=== PATIENT | female | born 1970 | race Caucasian/White ===

== ENCOUNTER 2018-09-23 00:44 | Emergency (ER) | payer BC, SELFPAY ==
[2018-09-23 00:46] VITALS: BP 208/103; PULSE 68; RESP 18; TEMP 36.9; O2SAT 99; BMI 36.1
--- NOTE | 2018-09-23 01:14 | CT_ITS ---
STUDY: CT BRAIN WITHOUT CONTRAST REASON FOR EXAM: Female, 48 years old. Left-sided headache since September 20, 2018. RADIATION DOSAGE (If Supplied By Facility): CTDIvol = ( 44.99 ) mGy, DLP = ( 728.62 ) mGycm TECHNIQUE: Transaxial CT imaging of the brain was performed without administration of intravenous contrast material. Multiplanar reformations are submitted for interpretation. Individualized dose optimization techniques were used for this CT. COMPARISON: None. FINDINGS: Normal soft tissue structures. Normal calvarium. Normal size ventricles and extra-axial spaces for the patient's age. Normal white matter tracts of the cerebral hemispheres. Normal basal ganglia and thalami. Normal brainstem. Normal cerebellum. There is no intracranial hemorrhage. There is mild atherosclerotic calcification of the intracranial arteries. Normal visualized paranasal sinuses. CT/Brain/Head without Contrast IMPRESSION: No CT evidence of acute intracranial hemorrhage. Electronically Signed: Lisa Barboza MD at 2:13 EDT , Service support ,
[2018-09-23] MEDS: Ketorolac 30 MG/ML Syringe IV (01:21)
--- NOTE | 2018-09-23 02:28 | ED.VISSUMM ---
- ER Visit Summary Date of Service: 09/23/18 Chief Complaint: Left-sided headache History of Present Illness: The patient is a 48 F history of hypertension, cholesterol and prior stroke around 2012 that her symptoms totally resolved. She was told she may have had a minor dissection of her carotid and thrown a clot but her symptoms totally resolved. She was treated at the [facility] at that time. States that she has had a left-sided headache since morning. She awoke with but not because of the headache and has had it since that time initially was behind her left eye and now is more in the left posterior back of her head. She denies any trouble moving her arms and legs. States she had some tingling on the right side but she got up and walked around and that totally resolved. She is having no trouble with her speech. Physical Examination: Well-appearing middle-age female. Vital signs are stable and afebrile. Her initial blood pressure was 208/103 which will be rechecked. HEENT exam normal. Normal speech. No facial droop. Pupils are round reactive light. Extra motions are intact. Neck nontender. No meningismus. Able to touch chin to chest. Lungs clear to auscultation bilaterally. Heart regular rate and rhythm no murmur. Chest wall nontender. Abdomen soft nontender. Normal bowel sounds no peritoneal signs. She is moving all 4 extremities. They are neurovascular intact. Back exam normal. Neurologically she is awake alert. Has no focal motor or sensory deficits. 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 Fingertip to nose within normal limits bilaterally. She can do rapid hand movements with both hands equally and symmetrically. Dorsi and plantar flexion is intact. She has 5 out of 5 motor strength in both lower extremities. [id number] is within normal limits. Her NIH score is 0. Test Results: CT of the brain done without contrast shows no acute abnormalities read by the radiologist and reviewed by me. Patient and I and her discussed a CTA of her neck due to her sister who is her twin sister had carotid disease but they deferred at this time. She thinks this is all second anxiety and just wanted a dose of Ativan. Her repeat neurologic exam at remains normal with an NIH is 0. Emergency Department Course and Treatment: Patient treated with IV Toradol with limited results. On repeat exam at 02 10 he still has a mild left-sided headache but a normal neurologic exam. She did not want anything else for pain. Treatment Plan: Follow-up with her primary care physician. Patient had extensive MRI and brain imaging in the past which showed no signs of aneurysms or any other acute abnormalities. Disposition: Discharge Impression: Acute left-sided headache of uncertain etiology This note was generated with [employer] dictation software. It may contain incorrect words, spelling, and punctuation that were not noted in review of the chart prior to signing ED Disposition - Plan for ED Patient: Disposition: Home or Assisted Living Instructions: ED Cephalgia Unspecified Referrals: Duong Mckeon MD [Primary Care Provider] - 1-2 Days if not improving Additional Instructions: Plenty of fluids and rest. Return to ER if feeling worse. Follow-up with your primary care physician if not improving.
--- NOTE | 2018-09-23 02:32 | ED.DCSUM_ITS ---
- ER Visit Summary Date of Service: 09/23/18 Chief Complaint: Left-sided headache History of Present Illness: The patient is a 48 F history of hypertension, cholesterol and prior stroke around 2012 that her symptoms totally resolved. She was told she may have had a minor dissection of her carotid and thrown a clot but her symptoms totally resolved. She was treated at the [facility] at that time. States that she has had a left-sided headache since morning. She awoke with but not because of the headache and has had it since that time initially was behind her left eye and now is more in the left posterior back of her head. She denies any trouble moving her arms and legs. States she had some tingling on the right side but she got up and walked around and that totally resolved. She is having no trouble with her speech. Physical Examination: Well-appearing middle-age female. Vital signs are stable and afebrile. Her initial blood pressure was 208/103 which will be rechecked. HEENT exam normal. Normal speech. No facial droop. Pupils are round reactive light. Extra motions are intact. Neck nontender. No meningismus. Able to touch chin to chest. Lungs clear to auscultation bilaterally. Heart regular rate and rhythm no murmur. Chest wall nontender. Abdomen soft nontender. Normal bowel sounds no peritoneal signs. She is moving all 4 extremities. They are neurovascular intact. Back exam normal. Neurologically she is awake alert. Has no focal motor or sensory deficits. 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 Fingertip to nose within normal limits bilaterally. She can do rapid hand movements with both hands equally and symmetrically. Dorsi and plantar flexion is intact. She has 5 out of 5 motor strength in both lower extremities. Vkon-[id number] is within normal limits. Her NIH score is 0. Test Results: CT of the brain done without contrast shows no acute abnormalities read by the radiologist and reviewed by me. Patient and I and her discussed a CTA of her neck due to her sister who is her twin sister had carotid disease but they deferred at this time. She thinks this is all second anxiety and just wanted a dose of Ativan. Her repeat neurologic exam at remains normal with an NIH is 0. Emergency Department Course and Treatment: Patient treated with IV Toradol with limited results. On repeat exam at 02 10 he still has a mild left-sided headache but a normal neurologic exam. She did not want anything else for pain. Treatment Plan: Follow-up with her primary care physician. Patient had extensiv e MRI and brain imaging in the past which showed no signs of aneurysms or any other acute abnormalities. Disposition: Discharge Impression: Acute left-sided headache of uncertain etiology This note was generated with [employer] dictation software. It may contain incorrect words, spelling, and punctuation that were not noted in review of the chart prior to signing ED Disposition - Plan for ED Patient: Disposition: Home or Assisted Living Instructions: ED Cephalgia Unspecified Referrals: Duong Mckeon MD [Primary Care Provider] - 1-2 Days if not improving Additional Instructions: Plenty of fluids and rest. Return to ER if feeling worse. Follow-up with your primary care physician if not improving.
[2018-09-23 02:35] VITALS: BP 161/84; PULSE 59; RESP 17; O2SAT 98
[2018-09-23] MEDS: LORazepam 1 MG Tablet PO (02:47)
== END 2018-09-23 02:52 | disposition home or self-care (01) ==
PROVIDERS: Emergency Provider Emergency Medicine; Family Provider Family Medicine; PCP Family Medicine
DX: R51 Headache (principal); I10 Essential (primary) hypertension; E78.00 Pure hypercholesterolemia, unspecified; F32.9 Major depressive disorder, single episode, unspecified; Z86.73 Personal history of transient ischemic attack (TIA), and cerebral infarction without residual deficits; Z72.0 Tobacco use; Z79.82 Long term (current) use of aspirin; Z79.899 Other long term (current) drug therapy
CPT/HCPCS: 70450; 96374; 99284; A4216

== ENCOUNTER 2018-10-06 23:13 | Inpatient (IN) | payer BC, SELFPAY ==
[2018-10-06 23:14] VITALS: BP 205/100; PULSE 81; RESP 14; TEMP 36.4; O2SAT 97; BMI 34.9
[2018-10-07] VITALS (14 sets, daily range): BP systolic 132–188; BP diastolic 63–94; PULSE 66–80; RESP 13–18; TEMP 36.7–37.1; O2SAT 96–98; BMI 35.2
--- NOTE | 2018-10-07 00:18 | CT_ITS ---
STUDY: CT BRAIN WITHOUT CONTRAST REASON FOR EXAM: Female, 48 years old. Headache RADIATION DOSAGE (If Supplied By Facility): CTDIvol = ( 44.99 ) mGy, DLP = ( 745.49 ) mGycm TECHNIQUE: Transaxial CT imaging of the brain was performed without administration of intravenous contrast material. Individualized dose optimization techniques were used for this CT. COMPARISON: September 23, 2018 FINDINGS: Normal soft tissue structures. Normal calvarium. Normal size ventricles and extra-axial spaces for the patient's age. Normal white matter tracts of the cerebral hemispheres. Normal basal ganglia and thalami. Normal brainstem. Normal cerebellum. There is no intracranial hemorrhage. There are no findings of an acute ischemic infarction. Paranasal sinus disease. CT/Brain/Head without Contrast IMPRESSION: No acute territorial infarct or intracranial hemorrhage identified. Paranasal sinus disease. Electronically Signed: Ger Ramirez, at 2:52 EDT Tel , Service support ,
--- NOTE | 2018-10-07 00:18 | RAD_ITS ---
STUDY: X-RAY CHEST REASON FOR EXAM: Female, 48 years old. Cough TECHNIQUE: Single frontal view of the chest. COMPARISON: None. FINDINGS: The lungs are clear and expanded. There is no demonstrated pleural abnormality. Normal size heart. Normal mediastinum and derek. Normal visualized pulmonary arteries. Normal visualized aortic arch and descending thoracic aorta. Normal visualized thoracic spine. Normal visualized ribs, clavicles, and shoulders. There is no demonstrated abnormality of the visualized soft tissue structures of the upper abdomen. RAD/Chest 1 View IMPRESSION: Normal x-ray examination of the chest. Electronically Signed: Ger Ramirez, at 1:06 EDT Tel , Service support ,
--- NOTE | 2018-10-07 00:18 | EKG12_ITS ---
Test Reason : NEURO S/SX Blood Pressure : / mmHG Vent. Rate : 066 BPM Atrial Rate : 066 BPM P-R Int : 152 ms QRS Dur : 082 ms QT Int : 430 ms P-R-T Axes : 035 016 040 degrees QTc Int : 450 ms Normal sinus rhythm Normal ECG Confirmed by PANCHO LOBO, PETER ([id number]), editor managing director SALOME MCCARTY ([id number]) on 10/09/2018 1:11:03 PM Referred By: MARIA VICTORIA Confirmed By:PETER DELEON MD
--- NOTE | 2018-10-07 00:52 | ED.RN ---
ATTEMPTED TO CALL PHARMACY 3 TIMES REGARDING TRANDATE, NO ANSWER.
[2018-10-07 00:53] LABS: Absolute Lymphocyte Count 1.65 X10^3/ul (0.83-4.51); Absolute Neutrophil Count 6.3 X10^3/uL (2.0-7.7); Basophil# 0.02 X10^3/uL; Basophil% 0.2 % (0-1); Eosinophils% 1.1 % (0-5); Hematocrit 39.4 % (37-47); Hemoglobin 13.4 g/dl (12.0-15.0); Lymphocyte # 1.65 X10^3/ul (4.0); Lymphocyte % 18.7 % (19-41); Mean Corpuscular Hgb 28.8 pg (27.0-32.0); Mean Corpuscular Volume 84.7 fL (81-99); Mean Platelet Vol. 10.3 fl (6.2-12.0); Monocyte# 0.76 X10^3/uL; Monocyte% 8.6 % (0-10); Neutrophil # 6.26 X10^3/uL (2.7-7.7); Neutrophil % 71.2 % (47-70); POSITIVE COUNT NO; POSITIVE DIFFERENTIAL NO; POSITIVE MORPHOLOGY NO; Platelet Count 359 K/mm3 (150-450); RBC Distribution Width CV 12.7 % (11.6-14.6); RBC Distribution Width SD 38.2 fl (35.1-43.9); Red Blood Count 4.65 M/mm3 (4.2-5.4); White Blood Count 8.8 K/mm3 (4.4-11.0)
[2018-10-07 00:55] LABS: Prothrombin Time (Protime)PT. 12.9 SECONDS (11.7-14.9)
[2018-10-07 00:57] LABS: Partial Thromboplast Time 34.3 Seconds (24.1-36.2)
[2018-10-07 01:06] LABS: Anion Gap 5 (5-15); BUN 9 mg/dL (7-18); BUN/Creat Ratio 13.5 RATIO (10-20); Calcium,Total 7.9 mg/dL (8.5-10.1); Chloride 108 mmol/L (98-107); Creatinine, Serum 0.67 mg/dL (0.55-1.02); EST Glomerular Filtration Rate 99 mL/min (>60); Est Glom Filt Rate - Afr Amer 120 mL/min (>60); Glucose 116 mg/dL (74-106); Potassium 3.2 mmol/L (3.5-5.1); Sodium Level 137 mmol/L (136-145)
--- NOTE | 2018-10-07 03:10 | ED.VISSUMM ---
- ER Visit Summary Date of Service: 10/07/18 Chief Complaint: Headache, right-sided numbness History of Present Illness: The patient is a 48 F who presents with right-sided paresthesias. She was recently seen in the emergency department. At that time she was having left-sided headache right visual changes and right-sided numbness. 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 She states tonight she also developed some numbness in her tongue and around her lips. Her left-sided headache is resolved but she continues to have an occipital headache. She has ongoing right-sided paresthesias. No fever, chest pain, shortness of breath, vomiting, diarrhea. Denies any weakness. Does have a history of prior stroke. This was attributed to a carotid dissection. Physical Examination: Initial blood pressure 205/100 vitals otherwise normal Moist mucous membranes Heart regular rate and rhythm Lungs are clear Abdomen soft Alert oriented, NIH stroke scale is 1 due to decreased sensation to light touch of the right arm and leg she has normal strength cranial nerves are intact no ataxia Test Results: EKG shows sinus rhythm at a rate of 66. Labs notable for potassium 3.2. Normal coagulation studies. Negative troponin. Chest x-ray normal. CT of the head shows no acute infarct. Emergency Department Course and Treatment: Patient was given IV labetalol. Workup as above essentially unremarkable. Given that this is the patient's second visit with neurological symptoms and history of prior stroke I do feel she should be admitted for further workup including MRI of the brain. Patient is agreeable. Patient discussed with the hospitalist and admitted. Treatment Plan: [] Disposition: Admit Impression: Paresthesias This note was generated with [employer] dictation software. It may contain incorrect words, spelling, and punctuation that were not noted in review of the chart prior to signing ED Disposition - Plan for ED Patient: Referrals: Duong Mckeon MD [Primary Care Provider] -
--- NOTE | 2018-10-07 03:13 | ED.DCSUM_ITS ---
- ER Visit Summary Date of Service: 10/07/18 Chief Complaint: Headache, right-sided numbness History of Present Illness: The patient is a 48 F who presents with right-sided paresthesias. She was recently seen in the emergency department. At that time she was having left-sided headache right visual changes and right-sided numbness. 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 She states tonight she also developed some numbness in her tongue and around her lips. Her left-sided headache is resolved but she continues to have an occipital headache. She has ongoing right-sided paresthesias. No fever, chest pain, shortness of breath, vomiting, diarrhea. Denies any weakness. Does have a history of prior stroke. This was attributed to a carotid dissection. Physical Examination: Initial blood pressure 205/100 vitals otherwise normal Moist mucous membranes Heart regular rate and rhythm Lungs are clear Abdomen soft Alert oriented, NIH stroke scale is 1 due to decreased sensation to light touch of the right arm and leg she has normal strength cranial nerves are intact no ataxia Test Results: EKG shows sinus rhythm at a rate of 66. Labs notable for potassium 3.2. Normal coagulation studies. Negative troponin. Chest x-ray n ormal. CT of the head shows no acute infarct. Emergency Department Course and Treatment: Patient was given IV labetalol. Workup as above essentially unremarkable. Given that this is the patient's second visit with neurological symptoms and history of prior stroke I do feel she should be admitted for further workup including MRI of the brain. Patient i s agreeable. Patient discussed with the hospitalist and admitted. Treatment Plan: [] Disposition: Admit Impression: Paresthesias This note was generated with [employer] dictation software. It may contain incorrect words, spelling, and punctuation that were not noted in review of the chart prior to signing ED Disposition - Plan for ED Patient: Referrals: Duong Mckeon MD [Primary Care Provider] -
--- NOTE | 2018-10-07 05:18 | MRI_ITS ---
STUDY: MRA NECK WITH AND WITHOUT CONTRAST REASON FOR EXAM: Female, 48 years old. Numbness and tingling, right-sided numbness and tingling. Vision for 2 weeks. TECHNIQUE: 3-D pabx-ir-uakdct (TOF) imaging was performed in an 1.5 T MRI scanner. 15 IV Dotarem was administered for the contrast enhanced images. COMPARISON: None. FINDINGS: RIGHT CAROTID ARTERIES: Normal right common carotid artery (CCA). Normal right common carotid bulb. Normal origin of the right internal carotid (ICA) artery without a hemodynamically significant stenosis. Normal visualized cervical portion of the right internal carotid artery. Normal origin of the right external carotid artery (ECA). LEFT CAROTID ARTERIES: Normal left common carotid artery (CCA). Normal left common carotid bulb. Normal origin of the left internal carotid (ICA) artery without a hemodynamically significant stenosis. Normal visualized cervical portion of the left internal carotid artery. Normal origin of the left external carotid artery (ECA). VERTEBRAL ARTERIES: Normal antegrade flow within the bilateral vertebral artery without a hemodynamically significant stenosis. MRI/MRA Neck WITH and W/O Contrast IMPRESSION: No evidence of significant steno-occlusive disease or aneurysm. Electronically Signed: Vijay Ricketts DO at 12:04 EDT , Service support ,
--- NOTE | 2018-10-07 05:18 | MRI_ITS ---
STUDY: MRI BRAIN WITHOUT CONTRAST REASON FOR EXAM: Female, 48 years old. Numbness and tingling within the right side with blurred vision and headache. TECHNIQUE: Standardized multiplanar fat and water weighted pulse sequences were obtained. COMPARISON: None. FINDINGS: Normal size of the ventricles and extra-axial spaces for the patient's age. Normal white matter tracts of the supratentorial brain. There is a focal region of DWI signal with corresponding low signal on ADC map measuring 1.7 x 0.6 cm within the posterior left limbic region of the medial temporal lobe/hippocampus as seen on series 3 image 12 . Normal T2* images of the brain without demonstrated susceptibility artifact. There is no demonstrated hemosiderin stain. Normal bilateral basal ganglia. Normal thalami. There is no extra-axial fluid accumulation. Normal flow voids within the major intracranial circulation suggesting patency by spin echo criteria. Normal sella turcica, pituitary gland, infundibular stalk, optic chiasm and hypothalamus. Normal tectal plate and pineal gland. Normal midbrain, gemma and medulla. Normal cerebellum. Normal basal cisterns. Normal bilateral temporal bones. Normal bilateral internal auditory canals. No demonstrated orbital abnormality, within the constraints of a routine brain study. Normal visualized paranasal sinuses. Normal calvarium and skull base. Normal visualized soft tissue structures. Normal visualized upper cervical spine. 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 No evidence of large territorial ischemia. Electronically Signed: Vijay Ricketts DO at 11:32 EDT , Service support ,
--- NOTE | 2018-10-07 05:18 | ECHOD_ITS ---
Reason For Study: TIA/CVA Procedure This was a 2D Doppler, Color Flow transthoracic echocardiogram. Exam performed portable in patient room. Left Ventricle Normal LV size. Left ventricular systolic function is normal. The estimated ejection fraction is 60 %. Stage 1 diastolic dysfunction. No regional wall motion abnormalities noted. Right Ventricle Normal RV size. Normal systolic function. Atria Normal left atrium. Normal right atrium. Bubble contrast study negative for right to left interatrial shunt. Mitral Valve Normal mitral valve. Tricuspid Valve Normal tricuspid valve. Aortic Valve Trisinus/trileaflet aortic valve. Pulmonic Valve Normal pulmonic valve. Great Vessels Normal aortic root. The pulmonary artery is normal size. Normal inferior vena cava. Pericardium/Pleural No pericardial effusion. Medication Performed a rapid injection of agitated mix of 9 cc saline and 1cc air to assess for atrial septal defect. MMode/2D Measurements & Calculations LVIDd: 3.5 cm IVSd: 1.4 cm Ao root diam: 3.1 cm LVIDs: 2.0 cm LVPWd: 1.1 cm LA dimension: 3.8 cm RVDd: 3.1 cm FS: 43.3 % LAV(MOD-bp): 48.8 ml LA A4 area: 17.6 cm2 RA A4 area: 15.2 cm2 LAV(MOD-bp) Indexed: 26.6 ml/m2 LAV(MOD-sp2): 47.6 ml LAV(MOD-sp4): 48.6 ml Time Measurements MV dec time: 0.22 sec Doppler Measurements & Calculations MV E max marco antonio: 81.4 cm/sec Lat Peak E' Marco Antonio: 8.6 cm/sec Med Peak E' Marco Antonio: 8.1 cm/sec MV A max marco antonio: 87.9 cm/sec E/E' lat: 9.4 E/E' med: 10.0 MV E/A: 0.93 MV V2 max: 107.9 cm/sec MV P1/2t max marco antonio: 108.8 cm/sec Ao V2 max: 149.5 cm/sec MV max P.7 mmHg MV P1/2t: 70.8 msec Ao max P.9 mmHg MV V2 mean: 57.6 cm/sec MV dec slope: 450.2 cm/sec2 MV mean P.6 mmHg MV V2 VTI: 31.8 cm MVA(P1/2t): 3.1 cm2 LV V1 max: 119.0 cm/sec PA V2 max: 134.8 cm/sec LV V1 max P.7 mmHg Interpretation Summary Normal LV size. Left ventricular systolic function is normal. The estimated ejection fraction is 60 %. Stage 1 diastolic dysfunction. Bubble contrast study negative for right to left interatrial shunt. Ordering Physician: Silverio Stout Referring Physician: ROXY HANNA Performed By: Charles Cottrell RCS
--- NOTE | 2018-10-07 05:18 | MRI_ITS ---
STUDY: MRA OF THE HEAD WITHOUT CONTRAST REASON FOR EXAM: Female, 48 years old. Numbness and tingling with headache on the right side with blurred vision for 2 weeks. TECHNIQUE: 3-D gexh-ir-jepmcv (TOF) imaging was performed with MIPs. The study was performed unenhanced. COMPARISON: None. FINDINGS: Normal bilateral petrous carotid arteries. Normal right cavernous carotid artery with a normal supraclinoid bifurcation. Normal left cavernous carotid artery with a normal supraclinoid bifurcation. Normal right A1 segments of the anterior cerebral artery. Normal left A1 segments of the anterior cerebral artery. There is non-visualization of the anterior communicating artery (ACOM). Normal bilateral A2 segments of the anterior cerebral arteries. Normal right M1 and M2 segments of the middle cerebral arteries, with a normal M1 bifurcation. Normal left M1 and M2 segments of the middle cerebral arteries, with a normal M1 bifurcation. Normal right posterior communicating artery (PCOM). There is non-visualization of the left posterior communicating artery (PCOM). Normal bilateral vertebral arteries. Normal basilar artery with a normal basilar bifurcation. The visualized bilateral superior cerebellar (SCA) arteries are normal. The left posterior cerebral artery demonstrates a diminutive appearance with significant decreased flow within the P2 and P3 segments corresponding to the distribution of the left hippocampal infarct. There is no demonstrated aneurysm of the unga of [place]. There is no major vessel occlusion or hemodynamically significant stenosis. There is no demonstrated abnormality of the visualized brain. MRI/MRA Head ONLY without Contrast IMPRESSION: 1. Diminutive flow and apparent vessel cut off within the mid P2 the distal P3 segments of the left posterior cerebral artery corresponding to the territory of the left hippocampus. Electronically Signed: Vijay Ricketts DO at 11:32 EDT , Service support ,
--- NOTE | 2018-10-07 05:23 | PCM.HP.STD ---
Problem List (1) Right-sided paresthesias Status: Acute History of Present Illness Date of Admission: 10/07/18 Chief Complaint: Right-sided paresthesias The patient is a 48 year old F who was seen in the emergency room at [facility] with complaints of right arm, right leg, and right mid abdominal wall paresthesias. Patient was seen in the emergency room on 09/23/18 with complaints of headache and sensation of tingling on her right side. Workup at that time was unremarkable. Patient was felt to have a left-sided headache of unknown etiology-possibly migraine although patient has had no history of migraine cephalgia. Patient then followed up with her family doctor as an outpatient but she states that her family doctor was unable to get approval for additional testing to be performed on the patient. Starting at approximately 11 PM on 10/06/18, patient had some tingling of her lips and tongue, she states that she still has some tingling and numb sensation of her right arm, right leg, and an area over her right mid abdominal wall extending into her right flank area. Patient has a past history of stroke and was seen at the [facility] and hospitalized for 3 days in 2012 for this stroke. Patient admitted that she never followed up with a neurologist as an outpatient-she stated that her son had medical problems and she never followed up with a neurologist. Patient also states that her MRI scan at the [facility] was unremarkable. Patient states in 2012 during this episode, she had dizziness and extreme nausea. Workup in the emergency room this morning included a CT of her brain which was unremarkable, CBC was unremarkable, chemistry panel was remarkable for a potassium of 3.2 and a glucose of 116. Patient's NIH stroke score was 1. Patient will be placed into observation status on PCU, MRI of the brain, MRA of the head and neck as well as a hypercoagulability workup panel will be ordered. Echocardiogram will be ordered. I have my doubts that the patient actually had a stroke in 2012, I do not have her records available to review them. Past Medical History Past Medical History (Chronic Problems): Chronic Problems Hypothyroidism (Chronic) Depression (Chronic) Allergies No Known Allergies Allergy (Verified 10/06/18 23:19) Home Medications: Ambulatory Orders Medication Instructions Recorded Levothyroxine [Synthroid] 25 mcg PO DAILY 09/08/13 Paroxetine HCl [Paxil] 10 mg PO DAILY 09/08/13 Atenolol [Tenormin (beta tez)] 25 mg PO DAILY 01/07/17 Atorvastatin Calcium 20 mg PO QHS 01/07/17 buPROPion XL [Wellbutrin Xl] 300 mg PO DAILY 01/07/17 Aspirin [Aspirin, Baby] 1 tab PO DAILY 09/23/18 Surgical History: - - Psychiatric History: Anxiety, Depression 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 Lives: Spouse/ Significant Other Smoking Status: Current some day smoker Tobacco Use: Cigarettes Alcohol: Rare Drugs: None - *Family History Maternal History Items: Heart Disease, Stroke Paternal History Items: Heart Disease Review of Systems Constitutional: Denies: Anorexia, Chills, Fever, Night Sweats, Malaise, Weakness, Weight Change, Fatigue Eyes: Denies: Cataracts, Conjunctivae Inflammation, Double vision, Drainage HEENT: Denies: Dysphasia, Ear Pain, Eye Pain, Hard of Hearing, Hearing Changes, Nasal bleeding, Nasal Congestion, Post Nasal Drip Cardiovascular: Denies: Chest Pain, Claudication, Chest Pressure, Chest Tightness, Edema, Heaviness, Palpitations Respiratory: Denies: Cough, Hemoptysis, Pleuritic Pain, Shortness of Breath, Shortness of breath at rest, Shortness of breath upon exertion Gastrointestinal: Denies: Abdominal Pain, Constipation, Diarrhea, Hematemesis, Hematochezia, Nausea, Melena, Vomiting Genitourinary: Denies: Dysuria, Frequency, Hematuria, Hesitancy, Incontinence, Nocturia, Retention, Urgency Gynecological: Denies: Breast symptoms Musculoskeletal: Denies: Back Pain, Foot Pain, Hand Pain, Joint Pain, Joint stiffness, Joint swelling, Joint Tenderness, Leg Pain Skin: Denies: Dryness, Jaundice, Lesions, Pruritis, Rash Neurological: Reports: Numbness - Right abdominal wall paresthesias, right leg and right arm paresthesias. Denies: Balance problems, Blurred vision, Double vision, Slurred speech, Difficulty swallowing, Focal weakness, Incoordination, Tingling Psychiatric: Reports: Anxiety, Depression. Denies: Homicidal Ideations, Suicidal Ideations Endocrine: Denies: Change in Body Habitus, Heat/ Cold Intolerance, Polydipsia, Polyuria Hematologic/ Lymphatic: Denies: Adenopathy, Anemia, Easy Bruising, Easy Bleeding, Petechiae, Purpura VTE Information - Inpt Only VTE Present on Admission: No VTE Mechan Device Prophylaxis: None VTE Pharm Prophylaxis ordered?: Yes Patient Problems: Active and Suspected Problems Right-sided paresthesias (Acute) - Physical Exam General: Alert, Oriented x3, Cooperative, No apparent distress, Well developed, Well nourished HEENT: Atraumatic, PERRLA, EOMI, Normocephalic Oral: Moist Mucosa Neck: Supple, No JVD, Negative Carotid Bruits, No Nuchal Rigidity, Trachea Midline, Thyroid Normal Size and Texture Lungs: Clear to auscultation, Normal air movement, No rhonchi, No wheeze, No rales Cardiovascular: Regular rate, Regular Rhythm, Normal S1, Normal S2, No murmurs, PMI Normal, No rub noted, No Gallop Abdomen: Bowel Sounds Present, Soft, Non Tender, Non-Distended, No hernias noted Extremities: No clubbing, No cyanosis, No edema, Capillary Refill Less than 3 Seconds Skin: No rashes, No breakdown Neurological: Cranial nerves II-XII grossly intact, Neuro grossly intact, Sensory exam intact to light touch and pain, Coordination normal Psych/Mental Status: Normal Affect, Appropriate, Alert and oriented to time, place, person, mood and affect Vital Signs Temp Pulse Resp BP Pulse Ox 97.6 F L 66 14 152/84 H 96 10/06/18 23:14 10/07/18 03:02 10/07/18 03:02 10/07/18 03:02 10/07/18 03:02 Oxygen Delivery Method Room Air Weight: 83.915 kg Body Mass Index (BMI) 34.9 Laboratory Tests Past 24 Hrs 10/07/18 10/07/18 10/07/18 00:33 00:33 00:33 WBC 8.8 RBC 4.65 Hgb 13.4 Hct 39.4 MCV 84.7 MCH 28.8 MCHC 34.0 RDW 12.7 RDW Differential 38.2 Plt Count 359 MPV 10.3 Immature Gran % (Auto) 0.200 Neut % (Auto) 71.2 H Lymph % (Auto) 18.7 L [place] % (Auto) 8.6 Eos % (Auto) 1.1 Baso % (Auto) 0.2 Absolute Neuts (auto) 6.3 Absolute Lymphs (auto) 1.65 Total Counted Not Reportable PT 12.9 INR 1.0 APTT 34.3 Sodium 137 Potassium 3.2 L Chloride 108 H Carbon Dioxide 24.0 Anion Gap 5 BUN 9 Creatinine 0.67 Estim Creat Clear Calc 75.80 Est GFR (MDRD) Af Amer 120 Est GFR (MDRD) Non-Af 99 BUN/Creatinine Ratio 13.5 Glucose 116 H Calcium 7.9 L Troponin I < 0.015 Assessment/Plan All Active Problems Right-sided paresthesias (Acute) #1 right-sided paresthesias-patient will be placed and observation status on PCU, patient will be seen by PT OT and speech, patient will undergo an echocardiogram, she will have a hypercoagulable panel drawn, patient will have an MRI of the brain, and MRA of the head and neck performed. Main on a statin and aspirin #2 chronic anxiety and depression-patient will remain on her present medications #3 hypothyroidism Code Visit OBSV E&M: 24581 Initial observation care L3
--- NOTE | 2018-10-07 05:37 | HP.PCM_ITS ---
Problem List (1) Right-sided paresthesias Status: Acute History of Present Illness Date of Admission: 10/07/18 Chief Complaint: Right-sided paresthesias The patient is a 48 year old F who was seen in the emergency room at [facility] with complaints of right arm, right leg, and right mid abdominal wall paresthesias. Patient was seen in the emergency room on 09/23/18 with complaints of headache and sensation of tingling on her right side. Workup at that time was unremarkable. Patient was felt to have a left-sided headache of unknown etiology-possibly migraine although patient has had no history of migraine cephalgia. Patient then followed up with her family doctor as an outpatient but she states that her family doctor was unable to get approval for additional testing to be performed on the patient. Starting at approximately 11 PM on 10/06/18, patient had some tingling of her lips and tongue, she states that she still has some tingling and numb sensation of her right arm, right leg, and an area over her right mid abdominal wall extending into her right flank area. Patient has a past history of stroke and was seen at the [facility] and hospitalized for 3 days in 2012 for this stroke. Patient admitted that she never followed up with a neurologist as an outpatient-she stated that her son had medical problems and she never followed up with a neurologist. Patient also states that her MRI scan at the [facility] was unremarkable. Patient states in 2012 during this episode, she had dizziness and extreme nausea. Workup in the emergency room this morning included a CT of her brain which was unremarkable, CBC was unremarkable, chemistry panel was remarkable for a potassium of 3.2 and a glucose of 116. Patient's NIH stroke score was 1. Patient will be placed into observation status on PCU, MRI of the brain, MRA of the head and neck as well as a hypercoagulability workup panel will be ordered. Echocardiogram will be ordered. I have my doubts that the patient actually had a stroke in 2012, I do not have her records available to review them. Past Medical History Past Medical History (Chronic Problems): Chronic Problems Hypothyroidism (Chronic) Depression (Chronic) Allergies No Known Allergies Allergy (Verified 10/06/18 23:19) Home Medications: Ambulatory Orders Medication Instructions Recorded Levothyroxine [Synthroid] 25 mcg PO DAILY 09/08/13 Paroxetine HCl [Paxil] 10 mg PO DAILY 09/08/13 Atenolol [Tenormin (beta tez)] 25 mg PO DAILY 01/07/17 Atorvastatin Calcium 20 mg PO QHS 01/07/17 buPROPion XL [Wellbutrin Xl] 300 mg PO DAILY 01/07/17 Aspirin [Aspirin, Baby] 1 tab PO DAILY 09/23/18 Surgical History: - - Psychiatric History: Anxiety, Depression 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 Lives: Spouse/ Significant Other Smoking Status: Current some day smoker Tobacco Use: Cigarettes Alcohol: Rare Drugs: None - *Family History Maternal History Items: Heart Disease, Stroke Paternal History Items: Heart Disease Review of Systems Constitutional: Denies: Anorexia, Chills, Fever, Night Sweats, Malaise, Weakness, Weight Change, Fatigue Eyes: Denies: Cataracts, Conjunctivae Inflammation, Double vision, Drainage HEENT: Denies: Dysphasia, Ear Pain, Eye Pain, Hard of Hearing, Hearing Changes, Nasal bleeding, Nasal Congestion, Post Nasal Drip Cardiovascular: Denies: Chest Pain, Claudication, Chest Pressure, Chest Tightness, Edema, Heaviness, Palpitations Respiratory: Denies: Cough, Hemoptysis, Pleuritic Pain, Shortness of Breath, Shortness of breath at rest, Shortness of breath upon exertion Gastrointestinal: Denies: Abdominal Pain, Constipation, Diarrhea, Hematemesis, Hematochezia, Nausea, Melena, Vomiting Genitourinary: Denies: Dysuria, Frequency, Hematuria, Hesitancy, Incontinence, Nocturia, Retention, Urgency Gynecological: Denies: Breast symptoms Musculoskeletal: Denies: Back Pain, Foot Pain, Hand Pain, Joint Pain, Joint stiffness, Joint swelling, Joint Tenderness, Leg Pain Skin: Denies: Dryness, Jaundice, Lesions, Pruritis, Rash Neurological: Reports: Numbness - Right abdominal wall paresthesias, right leg and right arm paresthesias. Denies: Balance problems, Blurred vision, Double vision, Slurred speech, Difficulty swallowing, Focal weakness, Incoordination, Tingling Psychiatric: Reports: Anxiety, Depression. Denies: Homicidal Ideations, Suicidal Ideations Endocrine: Denies: Change in Body Habitus, Heat/ Cold Intolerance, Polydipsia, Polyuria Hematologic/ Lymphatic: Denies: Adenopathy, Anemia, Easy Bruising, Easy Bleeding, Petechiae, Purpura VTE Information - Inpt Only VTE Present on Admission: No VTE Mechan Device Prophylaxis: None VTE Pharm Prophylaxis ordered?: Yes Patient Problems: Active and Suspected Problems Right-sided paresthesias (Acute) - Physical Exam General: Alert, Oriented x3, Cooperative, No apparent distress, Well developed, Well nourished HEENT: Atraumatic, PERRLA, EOMI, Normocephalic Oral: Moist Mucosa Neck: Supple, No JVD, Negative Carotid Bruits, No Nuchal Rigidity, Trachea M idline, Thyroid Normal Size and Texture Lungs: Clear to auscultation, Normal air movement, No rhonchi, No wheeze, No rales Cardiovascular: Regular rate, Regular Rhythm, Normal S1, Normal S2, No murmurs, PMI Normal, No rub noted, No Gallop Abdomen: Bowel Sounds Present, Soft, Non Tender, Non-Distended, No hernias noted Extremities: No clubbing, No cyanosis, No edema, Capillary Refill Less than 3 Seconds Skin: No rashes, No breakdown Neurological: Cranial nerves II-XII grossly intact, Neuro grossly intact, Sensory exam intact to light touch and pain, Coordination normal Psych/Mental Status: Normal Affect, Appropriate, Alert and oriented to time, place, person, mood and affect Vital Signs Temp Pulse Resp BP Pulse Ox 97.6 F L 66 14 152/84 H 96 10/06/18 23:14 10/07/18 03:02 10/07/18 03:02 10/07/18 03:02 10/07/18 03:02 Oxygen Delivery Method Room Air Weight: 83.915 kg Body Mass Index (BMI) 34.9 Laboratory Tests Past 24 Hrs 10/07/18 10/07/18 10/07/18 00:33 00:33 00:33 WBC 8.8 RBC 4.65 Hgb 13.4 Hct 39.4 MCV 84.7 MCH 28.8 MCHC 34.0 RDW 12.7 RDW Differential 38.2 Plt Count 359 MPV 10.3 Immature Gran % (Auto) 0.200 Neut % (Auto) 71.2 H Lymph % (Auto) 18.7 L [place] % (Auto) 8.6 Eos % (Auto) 1.1 Baso % (Auto) 0.2 Absolute Neuts (auto) 6.3 Absolute Lymphs (auto) 1.65 Total Counted Not Reportable PT 12.9 INR 1.0 APTT 34.3 Sodium 137 Potassium 3.2 L Chloride 108 H Carbon Dioxide 24.0 Anion Gap 5 BUN 9 Creatinine 0.67 Estim Creat Clear Calc 75.80 Est GFR (MDRD) Af Amer 120 Est GFR (MDRD) Non-Af 99 BUN/Creatinine Ratio 13.5 Glucose 116 H Calcium 7.9 L Troponin I < 0.015 Assessment/Plan All Active Problems Right-sided paresthesias (Acute) #1 right-sided paresthesias-patient will be placed and observation status on PCU, patient will be seen by PT OT and speech, patient will undergo an echocardiogram, she will have a hypercoagulable panel drawn, patient will have an MRI of the brain, and MRA of the head and neck performed. Main on a statin and aspirin #2 chronic anxiety and depression-patient will remain on her present medications #3 hypothyroidism Code Visit OBSV E&M: 32247 Initial observation care L3
[2018-10-07] MEDS: Levothyroxine 25 MCG TABLET PO (05:55)
[2018-10-07 07:36] LABS: Cholesterol 156 mg/dL (200); High Density Lipoprotein 40 mg/dL; Triglycerides 93 mg/dL; Very Low Density Lipoprotein 19 mg/dL (5-40)
[2018-10-07] MEDS: Aspirin 81 MG TAB.CHEW PO (08:51)
[2018-10-07] MEDS: PARoxetine 10 MG Tablet PO (08:52)
[2018-10-07] MEDS: Acetaminophen 325 MG Tablet 650 MG PO (08:52)
[2018-10-07] MEDS: buPROPion (XL) 300 MG TABLET.XL PO (08:52)
[2018-10-07] MEDS: Atenolol 25 MG Tablet PO (08:52)
[2018-10-07] MEDS: 0.9% NaCl Peripheral Flush Adult/Peds IV (10:17)
[2018-10-07] MEDS: LORazepam 2 MG/ML Syringe 1 MG IV (10:18)
--- NOTE | 2018-10-07 14:11 | PCM.HOSP.N ---
Hospitalist Note The patient was admitted last night for 2 weeks history of blurry vision, right-sided numbness/paresthesia. Chronology of events: Started with left eye blurry vision and then right eye with headache, felt like aura and then right-sided numbness. She did not feel weakness. She saw her PCP and was told she has migraine headache. In ED, NIH stroke scale was 1 from prior left-sided/facial droop from previous stroke 9 years ago in 2012. On exam Sensation on both side to cold and pinprick is equal. No focal weakness. [id number] and heel hunter test normal. DTR 2/4. Patient alert awake oriented x3. NIH stroke scale of 1 Imaging MRI brain reported as focal 1.7 x 0.6 cm infarct within the left posterior hippocampus. No evidence of large territorial ischemia. MRA head reported diminished flow and apparent vessel cutoff within the mid P2, distal P3 segment of left posterior cerebral artery corresponding to territory of left hippocampus. Management and plan The imaging findings discussed with the neurologist, Dr. Bonilla. This was further discussed with the patient and her present in the room. Advised continue aspirin, Plavix and statin, atorvastatin 80 mg daily. Fasting lipid profile TG 93, LDL 97. A1c tomorrow a.m. hypercoagulable workup has been ordered last night and is pending. 2D echo tomorrow a.m. Blood pressure is controlled. Mild hypokalemia: Potassium replaced. Clinical Impression(s) from Imaging Studies Brain CT 10/07/18 00:18 IMPRESSION: No acute territorial infarct or intracranial hemorrhage identified. Paranasal sinus disease. Chest X-Ray 10/07/18 00:18 IMPRESSION: Normal x-ray examination of the chest. Brain MRI 10/07/18 05:18 IMPRESSION: Findings consistent with a focal 1.7 x 0.6 cm infarct within the left posterior hippocampus. No evidence of large territorial ischemia. Head MRA 10/07/18 05:18 IMPRESSION: 1. Diminutive flow and apparent vessel cut off within the mid P2 the distal P3 segments of the left posterior cerebral artery corresponding to the territory of the left hippocampus. Neck MRA 10/07/18 05:18 IMPRESSION: No evidence of significant steno-occlusive disease or aneurysm. Laboratory Results 10/07/18 00:33: WBC 8.8, RBC 4.65, Hgb 13.4, Hct 39.4, MCV 84.7, MCH 28.8, MCHC 34.0, RDW 12.7, RDW Differential 38.2, Plt Count 359, MPV 10.3, Immature Gran % (Auto) 0.200, Neut % (Auto) 71.2 H, Lymph % (Auto) 18.7 L, [place] % (Auto) 8.6, Eos % (Auto) 1.1, Baso % (Auto) 0.2, Absolute Neuts (auto) 6.3, Absolute Lymphs (auto) 1.65, Total Counted Not Reportable 10/07/18 00:33: PT 12.9, INR 1.0, APTT 34.3 10/07/18 00:33: Sodium 137, Potassium 3.2 L, Chloride 108 H, Carbon Dioxide 24.0, Anion Gap 5, BUN 9, Creatinine 0.67, Estim Creat Clear Calc 75.80, Est GFR (MDRD) Af Amer 120, Est GFR (MDRD) Non-Af 99, BUN/Creatinine Ratio 13.5, Glucose 116 H, Calcium 7.9 L, Troponin I < 0.015 10/07/18 06:52: Miscellaneous Test Pending 10/07/18 06:52: Triglycerides 93, Cholesterol 156, LDL Cholesterol 97, VLDL Cholesterol 19, HDL Cholesterol 40 Code Visit Inpatient E&M: 04957 Subs Hosp L1
--- NOTE | 2018-10-07 14:24 | CCHN_ITS ---
Hospitalist Note The patient was admitted last night for 2 weeks history of blurry vision, right- sided numbness/paresthesia. Chronology of events: Started with left eye blurry vision and then right eye with headache, felt like aura and then right-sided numbness. She did not feel weakness. She saw her PCP and was told she has migraine headache. In ED, NIH stroke scale was 1 from prior left-sided/facial droop from previous stroke 9 years ago in 2012. On exam Sensation on both side to cold and pinprick is equal. No focal weakness. Cqvrno-[id number] and heel hunter test normal. DTR 2/4. Patient alert awake oriented x3. NIH stroke scale of 1 Imaging MRI brain reported as focal 1.7 x 0.6 cm infarct within the left posterior hippocampus. No evidence of large territorial ischemia. MRA head reported diminished flow and apparent vessel cutoff within the mid P2, distal P3 segment of left posterior cerebral artery corresponding to territory of left hi ppocampus. Management and plan The imaging findings discussed with the neurologist, Dr. Bonilla. This was further discussed with the patient and her present in the room. Advised continue aspirin, Plavix and statin, atorvastatin 80 mg daily. Fasting lipid profile TG 93, LDL 97. A1c tomorrow a.m. hypercoagulable workup has been ordered last night and is pending. 2D echo tomorrow a.m. Blood pressure is controlled. Mild hypokalemia: Potassium replaced. Clinical Impression(s) from Imaging Studies Brain CT 10/07/18 00:18 IMPRESSION: No acute territorial infarct or intracranial hemorrhage identified. Paranasal sinus disease. Chest X-Ray 10/07/18 00:18 IMPRESSION: Normal x-ray examination of the chest. Brain MRI 10/07/18 05:18 IMPRESSION: Findings consistent with a focal 1.7 x 0.6 cm infarct within the left posterior hippocampus. No evidence of large territorial ischemia. Head MRA 10/07/18 05:18 IMPRESSION: 1. Diminutive flow and apparent vessel cut off within the mid P2 the distal P3 segments of the left posterior cerebral artery corresponding to the territory of the left hippocampus. Neck MRA 10/07/18 05:18 IMPRESSION: No evidence of significant steno-occlusive disease or aneurysm. Laboratory Results 10/07/18 00:33: WBC 8.8, RBC 4.65, Hgb 13.4, Hct 39.4, MCV 84.7, MCH 28.8, MCHC 34.0, RDW 12.7, RDW Differential 38.2, Plt Count 359, MPV 10.3, Immature Gran % (Auto) 0.200, Neut % (Auto) 71.2 H, Lymph % (Auto) 18.7 L, [place] % (Auto) 8.6, Eos % (Auto) 1.1, Baso % (Auto) 0.2, Absolute Neuts (auto) 6.3, Absolute Lymphs (auto) 1.65, Total Counted Not Reportable 10/07/18 00:33: PT 12.9, INR 1.0, APTT 34.3 10/07/18 00:33: Sodium 137, Potassium 3.2 L, Chloride 108 H, Carbon Dioxide 24.0, Anion Gap 5, BUN 9, Creatinine 0.67, Estim Creat Clear Calc 75.80, Est GFR (MDRD) Af Amer 120, Est GFR (MDRD) Non-Af 99, BUN/Creatinine Ratio 13.5, Glucose 116 H, Calcium 7.9 L, Troponin I < 0.015 10/07/18 06:52: Miscellaneous Test Pending 10/07/18 06:52: Triglycerides 93, Cholesterol 156, LDL Cholesterol 97, VLDL Cholesterol 19, HDL Cholesterol 40 Code Visit Inpatient E&M: [id number] Subs Hosp L1
[2018-10-07] MEDS: Clopidogrel Bisulfate 75 MG Tablet PO (14:53)
[2018-10-07] MEDS: Atorvastatin Calcium 80 MG Tablet PO (21:22)
[2018-10-08] VITALS (8 sets, daily range): BP systolic 139–170; BP diastolic 77–88; PULSE 63–74; RESP 16–18; TEMP 36.7–37; O2SAT 97–98; BMI 35.2
[2018-10-08] MEDS: ALPRAZolam 0.5 MG Tablet PO (01:44)
[2018-10-08] MEDS: 0.9% NaCl Peripheral Flush Adult/Peds IV (04:30)
[2018-10-08] MEDS: Levothyroxine 50 MCG Tablet PO (04:30)
[2018-10-08 06:21] LABS: Anion Gap 6 (5-15); BUN 7 mg/dL (7-18); Calcium,Total 8.1 mg/dL (8.5-10.1); Chloride 110 mmol/L (98-107); EST Glomerular Filtration Rate 94 mL/min (>60); Est Glom Filt Rate - Afr Amer 114 mL/min (>60); Estimated Creatinine Clearance 72.55 ml/min; Glucose 93 mg/dL (74-106); Sodium Level 142 mmol/L (136-145)
[2018-10-08] MEDS: Aspirin 81 MG TAB.CHEW PO (09:32)
[2018-10-08] MEDS: Atenolol 50 MG Tablet PO (09:32)
[2018-10-08] MEDS: PARoxetine 10 MG Tablet PO (09:32)
[2018-10-08] MEDS: buPROPion (XL) 300 MG TABLET.XL PO (09:32)
[2018-10-08] MEDS: Clopidogrel Bisulfate 75 MG Tablet PO (09:32)
[2018-10-08 10:42] LABS: Hemoglobin A1c 5.2 % (4.2-6.3)
--- NOTE | 2018-10-08 11:02 | CASEMGMT ---
Addendum entered by Stacey Canales 10/08/18 14:35: Speech is recommending OP speech therapy at this time. Pt is agreeable and would like order faxed to [facility] at this time. Script faxed to [employer] and original to pt at this time. Toña LOU CM Original Note: CARMINE DIAZ assessment: Face to Face with patient for initial transition planning/care coordination assessment. CARMINE DIAZ introduced self and role at [facility], pt voices understanding and consents to assessment at this time. Pt is sitting up in bed in no distress at this time. Pt is A/Ox4 at this time and answers all questions appropriately at this time. Care providers, pharmacy, and demographics verified/updated at this time. PCP: Linda Specialists: Pt states currently has no specialists. Preferred Pharmacy: [facility] Insurance: [place] Prescription Benefit: [place] Living Will/HPOA: Pt states does not have LW/HPOA and declines info at this time. LNOK: Triston Cameron, Living Arrangements: Pt states lives with in 2 story home and states no concerns at home at this time. Pt states is independent with ADL's. Transportation: Pt states drives self and states no transportation concerns at this time. DME/HHC: Pt states no current DME or need for any at this time. Pt states no hx of HHC or SNF in the past. Pt states no concerns with going home at time of discharge. Pt states works [employer]. Pt states was smoking cigarettes occasionally and drinking ETOH occasionally but plans to decrease d/t infarct. Pt states no further concerns/needs at this time. CM to follow for any further discharge planning/needs. Advised pt to ask for CM if any further questions/concerns/needs arise, voices understanding. Plan: Home Toña LOU CM
--- NOTE | 2018-10-08 11:05 | DCINST_ITS ---
- Discharge Diagnoses Current Active Problems: Current Active and Chronic Problems Right-sided paresthesias (Acute) Reason(s) for Visit for Discharge Instructions: Right sided numbness You will use the following diet at home:: Cardiac Your food should be the consistency of: Regular Your liquids should be the consistency of: Regular/Thin Discharge Activity: Return to Normal Activity Weight Bearing Status: Weight bearing as tolerated Additional Instructions: Continue on all your medications. Follow-up on your blood tests that were pending at discharge. Follow-up with Dr. Hart within 2-4 weeks Allergies/Adverse Reactions: Allergies No Known Allergies Allergy (Verified 10/06/18 23:19) Medications to take at Discharge Levothyroxine [Synthroid] 50 mcg PO DAILY 09/08/13 Paroxetine HCl [Paxil] 10 mg PO DAILY 09/08/13 Atenolol [Tenormin (beta tez)] 50 mg PO DAILY 01/07/17 buPROPion XL [Wellbutrin Xl] 300 mg PO DAILY 01/07/17 Acetaminophen [Tylenol Tablet] 650 mg PO Q4H PRN PRN tablet 10/08/18 Aspirin [Aspirin, Baby] 1 tab PO DAILY #30 tab.chew 10/08/18 Atorvastatin Calcium [Lipitor] 80 mg PO QHS #30 tablet 10/08/18 Clopidogrel Bisulfate [Plavix] 75 mg PO DAILY #30 tablet 10/08/18 The following prescriptions were given: Aspirin [Aspirin, Baby] 1 tab PO DAILY #30 tab.chew Atorvastatin Calcium [Lipitor] 80 mg PO QHS #30 tablet Clopidogrel Bisulfate [Plavix] 75 mg PO DAILY #30 tablet Primary Care Physician: Duong Mckeon MD [Primary Care Provider] - Please follow up with your Primary Care Physician in: within 1-2 weeks Test Results: Test results from this visit will be discussed in further detail at your follow- up appointment, if applicable. Please Follow Up With: Mir Hart MD When: within 2-4 weeks Proposed Discharge Date: 10/08/18
--- NOTE | 2018-10-08 12:04 | PHA.DC.MC ---
Pharmacy Service has performed discharge medication reconciliation and counseling for this patient. The patient's discharge medication list was reviewed for discrepancies and discrepancies were resolved. The patient was counseled on the following discharge medications and changes in medications for homegoing were reviewed. The Reason for Use, instructions for use, and potential side effects were reviewed for all new medications. 1. CLOPIDOGREL The patient's questions regarding all of their medications were answered. The patient was able to verbally demonstrate an understanding of their discharge medications. Home Medications Levothyroxine [Synthroid] 50 mcg PO DAILY 09/08/13 Paroxetine HCl [Paxil] 10 mg PO DAILY 09/08/13 Atenolol [Tenormin (beta tez)] 50 mg PO DAILY 01/07/17 buPROPion XL [Wellbutrin Xl] 300 mg PO DAILY 01/07/17 Acetaminophen [Tylenol Tablet] 650 mg PO Q4H PRN PRN tablet 10/08/18 Aspirin [Aspirin, Baby] 1 tab PO DAILY #30 tab.chew 10/08/18 Atorvastatin Calcium [Lipitor] 80 mg PO QHS #30 tablet 10/08/18 Clopidogrel Bisulfate [Plavix] 75 mg PO DAILY #30 tablet 10/08/18
--- NOTE | 2018-10-08 12:29 | CASEMGMT ---
Addendum entered and electronically signed by Karlene Marcial 10/08/18 16:28: Reviewed and approve [employer]ED [employer] student documentation below. -DARRYN Ventura, MARKET GARDENER Original Note: Social Work Progressive Care Unit PHQ9 verbally administered due to diagnosis with neurological changes. The patient identified to be feeling little pleasure in doing things since initial ER visit roughly two weeks ago. Patient reported feelings of being down and depressed due to health condition. Patient has had trouble falling asleep with fear that will not wake up due to potential health concerns that have not been diagnosed. Patient reported that health has made her feel to have less energy than before. Patient feels stress has influenced to find self overeating. Patient reports that health condition with stroke has made holding a conversation more difficult and occasionally struggling to remember specific words or names as hippocampus was affected. Overall patient reports to have some difficult with doing regular daily things. Patient reports to cope with speaking with family. Patient is also prescribed anti-depressant medication with no plans to stop taking. Patient was interested in counseling information and comprehensive counseling list and general resource handout about depression was provided with Behavioral Health Brochure. No other services requested or indicated at this time. Patient declined social work referral for counseling due to wanting to speak with daughter about options and feels capable of doing so on own. -Emi Bermudez, HAND PRINTED CIRCUIT BOARD ASSEMBLER Student [employer].
--- NOTE | 2018-10-08 18:19 | DS.PCM_ITS ---
Discharge Date and Diagnosis Date of Admission: 10/07/18 Date of Discharge: 10/08/18 - Primary Discharge Diagnosis Acute left hippocampal infarct - Secondary Discharge Diagnosis Chronic Problems Hypothyroidism (Chronic) Depression (Chronic) Hospital Course and Treatment Imaging Results: Clinical Impression(s) from Imaging Studies Brain CT 10/07/18 00:18 IMPRESSION: No acute territorial infarct or intracranial hemorrhage identified. Paranasal sinus disease. Electronically Signed: Ger Ramirez, at 2:52 EDT Tel , Service support , Chest X-Ray 10/07/18 00:18 IMPRESSION: Normal x-ray examination of the chest. Electronically Signed: Ger Ramirez at 1:06 EDT Tel , Service support , Brain MRI 10/07/18 05:18 IMPRESSION: Findings consistent with a focal 1.7 x 0.6 cm infarct within the left posterior hippocampus. No evidence of large territorial ischemia. Electronically Signed: Vijay Ricketts DO at 11:32 EDT , Service support , Head MRA 10/07/18 05:18 IMPRESSION: 1. Diminutive flow and apparent vessel cut off within the mid P2 the distal P3 segments of the left posterior cerebral artery corresponding to the territory of the left hippocampus. Electronically Signed: Vijay Ricketts DO at 11:32 EDT , Service support , Neck MRA 10/07/18 05:18 IMPRESSION: No evidence of significant steno-occlusive disease or aneurysm. Electronically Signed: Vijay Ricketts DO at 12:04 EDT , Service support , None Operations: None Procedures: None Summary of Care Provided: The patient is a 48 year old F with past medical history of anxiety/depression who comes in with a 2-week history of right-sided paresthesias. Patient had an MRA of the neck that was negative. MRA of the head showed diminished flow of blood within the mid P2 and distal P3 segments of the left posterior cerebral artery. MRI of the brain showed a left hippocampal call infarct. Patient was started on aspirin and Plavix and statin. HbA1c was 5.2. 2D echo showed no acute abnormality. No arrhythmia or atrial fibrillation seen on telemetry. She will follow-up with neurology in 2-4 weeks. Subjective: The day of discharge, patient felt improved, still had numbness in her right side. No weakness of extremities. - Physical Exam General: Alert, Oriented x3, Cooperative, No apparent distress HEENT: Atraumatic, PERRLA, EOMI, Normocephalic Neck: Supple, No JVD, Negative Carotid Bruits Lungs: Clear to auscultation, Normal air movement Cardiovascular: Regular rate, Regular Rhythm, Normal S1, Normal S2, No murmurs Abdomen: Bowel Sounds Present, Soft, Non Tender, Non-Distended, No Hepato- splenomegaly Extremities: No edema, Capillary Refill Less than 3 Seconds Skin: No rashes Musculoskeletal: No Tenderness to Palpation of Joints or Extremities Lymphatic: No Cervical, Supraclavicular, or Inguinal Adenopathy Neurological: Cranial nerves II-XII grossly intact, Neuro grossly intact - except for right-sided numbness especially in the lower extremities Psych/Mental Status: Normal Affect, Appropriate Vital Signs Temp Pulse Resp BP Pulse Ox 98.6 F 63 16 139/79 H 98 10/08/18 12:00 10/08/18 12:00 10/08/18 12:00 10/08/18 12:00 10/08/18 12:00 Oxygen Delivery Method Room Air Weight: 84.4 kg Body Mass Index (BMI) 35.2 Intake and Output for Last 24 Hours 10/06/18 10/07/18 10/08/18 23:59 23:59 23:59 Intake Total 1890 / 1890 900 / 900 Balance 1890 / 1890 900 / 900 Laboratory Tests Past 24 Hrs 10/08/18 10/08/18 05:36 05:36 Sodium 142 Potassium 4.0 Chloride 110 H Carbon Dioxide 26.0 Anion Gap 6 BUN 7 Creatinine 0.70 Estim Creat Clear Calc 72.55 Est GFR (MDRD) Af Amer 114 Est GFR (MDRD) Non-Af 94 BUN/Creatinine Ratio 10.0 Glucose 93 Hemoglobin A1c 5.2 Calcium 8.1 L Discharge Diet: Low fat/ Low Cholesterol, 2000 mg Sodium Diet Discharge Activity: Return to Normal Activity Weight Bearing Status: Weight bearing as tolerated Home Medications: Medications to take at Discharge Levothyroxine [Synthroid] 50 mcg PO DAILY 09/08/13 Paroxetine HCl [Paxil] 10 mg PO DAILY 09/08/13 Atenolol [Tenormin (beta tez)] 50 mg PO DAILY 01/07/17 buPROPion XL [Wellbutrin Xl] 300 mg PO DAILY 01/07/17 Acetaminophen [Tylenol Tablet] 650 mg PO Q4H PRN PRN tablet 10/08/18 Aspirin [Aspirin, Baby] 1 tab PO DAILY #30 tab.chew 10/08/18 Atorvastatin Calcium [Lipitor] 80 mg PO QHS #30 tablet 10/08/18 Clopidogrel Bisulfate [Plavix] 75 mg PO DAILY #30 tablet 10/08/18 Following Prescrptions Were Given to Patient: Aspirin [Aspirin, Baby] 1 tab PO DAILY #30 tab.chew Atorvastatin Calcium [Lipitor] 80 mg PO QHS #30 tablet Clopidogrel Bisulfate [Plavix] 75 mg PO DAILY #30 tablet Primary Care Physician: Duong Mckeon MD [Primary Care Provider] - Please follow up with your Primary Care Physician in: within 1-2 weeks Please Follow Up With: Mir Hart MD When: within 2-4 weeks Disposition: Home Minutes spent on discharge:: 45 Patient Condition:: Stable Medical Necessity - Tobacco Use Smoking Status: Current some day smoker Tobacco Use: Cigarettes Meaningful Use Info Meaningful Use Diagnoses (Choose all that apply): Ischemic CVA - CVA Therapy Assessed for PT,OT and/or ST?: Yes - Ischemic Stroke Antithrombotic order at d/c?: Yes Dx of Atrial fib/flutter?: No Anticoagulant at discharge?: No Reason anticoagulant not ordered: Treatment not Indicated Statins at discharge?: Yes Primary Dx Acute Ischemic CVA?: Yes IV tPA ordered during stay?: No Reason IV t-PA not ordered: Treatment not Indicated Code Visit Inpatient E&M: 88466 Disch Hosp
[2018-10-10 16:07] LABS: Protein C Antigen 87 % (60-150)
[2018-10-11 14:10] LABS: Protein C, Functional 95 % (73-180)
[2018-10-13 14:32] LABS: Anti-Cardiolipin Ab, IgG, Qn < 9 GPL U/mL (0-14); Anti-Cardiolipin Ab, IgM, Qn < 9 MPL U/mL (0-12); Anti-Thrombin 3 AG, Immunol 87 % (72-124); Antithrombin 3 Function 97 % (75-135); Beta-2-Glycoprotein I IgA <9 (0-25); Beta-2-Glycoprotein I IgG <9 (0-20); Beta-2-Glycoprotein I IgM <9 (0-32)
== END 2018-10-08 15:05 | disposition home or self-care (01) | DRG 66 ==
LOC: ED 10-07 02:50 → PCU 10-07 04:52
PROVIDERS: Internal Medicine; Admitting Provider Internal Medicine; Emergency Provider Emergency Medicine; Family Provider Family Medicine; PCP Family Medicine; Visit Provider Internal Medicine
DX: I63.9 Cerebral infarction, unspecified (principal); R20.2 Paresthesia of skin; F32.9 Major depressive disorder, single episode, unspecified; E03.9 Hypothyroidism, unspecified; I69.392 Facial weakness following cerebral infarction; Z72.0 Tobacco use
CPT/HCPCS: 36415; 70450; 70544; 70549; 70551; 71045; 80048; 80061; 81240; 81241; 83036; 84484; 85025; 85300; 85301; 85302; 85303; 85610; 85730; 86146; 86147; 92523; 92610; 93005; 93306; 97161; 97166; 99284; 99406; A9575; Q9957; A4216

== ENCOUNTER → 2018-11-05 | Outpatient (CLI) | payer BC, SELFPAY ==
[2018-10-08 13:12] VITALS: BMI 35.2
--- NOTE | 2018-11-05 10:04 | MRI_ITS ---
STUDY: MRI BRAIN WITH AND WITHOUT CONTRAST REASON FOR EXAM: Female, 48 years old. Follow-up for previous stroke TECHNIQUE: Standardized multiplanar fat and water weighted pulse sequences were obtained. 15 IV Dotarem was administered for the contrast portion of the examination. COMPARISON: MRI brain 10/07/2018. FINDINGS: Previously seen region of restricted diffusion in the left posterior hippocampus is no longer visualized. No acute infarct. Normal size of the ventricles and extra-axial spaces for the patient's age. Normal white matter tracts of the supratentorial brain. Normal bilateral basal ganglia. Normal thalami. There is no extra-axial fluid accumulation. Normal flow voids within the major intracranial circulation suggesting patency by spin echo criteria. Normal venous enhancement. There is no enhancing intra-axial or extra-axial abnormality. Normal sella turcica, pituitary gland, infundibular stalk, optic chiasm and hypothalamus. Normal tectal plate and pineal gland. Normal midbrain, gemma and medulla. Normal cerebellum. Normal basal cisterns. Normal bilateral temporal bones. Normal bilateral internal auditory canals. No demonstrated orbital abnormality, within the constraints of a routine brain study. Normal visualized paranasal sinuses. Normal calvarium and skull base. Normal visualized soft tissue structures. Normal visualized upper cervical spine. MRI/Brain W/WO Contrast IMPRESSION: Normal unenhanced and enhanced MRI of the brain. Electronically Signed: Karolina Brock, at 16:54 EDT Tel , Service support ,
--- NOTE | 2018-11-05 11:02 | US_ITS ---
PROCEDURES: ULTRASOUND AORTA REASON FOR EXAM: Female, 48 years old. Hypertension. TECHNIQUE: Ultrasound evaluation of the aorta was performed with real-time and static fox-scale imaging. COMPARISON: None. FINDINGS: There is no elongation or tortuosity of the abdominal aorta. Aorta measures: Proximal 2.7 x 2.1 cm. Middle 1.9 x 1.5 cm. Distal 1.6 x 1.5 cm. Right iliac artery measures: 1.0 x 0.8 cm. Left iliac artery measures: 1.0 x 0.7 cm. There is no demonstrated aneurysm.. US/Aorta IMPRESSION: Normal abdominal aorta. Electronically Signed: Catracho Wolf, at 19:17 EDT Tel , Service support ,
--- NOTE | 2018-11-05 11:02 | US_ITS ---
STUDY: RENAL ULTRASOUND - COMPLETE REASON FOR EXAM: Female, 48 years old. Hypertension. TECHNIQUE: Ultrasound evaluation of the kidneys was performed with real-time and static booker-scale imaging. COMPARISON: None available. FINDINGS: RIGHT KIDNEY: Normal location of the right kidney, which is normal in size. The right kidney measures 9.9 cm. There is a normal cortex of the right kidney. There is a 1.5 x 1.5 cm simple cyst in the right kidney. There are no right renal calculi. There is no right hydronephrosis. DISTAL RIGHT URETER: There is non-visualization of the distal right ureter. There is no demonstrated right ureterovesical junction calculus. There is a visualized right ureteral jet. LEFT KIDNEY: Normal location of the left kidney, which is normal in size. The left kidney measures 10.9 cm. There is a normal cortex of the left kidney. There is no left renal mass or cyst. There are no left renal calculi. There is no left hydronephrosis. DISTAL LEFT URETER: There is non-visualization of the distal left ureter. There is no demonstrated left ureterovesical junction calculus. There is a visualized left ureteral jet. BLADDER: The urinary bladder is partially distended and appears unremarkable. US/Kidney and Bladder IMPRESSION: 1.5 cm simple cyst in the right kidney. Otherwise, unremarkable renal ultrasound. Electronically Signed: Catracho Wolf, at 19:20 EDT Tel , Service support ,
== END | disposition home or self-care (01) ==
LOC: MRI 09:55
PROVIDERS: Family Provider Family Medicine; PCP Family Medicine; Referring Provider Family Medicine; Visit Provider Family Medicine
DX: I10 Essential (primary) hypertension (principal); Z82.71 Family history of polycystic kidney; Z86.73 Personal history of transient ischemic attack (TIA), and cerebral infarction without residual deficits
CPT/HCPCS: 70553; 76770; 76775; A9575

== ENCOUNTER 2019-10-24 03:43 | Emergency (ER) | payer BC, SELFPAY ==
[2018-10-08 13:12] VITALS: BMI 35.2
[2019-10-24 03:43] VITALS: BP 176/92; PULSE 78; RESP 17; TEMP 36.9; O2SAT 95; BMI 36.6
--- NOTE | 2019-10-24 04:03 | RAD_ITS ---
STUDY: X-RAY CHEST REASON FOR EXAM: Female, 49 years old. Was having numbness in lt arm , then had a panic attack -- denies any problems with chest, lt arm is fine now TECHNIQUE: Single frontal view of the chest. COMPARISON: October 07, 2018. FINDINGS: EKG leads artifacts. The lungs are clear and expanded. There is no demonstrated pleural abnormality. Normal size heart. Normal mediastinum and derek. Normal visualized pulmonary arteries. Normal visualized aortic arch and descending thoracic aorta. Normal visualized thoracic spine. Normal visualized ribs, clavicles, and shoulders. There is no demonstrated abnormality of the visualized soft tissue structures of the upper abdomen. RAD/Chest 1 View IMPRESSION: No acute cardiopulmonary disease identified. Electronically Signed: Ger Ramirez, at 4:33 EDT Tel , Service support ,
--- NOTE | 2019-10-24 04:03 | CT_ITS ---
STUDY: CT BRAIN WITHOUT CONTRAST REASON FOR EXAM: Female, 49 years old. LT ARM NUMBNESS SINCE 3AM TODAY,ELEVATED BP -- HX:TIA,HTN,MIGRAINES RADIATION DOSAGE (If Supplied By Facility): CTDIvol = ( 44.99 ) mGy, DLP = ( 762.36 ) mGycm TECHNIQUE: Transaxial CT imaging of the brain was performed without administration of intravenous contrast material. Individualized dose optimization techniques were used for this CT. COMPARISON: October 07, 2018 FINDINGS: Normal soft tissue structures. Normal calvarium. Normal size ventricles and extra-axial spaces for the patient''s age. Normal white matter tracts of the cerebral hemispheres. Normal basal ganglia and thalami. Normal brainstem. Normal cerebellum. There is no intracranial hemorrhage. There are no findings of an acute ischemic infarction. Paranasal sinus disease. Coronary artery calcifications. CT/Brain/Head without Contrast IMPRESSION: No acute territorial infarct or intracranial hemorrhage identified. If patient''s symptomology persists or there is continuing clinical concern MRI or follow-up CT scanning can be performed. Electronically Signed: Ger Ramirez, at 4:39 EDT Tel , Service support ,
--- NOTE | 2019-10-24 04:03 | EKG12_ITS ---
Test Reason : NUMB/TING Blood Pressure : / mmHG Vent. Rate : 070 BPM Atrial Rate : 070 BPM P-R Int : 166 ms QRS Dur : 078 ms QT Int : 410 ms P-R-T Axes : 055 026 035 degrees QTc Int : 442 ms Normal sinus rhythm Normal ECG Confirmed by YOANNA LOBO, ADOLFO ([id number]), index editor ESME AZEVEDO ([id number] on 10/29/2019 9:13:19 AM Referred By: TWIN Confirmed By:CHRISTOPHER LENZ MD
[2019-10-24 04:16] LABS: Bedside Glucose 102 mg/dL (70-110)
[2019-10-24 04:17] LABS: Absolute Lymphocyte Count 2.38 X10^3/uL (0.83-4.51); Absolute Neutrophil Count 4.9 X10^3/uL (2.0-7.7); Basophil# 0.05 X10^3/uL; Basophil% 0.6 % (0-1); Eosinophils% 1.2 % (0-5); Hematocrit 43.5 % (37-47); Hemoglobin 14.2 g/dL (12.0-15.0); Lymphocyte # 2.38 X10^3/ul (4.0); Lymphocyte % 28.5 % (19-41); Mean Corp Hgb Conc 32.6 g/dL (32-36); Mean Corpuscular Hgb 28.3 pg (27.0-32.0); Mean Corpuscular Volume 86.8 fL (81-99); Mean Platelet Vol. 10.1 fl (6.2-12.0); Monocyte# 0.86 X10^3/uL; Monocyte% 10.3 % (0-10); NRBC Flagged by Analyzer 0 % (0-5); Neutrophil # 4.93 X10^3/uL (2.7-7.7); Neutrophil % 58.9 % (47-70); Platelet Count 380 K/mm3 (150-450); RBC Distribution Width CV 12.5 % (11.6-14.6); RBC Distribution Width SD 39.5 fl (35.1-43.9); Red Blood Count 5.01 M/mm3 (4.2-5.4); White Blood Count 8.4 K/mm3 (4.4-11.0)
[2019-10-24 04:21] LABS: Anion Gap 7 (5-15); BUN 9 mg/dL (7-18); BUN/Creat Ratio 11.4 RATIO (10-20); Calcium,Total 8.5 mg/dL (8.5-10.1); Chloride 107 mmol/L (98-107); Creatinine, Serum 0.79 mg/dL (0.55-1.02); EST Glomerular Filtration Rate 82 mL/min (>60); Est Glom Filt Rate - Afr Amer 99 mL/min (>60); Estimated Creatinine Clearance 63.57 ml/min; Glucose 98 mg/dL (74-106); Potassium 3.4 mmol/L (3.5-5.1); Sodium Level 138 mmol/L (136-145)
[2019-10-24] MEDS: LORazepam 2 MG/ML Syringe 1 MG IV (04:24)
--- NOTE | 2019-10-24 04:57 | ED.VISSUMM ---
- ER Visit Summary Date of Service: 10/24/19 Chief Complaint: Left arm numbness History of Present Illness: The patient is a [address] Wilver chopra and Dr. Hart. Patient reports that she went to bed at midnight feeling normal. She woke up at 3:00 this morning and found that her left arm was numb. States that it lasts approximately 10 to 15 minutes, but still does not feel quite right. She also reports that her right arm felt odd as well. She reports that her hands have been going numb bilaterally off and on when she sleeps for approximately 2 months. She reports that her fifth finger is involved as well and she does not think that this is carpal tunnel syndrome. This only occurs at night. Patient denies any other neurologic symptoms. No weakness or slurred speech. No expressive or receptive aphasia. No blurred or double vision. No vertigo. Patient denies any headache or neck pain. Physical Examination: Vitals: Stable. Afebrile. General: Well-nourished and well-developed. Head: Normocephalic atraumatic. Neck: Supple, no lymphadenopathy. No JVD. Nontender. Cardiovascular: Regular rate and rhythm. No murmurs. Respiratory: No respiratory distress. Clear to auscultation bilaterally. Abdominal: Soft, nontender, nondistended, normal bowel sounds. No guarding, rebound, or peritoneal signs. Back: Nontender. Extremities: Nontender, no edema. 2+ radial pulse bilaterally. Skin: Normal color, no rash. Neurologic: Alert and oriented ?3. Cranial nerves II through XII are intact. Normal strength and sensation. NIH scale is 0. Psych: Anxious. Test Results: EKG is sinus at [address] changes. CBC is normal. Chem-7 is remarkable for potassium 3.4. Clinical Impression(s) from Imaging Studies Brain CT 10/24/19 04:03 IMPRESSION: No acute territorial infarct or intracranial hemorrhage identified. If patient''s symptomology persists or there is continuing clinical concern MRI or follow-up CT scanning can be performed. Electronically Signed: Ger Ramirez, at 4:39 EDT Tel , Service support , Chest X-Ray 10/24/19 04:03 IMPRESSION: No acute cardiopulmonary disease identified. Electronically Signed: Ger Ramirez, at 4:33 EDT Tel , Service support , Emergency Department Course and Treatment: Patient reports that she has a family history of CADASIL and she does suffer from anxiety as well. She states that currently she feels that her paresthesias are just from her anxiety. She was given a dose of Ativan IV and is resting comfortably. The patient has had multiple MRIs in the past. The most recent of these was less than a year ago and it did not show any abnormalities. The one approximately 13 months ago showed a questionable stroke in the hypothalamus. At that time she was placed on Plavix which she reports she did not do well with. Currently she is just taking aspirin. She has never been checked for CADASIL because it is not covered by her insurance. Review of this shows that there is a propensity for microhemorrhages with this and because of this Plavix is not suggested. Treatment Plan: At this time the patient would like to go home. Her NIH scale is 0. We discussed other possible alternatives for this. We discussed the possibility of problems with her spinal cord in the cervical region, thoracic outlet syndrome, a problem with her brachial plexus, or multiple sclerosis. I think it is reasonable to have her follow-up as an outpatient for further evaluation of this. Patient is instructed to follow-up with Dr. Hart as soon as possible. Return to the emergency department for any neurologic symptoms or other concerns. Disposition: To home in improved and stable condition. Impression: 1. Upper extremity paresthesias, resolved. 2. Anxiety. 3. Family history of CADASIL. This note was generated with QuickMobileation software. It may contain incorrect words, spelling, and punctuation that were not noted in review of the chart prior to signing ED Disposition - Plan for ED Patient: Instructions: ED PERIPHERAL NEUROPATHY Prescriptions: Lorazepam [Ativan] 0.5 mg PO TID PRN #10 tablet PRN Reason: Anxiety Referrals: Duong Mckeon MD [Primary Care Provider] - Additional Instructions: Follow-up with Dr. Hart as soon as possible. His phone number is [phone].
[2019-10-24 05:18] VITALS: BP 147/92; PULSE 69; RESP 17; O2SAT 99
== END 2019-10-24 05:58 | disposition home or self-care (01) ==
LOC: ED 04:36
PROVIDERS: Emergency Provider Emergency Medicine; PCP Family Medicine
DX: R20.0 Anesthesia of skin (principal); F41.9 Anxiety disorder, unspecified; E03.9 Hypothyroidism, unspecified; I10 Essential (primary) hypertension; E78.00 Pure hypercholesterolemia, unspecified; F32.9 Major depressive disorder, single episode, unspecified
CPT/HCPCS: 70450; 71045; 80048; 82962; 85025; 93005; 96361; 96374; 99285; J7040; A4216

== ENCOUNTER 2019-12-21 09:07 | Emergency (ER) | payer BC, SELFPAY ==
[2019-12-21 09:08] VITALS: BP 186/93; PULSE 68; RESP 18; TEMP 36.6; O2SAT 98; BMI 35.6
--- NOTE | 2019-12-21 09:32 | ED.DCSUM_ITS ---
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 Hypertension high cholesterol and prior panic attacks. Said she got up this morning around 5 AM with room spinning dizziness consistent with vertigo she has had in the past. She said that is not too bad unless she moves her head. But states that it caused her to have a panic attack which she is unable to get calm down. She denies any headache, chest pain or abdominal pain. She denies any vomiting or diarrhea or fever. She denies any neurological symptoms of weakness or numbness. Physical Examination: Middle-aged female no acute distress vital signs stable afebrile initial blood pressure 186/93. HEENT exam normal. Pupils round react light extra motions are intact. Normal speech no facial droop. Neck nontender. TMs normal bilaterally. Lungs clear to auscultation bilaterally. Heart regular rhythm no murmur. Rate about 70. Abdomen soft nontender normal bowel sounds no peritoneal signs. Extremities moves all 4. Calves nontender without edema or cords. 5-5 electrical design engineer strength. Dorsi plantarflexion intact. Neurologically she is awake and alert with no focal motor or sensory deficits. NIH score is 0. Bilateral electrical design engineer strength. Bilateral fingertip to nose. Dorsi plantarflexion intact. Can lift either leg without a drift. Normal motor strength and sensation throughout. Test Results: None Emergency Department Course and Treatment: Patient has exam consistent with vertigo with positive Hallpike when she turns her head to the left. Otherwise her neurologic seems completely normal. For anxiety she has had Ativan before which she will be treated with. Exam patient is doing well at 10:51 AM. Her anxiety is resolved with the Ativan as has her vertigo dizziness symptoms. Her repeat exam is normal. Her neurologic exam remains normal. Treatment Plan: Valium as needed for both anxiety and her vertigo. Follow-up. Disposition: Discharge Impression: Acute benign positional vertigo Acute anxiety attack History of prior carotid artery dissection This note was generated with Zendriveation software. It may contain incorrect words, spelling, and punctuation that were not noted in review of the chart prior to signing ED Disposition - Plan for ED Patient: Disposition: Home or Assisted Living Instructions: ED Vertigo Unspecified Prescriptions: Diazepam [Valium] 5 mg PO BID PRN PRN #10 tab PRN Reason: Vertigo Prescription Printed Referrals: Duong Mckeon MD [Primary Care Provider] - 3-5 Days if not improving Additional Instructions: Return if feeling worse. Follow-up with his doctor if not improving. Valium as needed for your vertigo this will also help you with anxiety.
--- NOTE | 2019-12-21 09:37 | ED.DEP ---
ED Disposition - Plan for ED Patient: Disposition: Home or Assisted Living Instructions: ED Vertigo Unspecified Prescriptions: Diazepam [Valium] 5 mg PO BID PRN PRN #10 tab PRN Reason: Vertigo Prescription Printed Referrals: Duong Mckeon MD [Primary Care Provider] - 3-5 Days if not improving Additional Instructions: Return if feeling worse. Follow-up with his doctor if not improving. Valium as needed for your vertigo this will also help you with anxiety.
[2019-12-21] MEDS: LORazepam 1 MG Tablet PO (09:43)
[2019-12-21 10:56] VITALS: BP 135/71
--- OUTSIDE RECORDS SUMMARY | 2020-04-26 12:55 | XMS RPT_ITS | CCD ---
:1970 External Reference #:[id number] Author Organization [facility] Care Team Providers Name Role Phone Ezra Mckeon Primary Care Provider Medications Medication Name Sig Date Prescriber Location amLODIPine amLODIPine (NORVASC) 5 11-15-2019 [facility]cf Provider [facility] mg tablet Take 1 tablet (111 95) by mouth once daily. 0 11/15/2019 Active Comment: Take 1 tablet by mouth once daily. Aspirin aspirin 81 mg chewable 06-25-2012 Aj (Gretchen) Clifford [facility] tablet Take 1 tablet by (665 95) mouth once daily. 60 tablet 0 06/25/2012 Active Comment: Take 1 tablet by mouth once daily. Atenolol atenolol (TENORMIN) 50 mg 10-17-2016 [facility] Provider [facility] ([id number]) tablet Take 50 mg by mouth once daily. 0 10/17/2016 Active Comment: Take 50 mg by mouth once ruddy ly. atorvastatin atorvastatin 40 mg 06-25-2012 Aj (Gretchen) [facility] tablet Take 1 tablet by Clifford Rocha (526 95) mouth daily at bedtime. (Fel) Clifford 60 tablet 0 06/25/2012 Active Comment: Take 1 tablet by mouth daily at bedtime. Biotin BIOTIN ORAL Take by Ccf Provider Cc Prov ider [facility] ([id number]) mouth. 0 Active Comment: Take by mouth. buPROPion buPROPion XL (WELLBUTRIN 10-17-2016 Ccf Provider [facility] (58330) XL) 300 mg 24 hr tablet Take 300 mg by mouth once daily. 0 10/17/2016 Active Comment: Take 300 mg by mouth once da edin. busPIRone busPIRone (BUSPAR) 03-21-2020 [facility] Provider [facility] 5 mg tablet (20711) Codeine / guaiFENesin codeine-guaiFENesi 08-27-2016 Emily (Cable Tv Installer) Old er [facility] n (ROBITUSSIN AC) Emily (Cable Tv Installer) Older (76623) 10-100 mg/5 mL syrup Take 5-10 mL by mouth four times daily as needed for Cough. May cause drowsiness. 120 mL 0 08/27/2016 Active Comment: Take 5-10 mL by mouth four t imes daily as needed for Cough. May cause drowsiness. Ginkgo biloba GINKGO BILOBA (GINKOBA 03-03-2020 [facility]cf Provider [facility] extract ORAL) Take by mouth. 0 (4419 5) 03/03/2020 Discontinued GINKGO BILOBA (GINKOBA ORAL) Take by mouth. 0 Cc f Provider [facility] (09505) Active Comment: Take by mouth. hydroCHLOROthiazide hydrochlorothiazide 25 mg Ccf Prov ider [facility] tablet Take 25 mg by mouth ( 25846) once daily. 0 Active Comment: Take 25 mg by mouth once ruddy ly. Ibuprofen ibuprofen (MOTRIN) 600 03-03-2020 Beltran Neyhart [facility] mg tablet Take 1 tablet Richey (441 95) by mouth every 6 hours as needed. 30 tablet 0 03/03/2020 Active Comment: Take 1 tablet by mouth every 6 hours as needed. levothyroxine levothyroxine (SYNTHROID) 50 Ccf Provide r [facility] (25577) mcg tablet Take by mouth. 0 Active Comment: Take by mouth. Lisinopril lisinopril (ZESTRIL, 03-21-2020 [facility] (38267) PRINIVIL) 5 mg tablet LORazepam LORazepam (ATIVAN) 0.5 mg 10-24-2019 [facility]cf Provider [facility] (02630) Take 1 tablet by mouth as needed. 0 10/24/2019 Active Comment: Take 1 tablet by mouth as ne eded. Oxymetazoline OXYMETAZOLINE HCL (AFRIN Ccf Provider Cc f [facility] NASAL) Use in the nose. 0 Provider (4 5381) Active Comment: Use in the nose. PARoxetine PARoxetine (PAXIL) 10 mg tablet Ccf Provi irvin [facility] (41621) Take 10 mg by mouth once daily. 0 Active Comment: Take 10 mg by mouth once ruddy ly. rosuvastatin rosuvastatin (CRESTOR) 10 10-15-2019 [facility] Take [facility] tablet by ( 44837) mouth once daily. 0 10/15/2019 Active Comment: Take 1 tablet by mouth once daily. Problems Active Problems Category Problem Name Status Date Location Menstrual disorders Excessive and frequent Active 03-14-2008 - [facility] menstruation (93092) Other female genital Abnormal uterine Active [facility] disorders bleeding (25532) Residual codes; Postoperative state Active [facility] unclassified (41417) Unclassified Preprocedural Active [facility] ic examination done (51046) Unclassified Patient encounter Active [facility] status (66220) Past or Other Problems Category Problem Name Status Date Location 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 Author Type: Physician Type: Progress Notes Filed: 03/25/2020 2:06 PM Note Text: SUBJECTIVE: 49 year old female presents for 2 week post-op exam. Doing w ell. No bleeding, no fevers or pain. OBJECTIVE: Incision: None Abdomen: Soft, Non-tender and No palpable masses PLAN: RTO for annual exams and PRN Benign pathology Reviewed meli if AUB I have reviewed and updated past medical and surgical histor y, medications and allergies. Beltran Jimenez MD cnov on 2020-03-25 CNOV Office Visit (OBGYWM) Normal 03-25-20 20 [facility] STEPHANIE CAMERON ([id number]) 1970 [facility] Date Time Provider Department ([id number]) 03/25/20 1:20 PM BELTRAN FRAGA During your visit today, we recorded the following informati on about you: Blood pressure Weight 140/86 86.6 kg Beltran Jimenez MD 03/25/2020 2:06 PM Signed SUBJECTIVE: 49 year old female presents for 2 week post-op e xam. Doing well. No bleeding, no fevers or pain. OBJECTIVE: Incision: None Abdomen: Soft, Non-tender and No palpable masses PLAN: RTO for annual exams and PRN Benign pathology Reviewed meli if AUB I have reviewed and updated past medical and surgical history, medications and allergies. Beltran Jimenez MD Referring Provider: SELF [[id number]] Allergies As of Date: 03/25/2020 (No Known Allergies) Date Reviewed: 02/06/2020 Reviewed by: Reanna You Ma - Fully Assessed Reason for Visit: Post-Op Visit [1236] Primary Visit Diagnosis:Abnormal uterine bleeding (AUB) [N93 .9] Other Visit Diagnosis:Post-operative state [Z98.890] Prescriptions as of 03/25/2020 Sig: LISINOPRIL 5 MG TABLET BUSPIRONE 5 MG TABLET AMLODIPINE 5 MG TABLET Take 1 tablet by mouth once d* LORAZEPAM 0.5 MG TABLET Take 1 tablet by mouth as nee* ROSUVASTATIN 10 MG TABLET Take 1 tablet by mouth once d* BUPROPION XL 300 MG 24 HR TAB Take 300 mg by mouth once ruddy* ATENOLOL 50 MG TABLET Take 50 mg by mouth once tiara* PAROXETINE 10 MG TABLET Take 10 mg by mouth once tiara* LEVOTHYROXINE 50 MCG TABLET Take by mouth. 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 Presbyopia [H52.4] 11/22/2016 Myopia [H52.10] 11/22/2016 Anisometropia [H52.31] 11/22/2016 Encounter Status:Closed by BELTRAN RICHEY MD on 03/25/20 lázaro screening on 29-03-04 [facility] SCREENING * * *Final Report* * * Normal [facility] DATE OF EXAM: Mar 13 2020 1:25PM [place] ([id number]) [facility] 0581 - [facility] SCREENING / PROCEDURE REASON: Encounter for gynecological examination (g eneral) (routine) without abnormal fin * * * * Physician Interpretation * * * * RESULT: #[id number] - [facility] SCREENING BILATERAL DIGITAL SCREENING MAMMOGRAM WITH CAD: 03/13/2020 HISTORY: Encounter For Gynecological Examination (General) ( Routine) Screening Mammogram - patient reports NO breast symptoms \ / patient reports NO breast symptoms\ new baseline. RESULT: TECHNIQUE: The study was acquired using full field digital t echnology and interpreted from soft copy. Current study was also evaluated with a Computer Aided Detec tion (CAD). No prior exams were available for comparison. There are scat tered fibroglandular elements in both breasts. No significant masses, calcifications, or other findings are seen in either breast. IMPRESSION: NEGATIVE There is no mammographic evidence of malignancy. A 1 year sc reening mammogram is recommended. Elsa Redman M.D. pb/johny:03/13/2020 16:04:09 Tinning Machine Set Up Operator(s): RT Prema(R)(M), [facility] letter sent: Normal over 40 Mammogram BI-RADS: 1 Negative Multiple national specialty organizations have released lico st cancer screening guidelines for women at average risk for developin g breast cancer - guidelines that are based on both evidence and opin ion, yet differ on when to start and how often to screen for breast c ancer. With representation from Breast Imaging, Internal Medicine, Women 's Health, Family Medicine, and Medical/Surgical Oncology, the [facility] has carefully reviewed the data and reached the following consen cassius: 1) All women should engage in shared decision-making with eir providers to decide when to start and how often to screen; 2) All women should have the opportunity to start screening mammography at age 40; 3) For women ages 45-55, we recommend annual screening mammo grams; 4) For women ages 55 and over, we support both the transitio n from an annual to a biennial interval if this aligns more with patie nt's values and preferences, or continuation with annual screening; 5) All women should discuss with their providers when to sto p screening mammograms. Fuel Cell Binder: Johny Transcribe Date/Time: Mar 13 2020 1:16P Dictated by: ELSA REDMAN MD This examination was interpreted and the report reviewed and electronically signed by: ELSA REDMAN MD on Mar 13 2020 4:04PM EST [id number] cnco on 2020-03-13 CNCO HNO ID: [id number] Normal 03-13-2020 [facility] Author: Mammography Coordinator ([id number]) Service: ? Author Type: Physician Type: Letter Filed: 03/16/2020 11:35 PM Note Text: March 13, 2020 PID: [id number] Stephanie Cameron [address] [place] [address] Dear Ms. Cameron, We are pleased to inform you that the results of your recent breast imaging exam on 03/13/2020 are normal. Early detection of cancer is very important. We also underst and recommendations regarding breast cancer screening are contro versial. Please discuss with your primary care provider which strateg y is best for you and whether a mammogram is right for you. Your imaging studies and report will be kept on file at [facility] as part of your permanent medical record and are available f or your continuing care. Thank you for allowing us to help in meeting your health car e needs. Sincerely, Dr. Redman Interpreting Radiologist [facility] (Normal over 40) No panel information on 2020-03-13 [facility] ([id number]) metanephrines, fract 24hour on 2020-03-12 METANEPHRINE,U, 24HR 70 36-209 ug/24 hr Normal 0 [facility] (59375) Comment: Result Comment: Test(s) 41 40-Normetanephrine, Ur; 410915- Metanephrine, Ur was developed and its perfor rangel characteristics determined by [facility]. It has not been cleared or approved by the Food and Drug Administration. Performed By: #### METFU ### # [facility] [phone] [address] [place], [place] [id number] [facility] [address] [id number] METANEPHRINE,URINE 26 Undefined ug/L Normal 03-12-2020 [facility] ([id number]) Comment: Performed By: #### METFU ### # [facility] [phone] [address] [place], [place] [id number] [facility] [address] [id number] NORMETANEPHRINE, U, 24H 343 131-612 ug/24 hr Normal 2019 [facility] (00 000) Comment: Performed By: #### METFU ### # [facility] [phone] [address] [place], [place] [id number] [facility] [address] [id number] NORMETANEPHRINE, URINE 127 Undefined ug/L Normal 020 [facility] ([id number]) Comment: Performed By: #### METFU ### # [facility] [phone] [address] [place], [place] [id number] [facility] [address] [id number] metanephrines, fract 24hour on 2020-03-06 URINE VOLUME PER ML 2700 mL mL Normal 03-06-2020 [facility] ([id number]) Comment: Performed By: #### METFU ### # [facility] [address] [place], [place] [id number] [facility] [address] [id number] history physical on 2020-03-03 HISTORY PHYSICAL HNO ID: [id number] Normal 02-08 [facility] Author: Beltran Richey [place] ([id number]) Service: ? Author Type: Physician Type: HANDP Filed: 03/03/2020 4:58 PM Note Text: Stephanie Cameron is a 49 year old female who presents pr eoperative visit. Patient is scheduled for hysteroscopy, NOEMI, suni matos on March 12, 2020 at [facility]. Patient had pelvic ultrasound which revealed well-circumscribed polyps. She is also having abnormal uterine bleeding. Patient denies any concerns today other than feeling slightly dizzy but he treats that 2 having small belkis unt of alcohol last night. Patient denies any chest pain, shortness of lico th. PAST MEDICAL HISTORY Diagnosis Date - Acid reflux - Polycystic ovaries - Pure hypercholesterolemia - Stroke (HCC) 06/2013 - Unspecified essential hypertension PAST SURGICAL HISTORY Procedure Laterality Date - DELIVERY ONLY , low cervical - DELIVERY ONLY , low cervical FAMILY HISTORY Problem Relation Age of Onset - Heart Mother - other (Cadisil) Mother Stroke disorder - Heart Father - No Known Problems Brother - No Known Problems Brother - No Known Problems Sister - Diabetes Maternal Grandfather - Heart Paternal Grandfather Social History Tobacco Use - Smoking status: Former Smoker Packs/day: 0.50 Types: Cigarettes Quit date: 08/2018 Years since quittin.5 - Smokeless tobacco: Never Used Substance Use Topics - Alcohol use: Yes Frequency: 2-4 times a month Drinks per session: 3 or 4 Binge frequency: Less than monthly - Drug use: No Current Outpatient Medications Medication Sig - amLODIPine (NORVASC) 5 mg tablet Take 1 tablet by mouth on ce daily. - LORazepam (ATIVAN) 0.5 mg Take 1 tablet by mouth as needed . - rosuvastatin (CRESTOR) 10 mg tablet Take 1 tablet by mouth once daily. - buPROPion XL (WELLBUTRIN XL) 300 mg 24 hr tablet Take 300 mg by mouth once daily. - atenolol (TENORMIN) 50 mg tablet Take 50 mg by mouth once daily. - PARoxetine (PAXIL) 10 mg tablet Take 10 mg by mouth once d aily. - levothyroxine (SYNTHROID) 50 mcg tablet Take by mouth. - aspirin 81 mg chewable tablet Take 1 tablet by mouth once daily. - hydrochlorothiazide 25 mg tablet Take 25 mg by mouth once daily. - ibuprofen (MOTRIN) 600 mg tablet Take 1 tablet by mouth ev jud 6 hours as needed. No current facility-administered medications for this visit. Allergies As of Date: 03/03/2020 (No Known Allergies) Fully Assessed 02/06/2020 REVIEW OF SYSTEMS Abdomen: no pain Bladder: no dysuria .. Expanded ROS: GENERAL: Negative for fever Allergies and current medication updated:Yes EXAM: BP 126/80 Ht 5' .63 (1.54m) Wt 191 lb (86.6kg) LMP 02/03/2020 BMI 36.53 kg/(m2). GENERAL: pleasant, female in no apparent distress HEENT: Normocephalic and atraumatic NECK: full range of motion DERMATOLOGY: Normal, without lesions, non-icteric and non-hi rsute NEURO: alert and oriented x3,exam grossly non-focal EXTREMITIES: normal uterus normal size and contour. Endometrial thickness 10.4 m m. There are 2 well-circumscribed endometrial polyps identified the largest measuring 1.2 cm in greatest dimension. Both these appear to be in the lower uterine segm ent. Myometrium is heterogeneous otherwise unremarkable. Both ovaries appear normal No free fluid in the cul-de-sac Recommendations consider hysteroscopic removal of endometrial polyps. Follow up as clinically indicated. Menstrual History LMP on 01/08/2020 Method ====== Transvaginal, 3D ultrasound examination. Uterus ====== Uterus: Visualized Uterus position: anteverted Myometrium: suspicious of adenomyosis Uterus long 73 mm Uterus ap 49 mm Uterus tr 50 mm Uterus Vol 93.7 cm? Endometrial thickness, total 10.4 mm Uterine polyp D1 12 mm Uterine polyp D2 5 mm Uterine polyp D3 13 mm Uterine polyp mean 10.0 mm Uterine polyp findings: lower uterine segment Uterine polyp D1 7 mm Uterine polyp D2 4 mm Uterine polyp D3 7 mm Uterine polyp mean 6.0 mm Uterine polyp findings: lower uterine segment Right Ovary ========= Rt ovary: Visualized Rt ovary D1 23 mm Rt ovary D2 15 mm Rt ovary D3 19 mm Rt ovary Vol 3.4 cm? Left Ovary ======== Lt ovary: Visualized Lt ovary D1 42 mm Lt ovary D2 24 mm Lt ovary D3 12 mm Lt ovary Vol 6.6 cm? Cul de Sac ========= Visualized. no free fluid visualized Performed By: Shahla Sky RDMS, RVT Read By: Beltran Jimenez M.D. ASSESSMENT AND PLAN: Encounter Diagnosis ICD-10-CM 1. Pre-op exam Z01.818 2. Pt has been counseled on risks/benefits and alternatives of surgery including but not limited to anesthesia, bleeding, infection , uterine perforation with injury to pelvic structures including bowel , bladder, ureters and vessels. Pt wishes to proceed with surgery at th is time. 3. covid testing reviewed 4. Post op medication - MOTRIN given Beltran Jimenez MD cnov on 2020-03-03 CNOV Office Visit (OBGYWM) Normal 03-03-20 [facility] ISELAGINASTEPHANIE MITTAL ([id number]) 1970 [facility] Time Provider Department ([id number]) 03/03/20 4:20 PM BELTRAN FRAGA OBGYWM During your visit today, we recorded the following informati on about you: Blood pressure Weight Height 126/80 86.6 kg 1.54 m Beltran Jimenez MD 03/03/2020 4:58 PM Signed Stephaniemark Cameron is a 49 year old female who presents preoperative visit. Patient is scheduled for hys teroscopy, DANCO, polypectomy on March 12, 2020 at [facility]. Patient had pelvic ultrasound wh ich revealed well-circumscribed polyps. She is also having abnormal uteri ne bleeding. Patient denies any concerns today other than feeling slightl y dizzy but he treats that 2 having small amount of alcohol last night. P atient denies any chest pain, shortness of breath. PAST MEDICAL HISTORY Diagnosis Date - Acid reflux - Polycystic ovaries - Pure hypercholesterolemia - Stroke (HCC) 06/2013 - Unspecified essential hypertension PAST SURGICAL HISTORY Procedure Laterality Date - DELIVERY ONLY , low cervical - DELIVERY ONLY , low cervical FAMILY HISTORY Problem Relation Age of Onset - Heart Mother - other (Cadisil) Mother Stroke disorder - Heart Father - No Known Problems Brother - No Known Problems Brother - No Known Problems Sister - Diabetes Maternal Grandfather - Heart Paternal Grandfather Social History Tobacco Use - Smoking status: Former Smoker Packs/day: 0.50 Types: Cigarettes Quit date: 08/2018 Years since quittin.5 - Smokeless tobacco: Never Used Substance Use Topics - Alcohol use: Yes Frequency: 2-4 times a month Drinks per session: 3 or 4 Binge frequency: Less than monthly - Drug use: No Current Outpatient Medications Medication Sig - amLODIPine (NORVASC) 5 mg tablet Take 1 tablet by mouth on ce daily. - LORazepam (ATIVAN) 0.5 mg Take 1 tablet by mouth as needed . - rosuvastatin (CRESTOR) 10 mg tablet Take 1 tablet by mouth once daily. - buPROPion XL (WELLBUTRIN XL) 300 mg 24 hr tablet Oswaldo e 300 mg by mouth once daily. - atenolol (TENORMIN) 50 mg tablet Take 50 mg by mouth once daily. - PARoxetine (PAXIL) 10 mg tablet Take 10 mg by mouth once d aily. - levothyroxine (SYNTHROID) 50 mcg tablet Take by mouth. - aspirin 81 mg chewable tablet Take 1 tablet by mouth once daily. - hydrochlorothiazide 25 mg tablet Take 25 mg by mouth once daily. - ibuprofen (MOTRIN) 600 mg tablet Take 1 tablet by mouth ev jud 6 hours as needed. No current facility-administered medications for this visit. Allergies As of Date: 03/03/2020 (No Known Allergies) Fully Assessed 02/06/2020 REVIEW OF SYSTEMS Abdomen: no pain Bladder: no dysuria .. Expanded ROS: GENERAL: Negative for fever Allergies and current medication updated:Yes EXAM: BP 126/80 Ht 5' .63 (1.54m) Wt 191 lb (86.6 kg) LMP 02/03/2020 BMI 36.53 kg/(m2). GENERAL: pleasant, female in no apparent distress HEENT: Normocephalic and atraumatic NECK: full range of motion DERMATOLOGY: Normal, without lesions, non-icteric and non-hi rsute NEURO: alert and oriented x3,exam grossly non-focal EXTREMITIES: normal uterus normal size and contour. Endometrial thickness 10.4 m m. There are 2 well-circumscribed endometrial polyps identified the largest measuring 1.2 cm in greatest dimension. Both these appear to be in th e lower uterine segment. Myometrium is heterogeneous otherwise unremarkable. Both ovaries appear normal No free fluid in the cul-de-sac Recommendations consider hysteroscopic removal of endometrial po lyps. Follow up as clinically indicated. Menstrual History LMP on 01/08/2020 Method ====== Transvaginal, 3D ultrasound examination. Uterus ====== Uterus: Visualized Uterus position: anteverted Myometrium: suspicious of adenomyosis Uterus long 73 mm Uterus ap 49 mm Uterus tr 50 mm Uterus Vol 93.7 cm? Endometrial thickness, total 10.4 mm Uterine polyp D1 12 mm Uterine polyp D2 5 mm Uterine polyp D3 13 mm Uterine polyp mean 10.0 mm Uterine polyp findings: lower uterine segment Uterine polyp D1 7 mm Uterine polyp D2 4 mm Uterine polyp D3 7 mm Uterine polyp mean 6.0 mm Uterine polyp findings: lower uterine segment Right Ovary ========= Rt ovary: Visualized Rt ovary D1 23 mm Rt ovary D2 15 mm Rt ovary D3 19 mm Rt ovary Vol 3.4 cm? Left Ovary ======== Lt ovary: Visualized Lt ovary D1 42 mm Lt ovary D2 24 mm Lt ovary D3 12 mm Lt ovary Vol 6.6 cm? Cul de Sac ========= Visualized. no free fluid visualized Performed By: Shahla Sky RDMS, RVT Read By: Beltran Jimenez M.D. ASSESSMENT AND PLAN: Encounter Diagnosis ICD-10-CM 1. Pre-op exam Z01.818 2. Pt has been counseled on risks/benefits and alternatives of surgery including but not limited to anesthesia, bleeding, infection , uterine perforation with injury to pelvic struct ures including bowel, bladder, ureters and vessels. Pt wishes to proceed with surgery at this time. 3. covid testing reviewed 4. Post op medication - MOTRIN given Beltran Jimenez MD Referring Provider: BELTRAN FRAGA [[id number]] Allergies As of Date: 03/03/2020 (No Known Allergies) Date Reviewed: 02/06/2020 Reviewed by: Reanna You Ma - Fully Assessed Reason for Visit: Pre-Op Exam [87] Primary Visit Diagnosis:Pre-op exam [Z01.818] Order(s):ibuprofen (MOTRIN) 600 mg tabletTake 1 tablet by mouth every 6 hours as needed.Disp: 30 tabletRfl: 0 2019 CORONAVIRUS [SQCOVID] Order #: [id number] Prescriptions as of 03/03/2020 Sig: AMLODIPINE 5 MG TABLET Take 1 tablet by mouth once d* LORAZEPAM 0.5 MG TABLET Take 1 tablet by mouth as nee* ROSUVASTATIN 10 MG TABLET Take 1 tablet by mouth once d* BUPROPION XL 300 MG 24 HR TAB Take 300 mg by mouth once ruddy* ATENOLOL 50 MG TABLET Take 50 mg by mouth once tiara* PAROXETINE 10 MG TABLET Take 10 mg by mouth once tiara* LEVOTHYROXINE 50 MCG TABLET Take by mouth. 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 Medications Discontinued During This Encounter Prescriptions - GINKGO BILOBA (GINKOBA ORAL) (Discontinued) Take by mouth. Encounter Status:Closed by BELTRAN RICHEY MD on 03/03/20 cnpn on 2020-02-10 CNPN Telephone (OBGYWM) Normal 02-10-2020 [facility] [facility] STEPHANIE CAMERON ([id number]) 1970 [facility] Date Time Provider Department ([id number]) 02/10/20 BELTRAN FRAGA During your visit today, we recorded the following informati on about you: Yi Brown RN 02/10/2020 9:29 AM Addendum Patient called. She can't do 02/20/20 for her surgery date no w. Asking for 03/12/20. If patient does not answer cell, please call [phone] Yi Brown RN Allergies As of Date: 02/10/2020 (No Known Allergies) Date Reviewed: 02/06/2020 Reviewed by: Reanna You Ma - Fully Assessed Reason for Visit: Schedule Surgery [1330] Prescriptions as of 02/10/2020 Sig: AMLODIPINE 5 MG TABLET Take 1 tablet by mouth once d* LORAZEPAM 0.5 MG TABLET Take 1 tablet by mouth as nee* ROSUVASTATIN 10 MG TABLET Take 1 tablet by mouth once d* BUPROPION XL 300 MG 24 HR TAB Take 300 mg by mouth once ruddy* ATENOLOL 50 MG TABLET Take 50 mg by mouth once tiara* PAROXETINE 10 MG TABLET Take 10 mg by mouth once tiara* LEVOTHYROXINE 50 MCG TABLET Take by mouth. ASPIRIN 81 MG CHEWABLE TABLET Take 1 tablet by mouth once d* HYDROCHLOROTHIAZIDE 25 MG TAB* Take 25 mg by mouth once tiara * GINKOBA ORAL Take by mouth. Problem List As Of Date 02/10/2020 Noted Resolved EXCESSIVE MENSTRUATION [N92.0] 03/14/2008 IRREGULAR MENSTRUATION [N92.6] 03/14/2008 Facial palsy [G51.0] 06/23/2012 Presbyopia [H52.4] 11/22/2016 Myopia [H52.10] 11/22/2016 Anisometropia [H52.31] 11/22/2016 Encounter Status:Closed by ALANIS LEPE LPN on 02/11/20 progress on 2020-01 PROGRESS HNO ID: [id number] Normal 02-06-2020 [facility] Author: Beltran Richey [place] ([id number]) Service: ? Author Type: Physician Type: Progress Notes Filed: 02/06/2020 9:50 AM Note Text: Stephanie Cameron is a 49 year old female who presents di scussion of ultrasound results. Patient reports had heavy menstrual blee ding. Patient reports her menses just started again and is heavy. Patient recently had an ultrasound which showed to well-circumscribe d endometrial polyps. Patient would like surgical removal of these polyps at this time. PAST MEDICAL HISTORY Diagnosis Date - Acid reflux - Polycystic ovaries - Pure hypercholesterolemia - Stroke (HCC) 06/2013 - Unspecified essential hypertension PAST SURGICAL HISTORY Procedure Laterality Date - DELIVERY ONLY , low cervical - DELIVERY ONLY , low cervical FAMILY HISTORY Problem Relation Age of Onset - Heart Mother - other (Cadisil) Mother Stroke disorder - Heart Father - No Known Problems Brother - No Known Problems Brother - No Known Problems Sister - Diabetes Maternal Grandfather - Heart Paternal Grandfather Social History Tobacco Use - Smoking status: Former Smoker Packs/day: 0.50 Types: Cigarettes Last attempt to quit: 08/2018 Years since quittin.4 - Smokeless tobacco: Never Used Substance Use Topics - Alcohol use: Yes Frequency: 2-4 times a month Drinks per session: 3 or 4 Binge frequency: Less than monthly - Drug use: No Current Outpatient Medications Medication Sig - amLODIPine (NORVASC) 5 mg tablet Take 1 tablet by mouth on ce daily. - LORazepam (ATIVAN) 0.5 mg Take 1 tablet by mouth as needed . - rosuvastatin (CRESTOR) 10 mg tablet Take 1 tablet by mouth once daily. - buPROPion XL (WELLBUTRIN XL) 300 mg 24 hr tablet Take 300 mg by mouth once daily. - atenolol (TENORMIN) 50 mg tablet Take 50 mg by mouth once daily. - codeine-guaiFENesin (ROBITUSSIN AC) 10-100 mg/5 mL syrup T bakari 5-10 mL by mouth four times daily as needed for Cough. May cause drowsi ness. - PARoxetine (PAXIL) 10 mg tablet Take 10 mg by mouth once d aily. - OXYMETAZOLINE HCL (AFRIN NASAL) Use in the nose. - BIOTIN ORAL Take by mouth. - levothyroxine (SYNTHROID) 50 mcg tablet Take by mouth. - aspirin 81 mg chewable tablet Take 1 tablet by mouth once daily. - atorvastatin 40 mg tablet Take 1 tablet by mouth daily at bedtime. (Patient not taking: Reported on 12/21/2019 ) - hydrochlorothiazide 25 mg tablet Take 25 mg by mouth once daily. - GINKGO BILOBA (GINKOBA ORAL) Take by mouth. No current facility-administered medications for this visit. Allergies As of Date: 02/06/2020 (No Known Allergies) Fully Assessed 01/29/2020 REVIEW OF SYSTEMS Abdomen: no pain Bladder: no dysuria.. Expanded ROS: GENERAL: Negative for fever Allergies and current medication updated:Yes EXAM: BP 110/64 Wt 187 lb (84.8kg) LMP 02/03/2020 GENERAL: pleasant, female in no apparent distress HEENT: Normocephalic, atraumatic, mucus membranes moist and no lesions NECK: full range of motion DERMATOLOGY: Normal, without lesions, non-icteric and non-hi rsute NEURO: alert and oriented x3,exam grossly non-focal EXTREMITIES: normal ASSESSMENT AND PLAN: Encounter Diagnosis ICD-10-CM 1. Abnormal uterine bleeding (AUB) N93.9 2. Endometrial polyp N84.0 3. Discussed management options with the patient including e xpectant management versus surgical management with hysteroscop y, DANDC, polypectomy. Patient would like to proceed with surgical intervention. Or booking sheet filled out. Reviewed covert testing with the patient. Will call her when surgical date is scheduled. Beltran Jimenez MD cnpn on 2020-02-06 CNPN Telephone (OBGYWM) Normal 02-06-2020 [place] STEPHANIE Berger ([id number]) 1970 [facility] [place] Date Time Provider Department ([id number]) 02/06/20 BELTRAN FRAGA OBGYWM During your visit today, we recorded the following informati on about you: Alanis Lepe LPN 02/06/2020 11:01 AM Signed Left message to call office. Next available surgery dates @ [facility] are 02/19, 03/05, 03/12 Blanca Nagy RN 02/06/2020 11:11 AM Signed Patient wants 02/20/20. If calling back today patient wants c alled on work phone. Blanca Nagy RN Allergies As of Date: 02/06/2020 (No Known Allergies) Date Reviewed: 02/06/2020 Reviewed by: Reanna You Ma - Fully Assessed Reason for Visit: Schedule Surgery [1330] Prescriptions as of 02/06/2020 Sig: AMLODIPINE 5 MG TABLET Take 1 tablet by mouth once d* LORAZEPAM 0.5 MG TABLET Take 1 tablet by mouth as nee* ROSUVASTATIN 10 MG TABLET Take 1 tablet by mouth once d* BUPROPION XL 300 MG 24 HR TAB Take 300 mg by mouth once ruddy* ATENOLOL 50 MG TABLET Take 50 mg by mouth once tiara* PAROXETINE 10 MG TABLET Take 10 mg by mouth once tiara* LEVOTHYROXINE 50 MCG TABLET Take by mouth. ASPIRIN 81 MG CHEWABLE TABLET Take 1 tablet by mouth once d* HYDROCHLOROTHIAZIDE 25 MG TAB* Take 25 mg by mouth once tiara * GINKOBA ORAL Take by mouth. Problem List As Of Date 02/06/2020 Noted Resolved EXCESSIVE MENSTRUATION [N92.0] 03/14/2008 IRREGULAR MENSTRUATION [N92.6] 03/14/2008 Facial palsy [G51.0] 06/23/2012 Presbyopia [H52.4] 11/22/2016 Myopia [H52.10] 11/22/2016 Anisometropia [H52.31] 11/22/2016 Encounter Status:Closed by ALANIS LEPE LPN on 02/06/20 cnov on 2020-02-06 CNOV Office Visit (OBGYWM) Normal 02-06-20 [facility] STEPHANIE CAMERON ([id number]) 1970 [address] [place] Date Time Provider Department ([id number]) 02/06/20 8:40 AM BELTRAN FRAGA During your visit today, we recorded the following informati on about you: Blood pressure Weight Last Period 110/64 84.8 kg 02/03/20 Beltran Jimenez MD 02/06/2020 9:50 AM Signed Stephanie Cameron is a 49 year old female who presents di scussion of ultrasound results. Patient reports had heavy menstrual blee ding. Patient reports her menses just started again and is heavy. Patiprincess t recently had an ultrasound which showed to well-circumscribed endometrial po lyps. Patient would like surgical removal of these polyps at this time. PAST MEDICAL HISTORY Diagnosis Date - Acid reflux - Polycystic ovaries - Pure hypercholesterolemia - Stroke (HCC) 06/2013 - Unspecified essential hypertension PAST SURGICAL HISTORY Procedure Laterality Date - DELIVERY ONLY , low cervical - DELIVERY ONLY , low cervical FAMILY HISTORY Problem Relation Age of Onset - Heart Mother - other (Cadisil) Mother Stroke disorder - Heart Father - No Known Problems Brother - No Known Problems Brother - No Known Problems Sister - Diabetes Maternal Grandfather - Heart Paternal Grandfather Social History Tobacco Use - Smoking status: Former Smoker Packs/day: 0.50 Types: Cigarettes Last attempt to quit: 08/2018 Years since quittin.4 - Smokeless tobacco: Never Used Substance Use Topics - Alcohol use: Yes Frequency: 2-4 times a month Drinks per session: 3 or 4 Binge frequency: Less than monthly - Drug use: No Current Outpatient Medications Medication Sig - amLODIPine (NORVASC) 5 mg tablet Take 1 tablet by mouth on ce daily. - LORazepam (ATIVAN) 0.5 mg Take 1 tablet by mouth as needed . - rosuvastatin (CRESTOR) 10 mg tablet Take 1 tablet by mouth once daily. - buPROPion XL (WELLBUTRIN XL) 300 mg 24 hr tablet Oswaldo e 300 mg by mouth once daily. - atenolol (TENORMIN) 50 mg tablet Take 50 mg by mouth once daily. - codeine-guaiFENesin (ROBITUSSIN AC) 10-100 mg/5 mL syrup T bakari 5-10 mL by mouth four times daily as needed for Cough. May cause drowsi ness. - PARoxetine (PAXIL) 10 mg tablet Take 10 mg by mouth once d aily. - OXYMETAZOLINE HCL (AFRIN NASAL) Use in the nose. - BIOTIN ORAL Take by mouth. - levothyroxine (SYNTHROID) 50 mcg tablet Take by mouth. - aspirin 81 mg chewable tablet Take 1 tablet by mouth once daily. - atorvastatin 40 mg tablet Take 1 tablet by kirstie th daily at bedtime. (Patient not taking: Reported on 12/21/2019 ) - hydrochlorothiazide 25 mg tablet Take 25 mg by mouth once daily. - GINKGO BILOBA (GINKOBA ORAL) Take by mouth. No current facility-administered medications for this visit. Allergies As of Date: 02/06/2020 (No Known Allergies) Fully Assessed 01/29/2020 REVIEW OF SYSTEMS Abdomen: no pain Bladder: no dysuria.. Expanded ROS: GENERAL: Negative for fever Allergies and current medication updated:Yes EXAM: BP 110/64 Wt 187 lb (84.8kg) LMP 02/03/2020 GENERAL: pleasant, female in no apparent distress HEENT: Normocephalic, atraumatic, mucus membranes moist and no lesions NECK: full range of motion DERMATOLOGY: Normal, without lesions, non-icteric and non-hi rsute NEURO: alert and oriented x3,exam grossly non-focal EXTREMITIES: normal ASSESSMENT AND PLAN: Encounter Diagnosis ICD-10-CM 1. Abnormal uterine bleeding (AUB) N93.9 2. Endometrial polyp N84.0 3. Discussed management options with the patient including e xpectant management versus surgical management with hysteroscop y, DANDC, polypectomy. Patient would like to proceed with surgical intervention. Or booking sheet filled out. Reviewed covert testing with the patient. Will c all her when surgical date is scheduled. Beltran Jimenez MD Referring Provider: MARY LEVINE ([facility]) [[id number]] Allergies As of Date: 02/06/2020 (No Known Allergies) Date Reviewed: 02/06/2020 Reviewed by: Reanna You Ma - Fully Assessed Reason for Visit: Discussion [813] Primary Visit Diagnosis:Abnormal uterine bleeding (AUB) [N93 .9] Other Visit Diagnosis:Endometrial polyp [N84.0] Prescriptions as of 02/06/2020 Sig: AMLODIPINE 5 MG TABLET Take 1 tablet by mouth once d* LORAZEPAM 0.5 MG TABLET Take 1 tablet by mouth as nee* ROSUVASTATIN 10 MG TABLET Take 1 tablet by mouth once d* BUPROPION XL 300 MG 24 HR TAB Take 300 mg by mouth once ruddy* ATENOLOL 50 MG TABLET Take 50 mg by mouth once tiara* PAROXETINE 10 MG TABLET Take 10 mg by mouth once tiara* LEVOTHYROXINE 50 MCG TABLET Take by mouth. ASPIRIN 81 MG CHEWABLE TABLET Take 1 tablet by mouth once d* HYDROCHLOROTHIAZIDE 25 MG TAB* Take 25 mg by mouth once tiara * GINKOBA ORAL Take by mouth. Problem List As Of Date 02/06/2020 Noted Resolved EXCESSIVE MENSTRUATION [N92.0] 03/14/2008 IRREGULAR MENSTRUATION [N92.6] 03/14/2008 Facial palsy [G51.0] 06/23/2012 Presbyopia [H52.4] 11/22/2016 Myopia [H52.10] 11/22/2016 Anisometropia [H52.31] 11/22/2016 Medications Discontinued During This Encounter codeine-guaiFENesin (ROBITUSSIN AC) * 120 * 0 08/27/201602/05 Class: Print RX Route: ORAL Sig: Take 5-10 mL by mouth f our times daily as needed for Cough. May cause drowsiness. Disc: Reason for discontinue is not on file. OXYMETAZOLINE HCL (AFRIN NASAL) 02/06/2020 Class: Historical Med Route: NASAL Sig: Use in the nose. Disc: Reason for discontinue is not on file. atorvastatin 40 mg tablet 60 t* 0 06/25/2012 02/06/2020 Class: Print RX Route: ORAL Sig: Take 1 tablet by mouth daily at bedtime. Patient not taking: Reported on 12/21/2019 Disc: Reason for discontinue is not on file. BIOTIN ORAL 02/06/2020 Class: Historical Med Route: ORAL Sig: Take by mouth. Disc: Reason for discontinue is not on file. Encounter Status:Closed by BELTRAN RICHEY MD on 02/06/20 cnpn on 2020-02-04 CNPN Telephone (OBGYWM) Normal 02-04-2020 [facility] ANNIESTEPHANIE Mark ([id number]) 1970 [place] Date Time Provider Department ([id number]) 02/04/20 MARY LEVINE ([facility]) OBGYWM During your visit today, we recorded the following informati on about you: Mary Levine APRN.CNM 02/04/2020 10:05 AM Signed Please notify patient that pelvic ultrasound shows 2 well-ci rcumscribed endometrial polyps present. Please assist in scheduling estefany ent to see physician for treatment options including possib le surgical. RYLEY Bazan RN 02/04/2020 10:45 AM Signed Patient notified and scheduled with DM. Blanca Nagy RN Allergies As of Date: 02/04/2020 (No Known Allergies) Date Reviewed: 01/29/2020 Reviewed by: Mary Breen) Amaury - Fully Assessed Reason for Visit: Results [95] Prescriptions as of 02/04/2020 Sig: AMLODIPINE 5 MG TABLET Take 1 tablet by mouth once d* LORAZEPAM 0.5 MG TABLET Take 1 tablet by mouth as nee* ROSUVASTATIN 10 MG TABLET Take 1 tablet by mouth once d* BUPROPION XL 300 MG 24 HR TAB Take 300 mg by mouth once ruddy* ATENOLOL 50 MG TABLET Take 50 mg by mouth once tiara* CODEINE 10 MG-GUAIFENESIN 100* Take 5-10 mL by mouth four ti * PAROXETINE 10 MG TABLET Take 10 mg by mouth once tiara* AFRIN NASAL Use in the nose. BIOTIN ORAL Take by mouth. LEVOTHYROXINE 50 MCG TABLET Take by mouth. ASPIRIN 81 MG CHEWABLE TABLET Take 1 tablet by mouth once d* ATORVASTATIN 40 MG TABLET Take 1 tablet by mouth daily * Patient not taking: Reported on 12/21/2019 HYDROCHLOROTHIAZIDE 25 MG TAB* Take 25 mg by mouth once tiara * GINKOBA ORAL Take by mouth. Problem List As Of Date 02/04/2020 Noted Resolved EXCESSIVE MENSTRUATION [N92.0] 03/14/2008 IRREGULAR MENSTRUATION [N92.6] 03/14/2008 Facial palsy [G51.0] 06/23/2012 Presbyopia [H52.4] 11/22/2016 Myopia [H52.10] 11/22/2016 Anisometropia [H52.31] 11/22/2016 Encounter Status:Closed by MARY LEVINE APRN.CNM on 02/03 obsolete on 2020-01 OBSOLETE Procedure (OBGYWM) Normal 02-03-2020 [facility] STEPHANIE CAMERON ([id number]) 1970 [facility] Time Provider Department ([id number]) 02/03/20 1:00 PM BELTRAN FRAGA OBTYSHAWN During your visit today, we recorded the following informati on about you: Referring Provider: MARY LEVINE) [[id number]] Allergies As of Date: 02/03/2020 (No Known Allergies) Date Reviewed: 01/29/2020 Reviewed by: Mary Breen) Amaury - Fully Assessed 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 BIOTIN ORAL Take by mouth. LEVOTHYROXINE 50 MCG TABLET Take by mouth. ASPIRIN 81 MG CHEWABLE TABLET Take 1 tablet by mouth once d* ATORVASTATIN 40 MG TABLET Take 1 tablet by mouth daily * Patient not taking: Reported on 12/21/2019 HYDROCHLOROTHIAZIDE 25 MG TAB* Take 25 mg by mouth once tiara * GINKOBA ORAL Take by mouth. Problem List As Of Date 02/03/2020 Noted Resolved EXCESSIVE MENSTRUATION [N92.0] 03/14/2008 IRREGULAR MENSTRUATION [N92.6] 03/14/2008 Facial palsy [G51.0] 06/23/2012 Presbyopia [H52.4] 11/22/2016 Myopia [H52.10] 11/22/2016 Anisometropia [H52.31] 11/22/2016 Encounter Status:Closed by BELTRAN RICHEY MD on 02/03/20 progress on 2020-01 PROGRESS HNO ID: [id number] Normal 01-29-2020 [facility] Author: Mary (Cnm) Amaury [place] ([id number]) Service: ? Author Type: Shake Loader Type: Progress Notes Filed: 01/29/2020 3:39 PM Note Text: Stephanie Cameron is a 49 year old who presents f or her annual gynecologic exam with complaints, irregular bleeding and gemma n in pelvic area at times. Postmenopausal: No. Menstrual cycle every couple of months- Has only had 2 cycles this year. LMP- 01/07/20 days Flow was heavy for 3 d ays. HRT use: No. Last Pap: 06/24/2013 normal HPV: 06/20/2013 negative History of abnormal pap: No Last mammogram: 2001- receved mamogram at a trade show gabby l History of abnormal mammogram: No Sexually active: No- has not had intercourse with in years. Stated both have gained weight. Patient reports PTSD because had a stroke the last time her and her had intercourse. (Documented qian douglass) Stated her and are fine not being sexually active. History of STDS: None Time with current partner: 27 years History of PCOS: Yes, Pain with intercourse: No Postcoital bleeding: No Hot flashes: No Night sweats: Yes- irregular couple times a year Vaginal dryness: No Mood swings: No Exercise: no exercise Diet: regular diet Seatbelt use: Yes OB History T0 L1 SAB1 TAB0 Ectopic0 Multiple0 Live Births0 PAST MEDICAL HISTORY Diagnosis Date - Acid reflux - Polycystic ovaries - Pure hypercholesterolemia - Stroke (HCC) 06/2013 - Unspecified essential hypertension PAST SURGICAL HISTORY Procedure Laterality Date - DELIVERY ONLY , low cervical - DELIVERY ONLY , low cervical FAMILY HISTORY Problem Relation Age of Onset - Heart Mother - other (Cadisil) Mother Stroke disorder - Heart Father - Diabetes Maternal Grandfather - Heart Paternal Grandfather SOCIAL HISTORY Social History Tobacco Use - Smoking status: Former Smoker Packs/day: 0.50 Types: Cigarettes Last attempt to quit: 08/2018 Years since quittin.4 - Smokeless tobacco: Never Used Substance Use Topics - Alcohol use: Yes Comment: occasionally - Drug use: No REVIEW OF SYSTEMS Abdomen: No abdominal pain, nausea, vomiting, diarrhea, or c onstipation. No bloating, early satiety, indigestion, or increased flatul ence. Bladder: No dysuria, gross hematuria, Positive urinary frequ ency, no urinary urgency. Positive for mild incontinence- does not we ar a pad but thinks she may need to start. 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 Unsure if related to cycles Allergies and current medication updated:Yes EXAM: BP 120/82 Ht 5' 1 (1.55m) Wt 190 lb 3.2 oz (86.3k g) LMP 01/08/2020 BMI 35.96 kg/(m2). GENERAL: pleasant, female in no apparent distress HEENT: Normocephalic, atraumatic, mucus membranes moist and no lesions NECK: Supple, full range of motion, no adenopathy and thyroi d normal DERMATOLOGY: Normal, without lesions, non-icteric and non-hi rsute BREAST: soft, non-tender, symmetric, no dominant mass, gabby l nipple-areolar complex, no lymphadenopathy and no nipple dis charge CHEST: Clear to auscultation Normal inspiratory effort ABDOMEN: soft, non-tender and no masses PELVIC: external genitalia normal, normal Bartholin's glands , urethra, [place]'s glands, no vulvar lesions, no cervical lesions, good vaginal support, physiologic discharge present, normal appearing per ineal body and perianal region BIMANUAL: uterus normal size, shape and consistency, no adne xal masses, some tenderness present with palpation and no cervical motio n tenderness RECTOVAGINAL: patient declined. NEURO: alert and oriented x3,exam grossly non-focal EXTREMITIES: normal ASSESSMENT/PLAN: 1) Health maintenance: Pap done with HPV. Mammogram ordered Nutrition, exercise and routine health maintenance exams rev iewed. Colon cancer screening: patient to discuss with PCP 1. Pelvic pain in female - ICD9: 625.9, ICD10: R10.2 (primar y diagnosis) - PELVIC US [facility] 2. Encounter for gynecological examination (general) (routin e) without abnormal findings - ICD9: V72.31, ICD10: Z01.419 - Completed pap test and breast exam - PAP FLUID CERVICAL SCREENING - LÁZARO SCREENING 3. Encounter for screening for human papillomavirus (HPV) - ICD9: V73.81, ICD10: Z11.51 4. Pap smear for cervical cancer screening - ICD9: V76.2, IC D10: Z12.4 RTO - 1 year or PRN Mary Levine APRN.CNM hpv w/genotype on HPV HighRisk Negative for HPV DNA high risk types: Normal 01-29-2020 [place] Other 31,33,35,39,45,51,52,56,58,59,66,68 by Clinic PCR. [place] ([id number]) Comment: Result Comment: This test wa s developed and its performance characteristics determined by [facility]'s [facility] [place] ([facility] It has not been cleared or a pproved by the FDA. [facility] is regulated under CLIA as qualified to perform high-complexity testing. This test is used for clinical purposes. It should not be regarded as inv estigational or for research . Performed By: #### HPVHRR ## ## [facility] [address] [place] [phone] HPV HighRisk Type 16 Negative for HPV DNA Normal 01-29-2020 [facility] high risk type 16 by [place] ([id number]) PCR. Comment: Performed By: #### HPVHRR ## ## [facility] [address] [place] [phone] HPV HighRisk Type 18 Negative for HPV DNA Normal 01-29-2020 [facility] high risk type 18 by [place] ([id number]) PCR. Comment: Performed By: #### HPVHRR ## ## [facility] [address] [place] [phone] cytology on 2020-01 CYTOLOGY Normal 01-28-2019 [place] ADDITIONAL PROCEDURES PRESENT Clinic [place] ([id number]) Specimen originated from [facility] Specimen #: [id number] Submitting Physician: MARY LEVINE CNM SPECIMEN SUBMITTED A: CERVICAL, SCREENING, FLUID FINAL DIAGNOSIS A. CERVICAL, SCREENING, FLUID Satisfactory for interpretation. No endocervical component. Negative for intraepithelial lesion or malignancy. This specimen has been analyzed by the [employer], an automated imaging and review system, which assists the labor atory in evaluating cells on ThinPrep Pap tests. Following automated imaging, selected melendrez from every slide are reviewed by a cytotechn ologist. MARTELL Denise(ASCP) (Electronic Signature) ADDITIONAL PROCEDURE(S) HUMAN PAPILLOMA VIRUS Date Ordered: 01/30/2020 Date Reported: 01/31/2020 Procedure Results and Interpretation Negative for HPV DNA high risk type 16 by PCR. Negative for HPV DNA high risk type 18 by PCR. Negative for HPV DNA high risk types: 31,33,35,39,45,51,52,5 6,58,59,66,68 by PCR. This test was developed and its performance characteristics determined by [facility]'s [facility] Pathology and Laborator y Medicine [place] ([facility]). It has not been cleared or approved by the FDA. [facility] is r egulated under CLIA as qualified to perform high-complexity testing. This test is used for clinical purposes. It should not be regarded as investigatio nal or for research. 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 CLIA Number: [id number] The Pap Smear is a screening test for cervical cancer. False negative results occur with all screening tests, emphasizing the need for rescreening at recommended intervals, and clinical correlati on. cnov on 2020-01-29 CNOV Office Visit (OBGYWM) Normal 01-29-[address] [place] [address] Clinic STEPHANIE CAMERON ([id number]) 1970 [place] Date Time Provider Department ([id number]) 01/29/20 2:00 PM MARY LEVINE ([facility]) OBGYWM During your visit today, we recorded the following informati on about you: Blood pressure Weight Height Last Period 120/82 86.3 kg 1.549 m 01/08/20 Mary Levine APRN.CNM 01/29/2020 3:39 PM Signed Stephanie Cameron is a 49 year old who presents f or her annual gynecologic exam with compla ints, irregular bleeding and pain in pelvic area at times. Postmenopausal: No. Menstrual cycle every couple of months- Has only had 2 cycles this year. LMP- 01/07/20 days Flow was heavy for 3 day s. HRT use: No. Last Pap: 06/24/2013 normal HPV: 06/20/2013 negative History of abnormal pap: No Last mammogram: 2001- receved mamogram at a [employer] [facility] History of abnormal mammogram: No Sexually active: No- has not had intercourse with in years. Stated both have gained weight. Patient reports PTSD because had a stroke the last time her and her had intercou rse. (Documented stroke) Stated her and are fine not being sexually active. History of STDS: None Time with current partner: 27 years History of PCOS: Yes, Pain with intercourse: No Postcoital bleeding: No Hot flashes: No Night sweats: Yes- irregular couple times a year Vaginal dryness: No Mood swings: No Exercise: no exercise Diet: regular diet Seatbelt use: Yes OB History T0 L1 SAB1 TAB0 Ectopic0 Multiple0 Live Births0 PAST MEDICAL HISTORY Diagnosis Date - Acid reflux - Polycystic ovaries - Pure hypercholesterolemia - Stroke (HCC) 06/2013 - Unspecified essential hypertension PAST SURGICAL HISTORY Procedure Laterality Date - DELIVERY ONLY , low cervical - DELIVERY ONLY , low cervical FAMILY HISTORY Problem Relation Age of Onset - Heart Mother - other (Cadisil) Mother Stroke disorder - Heart Father - Diabetes Maternal Grandfather - Heart Paternal Grandfather SOCIAL HISTORY Social History Tobacco Use - Smoking status: Former Smoker Packs/day: 0.50 Types: Cigarettes Last attempt to quit: 08/2018 Years since quittin.4 - Smokeless tobacco: Never Used Substance Use Topics - Alcohol use: Yes Comment: occasionally - Drug use: No REVIEW OF SYSTEMS Abdomen: No abdominal pain, nausea, vomiting, diarrhea, or constipation. No bloating, early satiety, indigestion, or increased flatulenc e. Bladder: No dysuria, gross hematuria, Positive urinary frequency, no urinary urgency. Positive for mild i ncontinence- does not wear a pad but thinks she may need to start. 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 Unsure if related to cycles Allergies and current medication updated:Yes EXAM: BP 120/82 Ht 5' 1 ( 1.55m) Wt 190 lb 3.2 oz (86.3kg) LMP 01/08/2020 BMI 35.96 kg/(m2). GENERAL: pleasant, female in no apparent distress HEENT: Normocephalic, atraumatic, mucus membranes moist and no lesions NECK: Supple, full range of motion, no adenopathy and thyroi d normal DERMATOLOGY: Normal, without lesions, non-icteric and non-hi rsute BREAST: soft, non-tender, symmetric, no dominant mass, normal nipple-areolar complex, no lymphadenopathy and no nipple discharge CHEST: Clear to auscultation Normal inspiratory effort ABDOMEN: soft, non-tender and no masses PELVIC: external genitalia normal, gabby l Bartholin's glands, urethra, [place]'s glands, no vulvar lesions, no cervical lesions, good vaginal support, physiologic discharge present, normal appearing perineal bod y and perianal region BIMANUAL: uterus normal size, shape and consistency, n o adnexal masses, some tenderness present with palpation and no cervical motion ten derness RECTOVAGINAL: patient declined. NEURO: alert and oriented x3,exam grossly non-focal EXTREMITIES: normal ASSESSMENT/PLAN: 1) Health maintenance: Pap done with HPV. Mammogram ordered Nutrition, exercise and routine health maintenance exams rev iewed. Colon cancer screening: patient to discuss with PCP 1. Pelvic pain in female - ICD9: 625.9, ICD10: R10.2 (primar y diagnosis) - PELVIC US WHI 2. Encounter for gynecologic al examination (general) (routine) without abnormal findings - ICD9: V72.31, ICD10: Z01.419 - Completed pap test and breast exam - PAP FLUID CERVICAL SCREENING - LÁZARO SCREENING 3. Encounter for screening for human papillomavirus (HPV) - ICD9: V73.81, ICD10: Z11.51 4. Pap smear for cervical cancer screening - ICD9: V76.2, IC D10: Z12.4 RTO - 1 year or PRN Mary Levine APRN.MEGHAN Martinez 02/11/2020 11:34 AM Signed Pap logged reminder letter mailed to patient. Cat Martinez Referring Provider: SELF [[id number]] Allergies As of Date: 01/29/2020 (No Known Allergies) Date Reviewed: 01/29/2020 Reviewed by: Mary (Meghan) Amaury - Fully Assessed Reason for Visit: Well Woman [[id number]] Primary Visit Diagnosis:Pelvic pain in female [R10.2] Other Visit Diagnoses:Encounter for gynecological examinatio n (general) (routine) without abnormal findings [Z01.419] Encounter for screening for human papillomavirus (HPV) [Z11.51] Pap smear for cervical cancer screening [Z12.4] Order(s):PAP FLUID CERVICAL SCREENING [[id number]] Order #: [id number]. #:[id number] LÁZARO SCREENING [[id number]] Order #: [id number] FUTURE PELVIC US WHI [[id number]] Order #: [id number]. #[id number]: 1 HPV W/GENOTYPE [SQHPVHRR] Order #: [id number]. #:[id number] Prescriptions as of 01/29/2020 Sig: AMLODIPINE 5 MG TABLET Take 1 tablet by mouth once d* ROSUVASTATIN 10 MG TABLET Take 1 tablet by mouth once d* BUPROPION XL 300 MG 24 HR TAB Take 300 mg by mouth once ruddy* ATENOLOL 50 MG TABLET Take 50 mg by mouth once tiara* PAROXETINE 10 MG TABLET Take 10 mg by mouth once tiara* LEVOTHYROXINE 50 MCG TABLET Take by mouth. ASPIRIN 81 MG CHEWABLE TABLET Take 1 tablet by mouth once d* HYDROCHLOROTHIAZIDE 25 MG TAB* Take 25 mg by mouth once tiara * LORAZEPAM 0.5 MG TABLET Take 1 tablet by mouth as nee* X CODEINE 10 MG-GUAIFENESIN 100* Take 5-10 mL by mouth four ti* X AFRIN NASAL Use in the nose. X BIOTIN ORAL Take by mouth. X ATORVASTATIN 40 MG TABLET Take 1 tablet by mouth daily * Patient not taking: Reported on 12/21/2019 GINKOBA ORAL Take by mouth. Problem List As Of Date 01/29/2020 Noted Resolved EXCESSIVE MENSTRUATION [N92.0] 03/14/2008 IRREGULAR MENSTRUATION [N92.6] 03/14/2008 Facial palsy [G51.0] 06/23/2012 Presbyopia [H52.4] 11/22/2016 Myopia [H52.10] 11/22/2016 Anisometropia [H52.31] 11/22/2016 Disposition: Return for Annual Exam. Follow-up and Disposition History Recorded Letter Text Encounter Status:Closed by MARY LEVINE APRN.CNM on 01/28 progress on 2019-12 PROGRESS HNO ID: [id number] Normal 12-21-2019 [facility] Author: Shankar Ascencio (Leno) Ju[place] Diallo ([id number]) Service: ? Author Type: Physician Party Plan Sales Agent Type: Progress Notes Filed: 12/21/2019 9:05 AM Note Text: Pt presents to express care triage with dizziness for 3 hour s. She also is having anxiety. She feels like she might be having a panic a ttack. She woke up and rolled over feeling very dizzy. It has been inte rmittent since. 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 She has not had vertigo symptoms si nce then. No chest pain. BP here is 162/102. She does take medication for htn. I discussed with patient I would recommend an ER evaluation fo r dizziness especially with her history. I recommended squad transport b ut she declined. She [facility] go to [facility] ED. No obvious neurological de ficit here. cnov on 2019-12-21 CNOV Office Visit (UCWSTR) Normal 12-21-19 [address] CAMERONSTEPHANIE Mark ([id number]) 1970 [facility] Date Time Provider Department ([id number]) 12/21/19 8:30 AM SHANKAR ESPARZA (LENO) [facility] During your visit today, we recorded the following informati on about you: Temperature Pulse Respiration Blood pressure 98.6 degrees 68/minute 16/minute 148/100 Weight 85.5 kg Shankar Esparza PA-C 12/21/2019 9:05 AM Signed Pt presents to psychiatric triage with dizziness for 3 hour s. She also is having anxiety. She feels like she might be having a panic attack. She woke up and rolled over feeling very dizzy. It has been intermittent since. 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 She has not had vertigo symptoms since . No chest pain. BP here is 162/102. She does take medication for htn. I discussed wit h patient I would recommend an ER evaluation for dizziness especially with her history. I recommended squad transport but she declined. She would go [facility] ED. No obvious neurological deficit here. Referring Provider: SELF [[id number]] Allergies As of Date: 12/21/2019 (No Known Allergies) Date Reviewed: 12/21/2019 Reviewed by: Marla Kohli Ma - Fully Assessed Reason for Visit: Vertigo [3853] Cmt: intermittent x 3 HR Primary Visit Diagnosis:Dizziness [R42] Prescriptions as of 12/21/2019 Sig: AMLODIPINE 5 MG TABLET Take 1 tablet by mouth once d* ROSUVASTATIN 10 MG TABLET Take 1 tablet by mouth once d* BUPROPION XL 300 MG 24 HR TAB Take 300 mg by mouth once ruddy* ATENOLOL 50 MG TABLET Take 50 mg by mouth once tiara* PAROXETINE 10 MG TABLET Take 10 mg by mouth once tiara* LEVOTHYROXINE 50 MCG TABLET Take by mouth. ASPIRIN 81 MG CHEWABLE TABLET Take 1 tablet by mouth once d* HYDROCHLOROTHIAZIDE 25 MG TAB* Take 25 mg by mouth once tiara * LORAZEPAM 0.5 MG TABLET Take 1 tablet by mouth as nee* CODEINE 10 MG-GUAIFENESIN 100* Take 5-10 mL by mouth four ti * AFRIN NASAL Use in the nose. BIOTIN ORAL Take by mouth. ATORVASTATIN 40 MG TABLET Take 1 tablet by mouth daily * Patient not taking: Reported on 12/21/2019 GINKOBA ORAL Take by mouth. Problem List As Of Date 12/21/2019 Noted Resolved EXCESSIVE MENSTRUATION [N92.0] 03/14/2008 IRREGULAR MENSTRUATION [N92.6] 03/14/2008 Facial palsy [G51.0] 06/23/2012 Presbyopia [H52.4] 11/22/2016 Myopia [H52.10] 11/22/2016 Anisometropia [H52.31] 11/22/2016 Encounter Status:Closed by SHANKAR ESPARZA PA-C on 12/21/19 Vital Signs Vital Sign Description Value / Unit Date Location The following section is limited to 5 en tries per type and includes entries from the following time range: 20200303 - 20200310 6. Body weight 86.64 kg 03-25-2020 [facility] ([id number]) Body weight 86.64 kg 03-03-2020 [facility] ([id number]) BP Diastolic 86 mm[Hg] 03-25-2020 [facility] ([id number]) BP Diastolic 80 mm[Hg] 03-03-2020 [facility] ([id number]) BP Systolic 140 mm[Hg] 03-25-2020 [facility] ([id number]) BP Systolic 126 mm[Hg] 03-03-2020 [facility] ([id number]) Height 154 cm 03-03-2020 [facility] ([id number]) Encounters Date Type Reason Provider Location 03-13-2020 Documentation Mammography [place] [facility] - procedure Coordinator 03-13-2020 03-13-2020 Letter encounter [facility] Zak dwyer Coordinator Department 03-25-2020 Patient encounter Postoperative state Beltran Elizabeth Pickett B/Gynecology - procedure Richey 03-25-2020 Comment: Abnormal uterine bleeding (A UB) (Primary Dx); Post-operative state 03-13-2020 - Patient encounter Patient encounter Screen Mammo [facility] M ammogram 03-13-2020 procedure status Wstr Comment: Radiology Mammogram 03-03-2020 - Patient encounter Preprocedural Beltran Elizabeth OB/Gyne cology 03-03-2020 procedure examination done Mehnaz Comment: Pre-op exam (Primary Dx) 01-29-2020 - 01-29-2020 Subsequent hospital visit by physician [facility] Procedures Procedure Name Date Provider Location Screening mammography bi 03-13-2020 Mary (Meghan) Amaury Crespo [facility] cad ([id number]) Mammography 03-13-2020 - [facility] 03-13-2020 ([id number]) Plan of Treatment Plan Description Date Location HPV TESTING HPV TESTING 01-28-2025 - [facility] 01-28-2025 ([id number]) PAP TESTING PAP TESTING 01-28-2025 - [facility] 01-28-2025 ([id number]) MAMMOGRAM MAMMOGRAM 03-13-2021 - [facility] 03-13-2021 ([id number]) INFLUENZA (#1) INFLUENZA (#1) 2020 - [facility] 03-10-2020 ([id number]) SHINGRIX VACCINE (1 of SHINGRIX VACCINE (1 of 2018 - [facility] 2) 2) 2018 (01943) COLORECTAL CANCER COLORECTAL CANCER 2018 - [facility] SCREENING,SEE MODIFIER SCREENING,SEE MODIFIER 2018 (4 1411) LIPID SCREEN LIPID SCREEN 06-25-2017 - [facility] 06-25-2017 ([id number]) DIABETES SCREEN DIABETES SCREEN 06-25-2015 - [facility] 06-25-2015 ([id number]) MAMMOGRAM MAMMOGRAM 2008 - [facility] 2008 ([id number]) DTAP,TDAP,TD (1 - Tdap) DTAP,TDAP,TD (1 - Tdap) 1987 - [facility] 1987 (79434) ANNUAL PCP TEAM CHRONIC ANNUAL PCP TEAM CHRONIC 1986 - [facility] DISEASE VISIT DISEASE VISIT 1986 ([id number]) HEPATITIS C SCREENING HEPATITIS C SCREENING 1986 - [facility] 1986 (07322) HIV SCREENING HIV SCREENING 1986 - [facility] 1986 (19753) no information [facility] ([id number]) no information [facility] ([id number]) Payers Payer Name Policy Number Location DARYL [id number] [facility] (44 526) The following information is from the original human readable contentNo Payer Records FoundNo Payer Records FoundNo Payer Records Found Social History Type Social History Date Location Description History of tobacco use Current smoker 08-10-2018 [facility] ([id number]) History SDOH Alcohol 3 01-29-2020 [facility] Frequency 01-29-2020 ([id number]) History of tobacco use Cigarette Smoker 08-10-[address] [facility] ([id number]) Cigarettes smoked 01-29-2020 [facility] ic current (pack per day) - 03-25-2020 ([id number]) Reported Tobacco use and exposure Never used 01-29-2020 - [facility] 03-25-2020 ([id number]) Alcohol intake Current drinker of 01-29-2020 [facility] misti alcohol (finding) 03-25-2020 ([id number]) Tobacco smoking status Former smoker 01-29-2020 - [facility] NHIS 03-25-2020 ([id number]) History SDOH Alcohol Std 2 01-29-2020 - [facility] Drinks 01-29-2020 ([id number]) History SDOH Social 4 01-29-2020 - [facility] Conne[facility] Phone 01-29-2020 ([id number]) History SDOH Social 1 01-29-2020 - [facility] [employer] 01-29-2020 ([id number]) History SDOH Physical 0 01-29-2020 - [facility] Activity DPW 01-29-2020 ([id number]) Sex Assigned At Not on file [facility] ([id number]) Exposure to SARS-CoV-2 Not sure [facility] (event) ([id number]) The following information is from the original human readable contentNo Social History Records FoundNo Social History Records FoundNo Social History Records Found Assessments Diagnosis Pre-op exam - Primary Preoperative examination, unspecified Diagnosis Encounter for gynecological examination (general) (routine) without abnormal findings Diagnosis Abnormal uterine bleeding (AUB) - Primar y Post-operative state Other postprocedural status Summary Purpose Family History No Family History Records FoundNo Family History Records Found Advance Directives No Advanced Directives Records FoundNo Advanced Directives Records Found History of Present Illness Beltran Fraga - 03/25/2020 1:34 PM EDT SUBJECTIVE: 49 year old female presents for 2 week post-op exam. Doing well. No bleeding, no fevers or pain. OBJECTIVE: Incision: None Abdomen: Soft, Non-tender and No palpable masses PLAN: RTO for annual exams and PRN Benign pathology Reviewed meli if AUB I have reviewed and updated past medical and surgical history, medications and allergies. Beltran Jimenez MD documented in this encounter Additional Source Comments FOR RECORDS PERTAINING TO PATIENTS WHO ARE OR HAVE BEEN ENROLLED IN A CHEMICAL DEPENDENCY/SUBSTANCE ABUSE PROGRAM, SOME INFORMATION MAY BE OMITTED. This clinical summary was aggregated from multiple sources. Caution should be exercised in using it in the provision of clinical care. This summary normalizes information from multiple sources, and as a consequence, information in this document may materially changethe coding, format and clinical context of patient data. In addition, data may be omittedin some cases. CLINICAL DECISIONS SHOULD BE BASED ON THE PRIMARY CLINICAL RECORDS. [facility] provides no warranty or guarantee of the accuracy or completeness of information in this document. UNRECOGNIZED CONTENT PROVIDED BELOW FOR UNRECOGNIZED SECTION Source Comments In the event this information is protected by the Federal Confidentiality of Alcohol and Drug Abuse Patient Records regulations: The Federal rules restrict any use of the information to criminally investigate or prosecute any alcohol or drug abuse patient.[facility] the event this information is protected by the Federal Confidentiality of Alcohol and Drug Abuse Patient Records regulations: The Federal rules restrict any use of the information to criminally investigate or prosecute any alcohol or drug abuse patient.[facility] the event this information is protected by the Federal Confidentiality of Alcohol and Drug Abuse Patient Records regulations: The Federal rules restrict any use of the information to criminally investigate or prosecute any alcohol or drug abuse patient.[facility] the event this information is protected by the Federal Confidentiality of Alcohol and Drug Abuse Patient Records regulations: The Federal rules restrict any use of the information to criminally investigate or prosecute any alcohol or drug abuse patient.[facility] the event this information is protected by the Federal Confidentiality of Alcohol and Drug Abuse Patient Records regulations: The Federal rules restrict any use of the information to criminally investigate or prosecute any alcohol or drug abuse patient.[facility] UNRECOGNIZED CONTENT PROVIDED BELOW FOR UNRECOGNIZED SECTION Reason for Visit Reason Comments Pre-Op Exam Reason Comments Radiology Mammogram Reason Onset Date Comments Post-Op Visit 03/25/2020 UNRECOGNIZED CONTENT PROVIDED BELOW FOR UNRECOGNIZED SECTION H&P Notes Beltran Fraga - 03/03/2020 4:55 PM EDT Stephanie Cameron is a 49 year old female who presents preoperative visit. Patient is scheduled for hysteroscopy, D&C, polypectomy on March 12, 2020 at [facility]. Patient hadpelvic ultrasound which revealed well-circumscribed polyps. She is also having abnormal uterine bleeding. Patient denies any concerns today other than feeling slightly dizzy but he treats that 2 havingsmall amount of alcohol last night. Patient denies any chest pain, shortness of breath. PAST MEDICAL HISTORY Diagnosis Date ? Acid reflux ? Polycystic ovaries ? Pure hypercholesterolemia ? Stroke (HCC) 06/2013 ? Unspecified essential hypertension PAST SURGICAL HISTORY Procedure Laterality Date ? DELIVERY ONLY , low cervical ? DELIVERY ONLY , low cervical FAMILY HISTORY Problem Relation Age of Onset ? Heart Mother ? other (Cadisil) Mother Stroke disorder ? Heart Father ? No Known Problems Brother ? No Known Problems Brother ? No Known Problems Sister ? Diabetes Maternal Grandfather ? Heart Paternal Grandfather Social History Tobacco Use ? Smoking status: Former Smoker Packs/day: 0.50 Types: Cigarettes Quit date: 08/2018 Years since quittin.5 ? Smokeless tobacco: Never Used Substance Use Topics ? Alcohol use: Yes Frequency: 2-4 times a month Drinks per session: 3 or 4 Binge frequency: Less than monthly ? Drug use: No Current Outpatient Medications Medication Sig ? amLODIPine (NORVASC) 5 mg tablet Take 1 tablet by mouth once daily. ? LORazepam (ATIVAN) 0.5 mg Take 1 tablet by mouth as needed. ? rosuvastatin (CRESTOR) 10 mg tablet Take 1 tablet by mouth once daily. ? buPROPion XL (WELLBUTRIN XL) 300 mg 24 hr tablet Take 300 mg by mouth once daily. ? atenolol (TENORMIN) 50 mg tablet Take 50 mg by mouth once daily. ? PARoxetine (PAXIL) 10 mg tablet Take 10 mg by mouth once daily. ? levothyroxine (SYNTHROID) 50 mcg tablet Take by mouth. ? aspirin 81 mg chewable tablet Take 1 tablet by mouth once daily. ? hydrochlorothiazide 25 mg tablet Take 25 mg by mouth once daily. ? ibuprofen (MOTRIN) 600 mg tablet Take 1 tablet by mouth every 6 hours as needed. No current facility-administered medications for this visit. Allergies As of Date: 03/03/2020 (No Known Allergies) Fully Assessed 02/06/2020 REVIEW OF SYSTEMS Abdomen: no pain Bladder: no dysuria .. Expanded ROS: GENERAL: Negative for fever Allergies and current medication updated:Yes EXAM: BP 126/80 Ht 5' .63 (1.54m) Wt 191 lb (86.6kg) LMP 02/03/2020 BMI 36.53 kg/(m^2). GENERAL: pleasant, female in no apparent distress HEENT: Normocephalic and atraumatic NECK: full range of motion DERMATOLOGY: Normal, without lesions, non-icteric and non-hirsute NEURO: alert and oriented x3,exam grossly non-focal EXTREMITIES: normal uterus normal size and contour. Endometrial thickness 10.4 mm. There are 2 well-circumscribed endometrial polyps identified the largest measuring 1.2 cm in greatest dimension. Both these appear to be in the lower uterine segment. Myometrium is heterogeneous otherwise unremarkable. Both ovaries appear normal No free fluid in the cul-de-sac Recommendations consider hysteroscopic removal of endometrial polyps. Follow up as clinically indicated. Menstrual History LMP on 01/08/2020 Method ====== Transvaginal, 3D ultrasound examination. Uterus ====== Uterus: Visualized Uterus position: anteverted Myometrium: suspicious of adenomyosis Uterus long 73 mm Uterus ap 49 mm Uterus tr 50 mm Uterus Vol 93.7 cm? Endometrial thickness, total 10.4 mm Uterine polyp D1 12 mm Uterine polyp D2 5 mm Uterine polyp D3 13 mm Uterine polyp mean 10.0 mm Uterine polyp findings: lower uterine segment Uterine polyp D1 7 mm Uterine polyp D2 4 mm Uterine polyp D3 7 mm Uterine polyp mean 6.0 mm Uterine polyp findings: lower uterine segment Right Ovary ========= Rt ovary: Visualized Rt ovary D1 23 mm Rt ovary D2 15 mm Rt ovary D3 19 mm Rt ovary Vol 3.4 cm? Left Ovary ======== Lt ovary: Visualized Lt ovary D1 42 mm Lt ovary D2 24 mm Lt ovary D3 12 mm Lt ovary Vol 6.6 cm? Cul de Sac ========= Visualized. no free fluid visualized Performed By: Shahla Sky RDMS, RVT Read By: Beltran Jimenez M.D. ASSESSMENT AND PLAN: Encounter Diagnosis ICD-10-CM 1. Pre-op exam Z01.818 2. Pt has been counseled on risks/benefits and alternatives of surgery including but not limited to anesthesia, bleeding, infection, uterine perforation with injury to pelvic structures including bowel, bladder, ureters and vessels. Pt wishes to proceed with surgery at this time. 3. covid testing reviewed 4. Post op medication - MOTRIN given Beltran Jimenez MD documented in this encounter UNRECOGNIZED CONTENT PROVIDED BELOW FOR UNRECOGNIZED SECTION INFORMATION SOURCE DATE CREATED AUTHOR AUTHOR'S ORGANIZATIO N 03/13/2020 [facility] DATE CREATED AUTHOR AUTHOR'S ORGANIZATIO N 03/26/2020 [facility] UNRECOGNIZED CONTENT PROVIDED BELOW FOR UNRECOGNIZED SECTION Miscellaneous Notes Letter - Coordinator, Mammography - 03/13/2020 4:04 PM EDTSeptember 2019 PID: [id number] Stephanie Cameron [address] [place] [address] Dear Ms. Cameron, We are pleased to inform you that the results of your recent breast imaging exam on 03/13/2020 are normal. Early detection of cancer is very important. We also understand recommendations regarding breast cancer screening are controversial. Please discuss with your primary care provider which strategy is best for you and whether a mammogram is right for you. Your imaging studies and report will be kept on file at [facility] as part of your permanent medical record and are available for your continuing care. Thank you for allowing us to help in meeting your health care needs. Sincerely, Dr. Redman Interpreting Radiologist [facility] (Normal over 40) documented in this encounter
--- OUTSIDE RECORDS SUMMARY | 2020-04-26 12:58 | XMS RPT_ITS | CCD ---
:1970 External Reference #:[id number] Author Organization [facility] Care Team Providers Name Role Phone Ezra Mckeon Primary Care Provider Medications Medication Name Sig Date Prescriber Location amLODIPine amLODIPine (NORVASC) 5 11-15-2019 Ccf Provider [facility] mg tablet Take 1 tablet (974 95) by mouth once daily. 0 11/15/2019 Active Comment: Take 1 tablet by mouth once daily. Aspirin aspirin 81 mg chewable 06-25-2012 Aj (Gretchen) Clifford [facility] tablet Take 1 tablet by (831 95) mouth once daily. 60 tablet 0 06/25/2012 Active Comment: Take 1 tablet by mouth once daily. Atenolol atenolol (TENORMIN) 50 mg 10-17-2016 Ccf Provider [facility] (65508) tablet Take 50 mg by mouth once daily. 0 10/17/2016 Active Comment: Take 50 mg by mouth once ruddy ly. atorvastatin atorvastatin 40 mg 06-25-2012 Aj (Gretchen) [facility] tablet Take 1 tablet by Clifford Rocha (259 95) mouth daily at bedtime. (Fel) Clifford 60 tablet 0 06/25/2012 Active Comment: Take 1 tablet by mouth daily at bedtime. Biotin BIOTIN ORAL Take by Ccf Provider Cc Prov ider [facility] (43462) mouth. 0 Active Comment: Take by mouth. buPROPion buPROPion XL (WELLBUTRIN 10-17-2016 Ccf Provider [facility] (98188) XL) 300 mg 24 hr tablet Take 300 mg by mouth once daily. 0 10/17/2016 Active Comment: Take 300 mg by mouth once da edin. busPIRone busPIRone (BUSPAR) 03-21-2020 [facility]cf Provider [facility] 5 mg tablet (17032) Codeine / guaiFENesin codeine-guaiFENesi 08-27-2016 Emily (Supervisor Scrap Preparation) Old er [facility] n (ROBITUSSIN AC) Emily (Supervisor Scrap Preparation) Older (72159) 10-100 mg/5 mL syrup Take 5-10 mL by mouth four times daily as needed for Cough. May cause drowsiness. 120 mL 0 08/27/2016 Active Comment: Take 5-10 mL by mouth four t imes daily as needed for Cough. May cause drowsiness. Ginkgo biloba GINKGO BILOBA (GINKOBA 03-03-2020 Ccf Provider [facility] extract ORAL) Take by mouth. 0 (4419 5) 03/03/2020 Discontinued GINKGO BILOBA (GINKOBA ORAL) Take by mouth. 0 Cc f Provider [facility] (27590) Active Comment: Take by mouth. hydroCHLOROthiazide hydrochlorothiazide 25 mg Ccf Prov ider [facility] tablet Take 25 mg by mouth ( 53949) once daily. 0 Active Comment: Take 25 mg by mouth once ruddy ly. Ibuprofen ibuprofen (MOTRIN) 600 03-03-2020 Beltran Neyhart [facility] mg tablet Take 1 tablet Richey (441 95) by mouth every 6 hours as needed. 30 tablet 0 03/03/2020 Active Comment: Take 1 tablet by mouth every 6 hours as needed. levothyroxine levothyroxine (SYNTHROID) 50 Ccf Provide r [facility] (76508) mcg tablet Take by mouth. 0 Active Comment: Take by mouth. Lisinopril lisinopril (ZESTRIL, 03-21-2020 [facility] (47834) PRINIVIL) 5 mg tablet LORazepam LORazepam (ATIVAN) 0.5 mg 10-24-2019 Ccf Provider [facility] (80114) Take 1 tablet by mouth as needed. 0 10/24/2019 Active Comment: Take 1 tablet by mouth as ne eded. Oxymetazoline OXYMETAZOLINE HCL (AFRIN Ccf Provider Cc f [facility] NASAL) Use in the nose. 0 Provider (4 3697) Active Comment: Use in the nose. PARoxetine PARoxetine (PAXIL) 10 mg tablet Ccf Provi irvin [facility] (25491) Take 10 mg by mouth once daily. 0 Active Comment: Take 10 mg by mouth once ruddy ly. rosuvastatin rosuvastatin (CRESTOR) 10 10-15-2019 [facility] Take 1 tablet by ( 91414) mouth once daily. 0 10/15/2019 Active Comment: Take 1 tablet by mouth once daily. Problems Active Problems Category Problem Name Status Date Location Menstrual disorders Excessive and frequent Active 03-14-2008 - [facility] menstruation (00405) Other female genital Abnormal uterine Active [facility] disorders bleeding (60357) Residual codes; Postoperative state Active [facility] unclassified (76583) Unclassified Preprocedural Active [facility] ic examination done (74086) Unclassified Patient encounter Active [facility] status (82090) Past or Other Problems Category Problem Name Status Date Location 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 Author Type: Physician Type: Progress [...] CNOV Office Visit (OBGYWM) Normal 03-25-20 20 [facility] STEPHANIE CAMERON ([id number]) 1970 [facility] Date Time Provider Department (04947) 03/25/20 1:20 PM BELTRAN FRAGA During your [...] Known Allergies) Date Reviewed: 02/06/2020 Reviewed by: eRanna You Ma - Fully Assessed Reason for [...] MD on 03/25/20 lázaro screening on 29-03-04 [facility] SCREENING * * *Final Report* * * Normal [facility] DATE OF EXAM: Mar 13 2020 1:25PM [facility] (56158) [facility] 0581 - [facility] SCREENING / PROCEDURE REASON: Encounter for gynecological examination (g eneral) (routine) without abnormal fin * * * * Physician Interpretation * * * * RESULT: #[id number] - [facility] SCREENING BILATERAL DIGITAL SCREENING MAMMOGRAM WITH [...] is recommended. Elsa Redman M.D. pb/johny:03/13/2020 16:04:09 Pick Up Worker(s): RT Prema(R)(M), [facility] letter sent: Normal over 40 Mammogram BI-RADS: [...] Health, Family Medicine, and Medical/Surgical Oncology, the [facility] has carefully reviewed the data and reached [...] providers when to sto p screening mammograms. External Relations Director: Johny Transcribe Date/Time: Mar 13 2020 1:16P Dictated by: ELSA REDMAN MD This examination was interpreted and the report reviewed and electronically signed by: ELSA REDMAN MD on Mar 13 2020 4:04PM EST [id number] cnco on 2020-03-13 CNCO HNO ID: [id number] Normal 03-13-2020 [facility] Author: Mammography Coordinator ([id number]) Service: ? Author Type: Physician Type: Letter Filed: 03/16/2020 11:35 PM Note Text: March 13, 2020 PID: [id number] Stephanie Cameron [address] [place] [address] Dear Ms. Cameron, We are pleased to [...] report will be kept on file at [facility] as part of your permanent medical record and are available f or your continuing care. Thank you for allowing us to help in meeting your health car e needs. Sincerely, Dr. Redman Interpreting Radiologist [facility] (Normal over 40) No panel information on 2020-03-13 [facility] (99750) metanephrines, fract 24hour on 2020-03-12 METANEPHRINE,U, 24HR 70 36-209 ug/24 hr Normal 0 [facility] (58208) Comment: Result Comment: Test(s) 41 40-Normetanephrine, Ur; 410915- Metanephrine, Ur was developed and its perfor rangel characteristics determined by [facility]. It has not been cleared or approved by the Food and Drug Administration. Performed By: #### METFU ### # [facility] [place] [phone] [address] [place], [place] [id number] [facility] [address] [id number] METANEPHRINE,URINE 26 Undefined ug/L Normal 03-12-2020 [facility] (57639) Comment: Performed By: #### METFU ### # [facility] [phone] [address] [place], [place] [id number] [facility] [address] [phone] NORMETANEPHRINE, U, 24H 343 131-612 ug/24 hr Normal 2019 [facility] (00 000) Comment: Performed By: #### METFU ### # [facility] [place] [address] [place], [place] [id number] [facility] [address] [id number] NORMETANEPHRINE, URINE 127 Undefined ug/L Normal 020 [facility] (53722) Comment: Performed By: #### METFU ### # [facility] [phone] [address] [place], [place] [id number] [facility] [address] [phone] metanephrines, fract 24hour on 2020-03-06 URINE VOLUME PER ML 2700 mL mL Normal 03-06-2020 [facility] (53488) Comment: Performed By: #### METFU ### # [facility] [address] [place], [place] [id number] [facility] [address] [phone] history physical on 2020-03-03 HISTORY PHYSICAL HNO ID: [id number] Normal 02-08 [facility] Author: Beltran Richey [facility] ([id number]) Service: ? Author Type: Physician Type: HANDP Filed: 03/03/2020 4:58 PM Note Text: Stephanie Cameron is a 49 year old female who presents pr eoperative visit. Patient is scheduled for hysteroscopy, NOEMI, suni matos on March 12, [address] [facility]. Patient had pelvic ultrasound which revealed well-circumscribed [...] 2020-03-03 CNOV Office Visit (OBGYWM) Normal 03-03-20 [facility] ISELAGINASTEPHANIE MITTAL ([id number]) 1970 [facility] Time Provider Department (99724) 03/03/20 4:20 PM BELTRAN FRAGA OBGYWM During your visit today, we recorded the following informati on about you: Blood pressure Weight Height 126/80 86.6 kg 1.54 m Beltran Jimenez MD 03/03/2020 4:58 PM Signed Stephaniemark Cameron is a 49 year old female who presents preoperative visit. Patient is scheduled for hys teroscopy, DANOK, polypectomy on March 12, [address] [facility]. Patient had pelvic ultrasound wh ich revealed [...] Beltran Jimenez MD Referring Provider: BELTRAN FRAGA [[id number]] Allergies As of Date: 03/03/2020 (No Known Allergies) Date Reviewed: 02/06/2020 Reviewed by: Reanna You Ma - Fully Assessed Reason for Visit: Pre-Op Exam [87] Primary Visit Diagnosis:Pre-op exam [Z01.818] Order(s):ibuprofen (MOTRIN) 600 mg tabletTake 1 tablet by mouth every 6 hours as needed.Disp: 30 tabletRfl: 0 2019 CORONAVIRUS [SQCOVID] Order #: [id number] Prescriptions as of 03/03/2020 Sig: AMLODIPINE 5 [...] 2020-02-10 CNPN Telephone (OBGYWM) Normal 02-10-2020 [place] [facility] STEPHANIE CAMERON ([id number]) 1970 [facility] Date Time Provider Department (58772) 02/10/20 BELTRAN FRAGA During your visit today, we recorded the following informati on about you: Yi Brown RN 02/10/2020 9:29 AM Addendum Patient called. She can't do 02/20/20 for her surgery date no w. Asking for 03/12/20. If patient does not answer cell, please call [phone] Yi Brown RN Allergies As of Date: [...] 02/11/20 progress on 2020-01 PROGRESS HNO ID: [id number] Normal 02-06-2020 [facility] Author: Beltran Richey [facility] ([id number]) Service: ? Author Type: Physician Type: Progress [...] on 2020-02-06 CNPN Telephone (OBGYWM) Normal 02-06-2020 [facility] STEPHANIE Berger ([id number]) 1970 [facility] Date Time Provider Department (50165) 02/06/20 BELTRAN FRAGA OBGYWM During your visit today, we recorded the following informati on about you: Alanis Lepe LPN 02/06/2020 11:01 AM Signed Left message to call office. Next available surgery dates @ [facility] are 02/19, 03/05, 03/12 Blanca Nagy RN [...] 2020-02-06 CNOV Office Visit (OBGYWM) Normal 02-06-20 [facility] STEPHANIE CAMERON ([id number]) 1970 F [facility] Date Time Provider Department (30600) 02/06/20 8:40 AM BELTRAN FRAGA During your [...] Beltran Jimenez MD Referring Provider: MARY LEVINE ([facility]) [[id number]] Allergies As of Date: 02/06/2020 (No Known [...] on 2020-02-04 CNPN Telephone (OBGYWM) Normal 02-04-2020 [facility] ANNIESTEPHANIE Mark ([id number]) 1970 F [facility] Date Time Provider Department (95079) 02/04/20 MARY LEVINE ([facility]) OBGYWM During your [...] Patient notified and scheduled with DM. 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 Author Type: Cell Reliner Type: Progress Notes Filed: 01/29/2020 3:39 PM [...] overlying skin changes, redness or skin retraction TICK INSPECTOR: Reports pelvic pain and discomfort at times [...] genitalia normal, normal Bartholin's glands , urethra, [place]'s glands, no vulvar lesions, no cervical lesions, [...] R10.2 (primar y diagnosis) - PELVIC [facility] 2. Encounter for gynecological examination (general) [...] HPV DNA high risk types: Normal 01-29-2020 [facility] Other 31,33,35,39,45,51,52,56,58,59,66,68 by Clinic PCR. [facility] (61594) Comment: Result Comment: This test wa s developed and its performance characteristics determined by [facility]'s [facility] Pathology [facility] Laboratory [facility] ([facility]). It has not been cleared or a pproved by the FDA. [facility] is regulated under CLIA as qualified to perform high-complexity testing. This test is used for clinical purposes. It should not be regarded as inv estigational or for research . Performed By: #### HPVHRR ## ## [facility] Laboratorie s [address] [place] [phone] HPV HighRisk Type 16 Negative for HPV DNA Normal 01-29-2020 [facility] high risk type 16 by [facility] (31466) PCR. Comment: Performed By: #### HPVHRR ## ## [facility] [address] [place] [phone] HPV HighRisk Type 18 Negative for HPV DNA Normal 01-29-2020 [facility] high risk type 18 by [facility] (98291) PCR. Comment: Performed By: #### HPVHRR ## ## [facility] [address] [phone] cytology on 2020-01 CYTOLOGY Normal 01-28-2019 [facility] ADDITIONAL PROCEDURES PRESENT Clinic [facility] (68602) Specimen originated from [facility] Specimen #: [id number] Submitting Physician: MARY LEVINE CNM SPECIMEN SUBMITTED A: CERVICAL, SCREENING, FLUID FINAL DIAGNOSIS A. CERVICAL, SCREENING, FLUID Satisfactory for interpretation. No endocervical component. Negative for intraepithelial lesion or malignancy. This specimen has been analyzed by the [employer], an automated imaging and review [...] developed and its performance characteristics determined by [facility]'s [facility] Pathology and Laborator y Medicine [place] ([facility]). It has not been cleared or approved by the FDA. [facility] is r egulated under CLIA as qualified to perform high-complexity testing. This test is used for clinical purposes. It should not be regarded as investigatio nal or for research. CLINICAL DATA ROUTINE EXAM, HPV Testing: Yes, automatic HPV patients over 30 Date of Last Menstrual Period: 01/07/20 STAINS A: CERVICAL, SCREENING, FLUID THIN PREP TICK INSPECTOR Vin Lee M.D., Electrician'S Assistant Date of Report: 02/04/2020 Date of Procedure: 01/29/2020 Date of Receipt: 01/30/2020 Submitted by: MARY LEVINE CNM Location: [facility] Diagnostic interpretation performed at [facility], [address] [place] [address]. CLIA Number: [id number] The Pap Smear is a screening test for cervical cancer. False negative results occur with all screening tests, emphasizing the need for rescreening at recommended intervals, and clinical correlati on. cnov on 2020-01-29 CNOV Office Visit (OBGYWM) Normal 01-29-[address] [place] [address] Clinic STEPHANIE CAMERON ([id number]) 1970 [facility] Date Time Provider Department (71810) 01/29/20 2:00 PM MARY LEVINE ([facility]) OBGYWM During your visit today, we [...] Last mammogram: 2001- receved mamogram at a [facility] gabby l History of abnormal mammogram: [...] skin ch anges, redness or skin retraction TICK INSPECTOR: Reports pelvic pain and discomfort at times [...] genitalia normal, gabby l Bartholin's glands, urethra, [place]'s glands, no vulvar lesions, no cervical lesions, [...] cancer screening [Z12.4] Order(s):PAP FLUID CERVICAL SCREENING [1484374] Order #: [id number]. #:[id number] LÁZARO SCREENING [4526397] Order #: [id number] FUTURE PELVIC US WHI [6187299] Order #: [id number]. #:[id number] HPV W/GENOTYPE [SQHPVHRR] Order #: [id number]. #:[id number] Prescriptions as of 01/29/2020 Sig: AMLODIPINE [...] 01/28 progress on 2019-12 PROGRESS HNO ID: [id number] Normal 12-21-2019 [facility] Author: Shankar Ascencio (Leno) [place] ([id number]) Service: ? Author Type: Physician [employer] Officer Type: Progress Notes Filed: 12/21/2019 9:05 AM [...] ut she declined. She would go to [facility] ED. No obvious neurological de ficit here. cnov on 2019-12-21 CNOV Office Visit (UCWSTR) Normal 12-21-19 20 [facility] Waqas CAMERONSTEPHANIE Mark ([id number]) 1970 [facility] Date Time Provider Department (21415) 12/21/19 8:30 AM SHANKAR ESPARZA (LENO) [facility] During your visit today, we recorded the following informati on about you: Temperature Pulse Respiration Blood pressure 98.6 degrees 68/minute 16/minute 148/100 Weight 85.5 kg Shankar Esparza PA-C 12/21/2019 9:05 AM Signed Pt presents to [facility] with dizziness for 3 hour s. [...] transport but she declined. She would go [facility] ED. No obvious neurological deficit here. Referring [...] [id number] 6. Body weight 86.64 kg 03-25-2020 [facility] (33527) Body weight 86.64 kg 03-03-2020 [facility] (53457) BP Diastolic 86 mm[Hg] 03-25-2020 [facility] (49353) BP Diastolic 80 mm[Hg] 03-03-2020 [facility] (70527) BP Systolic 140 mm[Hg] 03-25-2020 [facility] (55543) BP Systolic 126 mm[Hg] 03-03-2020 [facility] (26671) Height 154 cm 03-03-2020 [facility] (14706) Encounters Date Type Reason Provider Location 03-13-2020 Documentation Mammography [facility] - procedure Coordinator 03-13-2020 03-13-2020 Letter encounter Count Includes [facility] Zak dwyer Coordinator Department 03-25-2020 Patient encounter Postoperative state Beltran Elizabeth Pickett B/Gynecology - procedure Richey 03-25-2020 Comment: Abnormal uterine bleeding (A UB) (Primary Dx); Post-operative state 03-13-2020 - Patient encounter Patient encounter Screen Mammo [facility] M ammogram 03-13-2020 procedure status Wstr Comment: Radiology Mammogram 03-03-2020 - Patient encounter Preprocedural Beltran Elizabeth OB/Gyne cology 03-03-2020 procedure examination done Mehnaz Comment: Pre-op exam (Primary Dx) 01-29-2020 - 01-29-2020 Subsequent hospital visit by physician [facility] Procedures Procedure Name Date Provider Location Screening mammography bi 03-13-2020 Mary (Meghan) Amaury [facility]resp[facility] 2-view breast inc cad (77540) Mammography 03-13-2020 - [facility] 03-13-2020 (39359) Plan of Treatment Plan Description Date Location HPV TESTING HPV TESTING 01-28-2025 - [facility] 01-28-2025 (13190) PAP TESTING PAP TESTING 01-28-2025 - [facility] 01-28-2025 (95141) MAMMOGRAM MAMMOGRAM 03-13-2021 - [facility] 03-13-2021 (69344) INFLUENZA (#1) INFLUENZA (#1) 2020 - [facility] 03-10-2020 (65877) SHINGRIX VACCINE (1 of SHINGRIX VACCINE (1 of 2018 - [facility] 2) 2) 2018 (51592) COLORECTAL CANCER COLORECTAL CANCER 2018 - [facility] inic SCREENING,SEE MODIFIER SCREENING,SEE MODIFIER 2018 (4 6645) LIPID SCREEN LIPID SCREEN 06-25-2017 - [facility] 06-25-2017 (45881) DIABETES SCREEN DIABETES SCREEN 06-25-2015 - [facility] 06-25-2015 (13506) MAMMOGRAM MAMMOGRAM 2008 - [facility] 2008 (02920) DTAP,TDAP,TD (1 - Tdap) DTAP,TDAP,TD (1 - Tdap) 1987 - [facility] 1987 (58315) ANNUAL PCP TEAM CHRONIC ANNUAL PCP TEAM CHRONIC 1986 - [facility] DISEASE VISIT DISEASE VISIT 1986 (64434) HEPATITIS C SCREENING HEPATITIS C SCREENING 1986 - [facility] 1986 (88928) HIV SCREENING HIV SCREENING 1986 - [facility] 1986 (00455) no information [facility] (24791) no information [facility] (53579) Payers Payer Name Policy Number Location DARYL [id number] [facility] (44 565) The following information is from the original human readable contentNo Payer Records FoundNo Payer Records FoundNo Payer Records Found Social History Type Social History Date Location Description History of tobacco use Current smoker 08-10-2018 [facility] (29032) History SDOH Alcohol 3 01-29-2020 [facility] C linic Frequency 01-29-2020 (53920) History of tobacco use Cigarette Smoker 08-10-2018 [facility] (50859) Cigarettes smoked 01-29-2020 [facility] ic current (pack per day) - 03-25-2020 (43747) Reported Tobacco use and exposure Never used 01-29-2020 - [facility] 03-25-2020 (30734) Alcohol intake Current drinker of 01-29-2020 [facility] misti alcohol (finding) 03-25-2020 (12088) Tobacco smoking status Former smoker 01-29-2020 - [facility] NHIS 03-25-2020 (87638) History SDOH Alcohol Std 2 01-29-2020 - [facility] Drinks 01-29-2020 (51404) History SDOH Social 4 01-29-2020 - [facility] inic [employer] Phone 01-29-2020 (51031) History SDOH Social 1 01-29-2020 - [facility] inic [employer] Taoist 01-29-2020 (69838) History SDOH Physical 0 01-29-2020 - [facility] Activity DPW 01-29-2020 (12412) Sex Assigned At Not on file [facility] (66964) Exposure to SARS-CoV-2 Not sure [facility] (event) (73045) The following information is from the original [...] BE BASED ON THE PRIMARY CLINICAL RECORDS. [facility] provides no warranty or guarantee of the accuracy or completeness of information in this document. UNRECOGNIZED CONTENT PROVIDED BELOW FOR UNRECOGNIZED SECTION Source Comments In the event this information is protected by the Federal Confidentiality of Alcohol and Drug Abuse Patient Records regulations: The Federal rules restrict any use of the information to criminally investigate or prosecute any alcohol or drug abuse patient.[facility] the event this information is protected by the Federal Confidentiality of Alcohol and Drug Abuse Patient Records regulations: The Federal rules restrict any use of the information to criminally investigate or prosecute any alcohol or drug abuse patient.[facility] CenterIn the event this information is protected by the Federal Confidentiality of Alcohol and Drug Abuse Patient Records regulations: The Federal rules restrict any use of the information to criminally investigate or prosecute any alcohol or drug abuse patient.[facility] the event this information is protected by the Federal Confidentiality of Alcohol and Drug Abuse Patient Records regulations: The Federal rules restrict any use of the information to criminally investigate or prosecute any alcohol or drug abuse patient.[facility] the event this information is protected by the Federal Confidentiality of Alcohol and Drug Abuse Patient Records regulations: The Federal rules restrict any use of the information to criminally investigate or prosecute any alcohol or drug abuse patient.[facility] UNRECOGNIZED CONTENT PROVIDED BELOW FOR UNRECOGNIZED SECTION [...] D&C, polypectomy on March 12, [address] [facility]. Patient hadpelvic ultrasound which revealed well-circumscribed polyps. [...] DATE CREATED AUTHOR AUTHOR'S ORGANIZATIO N 03/13/2020 [facility] DATE CREATED AUTHOR AUTHOR'S ORGANIZATIO N 03/26/2020 [facility] UNRECOGNIZED CONTENT PROVIDED BELOW FOR UNRECOGNIZED SECTION Miscellaneous Notes Letter - Coordinator, Mammography - 03/13/2020 4:04 PM EDTSeptember 2019 PID: [id number] Stephanie Cameron [address] [place] [address] Dear Ms. Cameron, We are pleased to [...] report will be kept on file at [facility] as part of your permanent medical record and are available for your continuing care. Thank you for allowing us to help in meeting your health care needs. Sincerely, Dr. Redman Interpreting Radiologist [facility] (Normal over 40) documented in this encounter
== END 2019-12-21 10:57 | disposition home or self-care (01) ==
LOC: ED 10:23
PROVIDERS: Emergency Provider Emergency Medicine; PCP Family Medicine
DX: R42 Dizziness and giddiness (principal); F41.9 Anxiety disorder, unspecified
CPT/HCPCS: 99283

== ENCOUNTER 2020-03-03 23:50 | Emergency (ER) | payer BC, SELFPAY ==
[2020-03-03 23:50] VITALS: BP 161/97; PULSE 75; RESP 18; TEMP 36.3; O2SAT 97; BMI 35.9
--- NOTE | 2020-03-04 00:13 | RAD_ITS ---
STUDY: X-RAY CHEST REASON FOR EXAM: Female, 49 years old. HEART RACING AND HOT FLASH TECHNIQUE: AP COMPARISON: 10/24/2019. FINDINGS: The lungs are clear and expanded. There is no demonstrated pleural abnormality. Normal size heart. Normal mediastinum and derek. Normal visualized pulmonary arteries. Normal visualized aortic arch and descending thoracic aorta. Normal visualized thoracic spine. Normal visualized ribs, clavicles, and shoulders. There is no demonstrated abnormality of the visualized soft tissue structures of the upper abdomen. RAD/Chest 1 View (Portable) IMPRESSION: Negative x-ray examination of the chest. Electronically Signed: Hunter Mcfarlane, at 0:33 EDT Tel , Service support ,
--- NOTE | 2020-03-04 00:13 | EKG12_ITS ---
Test Reason : CP Blood Pressure : / mmHG Vent. Rate : 069 BPM Atrial Rate : 069 BPM P-R Int : 160 ms QRS Dur : 078 ms QT Int : 418 ms P-R-T Axes : 048 022 051 degrees QTc Int : 447 ms Normal sinus rhythm Nonspecific ST abnormality Abnormal ECG Confirmed by LINNEA LEE ([id number]), editor house organ NIMISHA BOWERS ([id number]) on 03/05/2020 8:54:26 AM Referred By: DARREN Confirmed By:LINNEA LEE
--- NOTE | 2020-03-04 00:13 | ED.VIS.GEN ---
History of Present Illness Chief Complaint: Palpitations Informant: Patient Onset: Today Context: Sudden Onset Timing: Intermittent Narrative: Patient is a 49-year-old female with history of hypothyroid, hypertension, hyperlipidemia and tobacco use presenting with palpitations. Patient states around 9 PM tonight, approximately 3 hours per arrival she was seen on the couch when she suddenly developed a sensation that her heart was racing. She felt flushed and hot. She denies any associated diaphoresis or nausea. She did have associated shortness of breath. She states she started feel a bit better so she then walked to bed. She then had 3-4 intermittent episodes where whenever she would try to lay down for bed her symptoms would return. Seem to be better when she was walking or standing up. She notes he does have a history of panic attacks and this does feel like her anxiety but she wanted to make sure there is nothing else wrong with her. She states that she was feeling a little unwell all day today but is not more specific than that. She states that she did have a couple beers last night and thought maybe she was just hung over. Patient denies any history of leg swelling, DVT or PE. She denies any cough or fever. She has any abdominal pain or urinary symptoms. No other complaints at this time. Prior similar symptoms: Yes - With anxiety attack Past Medical History - Allergies and Home Meds Allergies/Adverse Reactions: Allergies No Known Allergies Allergy (Verified 03/03/20 23:52) Primary Care Physician: Duong Mckeon MD [Primary Care Provider] - Past Medical History: - - Hypertension, hyperlipidemia, hypothyroid, hemiplegic migraines, anxiety Surgical History: noncontributory, - - Lives: Spouse/ Significant Other, With Family Smoking Status: Former smoker Alcohol: Occasional - Family History Maternal Family History: Reports: Heart Disease, Stroke Paternal Family History: Reports: Heart Disease Review of Systems General: Denies: Chills, Fever, Sweats Eyes: Denies: Visual changes - bilaterally, Diplopia ENT: Denies: Rhinorrhea, Sore throat Cardiovascular: Reports: Palpitations. Denies: Chest pain Respiratory: Reports: Dyspnea. Denies: Cough, Dyspnea on exertion Gastrointestinal: Denies: Abdominal pain, Nausea, Vomiting, Diarrhea, Melena, Hematochezia Genitourinary: Denies: Dysuria, Hematuria, Frequency Musculoskeletal: Denies: Back pain, Extremity Pain Skin: Denies: Rash, Wounds Neurological: Denies: Headache, Weakness, Numbness Psych: Reports: Anxiety. Denies: Depression Physical Exam Vital Signs/Narrative: Vital Signs Temp Pulse Resp BP Pulse Ox 03/03/20 23:50 97.4 F L 75 18 161/97 H 97 Inital Vital Signs reviewed: Yes General: Well nourished, Well developed, No Acute Distress Head: Normocephalic, Atraumatic Eyes: Perrl, EOMI ENT: Moist mucous membranes, No rhinorrhea Neck: Supple, Nontender, No JVD Cardiovascular: Regular rate, Regular rhythm, No murmurs Respiratory: No distress, CTA bilaterally, Chest nontender Abdomen: Soft, Nontender, Nondistended, Normal bowel sounds Back: Nontender, Normal Inspection Extremities: Nontender, No edema, - - 2+ bilateral DP pulses, 2+ bilateral radial pulses. Negative for: Calf Tenderness Skin: Normal color, No rash Neurological: Alert, Oriented x3, Cranial nerves II-XII grossly intact, Normal Strength, Normal Sensation Psychological: Normal affect, Normal Mood Diagnostic/Tx/Re-eval Chest X-Ray - ED: 1 View, Read by ED Physician, Read by Radiologist, No Acute Disease Clinical Impression(s) from Imaging Studies Chest X-Ray 03/04/20 00:13 IMPRESSION: Negative x-ray examination of the chest. Electronically Signed: Hunter Mcfarlane, at 0:33 EDT Tel , Service support , Laboratory Data 03/04/20 03/04/20 03/04/20 00:15 00:15 00:15 WBC 8.6 RBC 4.48 Hgb 13.3 Hct 39.5 MCV 88.2 MCH 29.7 MCHC 33.7 RDW Std Deviation 40.6 RDW Coeff of Isrrael 12.5 Plt Count 357 MPV 10.6 Immature Gran % (Auto) 0.400 Neut % (Auto) 70.3 H Lymph % (Auto) 18.[address] [place] % (Auto) 10.0 Eos % (Auto) 0.9 Baso % (Auto) 0.4 Absolute Neuts (auto) 6.0 Absolute Lymphs (auto) 1.54 Nucleated RBC % 0 PT 12.2 INR 1.0 D-Dimer Quant (PE/DVT) 0.36 Sodium 142 Potassium 3.5 Chloride 110 H Carbon Dioxide 26.0 Anion Gap 6 BUN 13 Creatinine 0.70 Estim Creat Clear Calc 71.75 Est GFR (MDRD) Af Amer 114 Est GFR (MDRD) Non-Af 94 BUN/Creatinine Ratio 18.7 Glucose 96 Calcium 8.6 Magnesium 2.3 Troponin I < 0.015 TSH 4.00 H 03/04/20 03:40 WBC RBC Hgb Hct MCV MCH MCHC RDW Std Deviation RDW Coeff of Isrrael Plt Count MPV Immature Gran % (Auto) Neut % (Auto) Lymph % (Auto) [facility] % (Auto) Eos % (Auto) Baso % (Auto) Absolute Neuts (auto) Absolute Lymphs (auto) Nucleated RBC % PT INR D-Dimer Quant (PE/DVT) Sodium Potassium Chloride Carbon Dioxide Anion Gap BUN Creatinine Estim Creat Clear Calc Est GFR (MDRD) Af Amer Est GFR (MDRD) Non-Af BUN/Creatinine Ratio Glucose Calcium Magnesium Troponin I < 0.015 TSH - Rhythm Strip Rhythm Strip: Sinus Rhythm Rate: 69 Ectopy: None - EKG Initial EKG Interpretation: Sinus Rhythm, - - Normal sinus rhythm at a rate of 69 Normal axis Normal intervals T wave inversion in aVR with nonspecific ST changes and V5 and V6 Interpreted by emergency medicine physician - Medical Decision Making Patient is evaluated after an episode of palpitations with associated shortness of breath, flushing and feeling hot. Patient states he has a history of anxiety but it feels different than her normal anxiety. Checked her blood pressure one episode happened in her it was elevated at 198/101. Heart rate was normal. Patient is currently asymptomatic in the emergency room. She never had any chest pain or pressure. Her only risk factor for PE is age and so d-dimer is ordered. Patient is otherwise low risk and a d-dimer is negative so do not think PE as a cause of her presentation. Delta troponin is performed as patient has a heart score of 4. It is negative. Patient's presentation is uncharacteristic for ACS and I feel that she is a good candidate for outpatient follow-up. Patient is agreeable with this plan. Her TSH is mildly elevated but her presentation is not consistent with myxedema coma. She does not have any significant electrolyte abnormalities. Is possible there could be component of anxiety however she is counseled that this is a diagnosis of exclusion and she needs further follow-up with her primary care doctor for further cardiac evaluation. In addition patient was drinking alcohol the night before which could have contributed to her palpitations. She is counseled to avoid alcohol in the meantime. Patient is counseled on signs and symptoms requiring return to the emergency room. Patient verbalizes agreement and understand this plan. Patient discharged home in stable and improved condition. ED Disposition - Plan for ED Patient: Disposition: Home or Assisted Living Diagnosis: Palpitation, Dyspnea Instructions: ED Dyspnea, ED Palpitations Referrals: Duong Mckeon MD [Primary Care Provider] - Additional Instructions: Exact cause of your episode of symptoms is not clear however think you are safe to follow-up with your primary care doctor. Does not appear to be any acute process going on with your heart. Your lungs look clear. Please return the emergency room with any worsening symptoms.
[2020-03-04] MEDS: Aspirin 81 MG TAB.CHEW 324 MG PO (00:17)
[2020-03-04 00:26] LABS: Absolute Lymphocyte Count 1.54 X10^3/uL (0.83-4.51); Basophil# 0.03 X10^3/uL; Basophil% 0.4 % (0-1); Eosinophil# 0.08 X10^3/uL; Eosinophils% 0.9 % (0-5); Hematocrit 39.5 % (37-47); Hemoglobin 13.3 g/dL (12.0-15.0); Lymphocyte # 1.54 X10^3/ul (4.0); Mean Corp Hgb Conc 33.7 g/dL (32-36); Mean Corpuscular Hgb 29.7 pg (27.0-32.0); Mean Corpuscular Volume 88.2 fL (81-99); Mean Platelet Vol. 10.6 fl (6.2-12.0); Monocyte# 0.86 X10^3/uL; NRBC Flagged by Analyzer 0 % (0-5); Neutrophil # 6.02 X10^3/uL (2.7-7.7); Neutrophil % 70.3 % (47-70); Platelet Count 357 K/mm3 (150-450); RBC Distribution Width CV 12.5 % (11.6-14.6); RBC Distribution Width SD 40.6 fl (35.1-43.9); Red Blood Count 4.48 M/mm3 (4.2-5.4); White Blood Count 8.6 K/mm3 (4.4-11.0)
[2020-03-04 00:33] LABS: Prothrombin Time (Protime)PT. 12.2 SECONDS (11.7-14.9)
[2020-03-04 00:36] LABS: D-Dimer Quantitative (DVT/PE) 0.36 FEU/ug/m (0.27-0.49)
[2020-03-04 00:52] LABS: Anion Gap 6 (5-15); BUN 13 mg/dL (7-18); BUN/Creat Ratio 18.7 RATIO (10-20); Calcium,Total 8.6 mg/dL (8.5-10.1); Chloride 110 mmol/L (98-107); EST Glomerular Filtration Rate 94 mL/min (>60); Est Glom Filt Rate - Afr Amer 114 mL/min (>60); Estimated Creatinine Clearance 71.75 ml/min; Glucose 96 mg/dL (74-106); Magnesium 2.3 mg/dL (1.6-2.6); Potassium 3.5 mmol/L (3.5-5.1); Sodium Level 142 mmol/L (136-145)
[2020-03-04 01:50] VITALS: BP 149/99; PULSE 64; RESP 16; O2SAT 97
[2020-03-04 03:50] VITALS: BP 133/73; PULSE 57; RESP 14; O2SAT 94
[2020-03-04 04:40] VITALS: BP 124/80; PULSE 57; RESP 14; O2SAT 97
[2020-03-04 04:58] VITALS: BP 124/80; PULSE 67; RESP 20; O2SAT 97
== END 2020-03-04 04:59 | disposition home or self-care (01) ==
PROVIDERS: Emergency Provider Emergency Medicine; PCP Family Medicine
DX: R00.2 Palpitations (principal); R06.00 Dyspnea, unspecified; E03.9 Hypothyroidism, unspecified; E78.5 Hyperlipidemia, unspecified; I10 Essential (primary) hypertension; Z79.82 Long term (current) use of aspirin; Z87.891 Personal history of nicotine dependence; Z79.899 Other long term (current) drug therapy
CPT/HCPCS: 71045; 80048; 83735; 84443; 84484; 85025; 85379; 85610; 93005; 99285; A4216

== ENCOUNTER 2020-03-12 08:13 | Day surgery (SDC) | payer BC, SELFPAY ==
--- NOTE | 2020-03-10 10:22 | PCM.HP.BLA ---
History and Physical Date of Admission: 03/12/20 Renee Neandres Darby Physician Specialty: PREDICTIVE MAINTENANCE TECHNICIAN H&P Signed Encounter Date: 03/03/2020 Loyda Pineda copied text Jose for details Jocelyn Cameron is a 49 year old female who presents preoperative visit. Patient is scheduled for hysteroscopy, D&C, polypectomy on March 12, 2020 at [facility]. Patient had pelvic ultrasound which revealed well-circumscribed polyps. She is also having abnormal uterine bleeding. Patient denies any concerns today other than feeling slightly dizzy but he treats that 2 having small amount of alcohol last night. Patient denies any chest pain, shortness of breath. ? PAST MEDICAL HISTORY PAST MEDICAL HISTORY Diagnosis Date ? Acid reflux ? ? Polycystic ovaries ? ? Pure hypercholesterolemia ? ? Stroke (HCC) 06/2013 ? Unspecified essential hypertension ? ? PAST SURGICAL HISTORY PAST SURGICAL HISTORY Procedure Laterality Date ? DELIVERY ONLY ? ? ? , low cervical ? DELIVERY ONLY ? ? ? , low cervical ? FAMILY HISTORY FAMILY HISTORY Problem Relation Age of Onset ? Heart Mother ? ? other (Cadisil) Mother ? ? Stroke disorder ? Heart Father ? ? No Known Problems Brother ? ? No Known Problems Brother ? ? No Known Problems Sister ? ? Diabetes Maternal Grandfather ? ? Heart Paternal Grandfather ? ? SOCIAL HISTORY Social History ? Tobacco Use ? Smoking status: Former Smoker ? ? Packs/day: 0.50 ? ? Types: Cigarettes ? ? Quit date: 08/2018 ? ? Years since quittin.5 ? Smokeless tobacco: Never Used Substance Use Topics ? Alcohol use: Yes ? ? Frequency: 2-4 times a month ? ? Drinks per session: 3 or 4 ? ? Binge frequency: Less than monthly ? Drug use: No ? CURRENT MEDICATIONS Current Outpatient Medications Medication Sig ? amLODIPine (NORVASC) 5 mg tablet Take 1 tablet by mouth once daily. ? LORazepam (ATIVAN) 0.5 mg Take 1 tablet by mouth as needed. ? rosuvastatin (CRESTOR) 10 mg tablet Take 1 tablet by mouth once daily. ? buPROPion XL (WELLBUTRIN XL) 300 mg 24 hr tablet Take 300 mg by mouth once daily. ? ? atenolol (TENORMIN) 50 mg tablet Take 50 mg by mouth once daily. ? ? PARoxetine (PAXIL) 10 mg tablet Take 10 mg by mouth once daily. ? levothyroxine (SYNTHROID) 50 mcg tablet Take by mouth. ? ? aspirin 81 mg chewable tablet Take 1 tablet by mouth once daily. ? hydrochlorothiazide 25 mg tablet Take 25 mg by mouth once daily. ? ibuprofen (MOTRIN) 600 mg tablet Take 1 tablet by mouth every 6 hours as needed. ? No current facility-administered medications for this visit. ? Allergies As of Date: 03/03/2020 (No Known Allergies) Fully Assessed 02/06/2020 ? ? REVIEW OF SYSTEMS Abdomen: no pain Bladder: no dysuria .. Expanded ROS: GENERAL: Negative for fever Allergies and current medication updated:Yes ? EXAM: BP 126/80 Ht 5' .63 (1.54m) Wt 191 lb (86.6kg) LMP 02/03/2020 BMI 36.53 kg/(m^2). GENERAL: pleasant, female in no apparent distress HEENT: Normocephalic and atraumatic NECK: full range of motion DERMATOLOGY: Normal, without lesions, non-icteric and non-hirsute NEURO: alert and oriented x3,exam grossly non-focal EXTREMITIES: normal ? uterus normal size and contour. Endometrial thickness 10.4 mm. There are 2 well-circumscribed endometrial polyps identified the largest measuring 1.2 cm in greatest dimension. Both these appear to be in the lower uterine segment. Myometrium is heterogeneous otherwise unremarkable. Both ovaries appear normal No free fluid in the cul-de-sac Recommendations consider hysteroscopic removal of endometrial polyps. Follow up as clinically indicated. Menstrual History LMP on 01/08/2020 Method ====== Transvaginal, 3D ultrasound examination. Uterus ====== Uterus: Visualized Uterus position: anteverted Myometrium: suspicious of adenomyosis Uterus long 73 mm Uterus ap 49 mm Uterus tr 50 mm Uterus Vol 93.7 cm? Endometrial thickness, total 10.4 mm Uterine polyp D1 12 mm Uterine polyp D2 5 mm Uterine polyp D3 13 mm Uterine polyp mean 10.0 mm Uterine polyp findings: lower uterine segment Uterine polyp D1 7 mm Uterine polyp D2 4 mm Uterine polyp D3 7 mm Uterine polyp mean 6.0 mm Uterine polyp findings: lower uterine segment Right Ovary ========= Rt ovary: Visualized Rt ovary D1 23 mm Rt ovary D2 15 mm Rt ovary D3 19 mm Rt ovary Vol 3.4 cm? Left Ovary ======== Lt ovary: Visualized Lt ovary D1 42 mm Lt ovary D2 24 mm Lt ovary D3 12 mm Lt ovary Vol 6.6 cm? Cul de Sac ========= Visualized. no free fluid visualized Performed By: Shahla Sky, SHAD, RVT Read By: Renee Jimenez M.D. ? ASSESSMENT AND PLAN: Encounter Diagnosis ? ? ICD-10-CM ? 1. Pre-op exam Z01.818 ? ? 2. Pt has been counseled on risks/benefits and alternatives of surgery including but not limited to anesthesia, bleeding, infection, uterine perforation with injury to pelvic structures including bowel, bladder, ureters and vessels. Pt wishes to proceed with surgery at this time. 3. covid testing reviewed 4. Post op medication - MOTRIN given ? ? ? Renee Jimenez MD ?4:58 PM Office Visit on 03/03/2020
[2020-03-12 08:37] VITALS: BP 144/78; PULSE 60; RESP 16; TEMP 36.6; O2SAT 97; BMI 35.7
[2020-03-12 08:37] LABS: Internal QC Validated? YES +Cl - CLEAR BKGD; Pregnancy, Urine Negative Negative
[2020-03-12] MEDS: Lactated Ringers 1,000 ML 100 ML IV (08:44)
--- NOTE | 2020-03-12 09:40 | EMB_PTH ---
PATIENT: STEPHANIE VALENCIA LOC: [facility] – [place] U#:[id number] AGE/SX: 49/F ROOM: RE03/12/[address]: Dr. Renee Jimenez, MDDOB: 1970 BED: DIS: 03/12/2020 SPEC #: [id number] RECD: 03/12/20 11:58 STATUS: ELLEN STEPHEN #: [id number] CARLOS: 03/12/20 09:[address]: Renee Jimenez DEPT: SURGICAL PATHOLOGY RECD BY: Cleve Fitzgerald ENTERED: 03/12/20 12:52 SP TYPE: ENDOM BX/C IMTIAZ DR: Dr. Duong Mckeon MD Tissues: Endometrium, NOS Procedures: Surgery Specimen Level IV HEADER OPERATION: Hysteroscopy, D & C Symphion, polypectomy PRE-OP DIAGNOSIS: Abnormal uterine bleeding; uterine polyps TISSUE SUBMITTED: Endometrial curetting and polyps MICROSCOPIC DIAGNOSIS Endometrial curetting and polyps: Proliferative endometrium. DANNY:kyle 03/13/20 MICROSCOPIC DESCRIPTION Slides are reviewed. GROSS DESCRIPTION Received in fixative is one container labeled with the patient's name and designated endometrial curetting and polyps. The specimen consists of multiple irregular fragments of mensah-pink soft tissue that in aggregate measure 3 x 2.5 x 0.3 cm. The entire specimen is submitted in one cassette. / DANNY:kyle 03/12/20 TC:4 CPT: 11020
--- NOTE | 2020-03-12 10:33 | DCINST_ITS ---
Discharge Diet: No Restrictions Discharge Activity: Return to Normal Activity, May Shower, May Take a Tub Bath - in 2 weeks. Call your doctor if you observe: Fever of 101 or Higher, Using more than one pad per hour, Uncontrolled pain Allergies/Adverse Reactions: Allergies No Known Allergies Allergy (Verified 03/12/20 08:20) Medications to take at Discharge Levothyroxine [Synthroid] 50 mcg PO DAILY 09/08/13 Paroxetine HCl [Paxil] 10 mg PO DAILY 09/08/13 Atenolol [Tenormin (beta tez)] 50 mg PO DAILY 01/07/17 buPROPion XL [Wellbutrin Xl] 300 mg PO DAILY 01/07/17 Acetaminophen [Tylenol Tablet] 650 mg PO Q4H PRN PRN tablet 10/08/18 Aspirin [Aspirin, Baby] 1 tab PO DAILY #30 tab.chew 10/08/18 Rosuvastatin Calcium [Crestor] 10 mg PO QHS 10/24/19 Orders to be completed after discharge: Basic Metabolic Profile (BMP) Time Frame: 03/12/20, Facility: [facility], Location: Laboratory CBC-Complete Blood Cnt No Diff Time Frame: 03/12/20, Facility: [facility], Location: Laboratory Primary Care Physician: Duong Mckeon MD [Primary Care Provider] - Test Results: Test results from this visit will be discussed in further detail at your follow- up appointment, if applicable. Please Follow Up With: Renee Jimenez MD When: 2 weeks- post op [phone] call for appointment
--- NOTE | 2020-03-12 11:05 | OP.PCM_ITS ---
Report of Operation Date of Procedure: 03/12/20 - STart 1047/END 1100 Pre-Operative Diagnosis: endometrial polyps , AUB Post-Operative Diagnosis: AUB Surgery/Procedure Performed:: Hysteroscopy, D&C Description of Surgical Findings:: Both tubal ostia visualized, no well defined polypoid tissue noted. Type of Anesthesia:: MAC Specimen's removed: Endometrial curettings Drains: none Estimated Blood Loss (mL): <5 Fluids Replaced: 300 Description of Procedure: Informed consent was obtained the patient was taken the operating room she was placed in supine position. She was given anesthesia. She was then placed in the [facility] where she was prepped and draped in the normal sterile fashion. bladder drained. At this time the weighted speculum was placed in the posterior fornix of vagina. Single-tooth tenaculum was used to gently grasp the anterior lip the cervix. At this time the uterine cavity was sounded to approximately 8 cm. Gentle dilatation was performed once adequate dilatation of the cervix was achieved the hysteroscope using normal saline as a distention medium was placed. Tubal ostia visualized. large amount of endometrial tissue noted but no polyps appreciated. Symphion resecting device used to obtain endometrial curettings, Tissue will be sent to pathology for evaluation. Tenaculum removed. Good hemostasis. Instrument, lap count correct x 2. Vaginal Sweep was negative. fluid deficit 200cc Grafts/Implants Used: none - Complications none - Admit VTE Documentation VTE Present on Admission: Yes VTE Mechan Device Prophylaxis: SCD's VTE Pharm Prophylaxis ordered?: No
[2020-03-12 11:09] VITALS: BP 111/68; BP 144/78; PULSE 57; RESP 16; TEMP 36.5; O2SAT 99
[2020-03-12 11:14] VITALS: BP 124/78; BP 144/78; PULSE 58; RESP 16; O2SAT 96
[2020-03-12 11:19] VITALS: BP 128/71; BP 144/78; PULSE 55; RESP 16; O2SAT 97
[2020-03-12 11:24] VITALS: BP 117/76; BP 144/78; PULSE 55; RESP 16; TEMP 36.7; O2SAT 98
[2020-03-12 12:10] VITALS: BP 144/78
== END 2020-03-12 12:20 | disposition home or self-care (01) ==
LOC: SDC 08:14 → AC 08:15
PROVIDERS: Anesthesiology; PCP Family Medicine; Referring Provider Obstetrics & Gynecology; Visit Provider Obstetrics & Gynecology
PROC: 0UB98ZZ Excision of Uterus, Via Natural or Artificial Opening Endoscopic (ICD-10-PCS; CPT 58558; principal; 2020-03-12 09:25)
DX: N84.0 Polyp of corpus uteri (principal); Z11.59 Encounter for screening for other viral diseases; K21.9 Gastro-esophageal reflux disease without esophagitis; I10 Essential (primary) hypertension; E78.00 Pure hypercholesterolemia, unspecified; F41.9 Anxiety disorder, unspecified; F32.9 Major depressive disorder, single episode, unspecified; Z87.891 Personal history of nicotine dependence; Z79.899 Other long term (current) drug therapy; Z79.82 Long term (current) use of aspirin
CPT/HCPCS: 00952; 58558; 81025; 87635; 88305; 94799; J7120; J2405; U0003

== ENCOUNTER → 2020-05-20 10:56 | Outpatient (CLI) | payer BC, SELFPAY ==
[2020-05-06 13:40] VITALS: BMI 36.6
--- NOTE | 2020-05-20 10:58 | ECHOD_ITS ---
Reason For Study: PALPITATIONS Procedure This was a 2D Doppler, Color Flow transthoracic echocardiogram. Exam performed in department. Left Ventricle Normal LV size. Left ventricular systolic function is normal. The estimated ejection fraction is 60 %. Normal diastology for age. No regional wall motion abnormalities noted. Right Ventricle Normal RV size. Normal systolic function. Atria Normal left atrium. Normal right atrium. Mitral Valve Normal mitral valve. Tricuspid Valve Normal tricuspid valve. Aortic Valve Normal aortic valve. Trisinus/trileaflet aortic valve. Pulmonic Valve Normal pulmonic valve. Great Vessels Normal aortic root. The pulmonary artery is normal size. Normal inferior vena cava. Pericardium/Pleural No pericardial effusion. MMode/2D Measurements & Calculations LVIDd: 3.9 cm IVSd: 0.86 cm Ao root diam: 3.1 cm LVIDs: 2.3 cm LVPWd: 0.89 cm RVDd: 3.7 cm FS: 42.0 % LAV(MOD-bp): 45.9 ml LVAd ap4: 26.1 cm2 SV(MOD-sp4): 50.8 ml LAV(MOD-bp) Indexed: 24.6 ml/m2 EDV(MOD-sp4): 69.4 ml LAV(MOD-sp2): 48.3 ml EDV(sp4-el): 71.5 ml LAV(MOD-sp4): 42.7 ml LVAs ap4: 11.4 cm2 ESV(MOD-sp4): 18.6 ml ESV(sp4-el): 18.7 ml EF(MOD-sp4): 73.2 % EF(sp4-el): 73.8 % SV(sp4-el): 52.7 ml LA A4 area: 15.6 cm2 LA dimension(2D): 3.7 cm RA A4 area: 14.6 cm2 Time Measurements MV dec time: 0.31 sec Doppler Measurements & Calculations MV E max marco antonio: 88.5 cm/sec Lat Peak E' Marco Antonio: 8.6 cm/sec Med Peak E' Marco Antonio: 7.8 cm/sec MV A max marco antonio: 88.0 cm/sec E/E' lat: 10.3 E/E' med: 11.4 MV E/A: 1.0 Ao V2 max: 165.7 cm/sec LV V1 max: 168.1 cm/sec PA V2 max: 149.5 cm/sec Ao max P.0 mmHg LV V1 max P.3 mmHg Interpretation Summary Normal LV size. Left ventricular systolic function is normal. The estimated ejection fraction is 60 %. No regional wall motion abnormalities noted. Normal diastology for age. Ordering Physician: Van Walker Referring Physician: ROXY HANNA Performed By: Nereyda Red RDCS
== END ==
PROVIDERS: PCP Family Medicine; Referring Provider Internal Medicine Cardiovascular Disease; Visit Provider Internal Medicine Cardiovascular Disease
DX: R00.2 Palpitations (principal)
CPT/HCPCS: 93225; 93226; 93306

== ENCOUNTER → 2020-09-04 07:24 | Outpatient (CLI) | payer BC, SELFPAY ==
[2020-08-26 14:37] VITALS: BMI 37.4
--- NOTE | 2020-09-04 09:58 | STRESSREP ---
Stress Test Report Exercise myocardial perfusion stress test. 50-year old with a history of hypertension hyperlipidemia. Stress protocol: Resting KG demonstrates normal sinus rhythm with a rate of 61 bpm normal intervals are noted. Resting blood pressure is 152/82 mmHg. The patient exercised according to regular Minh protocol for total duration of 4 minutes and 16 seconds. The maximum heart rate attained was 141 bpm which was 83% of max impacted heart rate the maximum workload was 6.1 metabolic equivalents. At rest there were no ST or T wave changes noted to suggest ischemia peak exercise upsloping ST changes were noted with no meet the criteria for ischemia. The test was terminated due to the target heart rate being achieved. The peak blood pressure was 220/98 mmHg. This represents a hypertensive response to exercise. Stress protocol: 14.1 mCi of technetium 99m sestamibi was injected at rest. The patient exercised according to regular Minh protocol for 4 minutes and 16 seconds at peak exercise 44.6 mCi of technetium 99 sestamibi was injected stress images were obtained stress and rest images were reconstructed and compared in the short axis vertical long horizontal long axis. Gated images were also obtained Perfusion SPECT analysis: Review of the stress images demonstrate normal uptake of tracer noted in all areas of the myocardium the rest images similarly demonstrate normal uptake of tracer noted in all areas of the myocardium. No reversibility is noted suggest ischemia no previous infarct is noted. Gated SPECT analysis: The gated ejection fraction is 79%. Conclusion: Normal exercise myocardial perfusion stress test at a moderate workload. Preserved ejection fraction.
== END ==
PROVIDERS: PCP Family Medicine; Referring Provider Physician Assistant Medical; Visit Provider Physician Assistant Medical
DX: R07.9 Chest pain, unspecified (principal); R06.00 Dyspnea, unspecified
CPT/HCPCS: 78452; 93017; A9500; A4216

== ENCOUNTER → 2021-12-22 | Outpatient (CLI) | payer BC, SELFPAY ==
--- NOTE | 2021-12-22 15:45 | MRI_ITS ---
EXAM: MR ANGIOGRAPHY HEAD WITHOUT INTRAVENOUS CONTRAST CLINICAL INDICATION: TRANSIENT NEUROLOGICAL SYMPTOMS Technologist Notes numbness,lips,tongue and rt hand several times a day TECHNIQUE: Routine te-[place] of [place]/brain 3D time of flight MR angiogram protocol was performed without intravenous contrast. This report was created using [employer] report generation technology. COMPARISON: ct head of 10.24.19 FINDINGS: RIGHT INTERNAL CAROTID ARTERY: No acute findings. No significant stenosis at the intracranial/visualized segments. No aneurysm. RIGHT ANTERIOR CEREBRAL ARTERY: Unremarkable. No significant stenosis at the visualized segments. Anterior communicating artery is present. No aneurysm. RIGHT MIDDLE CEREBRAL ARTERY: Unremarkable. No significant stenosis at the visualized segments. No aneurysm. RIGHT POSTERIOR CEREBRAL ARTERY: Unremarkable. No significant stenosis at the visualized segments. No aneurysm. RIGHT VERTEBRAL ARTERY: Unremarkable as visualized. No significant stenosis at the intradural/visualized segments. No aneurysm. LEFT INTERNAL CAROTID ARTERY: No acute findings. No significant stenosis at the intracranial/visualized segments. No aneurysm. LEFT ANTERIOR CEREBRAL ARTERY: Unremarkable. No significant stenosis at the visualized segments. Anterior communicating artery is present. No aneurysm. LEFT MIDDLE CEREBRAL ARTERY: Unremarkable. No significant stenosis at the visualized segments. No aneurysm. LEFT POSTERIOR CEREBRAL ARTERY: Unremarkable. No significant stenosis at the visualized segments. No aneurysm. LEFT VERTEBRAL ARTERY: Unremarkable as visualized. No significant stenosis at the intradural/visualized segments. No aneurysm. BASILAR ARTERY: Unremarkable. No significant stenosis. No aneurysm. OTHER VASCULATURE: No vascular malformation. OTHER FINDINGS: There are no acute findings of the te-moak of [place] without a demonstrated aneurysm or hemodynamically significant stenosis. ALL ABOVE CRITERIA BY NASCET. MRI/MRA Head ONLY without Contrast IMPRESSION: There are no acute findings of the te-[place] of [place] without a demonstrated aneurysm or hemodynamically significant stenosis. ALL ABOVE CRITERIA BY NASCET. Electronically Signed: Yvon Carrero MD at 21:46 EDT ,
--- NOTE | 2021-12-22 15:47 | MRI_ITS ---
EXAM: MR ANGIOGRAPHY NECK WITHOUT INTRAVENOUS CONTRAST CLINICAL INDICATION: TRANSIENT NEUROLOGICAL SYMPTOMS TECHNIQUE: Routine carotid MR angiogram protocol was performed without intravenous contrast. 3D reconstructions were reviewed. Nascet criteria using the distal ICAs for comparison were used for evaluation of stenoses. This report was created using [employer] technology. COMPARISON: Oct 07 2018 10:53am FINDINGS: RIGHT COMMON CAROTID ARTERY: Unremarkable. No occlusion or significant stenosis. No dissection. RIGHT INTERNAL CAROTID ARTERY: Unremarkable. Extracranial segment is patent with no occlusion or significant stenosis. No dissection. RIGHT EXTERNAL CAROTID ARTERY: Unremarkable. No occlusion. RIGHT VERTEBRAL ARTERY: Unremarkable. No occlusion or significant stenosis. No dissection. LEFT COMMON CAROTID ARTERY: Unremarkable. No occlusion or significant stenosis. No dissection. LEFT INTERNAL CAROTID ARTERY: There are no acute findings of the right and left internal carotid artery. ALL ABOVE CRITERIA BY NASCET. Extracranial segment is patent with no occlusion or significant stenosis. No dissection. LEFT EXTERNAL CAROTID ARTERY: Unremarkable. No occlusion. LEFT VERTEBRAL ARTERY: Unremarkable. No occlusion or significant stenosis. No dissection. GREAT VESSELS OF AORTIC ARCH: Unremarkable. No significant stenosis. CAROTID STENOSIS REFERENCE USING NASCET CRITERIA: % ICA stenosis = (1 - narrowest ICA diameter/diameter of distal cervical ICA) x 100. Mild - <50% stenosis. Moderate - 50-69% stenosis. Severe - 70-94% stenosis. Near occlusion - 95-99% stenosis. Occluded - 100% stenosis. MRI/MRA Neck without Contrast IMPRESSION: There are no acute findings of the right and left internal carotid artery. ALL ABOVE CRITERIA BY NASCET. Electronically Signed: Yvon Carrero MD at 21:47 EDT ,
== END | disposition home or self-care (01) ==
LOC: MRI 15:35
PROVIDERS: PCP Family Medicine; Referring Provider Family Medicine; Visit Provider Family Medicine
DX: R29.818 Other symptoms and signs involving the nervous system (principal)
CPT/HCPCS: 70544; 70547

== ENCOUNTER → 2022-05-25 | Outpatient (CLI) | payer BC, SELFPAY ==
--- NOTE | 2022-05-25 15:34 | BI_ITS ---
MAMMOGRAPHY - BILATERAL SCREENING REASON FOR EXAM: Female, 52 years old. Routine annual screening examination. PERTINENT HISTORY: Aunt with breast cancer. TECHNIQUE: Digital bilateral breast diego (3D mammographic acquisition) in the CC and MLO projections. 2-D mediolateral oblique (MLO) and craniocaudad (CC) views of both breasts were obtained. CAD: Full Field Digital Mammography with Computer Added Detection was performed. COMPARISON: Comparison is made with prior examination of 03/13/2020. FINDINGS: Breast Composition: There are scattered areas of fibroglandular density. There are no dominant masses or suspicious calcifications. Stable small benign-appearing bilateral axillary lymph nodes. No other significant abnormalities are identified. There has been no significant change since the prior study. BI/SCRN MAMM (CAD)W/DIEGO BILAT IMPRESSION: Stable bilateral screening mammogram. Yearly follow-up mammogram recommended. (A) ASSESSMENT CATEGORY: BIRADS Category 2: Benign. A letter regarding these results will be sent to the patient by the facility within 30 days. Approximately 10% of breast cancers are not detected by mammography. A normal mammogram should not delay biopsy of a clinically suspicious abnormality. [id number] Electronically Signed: Hi Nagy MD at 8:02 EST ,
== END | disposition home or self-care (01) ==
LOC: OPBI 15:33
PROVIDERS: PCP Family Medicine; Visit Provider Family Medicine
DX: Z12.31 Encounter for screening mammogram for malignant neoplasm of breast (principal)
CPT/HCPCS: 77063; 77067

== ENCOUNTER → 2022-08-05 | Outpatient (CLI) | payer BC, SELFPAY ==
--- NOTE | 2022-08-05 09:54 | RAD_ITS ---
STUDY: X-RAY - ESOPHAGUS (BARIUM SWALLOW) WITH FLUOROSCOPY REASON FOR EXAM: Female, 52 years old. DYSPHAGIA TECHNIQUE: 23 view(s) of the esophagus were obtained following swallowing of barium. FLUOROSCOPY TIME (if supplied): (29 seconds) minutes/seconds COMPARISON: None. FINDINGS: There is no demonstrated esophageal foreign body. There is no demonstrated stricture or mucosal abnormality. Normal gastroesophageal junction, without a demonstrated hiatal hernia. The patient ingested a 12 mm tablet of barium without any difficulty. Normal visualized aortic arch and descending thoracic aorta. Normal visualized pulmonary parenchyma. Normal visualized osseous structures of the thorax. RAD/Esophagus Dual Contrast IMPRESSION: Normal plain film x-ray examination (barium swallow) of the esophagus. Electronically Signed: Hi Nagy MD at 11:10 EST ,
== END | disposition home or self-care (01) ==
LOC: RAD 09:49
PROVIDERS: PCP Family Medicine; Visit Provider Internal Medicine Gastroenterology
DX: R13.10 Dysphagia, unspecified (principal)
CPT/HCPCS: 74221

== ENCOUNTER 2022-11-07 16:57 | Observation (INO) | payer BC, SELFPAY ==
[2022-11-07] VITALS (10 sets, daily range): BP systolic 150–210; BP diastolic 70–97; PULSE 51–63; RESP 12–18; TEMP 36.5–36.8; O2SAT 95–100; BMI 37.4; BMI 35.9
--- NOTE | 2022-11-07 17:30 | EDS_ITS ---
HPI History of Present Illness Chief Complaint: Numb/Ting Narrative Narrative: 52-year-old female past medical history of hypertension, hyperlipidemia, hypothyroidism, reported TIAs, but not on medication presents with right-sided facial numbness and numbness and tingling of her right arm that lasted 3 minutes. She states that it has been happening over the last few days. Today, when she was in line at [employer], she states that her entire right face and right arm became numb. Previously it was only her third, fourth, and fifth digits, and the side of her mouth. She relates history that she was having problems with TIAs in the past, and was admitted admitted at [facility]. She states she had an MRI of the brain which need to be repeated. Additionally, she thinks that she had an MRI of the brain few weeks ago, but never heard the results, only that there were some areas of stenosis. Her symptoms have totally resolved. She denies any other symptoms that accompanied it, but states that the symptoms of facial numbness and right arm numbness are increasing. [facility] Medical History (Updated 11/07/22 @ 19:[address] Salvador Doss MD) Arm paresthesia, right (09/2018) Depression Essential (primary) hypertension Hyperlipidemia Hypothyroidism Migraines Obesity TIA (transient ischemic attack) (09/2018) Home Medications bupropion HCl 300 mg 24 hr tablet, extended release 300 mg PO DAILY 01/07/17 [History Last Taken 03/12/20] acetaminophen 325 mg tablet 650 mg PO Q4H PRN PRN Headache/Temp>99F 10/08/18 [Rx Last Taken Unknown] atenolol 50 mg tablet 50 mg PO DAILY 05/06/20 [History Last Taken Unknown] paroxetine HCl 10 mg tablet 10 mg PO DAILY depression 05/06/20 [History Last Taken Unknown] hydrochlorothiazide 25 mg tablet 25 mg PO DAILY #30 tabs 05/26/22 [Rx Last Taken Unknown] aspirin 81 mg tablet,delayed release (Adult Aspirin Regimen) 81 mg PO DAILY 07/14/22 [History Last Taken Unknown] atorvastatin 40 mg tablet 80 mg PO DAILY 07/14/22 [History Last Taken Unknown] levothyroxine 75 mcg tablet 50 mcg PO DAILY 07/14/22 [History Last Taken Unknown] lisinopril 20 mg tablet 20 mg PO DAILY 07/14/22 [History Last Taken Unknown] potassium chloride 10 mEq tablet,extended release 20 meq PO DAILY 07/14/22 [History Last Taken Unknown] clonazepam 0.5 mg tablet 0.5 mg PO DAILY PRN Anxiety 11/07/22 [History Last Taken 11/06/22] Allergy/AdvReac Type Severity Reaction Status Date / Time No Known Allergies Allergy Verified 11/07/22 17:10 Family History Mother CVA (cerebral vascular accident) Heart disease Father Heart disease Surgical History History of History of dilatation and curettage (03/2020) Social History Smoking Status: Former smoker ROS ROS ED ROS Narrative Constitutional: No fever, no chills. HEENT: No sore throat. No neck pain. No loss of vision. No rhinorrhea. Cardiovascular: No chest pain. No palpitations. No pedal edema. Respiratory: No cough, no shortness of breath. Abdominal: No abdominal pain. No nausea. No vomiting. Genitourinary: No dysuria. No hematuria. Musculoskeletal: No myalgias. No arthralgias. Neurologic: Positive headaches. No dizziness. No lightheadedness. Right facial numbness, right arm numbness/paresthesias Skin: No rash. No change in color. Psychiatric: No depression. No anxiety. EXAM Physical Exam Narrative Exam Narrative: Afebrile. Vital signs noted. HEENT: Normocephalic. Atraumatic. PERRL, EOMI. Neck soft and supple. No point tenderness or step off. Cardiovascular: Regular rate and rhythm. No murmurs, rubs, or gallops appreciated. Respiratory: No tachypnea. Lungs clear to auscultation bilaterally. Gastrointestinal: Abdomen soft, nontender, with normoactive bowel sounds. No rebound or guarding. Neurological: Awake. Alert. Nonfocal, nonlateralizing. NIH stroke scale is 0. Skin: No rash. Normal color. No pallor. Musculoskeletal: No pedal edema. Full range of motion extremities. Const Vital Signs: 11/07/22 16:58 11/07/22 17:33 11/07/22 17:34 Temperature 98.0 F Temperature Source Temporal Pulse Rate 63 55 L Respiratory Rate 18 12 Blood Pressure 210/94 H 168/81 H Blood Pressure Mean 132 110 Pulse Ox 98 97 95 Oxygen Delivery Method Room Air Room Air Room Air 11/07/22 18:04 11/07/22 18:34 11/07/22 19:24 Temperature Temperature Source Pulse Rate 51 L 55 L 53 L Respiratory Rate 16 16 16 Blood Pressure 150/81 H 150/70 H 167/97 H Blood Pressure Mean 104 96 120 Pulse Ox 95 97 95 Oxygen Delivery Method Room Air Room Air Room Air MDM MDM MDM Narrative Medical decision making narrative: I reviewed her prior records, she had MRI in 2021 of the brain which showed no evidence of stroke. She currently has an NIH stroke scale of 0. Additionally, all her symptoms have resolved. I did not feel that stroke team was indicated as she has a non-debilitating deficit, in fact no deficit currently. However, I will reCT her brain given that she has elevated blood pressure of 210 initially. It has come down to 168/81 on its own. She did mention the possibility that she has headaches and asked if this could have been hemiplegic migraine, but she only had paresthesias no evidence of paralysis. I will pursue the TIA work-up. EKG was obtained and interpreted by myself which demonstrates sinus bradycardia at 52 bpm without ectopy or acute ST changes. No STEMI. I reviewed her laboratory work and she has a normal white count of 8.7, hemoglobin normal at 12.8, hematocrit 38.9. Coags are negative. She has mild hypokalemia of 3.4 which was replaced orally with 40 mill equivalents, BUN and creatinine are normal at 17 and 0.92 respectively. High-sensitivity troponin 14. Chest x-ray reviewed and interpreted by myself as no acute process, I reviewed the radiology report which confirms my independent interpretation. I reviewed the CT report and did receive a phone call from the radiologist regarding the CT of the brain which showed no acute process. Once again, I do not feel that tPA is indicated because her symptoms have completely resolved and she does not have a debilitating deficit. I reviewed her MRI of the brain from 2021 which showed no acute infarct. Given that her symptoms have resolved and I think she had a TIA given her numbness, I discussed the patient with Dr. Doss, the hospitalist for observation in the PCU. Patient is in stable condition. History & Record Review Discussion w/independent historian: Patient Additional record(s) reviewed:: Prior outpatient record and Prior ED visit Lab Data Attestation: I reviewed the patient's lab results. Labs: Laboratory Results - last 24 hr 11/07/22 11/07/22 11/07/22 17:22 17:22 17:22 WBC 8.7 RBC 4.46 Hgb 12.8 Hct 38.9 MCV 87.2 MCH 28.7 MCHC 32.9 RDW Std Deviation 39.0 RDW Coeff of Isrrael 12.2 Plt Count 334 MPV 10.8 Immature Gran % (Auto) 0.300 Neut % (Auto) 59.0 Lymph % (Auto) 25.8 [place] % (Auto) 11.7 H Eos % (Auto) 2.4 Baso % (Auto) 0.8 Absolute Neuts (auto) 5.1 Absolute Lymphs (auto) 2.25 Nucleated RBC % 0 PT 13.3 INR 1.0 APTT 39.2 H Sodium 140 Potassium 3.4 L Chloride 102 Carbon Dioxide 32.0 Anion Gap 6 BUN 17 Creatinine 0.92 Estim Creat Clear Calc 52.75 Est GFR (MDRD) Af Amer 82 Est GFR (MDRD) Non-Af 68 BUN/Creatinine Ratio 18.6 Glucose 88 Calcium 9.0 Troponin I High Sens 14 Radiography Diagnostic Testing: Clinical Impression(s) from Imaging Studies Brain CT 11/07/22 17:40 IMPRESSION: No acute intracranial findings. Electronically Signed: Roger Marquez MD at 18:02 EDT , ADDENDUM: 11/07/22 1812 IMPRESSION: No acute intracranial findings. N.B. : The above Results were Read Back by Roger Marquez MD to Gautam Li MD, and understanding confirmed on 11/07/2022 18:06:15 (ET). Electronically Signed: Roger Marquez MD at 18:02 EDT , Chest X-Ray 11/07/22 17:40 IMPRESSION: No radiographic evidence of acute cardiopulmonary disease. Electronically Signed: Roger Marquez MD at 18:04 EDT Reading Location ID and State: [facility] / [place] Tel , Service support , Discharge Plan Triage Chief Complaint: Numb/Ting ED Provider: Gautam Li Dx/Rx/DC Orders Prescriptions: No Action atenolol 50 mg tablet 50 mg PO DAILY atorvastatin 40 mg tablet 80 mg PO DAILY levothyroxine 75 mcg tablet 50 mcg PO DAILY hydrochlorothiazide 25 mg tablet 25 mg PO DAILY Qty: 30 6RF lisinopril 20 mg tablet 20 mg PO DAILY potassium chloride 10 mEq tablet extended release 20 meq PO DAILY aspirin [Adult Aspirin Regimen] 81 mg tablet,delayed release (DR/EC) 81 mg PO DAILY paroxetine HCl 10 mg tablet 10 mg PO DAILY bupropion HCl 300 MG tablet extended release 24 hr 300 mg PO DAILY acetaminophen 325 MG tablet 650 mg PO Q4H PRN PRN (Reason: Headache/Temp>99F) 0RF Primary Care Provider: Duong Mckeon Referrals: Duong Mckeon MD [Primary Care Provider] -
--- NOTE | 2022-11-07 17:40 | CT_ITS ---
We are attempting to reach an attending provider to discuss findings. An addendum with communication details will be sent when the communication is complete. INDICATION: Neuro deficit, acute, stroke suspected EXAMINATION: CT BRAIN - CT Head or Brain W/O Contrast Injection TECHNIQUE: Multiple axial images were obtained of the head without intravenous contrast. A radiation dose optimization technique was used for this scan. IV Contrast dosage and agent: None. COMPARISON: 10/24/2019 FINDINGS: BRAIN PARENCHYMA: No intra- or extra-axial hemorrhage. No evidence of acute infarct. No intracranial mass or mass effect. Posterior fossa structures are unremarkable. CSF SPACES: Appropriate for age. No hydrocephalus. Basal cisterns are patent. CALVARIUM, SKULL BASE, PARANASAL SINUSES AND MASTOID AIR CELLS: Scattered minimal mucoperiosteal thickening. No discrete lytic or blastic abnormalities. ORBITS: Both globes, extraocular muscles, optic nerves and retrobulbar fat appear unremarkable. CT/STROKE Brain/Head without Cont IMPRESSION: No acute intracranial findings. Electronically Signed: Roger Marquez MD at 18:02 EDT ,
--- NOTE | 2022-11-07 17:40 | RAD_ITS ---
INDICATION: Neuro deficit, acute, stroke suspected EXAMINATION/TECHNIQUE: X-RAY - portable upright AP chest x-ray COMPARISON: 03/04/2020 FINDINGS: LINES/DEVICES: None. LUNGS: No consolidation, edema or effusion. No pneumothorax. MEDIASTINUM AND CARDIOVASCULAR STRUCTURES: Cardiac silhouette not enlarged. Central airways and mediastinal contour are unremarkable. BONES AND SOFT TISSUES: Unremarkable. RAD/Chest 1 View IMPRESSION: No radiographic evidence of acute cardiopulmonary disease. Electronically Signed: Roger Marquez MD at 18:04 EDT ,
[2022-11-07 17:41] LABS: Absolute Lymphocyte Count 2.25 X10^3/uL (0.83-4.51); Absolute Neutrophil Count 5.1 X10^3/uL (2.0-7.7); Basophil# 0.07 X10^3/uL; Basophil% 0.8 % (0-1); Eosinophil# 0.21 X10^3/uL; Eosinophils% 2.4 % (0-5); Hematocrit 38.9 % (37-47); Hemoglobin 12.8 g/dL (12.0-15.0); Lymphocyte # 2.25 X10^3/ul (0.83-4.51); Lymphocyte % 25.8 % (19-41); Mean Corp Hgb Conc 32.9 g/dL (32-36); Mean Corpuscular Hgb 28.7 pg (27.0-32.0); Mean Corpuscular Volume 87.2 fL (81-99); Mean Platelet Vol. 10.8 fl (6.2-12.0); Monocyte# 1.02 X10^3/uL; Monocyte% 11.7 % (0-10); NRBC Flagged by Analyzer 0 % (0-5); Neutrophil # 5.13 X10^3/uL (2.7-7.7); Platelet Count 334 K/mm3 (150-450); RBC Distribution Width CV 12.2 % (11.6-14.6); Red Blood Count 4.46 M/mm3 (4.2-5.4); White Blood Count 8.7 K/mm3 (4.4-11.0)
[2022-11-07 17:51] LABS: Prothrombin Time (Protime)PT. 13.3 SECONDS (11.7-14.9)
[2022-11-07 17:52] LABS: Partial Thromboplast Time 39.2 Seconds (24.1-36.2)
[2022-11-07 18:17] LABS: Anion Gap 6 (5-15); BUN 17 mg/dL (7-18); BUN/Creat Ratio 18.6 RATIO (10-20); Chloride 102 mmol/L (98-107); Creatinine, Serum 0.92 mg/dL (0.55-1.02); EST Glomerular Filtration Rate 68 mL/min (>60); Est Glom Filt Rate - Afr Amer 82 mL/min (>60); Estimated Creatinine Clearance 52.75 ml/min; Glucose 88 mg/dL (74-106); Potassium 3.4 mmol/L (3.5-5.1); Sodium Level 140 mmol/L (136-145); Troponin-I HS 14 pg/mL (3.0-54.0)
--- NOTE | 2022-11-07 19:18 | HP.PCM_ITS ---
HPI - General General Date of Admission: 11/07/22 Date of Service: 11/07/22 Chief Complaint: Numbness and tingling of right face and right arm HPI Narrative STEPHANIE VALENCIA, is a 52 F who presents to the emergency room with chief complaint of numbness and tingling of her right arm and face. This occurred earlier this afternoon when the patient was online for food at [employer], she states she pulled over to park and rest and symptoms resolved after 3 minutes. Patient states she has had more recurrent concerns as of late with paresthesia normally beginning with the first 3 fingers of her right hand in the corner of her mouth on the right side. She has significant past medical history for hypertension, hyperlipidemia and hypothyroidism. She is seen by her primary care physician Dr. My roach in [place] and is established with a neurologist in [place]. She reportedly had an MRI recently but results are unavailable at this time. Currently the patient denies any paresthesia, chest pain or shortness of breath or fevers or chills. Patient will be admitted for observation to the progressive care unit and MRI/MRA will be ordered of the head and neck due to new onset of clinical symptoms. [facility] Medical History (Updated 11/07/22 @ 19:[address] Salvador Doss MD) Arm paresthesia, right (09/2018) Depression Essential (primary) hypertension Hyperlipidemia Hypothyroidism Migraines Obesity TIA (transient ischemic attack) (09/2018) Home Medications bupropion HCl 300 mg 24 hr tablet, extended release 300 mg PO DAILY 01/07/17 [History Last Taken 03/12/20] acetaminophen 325 mg tablet 650 mg PO Q4H PRN PRN Headache/Temp>99F 10/08/18 [Rx Last Taken Unknown] atenolol 50 mg tablet 50 mg PO DAILY 05/06/20 [History Last Taken Unknown] paroxetine HCl 10 mg tablet 10 mg PO DAILY depression 05/06/20 [History Last Taken Unknown] hydrochlorothiazide 25 mg tablet 25 mg PO DAILY #30 tabs 05/26/22 [Rx Last Taken Unknown] aspirin 81 mg tablet,delayed release (Adult Aspirin Regimen) 81 mg PO DAILY 07/14/22 [History Last Taken Unknown] atorvastatin 40 mg tablet 80 mg PO DAILY 07/14/22 [History Last Taken Unknown] levothyroxine 75 mcg tablet 50 mcg PO DAILY 07/14/22 [History Last Taken Unknown] lisinopril 20 mg tablet 20 mg PO DAILY 07/14/22 [History Last Taken Unknown] potassium chloride 10 mEq tablet,extended release 20 meq PO DAILY 07/14/22 [History Last Taken Unknown] Allergy/AdvReac Type Severity Reaction Status Date / Time No Known Allergies Allergy Verified 11/07/22 17:10 Family History Mother CVA (cerebral vascular accident) Heart disease Father Heart disease Surgical History History of History of dilatation and curettage (03/2020) Social History Smoking Status: Former smoker ROS Constitutional Constitutional: Denies change in weight, chills or fever(s) Eyes Eyes: Denies blurry vision or change in vision ENT HEENT: Denies abnormal hearing, dysphagia, hearing loss or loss taste/smell Cardiovascular Cardiovascular: Denies chest pain Respiratory/Chest Respiratory/Chest: Denies shortness of breath at rest Gastrointestinal Gastrointestinal: Denies abdominal pain Musculoskeletal Musculoskeletal: Denies back pain Integumentary Integumentary: Denies dry skin Neurologic Neurologic: Reports numbness; Denies abnormal gait, abnormal speech, confusion, dizziness or focal weakness Psychiatric Psychiatric: Denies depression Vital Signs Vital Signs Vital Signs: 11/07/22 16:58 11/07/22 17:33 11/07/22 17:34 Temperature 98.0 F Temperature Source Temporal Pulse Rate 63 55 L Respiratory Rate 18 12 Blood Pressure 210/94 H 168/81 H Blood Pressure Mean 132 110 Pulse Ox 98 97 95 Oxygen Delivery Method Room Air Room Air Room Air 11/07/22 18:04 11/07/22 18:34 Temperature Temperature Source Pulse Rate 51 L 55 L Respiratory Rate 16 16 Blood Pressure 150/81 H 150/70 H Blood Pressure Mean 104 96 Pulse Ox 95 97 Oxygen Delivery Method Room Air Room Air Weight Weight: 198 lb 4.8 oz Body Mass Index (BMI) 37.4 Physical Exam Const alert, oriented x3, no apparent distress and well nourished HEENT normocephalic and head/scalp atraumatic Eyes PERRL and EOMs intact bilaterally Neck no lymphadenopathy Lymph Lymphatic: no lymphadenopathy noted Resp normal respiratory effort, normal air movement and clear to auscultation bilaterally Cardio regular rate, regular rhythm, S1 normal heart sound, S2 normal heart sound and no murmurs GI normal to inspection, nondistended, normoactive bowel sounds Extremity normal capillary refill Skin General Skin Exam: no breakdown Neuro CN's II-XII intact bilaterally, no focal motor deficits, no sensory deficits noted and deep tendon reflexes 2+ bilaterally Coordination / Balance: [id number] test normal and [id number] test normal Speech: speech normal Motor Exam: strength 5/5 throughout Psych cooperative and affect normal Appearance: appropriate Results Lab / Micro Data Result Diagrams: 11/07/22 17:22 11/07/22 17:22 Labs: Laboratory Results - last 24 hr 11/07/22 17:22: WBC 8.7, RBC 4.46, Hgb 12.8, Hct 38.9, MCV 87.2, MCH 28.7, MCHC 32.9, RDW Std Deviation 39.0, RDW Coeff of [place] 12.2, Plt Count 334, MPV 10.8, Immature Gran % (Auto) 0.300, Neut % (Auto) 59.0, Lymph % (Auto) 25.8, Foard % (Auto) 11.7 H, Eos % (Auto) 2.4, Baso % (Auto) 0.8, Absolute Neuts (auto) 5.1, Absolute Lymphs (auto) 2.25, Nucleated RBC % 0 11/07/22 17:22: PT 13.3, INR 1.0, APTT 39.2 H 11/07/22 17:22: Sodium 140, Potassium 3.4 L, Chloride 102, Carbon Dioxide 32.0, Anion Gap 6, BUN 17, Creatinine 0.92, Estim Creat Clear Calc 52.75, Est GFR ( RD) Af Amer 82, Est GFR (MDRD) Non-Af 68, BUN/Creatinine Ratio 18.6, Glucose 88, Calcium 9.0, Troponin I High Sens [address] 11/07/22 17:40 IMPRESSION: No acute intracranial findings. Electronically Signed: Roger Marquez MD at 18:02 EDT Reading Location ID and State: [facility] / [place] Tel , Service support , ADDENDUM: 11/07/22 1812 IMPRESSION: No acute intracranial findings. N.B. : The above Results were Read Back by Roger Marquez MD to Gautam Li MD, and understanding confirmed on 11/07/2022 18:06:15 (ET). Electronically Signed: Roger Marquez MD at 18:02 EDT , Chest X-Ray 11/07/22 17:40 IMPRESSION: No radiographic evidence of acute cardiopulmonary disease. Electronically Signed: Roger Marquez MD at 18:04 EDT , Assessment & Plan Assessment/Plan (1) TIA (transient ischemic attack): (2) Intermittent palpitations: (3) Essential (primary) hypertension: (4) Hyperlipidemia: (5) Hypothyroidism: PLAN: Plan 1. Transient ischemic attack?admit patient for observation to progressive care unit, neurochecks per routine protocol we will add as needed labetalol for blood pressure management and order MRI/MRA head and neck to be done in the morning. 2. Hypertension?we will add as needed labetalol to manage blood pressure 3. Hyperlipidemia?continue statin medication 4. Hypothyroidism?continue Synthroid for routine 5. DVT prophylaxis?low molecular weight heparin If MRI/MRA head and neck are within normal limits and patient is symptom-free she will be discharged tomorrow and to follow-up with her neurologist and outpat ient primary care physician l Charges/Coding Visit Charges OBSV E&M: 80744 Observ/hosp same date L2
[2022-11-07] MEDS: Potassium Chloride Oral Tablet 20 MEQ 40 MEQ PO (19:36)
[2022-11-07] MEDS: Atorvastatin Calcium 80 MG Tablet PO (23:44)
[2022-11-08] VITALS (10 sets, daily range): BP systolic 144–184; BP diastolic 79–100; PULSE 55–80; RESP 16–18; TEMP 36.2–36.6; O2SAT 95–100; BMI 35.9
[2022-11-08] MEDS: Levothyroxine 50 MCG Tablet PO (06:41)
[2022-11-08 07:35] LABS: Anion Gap 5 (5-15); BUN 13 mg/dL (7-18); BUN/Creat Ratio 18.3 RATIO (10-20); Chloride 107 mmol/L (98-107); Cholesterol 190 mg/dL (200); Creatinine, Serum 0.71 mg/dL (0.55-1.02); EST Glomerular Filtration Rate 91 mL/min (>60); Est Glom Filt Rate - Afr Amer 110 mL/min (>60); Estimated Creatinine Clearance 68.35 ml/min; Glucose 95 mg/dL (74-106); High Density Lipoprotein 45 mg/dL; Sodium Level 142 mmol/L (136-145); Triglycerides 146 mg/dL; Very Low Density Lipoprotein 29 mg/dL (5-40)
--- NOTE | 2022-11-08 07:47 | PN.HOSP_ITS ---
Reason for Visit Reason for Visit: Diagnoses Hypothyroidism, unspecified (11/07/22) Hyperlipidemia, unspecified (11/07/22) Transient cerebral ischemic attack, unspecified (11/07/22) Essential (primary) hypertension (11/07/22) Palpitations (11/07/22) Objective Data Objective Data Vital Signs: Vital Signs Temp Pulse Resp BP Pulse Ox O2 Del Method 98 F 80 16 164/80 H 98 Room Air 11/08/22 05:54 11/08/22 05:54 11/08/22 05:54 11/08/22 05:54 11/08/22 05:54 11/08/22 05:54 Oxygen Delivery Method Room Air Weight: 190 lb Body Mass Index (BMI) 35.9 Lab / Micro Data Result Diagrams: 11/07/22 17:22 11/08/22 06:45 Labs: Laboratory Results - last 24 hr 11/07/22 17:22: WBC 8.7, RBC 4.46, Hgb 12.8, Hct 38.9, MCV 87.2, MCH 28.7, MCHC 32.9, RDW Std Deviation 39.0, RDW Coeff of Isr[place] 12.2, Plt Count 334, MPV 10.8, Immature Gran % (Auto) 0.300, Neut % (Auto) 59.0, Lymph % (Auto) 25.8, Nicholas % ( Auto) 11.7 H, Eos % (Auto) 2.4, Baso % (Auto) 0.8, Absolute Neuts (auto) 5.1, Absolute Lymphs (auto) 2.25, Nucleated RBC % 0 11/07/22 17:22: PT 13.3, INR 1.0, APTT 39.2 H 11/07/22 17:22: Sodium 140, Potassium 3.4 L, Chloride 102, Carbon Dioxide 32.0, Anion Gap 6, BUN 17, Creatinine 0.92, Estim Creat Clear Calc 52.75, Est GFR (MDRD) Af Amer 82, Est GFR (MDRD) Non-Af 68, BUN/Creatinine Ratio 18.6, Glucose 88, Calcium 9.0, Troponin I High Sens 14 11/08/22 06:45: Sodium 142, Potassium 4.0, Chloride 107, Carbon Dioxide 30.0, Anion Gap 5, BUN 13, Creatinine 0.71, Estim Creat Clear Calc 68.35, Est GFR (MDRD) Af Amer 110, Est GFR (MDRD) Non-Af 91, BUN/Creatinine Ratio 18.3, Glucose 95, Calcium 9.0, Triglycerides 146, Cholesterol 190, LDL Cholesterol 116, VLDL Cholesterol 29, HDL Cholesterol 45 Radiography Diagnostic Testing: Radiology Impression Brain CT 11/07/22 17:40 IMPRESSION: No acute intracranial findings. Electronically Signed: Roger Marquez MD at 18:02 EDT , ADDENDUM: 11/07/22 1812 IMPRESSION: No acute intracranial findings. N.B. : The above Results were Read Back by Roger Marquez MD to Gautam Li MD, and understanding confirmed on 11/07/2022 18:06:15 (ET). Electronically Signed: Roger Marquez MD at 18:02 EDT , Chest X-Ray 11/07/22 17:40 IMPRESSION: No radiographic evidence of acute cardiopulmonary disease. Electronically Signed: Roger Marquez MD at 18:04 EDT , Physical Exam Narrative Patient complain of numbness and tingling on the right half of the face, numbness and tingling of right hand. Seizures sometimes he has right posterior head and neck pain/discomfort and numbness and tingling in the right upper extremity. Denies change in the language, dysarthria, hemianopia/loss of vision or weakness. Seizures sometimes if she felt grayed out in front of visual field 1 or 2 days before but was very short time. General: Alert, Oriented x3, Cooperative HEENT: Atraumatic, PERRLA, EOMI, Normocephalic Oral: No Gingival or Mucosal Lesions/ Ulcerations Neck: Supple, No JVD, Negative Carotid Bruits Lungs: Air entry diminished in bilateral lung bases. No crepitation/rhonchi Cardiovascular: Regular rate, Regular Rhythm, Normal S1, Normal S2, No murmurs Abdomen: Bowel Sounds Present, Soft, Non Tender, Non-Distended : No renal angle tenderness. No suprapubic tenderness. Extremities: No edema, Capillary Refill Less than 3 Seconds Skin: No rashes, No breakdown Musculoskeletal: No Tenderness to Palpation of Joints or Extremities Neurological: Cranial nerves II-XII grossly intact, DTR 2+/4. NIH stroke scale 0. GCS 15.. Muscle strength 5/5 at major joints. Heel-hunter and finger-nose test negative. Psych/Mental Status: Normal Affect, Appropriate. Assessment & Plan Assessment/Plan (1) TIA (transient ischemic attack): (2) Intermittent palpitations: (3) Essential (primary) hypertension: (4) Hyperlipidemia: (5) Hypothyroidism: PLAN: Plan 1. Transient ischemic attack?admit patient for observation to progressive care unit, neurochecks per routine protocol we will add as needed labetalol for blood pressure management and order MRI/MRA head and neck to be done in the morning. 2. Hypertension?we will add as needed labetalol to manage blood pressure 3. Hyperlipidemia?continue statin medication 4. Hypothyroidism?continue Synthroid for routine 5. DVT prophylaxis?low molecular weight heparin If MRI/MRA head and neck are within normal limits and patient is symptom-free she will be discharged tomorrow and to follow-up with her neurologist and outpatient primary care physician romina
--- NOTE | 2022-11-08 07:48 | CT_ITS ---
STUDY: CTA HEAD AND NECK WITH CONTRAST REASON FOR EXAM: Female, 52 years old. Suspected stroke RADIATION DOSAGE (If Supplied By Facility): CTDIvol = ( 19.35 ) mGy, DLP = ( 1502.14 ) mGycm TECHNIQUE: CT angiography was performed with a multi-detector CT scanner. Data acquisition was obtained from the skull base through the vertex following intravenous administration of IV 100mL Isovue-370. MIP images were reconstructed from the axial data set. Post-processing of the angiographic images was performed, with multiplanar reformation and 3D reconstruction. Individualized dose optimization techniques were used for this CT. COMPARISON: No relevant priors. FINDINGS: Normal bilateral petrous carotid arteries. There is calcified plaque formation of the right cavernous carotid artery, without a cross-sectional luminal stenosis. There is calcified plaque formation of the left cavernous carotid artery, without a cross-sectional luminal stenosis. Normal right A1 segments of the anterior cerebral artery. Normal left A1 segments of the anterior cerebral artery. Normal intact anterior communicating artery (ACOM). Normal bilateral A2 segments of the anterior cerebral arteries. Normal right M1 and M2 segments of the middle cerebral arteries, with a normal M1 bifurcation. Normal left M1 and M2 segments of the middle cerebral arteries, with a normal M1 bifurcation. Normal right posterior communicating artery (PCOM). Normal left posterior communicating artery (PCOM). Normal bilateral vertebral arteries. Normal basilar artery with a normal basilar bifurcation. The visualized bilateral superior cerebellar (SCA) arteries are normal. Normal bilateral P1, P2 and visualized P3 segments of the posterior cerebral arteries. There is no demonstrated aneurysm of the hoopa of [place]. There is no demonstrated abnormality of the visualized brain. AORTIC ARCH: Normal visualized aortic arch. Normal origins of the brachiocephalic, left common carotid, and left subclavian arteries. RIGHT CAROTID ARTERIES: Normal right common carotid artery (CCA). Normal right common carotid bulb. There is mild atherosclerotic plaque formation of the origin of the right internal carotid artery with less than 50% cross sectional diameter stenosis. Normal visualized cervical portion of the right internal carotid artery. Normal origin of the right external carotid artery (ECA). LEFT CAROTID ARTERIES: Normal left common carotid artery (CCA). Normal left common carotid bulb. There is mild atherosclerotic plaque formation of the origin of the left internal carotid artery with less than 50% cross sectional diameter stenosis. Normal visualized cervical portion of the left internal carotid artery. Normal origin of the left external carotid artery (ECA). VERTEBRAL ARTERIES: Normal bilateral vertebral arteries. CT/CTA Head AND Neck W/ Contrast IMPRESSION: Calcific plaques at the origin of both right and left internal carotid arteries without any significant stenosis. Electronically Signed: Hi Nagy MD at 9:05 EDT ,
[2022-11-08] MEDS: Acetaminophen 325 MG Tablet 650 MG PO (08:44)
[2022-11-08] MEDS: 0.9% Saline Lock 10 ML Syringe IV (09:28)
[2022-11-08] MEDS: LORazepam 2 MG/ML Syringe 0.5 MG IV (09:28)
--- NOTE | 2022-11-08 09:30 | MRI_ITS ---
EXAM: MR HEAD WITHOUT INTRAVENOUS CONTRAST CLINICAL INDICATION: TIA. Episodes of right facial numbness and right arm tingling. TECHNIQUE: Multiplanar and multisequence MR images of the brain were obtained without intravenous contrast. COMPARISON: CT head without contrast 11/07/2022. MRI brain with and without contrast 11/05/2018. FINDINGS: BRAIN AND EXTRA-AXIAL SPACES: Unremarkable. No intra- or extra-axial hemorrhage. No intracranial mass or mass effect. Posterior fossa structures are unremarkable. Ventricles are appropriate for age. No hydrocephalus. Basal cisterns are patent. No diffusion restriction to suspect acute or subacute ischemic infarct. No focal signal abnormalities throughout the brain parenchyma in all pulse sequences. SELLA: Unremarkable. Normal sella turcica, pituitary gland, infundibular stalk, optic chiasm and hypothalamus. AUDITORY SYSTEM: Unremarkable. The internal auditory canals are patent. BONES/JOINTS: Unremarkable. No discrete lytic or blastic abnormalities. SINUSES: Small mucus retention cyst in the right maxillary sinus is unchanged. Paranasal sinuses are otherwise normal. MASTOID AIR CELLS: Unremarkable as visualized. Clear. ORBITS: Unremarkable as visualized. Both globes, extraocular muscles, optic nerves and retrobulbar fat appear unremarkable. VASCULATURE: Unremarkable as visualized. Normal flow voids in the major intracranial circulation. MRI/Brain without Contrast IMPRESSION: Normal MRI brain without contrast. Electronically Signed: Gautam Iverson MD at 10:37 EDT ,
--- NOTE | 2022-11-08 10:26 | DCINST_ITS ---
Discharge Instructions Diet Discharge Diet: Low fat / Low cholesterol and 2000 mg Sodium Diet Activity Discharge Activity: Return to Normal Activity Weight Bearing Status: Weight bearing as tolerated Dressing / Incision Call your doctor if you observe: Fever of 101 or Higher, Coldness, Increased Pain, Numbness or Tingling, Change in Color, Inability to urinate, Inability to have a bowel movement, Using more than 1 pad per hour, Shortness of breath, Dizziness, Fainting spells, Swelling in the ankles, Chest pain, Prolonged hiccupping, Increased palpitations (irregular heartbeat) and Calf discomfort Follow Up Care When: IN 2 WEEKS Test Results: Test results from this visit will be discussed in further detail at your follow- up appointment, if applicable. Discharge Plan Admission Admit Date/Time: 11/07/22 19:26 Attending Provider: Emmanuel He Primary Care Provider: Duong Mckeon Consulting Providers: Salvador Doss Discharge Orders/Prescriptions Prescriptions: Continued atenolol 50 mg tablet 50 mg PO DAILY atorvastatin 40 mg tablet 80 mg PO DAILY levothyroxine 75 mcg tablet 75 mcg PO DAILY hydrochlorothiazide 25 mg tablet 25 mg PO DAILY Qty: 30 6RF potassium chloride 10 mEq tablet extended release 20 meq PO DAILY aspirin [Adult Aspirin Regimen] 81 mg tablet,delayed release (DR/EC) 81 mg PO DAILY paroxetine HCl 10 mg tablet 10 mg PO DAILY bupropion HCl 300 MG tablet extended release 24 hr 300 mg PO DAILY acetaminophen 325 MG tablet 650 mg PO Q4H PRN PRN (Reason: Headache/Temp>99F) 0RF clonazepam 0.5 mg tablet 0.5 mg PO DAILY PRN (Reason: Anxiety) Changed lisinopril 20 mg tablet 30 mg PO DAILY 30 Days Qty: 45 0RF Referrals / Follow Up: Duong Mckeon MD [Primary Care Provider] - Within 2 Weeks Dar Isaac DO [Med Staff - Active Staff] - 11/24/22 1:15 pm Alexandro Villareal MD [Non-Staff -Ordering Privileges] - Within 1 Month (For peripheral neuropathy of right upper extremity) Disposition Disposition (needs filled in before D/C Order can be placed): Home, Self Care
--- NOTE | 2022-11-08 11:25 | CASEMGMT ---
SW did not complete a PHQ 9 as per physician he does not feel patient had a Stroke or TIA. Silvia Roger [employer]
--- NOTE | 2022-11-08 11:32 | PCM.DC.SUM ---
Providers Date of Admission: 11/07/22 Date of Discharge: 11/08/22 Primary Care Physician: Dr. Duong Mckeon MD Reason For Visit: TRANSIENT ISCHEMIC ATTACK Diagnosis Discharge Diagnosis (1) TIA (transient ischemic attack): Status: Acute Code(s): G45.9 - Transient cerebral ischemic attack, unspecified (2) Intermittent palpitations: Status: Chronic Code(s): R00.2 - Palpitations (3) Essential (primary) hypertension: Status: Chronic Code(s): I10 - Essential (primary) hypertension (4) Hyperlipidemia: Status: Chronic Code(s): E78.5 - Hyperlipidemia, unspecified (5) Hypothyroidism: Status: Acute Code(s): E03.9 - Hypothyroidism, unspecified Plan Patient was admitted with complain of numbness and tingling on the right half of the face, numbness and tingling of right hand. Sometimes she has right posterior head and neck pain/discomfort and numbness and tingling in the right upper extremity. Denies change in the language, dysarthria, hemianopia/loss of vision or weakness.? She felt grayed out in front of visual field 1 or 2 days before but was very short time but denies complete blindness. 1. Numbness tingling right upper extremity and right side of face more likely cervical neuropathy: Patient is admitted in PCU to rule out a stroke. Patient had CT head which did not show acute abnormality. CTA head and neck shows calcific plaque at origin of both right and left internal carotid arteries without any significant stenosis. MRI brain reported normal. Overall her clinical history more suggestive of cervical neuropathy therefore advised to follow-up with spine surgeon Dr. Isaac in 2 to [address] Villareal for EMG/NCV. Stroke ruled out. Patient has risk factors for stroke including hypertension, dyslipidemia. Mild hypokalemia, potassium supplemented. Hypokalemia resolved. 2. Hypertension?blood pressure is not controlled, baseline 150 to 160 mmHg. Already on HCTZ 25 mg daily. Lisinopril dose increased to 30 mg daily. Follow-up with PCP in 1 week and if blood pressure still elevated will need addition of third antihypertensive medication. 3. Hyperlipidemia?fasting lipid profile shows LDL 116, HDL 45. Compliance reinforced. Patient on maximum dose of atorvastatin 80 mg daily. Advised follow-up fasting profile in 3 months. 4. Hypothyroidism?continue Synthroid for routine 5. DVT prophylaxis?low molecular weight heparin Discharge medication reconciliation done. Discharge follow-up instructions completed. Discharge process discussed with the patient and all questions were answered to patient's satisfaction. Total time spent, exact 35 minutes on discharge meds reconciliation, examination, coordination of care with nurses and ancillary staff, review of imaging and blood test and discussion with the patient on follow-up instructions. Laboratory Results 11/07/22 17:22: WBC 8.7, RBC 4.46, Hgb 12.8, Hct 38.9, MCV 87.2, MCH 28.7, MCHC 32.9, RDW Std Deviation 39.0, RDW Coeff of [place] 12.2, Plt Count 334, MPV 10.8, Immature Gran % (Auto) 0.300, Neut % (Auto) 59.0, Lymph % (Auto) 25.8, [place] % (Auto) 11.7 H, Eos % (Auto) 2.4, Baso % (Auto) 0.8, Absolute Neuts (auto) 5.1, Absolute Lymphs (auto) 2.25, Nucleated RBC % 0 11/07/22 17:22: PT 13.3, INR 1.0, APTT 39.2 H 11/07/22 17:22: Sodium 140, Potassium 3.4 L, Chloride 102, Carbon Dioxide 32.0, Anion Gap 6, BUN 17, Creatinine 0.92, Estim Creat Clear Calc 52.75, Est GFR (MDRD) Af Amer 82, Est GFR (MDRD) Non-Af 68, BUN/Creatinine Ratio 18.6, Glucose 88, Calcium 9.0, Troponin I High Sens 14 11/08/22 06:45: Sodium 142, Potassium 4.0, Chloride 107, Carbon Dioxide 30.0, Anion Gap 5, BUN 13, Creatinine 0.71, Estim Creat Clear Calc 68.35, Est GFR (MDRD) Af Amer 110, Est GFR (MDRD) Non-Af 91, BUN/Creatinine Ratio 18.3, Glucose 95, Calcium 9.0, Triglycerides 146, Cholesterol 190, LDL Cholesterol 116, VLDL Cholesterol 29, HDL Cholesterol 45 Clinical Impression(s) from Imaging Studies Brain CT 11/07/22 17:40 IMPRESSION: No acute intracranial findings. Chest X-Ray 11/07/22 17:40 IMPRESSION: No radiographic evidence of acute cardiopulmonary disease. Head/Neck CTA 11/08/22 07:48 IMPRESSION: Calcific plaques at the origin of both right and left internal carotid arteries without any significant stenosis. Brain MRI 11/08/22 09:30 IMPRESSION: Normal MRI brain without contrast. l Medications at Discharge Home Medications bupropion HCl 300 mg 24 hr tablet, extended release 300 mg PO DAILY 01/07/17 acetaminophen 325 mg tablet 650 mg PO Q4H PRN PRN Headache/Temp>99F 10/08/18 atenolol 50 mg tablet 50 mg PO DAILY 05/06/20 paroxetine HCl 10 mg tablet 10 mg PO DAILY depression 05/06/20 hydrochlorothiazide 25 mg tablet 25 mg PO DAILY #30 tabs 05/26/22 aspirin 81 mg tablet,delayed release (Adult Aspirin Regimen) 81 mg PO DAILY 07/14/22 atorvastatin 40 mg tablet 80 mg PO DAILY 07/14/22 levothyroxine 75 mcg tablet 75 mcg PO DAILY 07/14/22 potassium chloride 10 mEq tablet,extended release 20 meq PO DAILY 07/14/22 clonazepam 0.5 mg tablet 0.5 mg PO DAILY PRN Anxiety 11/07/22 lisinopril 20 mg tablet 30 mg PO DAILY 30 days #45 tabs 11/08/22 Physical Exam Narrative Seen and examined. Patient has intermittent numbness and tingling of right upper extremity and face and sometimes headache and neck pain. Physical exam General: Alert, Oriented x3, Cooperative HEENT: Atraumatic, PERRLA, EOMI, Normocephalic Oral: No Gingival or Mucosal Lesions/ Ulcerations Neck: Supple, No JVD, Negative Carotid Bruits Lungs: Air entry diminished in bilateral lung bases. No crepitation/rhonchi Cardiovascular: Regular rate, Regular Rhythm, Normal S1, Normal S2, No murmurs Abdomen: Bowel Sounds Present, Soft, Non Tender, Non-Distended : No renal angle tenderness. No suprapubic tenderness. Extremities: No edema, Capillary Refill Less than 3 Seconds Skin: No rashes, No breakdown Musculoskeletal: No Tenderness to Palpation of Joints or Extremities Neurological: Cranial nerves II-XII grossly intact, DTR 2+/4. NIH stroke scale 0. GCS 15.. Muscle strength 5/5 at major joints. Heel-hunter and finger-nose test negative. Psych/Mental Status: Normal Affect, Appropriate. Weight / BMI Weight Weight: 190 lb Body Mass Index (BMI) 35.9 ABG / Lab / Microbiology Data Result Diagrams: 11/07/22 17:22 11/08/22 06:45 Laboratory: Laboratory Results - last 24 hr 11/07/22 17:22: WBC 8.7, RBC 4.46, Hgb 12.8, Hct 38.9, MCV 87.2, MCH 28.7, MCHC 32.9, RDW Std Deviation 39.0, RDW Coeff of [place] 12.2, Plt Count 334, MPV 10.8, Immature Gran % (Auto) 0.300, Neut % (Auto) 59.0, Lymph % (Auto) 25.8, [place] % (Auto) 11.7 H, Eos % (Auto) 2.4, Baso % (Auto) 0.8, Absolute Neuts (auto) 5.1, Absolute Lymphs (auto) 2.25, Nucleated RBC % 0 11/07/22 17:22: PT 13.3, INR 1.0, APTT 39.2 H 11/07/22 17:22: Sodium 140, Potassium 3.4 L, Chloride 102, Carbon Dioxide 32.0, Anion Gap 6, BUN 17, Creatinine 0.92, Estim Creat Clear Calc 52.75, Est GFR (MDRD) Af Amer 82, Est GFR (MDRD) Non-Af 68, BUN/Creatinine Ratio 18.6, Glucose 88, Calcium 9.0, Troponin I High Sens 14 11/08/22 06:45: Sodium 142, Potassium 4.0, Chloride 107, Carbon Dioxide 30.0, Anion Gap 5, BUN 13, Creatinine 0.71, Estim Creat Clear Calc 68.35, Est GFR (MDRD) Af Amer 110, Est GFR (MDRD) Non-Af 91, BUN/Creatinine Ratio 18.3, Glucose 95, Calcium 9.0, Triglycerides 146, Cholesterol 190, LDL Cholesterol 116, VLDL Cholesterol 29, HDL Cholesterol 45 Radiography Diagnostic Testing: Radiology Impression Brain CT 11/07/22 17:40 IMPRESSION: No acute intracranial findings. Electronically Signed: Roger Marquez MD at 18:02 EDT , ADDENDUM: 11/07/22 1812 IMPRESSION: No acute intracranial findings. N.B. : The above Results were Read Back by Roger Marquez MD to Gautam Li MD, and understanding confirmed on 11/07/2022 18:06:15 (ET). Electronically Signed: Roger Marquez MD at 18:02 EDT , Chest X-Ray 11/07/22 17:40 IMPRESSION: No radiographic evidence of acute cardiopulmonary disease. Electronically Signed: Roger Marquez MD at 18:04 EDT , Head/Neck CTA 11/08/22 07:48 IMPRESSION: Calcific plaques at the origin of both right and left internal carotid arteries without any significant stenosis. Electronically Signed: Hi Nagy MD at 9:05 EDT , Brain MRI 11/08/22 09:30 IMPRESSION: Normal MRI brain without contrast. Electronically Signed: Gautam Iverson MD at 10:37 EDT , D/C Instructions Discharge Diet: Low fat / Low cholesterol and 2000 mg Sodium Diet Weight Bearing Status: Weight bearing as tolerated Call your doctor if you observe: Fever of 101 or Higher, Coldness, Increased Pain, Numbness or Tingling, Change in Color, Inability to urinate, Inability to have a bowel movement, Using more than 1 pad per hour, Shortness of breath, Dizziness, Fainting spells, Swelling in the ankles, Chest pain, Prolonged hiccupping, Increased palpitations (irregular heartbeat) and Calf discomfort When: IN 2 WEEKS Meaningful Use Info Meaningful Use Diagnoses (Choose all that apply): None applicable Discharge Plan Admission Admit Date/Time: 11/07/22 19:26 Attending Provider: Emmanuel He Primary Care Provider: Duong Mckeon Consulting Providers: Salvador Doss Discharge Orders/Prescriptions Prescriptions: Continued atenolol 50 mg tablet 50 mg PO DAILY atorvastatin 40 mg tablet 80 mg PO DAILY levothyroxine 75 mcg tablet 75 mcg PO DAILY hydrochlorothiazide 25 mg tablet 25 mg PO DAILY Qty: 30 6RF potassium chloride 10 mEq tablet extended release 20 meq PO DAILY aspirin [Adult Aspirin Regimen] 81 mg tablet,delayed release (DR/EC) 81 mg PO DAILY paroxetine HCl 10 mg tablet 10 mg PO DAILY bupropion HCl 300 MG tablet extended release 24 hr 300 mg PO DAILY acetaminophen 325 MG tablet 650 mg PO Q4H PRN PRN (Reason: Headache/Temp>99F) 0RF clonazepam 0.5 mg tablet 0.5 mg PO DAILY PRN (Reason: Anxiety) Changed lisinopril 20 mg tablet 30 mg PO DAILY 30 Days Qty: 45 0RF Referrals / Follow Up: Duong Mckeon MD [Primary Care Provider] - Within 2 Weeks Dar Isaac DO [Med Staff - Active Staff] - 11/24/22 1:15 pm Alexandro Villareal MD [Non-Staff -Ordering Privileges] - Within 1 Month (For peripheral neuropathy of right upper extremity) Disposition Disposition (needs filled in before D/C Order can be placed): Home, Self Care Charges/Coding Visit Charges Inpatient E&M: 16491 Disch Hosp >30min
[2022-11-08] MEDS: buPROPion (XL) 300 MG TABLET.XL PO (11:39)
[2022-11-08] MEDS: Enoxaparin 40 MG/0.4 ML Syringe SC (11:39)
[2022-11-08] MEDS: Aspirin E.C. 81 MG Tablet PO (11:39)
[2022-11-08] MEDS: PARoxetine 10 MG Tablet PO (11:40)
[2022-11-08] MEDS: Potassium Chloride Oral Tablet 20 MEQ PO (11:40)
[2022-11-08] MEDS: hydroCHLOROthiazide 25 MG Tablet PO (11:54)
[2022-11-08] MEDS: Atenolol 50 MG Tablet PO (11:54)
[2022-11-08] MEDS: Lisinopril 20 MG Tablet PO (11:54)
--- NOTE | 2022-11-08 12:00 | PHA.DC.MR ---
Pharmacy Service has performed discharge medication reconciliation for this patient. The patient's discharge medication list was reviewed for discrepancies and discrepancies were resolved. Home Medications bupropion HCl 300 mg 24 hr tablet, extended release 300 mg PO DAILY 01/07/17 acetaminophen 325 mg tablet 650 mg PO Q4H PRN PRN Headache/Temp>99F 10/08/18 atenolol 50 mg tablet 50 mg PO DAILY 05/06/20 paroxetine HCl 10 mg tablet 10 mg PO DAILY depression 05/06/20 hydrochlorothiazide 25 mg tablet 25 mg PO DAILY #30 tabs 05/26/22 aspirin 81 mg tablet,delayed release (Adult Aspirin Regimen) 81 mg PO DAILY 07/14/22 atorvastatin 40 mg tablet 80 mg PO DAILY 07/14/22 levothyroxine 75 mcg tablet 75 mcg PO DAILY 07/14/22 potassium chloride 10 mEq tablet,extended release 20 meq PO DAILY 07/14/22 clonazepam 0.5 mg tablet 0.5 mg PO DAILY PRN Anxiety 11/07/22 lisinopril 20 mg tablet 30 mg PO DAILY 30 days #45 tabs 11/08/22
--- NOTE | 2022-11-08 12:30 | CASEMGMT ---
RN CM in to discuss need at discharge. Patient denies needs at this time and states she will follow-up with PCP. Patient had no further questions or concerns at this time.
== END 2022-11-08 11:32 | disposition home or self-care (01) ==
LOC: ED 19:37 → PCU 20:14
PROVIDERS: Admitting Provider Family Medicine; Emergency Provider Emergency Medicine; PCP Family Medicine; Visit Provider Internal Medicine
DX: G45.9 Transient cerebral ischemic attack, unspecified (principal); Z87.891 Personal history of nicotine dependence; R29.700 NIHSS score 0; E03.9 Hypothyroidism, unspecified; G62.9 Polyneuropathy, unspecified; E87.6 Hypokalemia; E78.5 Hyperlipidemia, unspecified; I10 Essential (primary) hypertension; R00.1 Bradycardia, unspecified; R00.2 Palpitations; Z79.899 Other long term (current) drug therapy; Z79.890 Hormone replacement therapy; Z79.82 Long term (current) use of aspirin; E66.9 Obesity, unspecified; Z68.37 Body mass index [BMI] 37.0-37.9, adult
CPT/HCPCS: 36415; 70450; 70496; 70498; 70551; 71045; 80048; 80061; 84484; 85025; 85610; 85730; 93005; 94762; 96372; 96374; 99221; 99285; Q9967; A4216; G0378

== ENCOUNTER → 2022-11-30 | Outpatient (CLI) | payer BC, SELFPAY ==
--- NOTE | 2022-11-30 09:15 | MRI_ITS ---
INDICATION: Pain EXAMINATION: MRI - MR Spine Cervical W/O Contrast TECHNIQUE: Multiplanar and multisequence MR images of the cervical spine were performed. IV Contrast Dosage and Agent: None. COMPARISON: CTA neck of 11/08/2022. FINDINGS: VERTEBRAE: No compression fracture. The odontoid is intact. Cervical facet arthritis is present, greater on the right. No facet dislocation. VERTEBRAL ALIGNMENT: Slight reversal of the normal cervical lordosis as noted on prior cervical CTA. No spondylolisthesis. CERVICAL SPINAL CORD: Unremarkable in signal and morphology. No intrinsic signal abnormalities within the cervical cord. CERVICAL DISCS: The cervical disc spaces show degenerative narrowing with disc degeneration/dehydration and mild endplate degenerative changes. C2/C3: No disc protrusion or extrusion. No neural foraminal encroachment. C3/C4: Minimal annular bulging. Moderate asymmetric narrowing of the right neural foramen by uncinate hypertrophy and underlying disc protrusion. Mild left-sided uncinate hypertrophy at this level, without neural foraminal encroachment. No thecal sac stenosis. C4/C5: Mild annular bulging, slightly flattening the ventral aspect of the thecal sac but without mass effect upon the cervical cord. Mild narrowing of the right neural foramen by asymmetric uncinate hypertrophy. Widely patent left neural foramen. No thecal sac stenosis. C5/C6: Minimal broad-based annular bulge without mass effect upon the cervical cord. Bilateral uncinate hypertrophy with mild left and [id number] right-sided neural foraminal encroachment. No thecal sac stenosis. C6/C7: Central disc protrusion at C6/7, mildly indenting the ventral aspect of the thecal sac at the midline, but without mass effect upon the cervical cord. Mild left-sided neural foraminal encroachment by uncinate hypertrophy. C7/T1: Normal disc height and morphology. Normal spinal canal and neuroforamina. NECK SOFT TISSUES: No prevertebral soft tissue swelling. OTHER: The cerebellar tonsils are normally positioned. No disc protrusion or extrusion identified in the upper thoracic region. No abnormal epidural fluid collection seen on this nonenhanced scan. MRI/Spine Cervical (Routine) IMPRESSION: Multilevel cervical degenerative disc disease with annular bulges at the C3/4 through C5/6 levels, and with a minimal central disc protrusion at the C6/7 level. Multilevel neural foraminal encroachment due to uncinate hypertrophy. No thecal sac stenosis. Electronically Signed: Dae Sanchez MD at 4:51 EDT ,
== END | disposition home or self-care (01) ==
LOC: MRI 08:43
PROVIDERS: PCP Family Medicine; Referring Provider Orthopaedic Surgery; Visit Provider Orthopaedic Surgery
DX: M54.2 Cervicalgia (principal); G95.89 Other specified diseases of spinal cord
CPT/HCPCS: 72141

== ENCOUNTER 2022-12-09 10:40 | Emergency (ER) | payer BC, SELFPAY ==
[2022-12-09 10:41] VITALS: BP 199/113; PULSE 55; RESP 16; TEMP 36.4; O2SAT 97; BMI 36.1
--- NOTE | 2022-12-09 10:45 | EDS_ITS ---
HPI History of Present Illness Chief Complaint: Dizziness [facility] Medical History Arm paresthesia, right (09/2018) Depression Essential (primary) hypertension Hyperlipidemia Hypothyroidism Migraines Obesity Home Medications bupropion HCl 300 mg 24 hr tablet, extended release 300 mg PO DAILY 01/07/17 [History Last Taken 11/07/22] acetaminophen 325 mg tablet 650 mg PO Q4H PRN PRN Headache/Temp>99F 10/08/18 [Rx Last Taken 11/07/22] atenolol 50 mg tablet 50 mg PO DAILY 05/06/20 [History Last Taken 11/07/22] paroxetine HCl 10 mg tablet 10 mg PO DAILY depression 05/06/20 [History Last Taken 11/06/22] hydrochlorothiazide 25 mg tablet 25 mg PO DAILY #30 tabs 05/26/22 [Rx Last Taken 11/07/22] aspirin 81 mg tablet,delayed release (Adult Aspirin Regimen) 81 mg PO DAILY 07/14/22 [History Last Taken 11/06/22] atorvastatin 40 mg tablet 80 mg PO DAILY 07/14/22 [History Last Taken 11/06/22] levothyroxine 75 mcg tablet 75 mcg PO DAILY 07/14/22 [History Last Taken 11/05/22] potassium chloride 10 mEq tablet,extended release 20 meq PO DAILY 07/14/22 [History Last Taken 11/06/22] clonazepam 0.5 mg tablet 0.5 mg PO DAILY PRN Anxiety 11/07/22 [History Last Taken 11/06/22] lisinopril 20 mg tablet 30 mg PO DAILY 30 days #45 tabs 11/08/22 [Rx Last Taken Unknown] coenzyme Q10 100 mg capsule (CoQ-10) 100 mg PO DAILY 12/09/22 [History Last Taken Unknown] Allergy/AdvReac Type Severity Reaction Status Date / Time No Known Allergies Allergy Verified 12/02/22 11:05 Family History Mother CVA (cerebral vascular accident) Heart disease Father Heart disease Surgical History History of History of dilatation and curettage (03/2020) Social History (Reviewed 12/02/22 @ 11:05 by Marimar Walker Smoking Status: Former smoker EXAM Physical Exam Const Vital Signs: 12/09/22 10:41 12/09/22 11:19 Temperature 97.5 F L Temperature Source Temporal Pulse Rate 55 L Respiratory Rate 16 Respiratory Effort Normal Respiratory Pattern Normal Blood Pressure 199/113 H Blood Pressure Mean 141 Pulse Ox 97 Oxygen Delivery Method Room Air [facility] [place] Narrative Medical decision making narrative: HISTORY OF PRESENT ILLNESS: 52-year-old female here with 1 month of waxing and waning vertiginous symptoms and intermittent numbness and tingling throughout the body status post seeing neurology and e learning specialist with initial diagnosis of MS. Patient states prior to arrival she had acute onset of dizziness, fatigue, palpitations. She states she lowered her self to the ground and did not lose consciousness or hit her head. States the symptoms resolved after only a couple of minutes. She states she is asymptomatic at this time. She denies any chest pain, shortness of breath. Denies any volume loss. Denies any bleeding diathesis. Denies any lower extremity swelling. Denies any focal weakness. REVIEW OF SYSTEMS: Pertinent positives: Dizziness, nausea Pertinent negatives: Head trauma focal weakness or syncope PHYSICAL EXAM: Nursing triage notes reviewed, Vital signs reviewed Constitutional: please see [facility] HENT: MMM Eyes: Pupils equal round and reactive to light, Extraocular muscles intact Neck: No stridor, no JVD, full neck ROM Lungs: Clear to auscultation, No wheezing or rales. No increased work of breathing, no conversational dyspnea, no accessory muscle use, no nasal flaring. No respiratory distress noted Heart: Regular rate and rhythm, No murmurs, No rubs and No gallops, 2+ distal pulses (radial, femoral, posterior tibial) in all extremities Abdomen: Soft, there is no tenderness, rigidity, rebound or guarding, no obvious peritoneal signs, no palpable pulsatile abdominal masses, no auscultated abdominal bruit : No CVAT Extremities: No edema Neuro: Alert and oriented x3, neuro exam at baseline, cranial nerves II through XII are intact. No pain with extraocular muscle movement. There is negative test of skew. Normal speech. 5 of 5 strength in upper and lower extremities in flexion extension. Intact sensation to light touch in upper and lower extremity dermatomes. No truncal or extremity ataxia. No dysdiadochokinesia. Normal gait. 2+ reflexes. No meningeal signs. Negative Babinski. NIH of 0 Skin: No rash or lesions noted MEDICAL DECISION MAKING: Chief Complaint: Dizziness External records reviewed: Normal brain MRI from November 2022 Factors affecting care: Depression, hypertension, anemia, hypothyroidism, mul tiple sclerosis Social determinants of health: None History obtained from others: None Consults: None ALL IMAGES HAVE BEEN PERSONALLY REVIEWED AND INTERPRETED BY MYSELF. MDM Narrative: I considered the following differential diagnosis: Vertigo, ICH, MS flare, electrolyte abnormality, anemia Patient was initially hypertensive, bradycardic. She had no focal neurologic deficits on my initial exam. NIH stroke scale was 0. Given abnormal vital signs I did obtain a CT scan of the head to rule out ICH. I also obtain labs and images to further elucidate other etiologies dizziness including anemia, electrolyte abnormality, myocardial ischemia. Labs and images were unremarkable. No clear life-limiting etiology to be ascertained. Based on the patient's improved vital signs, unremarkable lab and images I believe the patient is appropriate discharge home for close outpatient follow-up and further evaluation. I completed a structured, evidence-based clinical evaluation to screen for acute stroke and neurologic deficits in this patient. The patient has a normal detailed neurologic exam, which is highly sensitive for dangerous causes of dizziness, vertigo, or loss of balance. The evidence indicates that the patient is very low risk for an acute neurologic emergency and this is consistent with my clinical intuition. The risk of further workup or hospitalization is likely higher than the risk of the patient having a stroke or other dangerous neurologic condition. It is, therefore, in the patient?s best interest not to do additional emergent testing or to be hospitalized at this time. Shared Decision-Making I have discussed with the patient my clinical impression and the result of an evidence-based clinical evaluation to screen for stroke, as well as the risk of further testing and hospitalization. The evidence shows that the risk for stroke is less than 1%. Although the risk of stroke has not been completely eliminated, the risks of further testing or hospitalization likely exceed any potential benefit, and the patient agrees with not pursuing further emergent evaluation or hospitalization for stroke evaluation at this time. Total critical care time today provided was at least 0 minutes. This excludes separately billable procedures. There was a high probability of clinically significant/life threatening deterioration in the patient's condition which re quired my urgent intervention. Shared decision making: I will have a discussion with the patient and or visitors regarding risk/benefits of further testing or admission. They will be made aware of of the risk/benefits inherent in this decision they will be given the opportunity to voice understanding. Lab Data Attestation: I reviewed the patient's lab results. Lab results narrative: EKG with normal sinus rhythm, normal axis, normal intervals, no ST or T wave changes to suggest ischemia. No evidence of WPW, Brug[place], ARVD. CMP without evidence of acute kidney injury, significant electrolyte abnormality, anion gap, no evidence hepatobiliary pathology. Troponin is negative, no evidence of myocardial ischemia Chest x-ray by my read shows no evidence of pneumonia, cardiomegaly, pulmonary edema CBC without leukocytosis, severe anemia, no thrombocytopenia. Labs: Laboratory Results - last 24 hr 12/09/22 12/09/22 11:15 11:15 WBC 7.8 RBC 4.66 Hgb 13.5 Hct 41.1 MCV 88.2 MCH 29.0 MCHC 32.8 RDW Std Deviation 40.9 RDW Coeff of Isrrael 12.6 Plt Count 368 MPV 10.7 Immature Gran % (Auto) 0.900 Neut % (Auto) 64.6 Lymph % (Auto) 23.5 [place] % (Auto) 8.2 Eos % (Auto) 1.8 Baso % (Auto) 1.0 Absolute Neuts (auto) 5.0 Absolute Lymphs (auto) 1.83 Nucleated RBC % 0 Sodium 139 Potassium 3.5 Chloride 106 Carbon Dioxide 29.0 Anion Gap 4 L BUN 14 Creatinine 0.76 Estim Creat Clear Calc 63.86 Est GFR (MDRD) Af Amer 101 Est GFR (MDRD) Non-Af 84 BUN/Creatinine Ratio 18.3 Glucose 102 Calcium 9.2 Total Bilirubin 0.60 AST 25 ALT 43 Alkaline Phosphatase 111 Troponin I High Sens 13 Total Protein 7.1 Albumin 3.5 Globulin 3.6 Albumin/Globulin Ratio 1.0 Radiography Diagnostic Testing: Clinical Impression(s) from Imaging Studies Brain CT 12/09/22 11:03 IMPRESSION: Normal unenhanced CT scan of the brain. Electronically Signed: Hi Nagy MD at 11:28 EDT , Chest X-Ray 12/09/22 11:19 IMPRESSION: Normal x-ray examination of the chest. Electronically Signed: Hi Nagy MD at 11:32 EDT , I have personally reviewed the patient's chest x-ray. Chest x-ray is unremarkable for pulmonary edema, pneumothorax, pneumonia or focal cardiopulmonary abnormality. Discharge Plan Triage Chief Complaint: Dizziness ED Provider: Tani Pratt Dx/Rx/DC Orders Clinical Impression: Vertigo Instructions: Vertigo Staying Safe Prescriptions: No Action atenolol 50 mg tablet 50 mg PO DAILY atorvastatin 40 mg tablet 80 mg PO DAILY levothyroxine 75 mcg tablet 75 mcg PO DAILY hydrochlorothiazide 25 mg tablet 25 mg PO DAILY Qty: 30 6RF potassium chloride 10 mEq tablet extended release 20 meq PO DAILY aspirin [Adult Aspirin Regimen] 81 mg tablet,delayed release (DR/EC) 81 mg PO DAILY paroxetine HCl 10 mg tablet 10 mg PO DAILY bupropion HCl 300 MG tablet extended release 24 hr 300 mg PO DAILY acetaminophen 325 MG tablet 650 mg PO Q4H PRN PRN (Reason: Headache/Temp>99F) 0RF clonazepam 0.5 mg tablet 0.5 mg PO DAILY PRN (Reason: Anxiety) lisinopril 20 mg tablet 30 mg PO DAILY 30 Days Qty: 45 0RF coenzyme Q10 [CoQ-10] 100 mg Capsule 100 mg PO DAILY Stand Alone Forms: ED Work / School Excuse Primary Care Provider: Duong Mckeon Referrals: Duong Mckeon MD [Primary Care Provider] - Activity Restrictions/Additional Instructions: Thank you for trusting us with your care today! Please return to the emergency department if your symptoms change or worsen. Specifically if develop headache, loss of vision, slurred speech, facial drooping, intractable dizziness, nausea vomiting, chest pain, loss of sensation, loss of movement. Please follow with your primary care physician, neurology, spine surgery for further outpatient evaluation and management. Disposition Disposition: Home, Self Care
--- NOTE | 2022-12-09 11:03 | CT_ITS ---
STUDY: CT BRAIN WITHOUT CONTRAST REASON FOR EXAM: Female, 52 years old. Dizziness, HTN RADIATION DOSAGE (If Supplied By Facility): CTDIvol = ( 44.99 ) mGy, DLP = ( 779.24 ) mGycm TECHNIQUE: Transaxial CT imaging of the brain was performed without administration of intravenous contrast material. Individualized dose optimization techniques were used for this CT. COMPARISON: Comparison is made with prior study November 07, 2022. FINDINGS: Normal soft tissue structures. Normal calvarium. Normal size ventricles and extra-axial spaces for the patient''s age. Normal white matter tracts of the cerebral hemispheres. Normal basal ganglia and thalami. Normal brainstem. Normal cerebellum. There is no intracranial hemorrhage. There are no findings of an acute ischemic infarction. Atherosclerotic calcification of the cavernous portions of the internal carotid arteries bilaterally. Stable small polyp in the inferior lateral aspect of the right maxillary sinus. CT/Brain/Head without Contrast IMPRESSION: Normal unenhanced CT scan of the brain. Electronically Signed: Hi Nagy MD at 11:28 EDT ,
--- NOTE | 2022-12-09 11:05 | EKG12_ITS ---
Test Reason : Blood Pressure : / mmHG Vent. Rate : 051 BPM Atrial Rate : 051 BPM P-R Int : 158 ms QRS Dur : 078 ms QT Int : 462 ms P-R-T Axes : 053 016 029 degrees QTc Int : 425 ms Sinus bradycardia Otherwise normal ECG Confirmed by PANCHO LOBO, PETER ([id number]), image editor SALOME MCCARTY ([id number]) on 12/13/2022 8:44:23 AM Referred By: Confirmed By:PETER DELEON MD
--- NOTE | 2022-12-09 11:19 | RAD_ITS ---
STUDY: X-RAY CHEST REASON FOR EXAM: Female, 52 years old. Dizziness TECHNIQUE: Single AP portable view of the chest. COMPARISON: Comparison is made with prior study dated November 07, 2022. FINDINGS: The lungs are clear and expanded. There is no demonstrated pleural abnormality. Normal size heart. Normal mediastinum and derek. Normal visualized pulmonary arteries. Normal visualized aortic arch and descending thoracic aorta. Normal visualized thoracic spine. Normal visualized ribs, clavicles, and shoulders. There is no demonstrated abnormality of the visualized soft tissue structures of the upper abdomen. RAD/Chest 1 View (Portable) IMPRESSION: Normal x-ray examination of the chest. Electronically Signed: Hi Nagy MD at 11:32 EDT ,
[2022-12-09 11:48] LABS: AST(SGOT) 25 U/L (15-37); Alanine Aminotransfer ALT/SGPT 43 U/L (13-56); Albumin, Serum 3.5 g/dL (3.2-5.0); Alkaline Phosphatase 111 U/L (45-117); Anion Gap 4 (5-15); BUN 14 mg/dL (7-18); BUN/Creat Ratio 18.3 RATIO (10-20); Calcium,Total 9.2 mg/dL (8.5-10.1); Chloride 106 mmol/L (98-107); Creatinine, Serum 0.76 mg/dL (0.55-1.02); EST Glomerular Filtration Rate 84 mL/min (>60); Est Glom Filt Rate - Afr Amer 101 mL/min (>60); Estimated Creatinine Clearance 63.86 ml/min; Globulin 3.6 g/dL (2.2-4.2); Glucose 102 mg/dL (74-106); Potassium 3.5 mmol/L (3.5-5.1); Protein, Total 7.1 g/dL (6.4-8.2); Sodium Level 139 mmol/L (136-145); Troponin-I HS 13 pg/mL (3.0-54.0)
[2022-12-09 12:06] LABS: Absolute Lymphocyte Count 1.83 X10^3/uL (0.83-4.51); Basophil# 0.08 X10^3/uL; Eosinophil# 0.14 X10^3/uL; Eosinophils% 1.8 % (0-5); Hematocrit 41.1 % (37-47); Hemoglobin 13.5 g/dL (12.0-15.0); Lymphocyte # 1.83 X10^3/ul (0.83-4.51); Lymphocyte % 23.5 % (19-41); Mean Corp Hgb Conc 32.8 g/dL (32-36); Mean Corpuscular Volume 88.2 fL (81-99); Mean Platelet Vol. 10.7 fl (6.2-12.0); Monocyte# 0.64 X10^3/uL; Monocyte% 8.2 % (0-10); NRBC Flagged by Analyzer 0 % (0-5); Neutrophil # 5.03 X10^3/uL (2.7-7.7); Neutrophil % 64.6 % (47-70); Platelet Count 368 K/mm3 (150-450); RBC Distribution Width CV 12.6 % (11.6-14.6); RBC Distribution Width SD 40.9 fl (35.1-43.9); Red Blood Count 4.66 M/mm3 (4.2-5.4); White Blood Count 7.8 K/mm3 (4.4-11.0)
== END 2022-12-09 13:09 | disposition home or self-care (01) ==
PROVIDERS: Emergency Provider Emergency Medicine; PCP Family Medicine; Visit Provider Emergency Medicine
DX: R42 Dizziness and giddiness (principal); G35 Multiple sclerosis; R00.1 Bradycardia, unspecified; Z87.891 Personal history of nicotine dependence; E78.5 Hyperlipidemia, unspecified; R00.2 Palpitations; I10 Essential (primary) hypertension; E03.9 Hypothyroidism, unspecified; F32.A Depression, unspecified
CPT/HCPCS: 70450; 71045; 80048; 80053; 84484; 85025; 93005; 99282; J7040; A4216

== ENCOUNTER 2022-12-10 21:31 | Emergency (ER) | payer BC, SELFPAY ==
[2022-12-10 21:33] VITALS: BP 196/86; PULSE 55; RESP 16; TEMP 35.8; O2SAT 97; BMI 35.5
--- NOTE | 2022-12-10 21:49 | EKG12_ITS ---
Test Reason : DYSRHYTHMIA Blood Pressure : / mmHG Vent. Rate : 054 BPM Atrial Rate : 054 BPM P-R Int : 172 ms QRS Dur : 088 ms QT Int : 478 ms P-R-T Axes : 049 015 044 degrees QTc Int : 453 ms Sinus bradycardia Otherwise normal ECG Confirmed by PANCHO LOBO, PETER ([id number]), research editor SALOME MCCARTY ([id number]) on 12/12/2022 11:36:10 AM Referred By: KELLE Confirmed By:PETER DELEON MD
[2022-12-10 22:38] LABS: Absolute Lymphocyte Count 1.52 X10^3/uL (0.83-4.51); Absolute Neutrophil Count 8.1 X10^3/uL (2.0-7.7); Basophil# 0.08 X10^3/uL; Basophil% 0.8 % (0-1); Eosinophil# 0.06 X10^3/uL; Eosinophils% 0.6 % (0-5); Hematocrit 39.8 % (37-47); Hemoglobin 13.5 g/dL (12.0-15.0); Lymphocyte # 1.52 X10^3/ul (0.83-4.51); Lymphocyte % 14.4 % (19-41); Mean Corp Hgb Conc 33.9 g/dL (32-36); Mean Corpuscular Hgb 29.6 pg (27.0-32.0); Mean Corpuscular Volume 87.3 fL (81-99); Mean Platelet Vol. 10.4 fl (6.2-12.0); Monocyte# 0.73 X10^3/uL; Monocyte% 6.9 % (0-10); NRBC Flagged by Analyzer 0 % (0-5); Neutrophil # 8.14 X10^3/uL (2.7-7.7); Neutrophil % 76.8 % (47-70); Platelet Count 345 K/mm3 (150-450); RBC Distribution Width CV 12.6 % (11.6-14.6); RBC Distribution Width SD 40.1 fl (35.1-43.9); Red Blood Count 4.56 M/mm3 (4.2-5.4); White Blood Count 10.6 K/mm3 (4.4-11.0)
--- NOTE | 2022-12-10 22:38 | RAD_ITS ---
STUDY: X-RAY CHEST REASON FOR EXAM: Female, 52 years old. Stroke TECHNIQUE: Single AP portable view of the chest. COMPARISON: December 09, 2022, March 04, 2020 chest x-ray FINDINGS: The lungs are clear and expanded. There is no demonstrated pleural abnormality. Normal size heart. Normal mediastinum and derek. Normal visualized pulmonary arteries. Normal visualized aortic arch and descending thoracic aorta. Normal visualized thoracic spine. Normal visualized ribs, clavicles, and shoulders. There is no demonstrated abnormality of the visualized soft tissue structures of the upper abdomen. RAD/Chest 1 View (Portable) IMPRESSION: Stable chest. No visualized acute focal infiltrate. Electronically Signed: Aranza Owens MD at 23:00 EDT ,
[2022-12-10 22:47] LABS: Prothrombin Time (Protime)PT. 12.9 SECONDS (11.7-14.9)
[2022-12-10 22:48] LABS: Partial Thromboplast Time 39.8 Seconds (24.1-36.2)
[2022-12-10 22:57] LABS: Anion Gap 6 (5-15); BUN 17 mg/dL (7-18); BUN/Creat Ratio 20.7 RATIO (10-20); Calcium,Total 9.1 mg/dL (8.5-10.1); Chloride 102 mmol/L (98-107); Creatinine, Serum 0.82 mg/dL (0.55-1.02); EST Glomerular Filtration Rate 77 mL/min (>60); Est Glom Filt Rate - Afr Amer 93 mL/min (>60); Estimated Creatinine Clearance 59.18 ml/min; Glucose 123 mg/dL (74-106); Potassium 3.2 mmol/L (3.5-5.1); Sodium Level 138 mmol/L (136-145)
[2022-12-10 23:00] VITALS: BP 228/108
[2022-12-10] MEDS: Ondansetron 4 MG/2 ML Vial IV (23:16)
[2022-12-10] MEDS: 0.9% Normal Saline 1,000 ML 999 ML IV (23:16)
[2022-12-10] MEDS: diazePAM 5 MG Tablet PO (23:16)
[2022-12-11] VITALS: BP 173/74
--- NOTE | 2022-12-11 00:26 | EX.ED.DYSGE1 ---
HPI History of Present Illness Chief Complaint: Dizziness Narrative Narrative: Patient is a 52-year-old female with past medical history of hypertension hyperlipidemia hypothyroidism and vertigo. She was seen yesterday secondary to the same complaint and at that time had basic blood work and a noncontrast CT obtained. Labs revealed no clinically significant findings and CT was normal. Patient states that today she had recurrent bouts of dizziness which she describes as a sense of motion or spinning. She states that she has been having bouts of nausea and vomiting as well following the onset of the dizziness. She states that despite staying at home and resting as she has not been able to get the symptoms under control. She states finally she tried to sit up and when doing so she felt dizzy and fell to the left side and she was worried that she could be having a stroke and therefore called 911. [facility] Medical History Arm paresthesia, right (09/2018) Depression Essential (primary) hypertension Hyperlipidemia Hypothyroidism Migraines Obesity Home Medications bupropion HCl 300 mg 24 hr tablet, extended release 300 mg PO DAILY 01/07/17 [History Last Taken 11/07/22] acetaminophen 325 mg tablet 650 mg PO Q4H PRN PRN Headache/Temp>99F 10/08/18 [Rx Last Taken 11/07/22] atenolol 50 mg tablet 50 mg PO DAILY 05/06/20 [History Last Taken 11/07/22] paroxetine HCl 10 mg tablet 10 mg PO DAILY depression 05/06/20 [History Last Taken 11/06/22] hydrochlorothiazide 25 mg tablet 25 mg PO DAILY #30 tabs 05/26/22 [Rx Last Taken 11/07/22] aspirin 81 mg tablet,delayed release (Adult Aspirin Regimen) 81 mg PO DAILY 07/14/22 [History Last Taken 11/06/22] atorvastatin 40 mg tablet 80 mg PO DAILY 07/14/22 [History Last Taken 11/06/22] levothyroxine 75 mcg tablet 75 mcg PO DAILY 07/14/22 [History Last Taken 11/05/22] potassium chloride 10 mEq tablet,extended release 20 meq PO DAILY 07/14/22 [History Last Taken 11/06/22] clonazepam 0.5 mg tablet 0.5 mg PO DAILY PRN Anxiety 11/07/22 [History Last Taken 11/06/22] lisinopril 20 mg tablet 30 mg PO DAILY 30 days #45 tabs 11/08/22 [Rx Last Taken Unknown] coenzyme Q10 100 mg capsule (CoQ-10) 100 mg PO DAILY 12/09/22 [History Last Taken Unknown] ondansetron 4 mg disintegrating tablet 4 mg PO TID PRN nausea and vomiting 7 days #21 tabs 12/11/22 [Rx Last Taken Unknown] Allergy/AdvReac Type Severity Reaction Status Date / Time No Known Allergies Allergy Verified 12/02/22 11:05 Family History Mother CVA (cerebral vascular accident) Heart disease Father Heart disease Surgical History History of History of dilatation and curettage (03/2020) Social History Smoking Status: Former smoker ROS ROS ED Constitutional Constitutional ED: Denies chills or fever(s) Eyes Eyes: Denies change in vision ENT ENT ED: Denies ear pain or sore throat Cardiovascular Cardiovascular: Denies chest pain Respiratory/Chest Respiratory/Chest: Denies cough or dyspnea Gastrointestinal Gastrointestinal: Reports nausea and vomiting; Denies abdominal pain or diarrhea Genitourinary Genitourinary ED: Denies dysuria Musculoskeletal Musculoskeletal: Denies back pain, myalgias or neck pain Integumentary Denies rash Neurologic Neurologic: Denies headache(s) Psychiatric Psychiatric: Reports anxiety Hematologic/Lymphatic Hematologic/Lymphatic: Denies easy bleeding or easy bruising EXAM Physical Exam Const Vital Signs: 12/10/22 21:33 12/10/22 21:36 12/10/22 23:00 Temperature 96.5 F L Temperature Source Temporal Pulse Rate 55 L Respiratory Rate 16 Respiratory Effort Normal Non-Labored Respiratory Pattern Normal Blood Pressure 196/86 H 228/108 H Blood Pressure Mean 122 148 Pulse Ox 97 Oxygen Delivery Method Room Air 12/11/22 00:00 Temperature Temperature Source Pulse Rate Respiratory Rate Respiratory Effort Respiratory Pattern Blood Pressure 173/74 H Blood Pressure Mean 107 Pulse Ox Oxygen Delivery Method Positive well nourished and well developed General Appearance ED: well developed HEENT Reports TM's clear and moist mucous membranes Tympanic Membrane ED: Yes TM's clear Eyes PERRL and EOMs intact bilaterally General Eye ED: Negative for scleral icterus Neck supple Neck Narrative: No nuchal rigidity or meningeal signs present Resp normal respiratory effort and clear to auscultation bilaterally Cardio regular rate and regular rhythm Rate: other Other Details: Radial pulses are +2-4 bilaterally are equal and symmetric GI normal to inspection, nondistended, normoactive bowel sounds, non-tender, non-distended and no masses Auscultation: normoactive bowel sounds Palpation: soft Extremity normal to inspection Extremity Narrative: No bony deformity or joint effusion. Pelvis is stable there is no shortening or external rotation of either lower extremity. No pain with palpation of the thoracic or lumbar spine and no bony deformity or step-off of the spine noted either Neuro oriented x3 and CN's II-XII intact bilaterally Neuro Narrative: Cranial nerves II through XII are grossly intact there are no focal neurologic deficits. No pronator drift no dysmetria no truncal ataxia. There is mild horizontal nystagmus noted. Negative Hallpike Eugene exam. Sensorium / Orientation: alert Psych Psych Narrative: Patient has a nervous/anxious affect Skin no rashes or lesions noted MDM MDM MDM Narrative Medical decision making narrative: Patient presented to the ER hypertensive but states she does have a history of this when she is nervous/anxious. She reported symptoms of dizziness which she described as a sense of motion which is most consistent with vertigo. Chart review revealed that in the last month she has had a normal CTA of the head and neck a normal MRI of the brain and of the cervical spine and a normal noncontrast head CT. Based on the fact she has had a normal CTA and MRI in the last 30 days I do not feel that she warrants repeat imaging studies today especially as there has been no trauma. Basic blood work was rechecked and revealed no clinically significant findings. The patient's potassium did drop from 3.4-3.2 but this is not clinically significant. I do feel that her symptoms are most likely peripheral vertigo in nature and also exacerbated by anxiety. is in the room and states that her blood pressure only elevates when she is nervous which correlate with the values found on today's exam. She was given hydration Zofran and Valium and did report improvement of symptoms and blood pressure also improved. Therefore at this time as patient can ambulate with a steady gait has a negative work-up and over the past 30 days has had normal CTs and MRIs I do not feel there is need for admission or further evaluation and she is otherwise safe for discharge History & Record Review Discussion w/independent historian: Patient and Family Lab Data Attestation: I reviewed the patient's lab results. Labs: Laboratory Results - last 24 hr 12/10/22 12/10/22 12/10/22 22:30 22:30 22:30 WBC 10.6 RBC 4.56 Hgb 13.5 Hct 39.8 MCV 87.3 MCH 29.6 MCHC 33.9 RDW Std Deviation 40.1 RDW Coeff of Isrrael 12.6 Plt Count 345 MPV 10.4 Immature Gran % (Auto) 0.500 Neut % (Auto) 76.8 H Lymph % (Auto) 14.4 L [place] % (Auto) 6.9 Eos % (Auto) 0.6 Baso % (Auto) 0.8 Absolute Neuts (auto) 8.1 H Absolute Lymphs (auto) 1.52 Nucleated RBC % 0 PT 12.9 INR 1.0 APTT 39.8 H Sodium 138 Potassium 3.2 L Chloride 102 Carbon Dioxide 30.0 Anion Gap 6 BUN 17 Creatinine 0.82 Estim Creat Clear Calc 59.18 Est GFR (MDRD) Af Amer 93 Est GFR (MDRD) Non-Af 77 BUN/Creatinine Ratio 20.7 H Glucose 123 H Calcium 9.1 Radiography Diagnostic Testing: Clinical Impression(s) from Imaging Studies Chest X-Ray 12/10/22 22:38 IMPRESSION: Stable chest. No visualized acute focal infiltrate. Electronically Signed: Aranza Owens MD at 23:00 EDT , Chest x-ray as interpreted by the emergency medicine physician shows no acute infiltrate pneumothorax or pleural effusion Discharge Plan Triage Chief Complaint: Dizziness ED Provider: Frankie Mitchell Dx/Rx/DC Orders Clinical Impression: Vertigo, Hypothyroidism, Essential (primary) hypertension, Hyperlipidemia, Anxiety Instructions: Vertigo Inner Ear Problems Prescriptions: New ondansetron 4 mg tablet,disintegrating 4 mg PO TID PRN (Reason: nausea and vomiting) 7 Days Qty: 21 0RF No Action atenolol 50 mg tablet 50 mg PO DAILY atorvastatin 40 mg tablet 80 mg PO DAILY levothyroxine 75 mcg tablet 75 mcg PO DAILY hydrochlorothiazide 25 mg tablet 25 mg PO DAILY Qty: 30 6RF potassium chloride 10 mEq tablet extended release 20 meq PO DAILY aspirin [Adult Aspirin Regimen] 81 mg tablet,delayed release (DR/EC) 81 mg PO DAILY paroxetine HCl 10 mg tablet 10 mg PO DAILY bupropion HCl 300 MG tablet extended release 24 hr 300 mg PO DAILY acetaminophen 325 MG tablet 650 mg PO Q4H PRN PRN (Reason: Headache/Temp>99F) 0RF clonazepam 0.5 mg tablet 0.5 mg PO DAILY PRN (Reason: Anxiety) lisinopril 20 mg tablet 30 mg PO DAILY 30 Days Qty: 45 0RF coenzyme Q10 [CoQ-10] 100 mg Capsule 100 mg PO DAILY Primary Care Provider: Duong Mckeon Referrals: Duong Mckeon MD [Primary Care Provider] - Activity Restrictions/Additional Instructions: All of your previous images such as her CTA MRI and noncontrast CT displayed no anatomical causes of your recurrent vertigo therefore see ENT in follow-up to discuss other possibilities and continue your home medications but add Zofran for nausea and vomiting control. Disposition Disposition: Home, Self Care Discharge Date/Time: 12/11/22 01:04
== END 2022-12-11 01:04 | disposition home or self-care (01) ==
PROVIDERS: Emergency Provider Emergency Medicine; PCP Family Medicine; Visit Provider Emergency Medicine
DX: R42 Dizziness and giddiness (principal); R11.2 Nausea with vomiting, unspecified; I10 Essential (primary) hypertension; E03.9 Hypothyroidism, unspecified; E78.5 Hyperlipidemia, unspecified; F41.9 Anxiety disorder, unspecified; Z79.82 Long term (current) use of aspirin; Z79.890 Hormone replacement therapy; Z79.899 Other long term (current) drug therapy; Z87.891 Personal history of nicotine dependence
CPT/HCPCS: 71045; 80048; 85025; 85610; 85730; 93005; 96361; 96374; 99284; A4216; J2405

== ENCOUNTER 2022-12-23 20:19 | Emergency (ER) | payer BC, SELFPAY ==
[2022-12-23 20:21] VITALS: BP 211/104; PULSE 57; RESP 18; TEMP 36.3; O2SAT 99; BMI 35.1
--- NOTE | 2022-12-23 21:48 | EDS_ITS ---
HPI History of Present Illness Chief Complaint: General Illness Informant: patient and spouse/S.O. Narrative Narrative: Patient complains of vertigo as a primary issue along with headaches. This patient has been having months of symptoms. Per her and her her symptoms peaked about a few weeks or a month ago and they are getting better but she still having symptoms. She states the biggest thing she wants to know is that she will not have her symptoms forever. She initially started with some tingling of her right lip and tingling of 3 fingers on her right hand. She has had intermittent vertigo. She has had intermittent headaches. She has fallen a couple times. She tends to lean to the left. She gets nausea. She gets a true sense of spinning. These have been going on for months. She has had MRIs of the head and spine. She has had multiple CTs. She has had multiple blood tests. She is seeing rheumatology. She has seen spine surgeon. She has seen neurology. She has seen her primary physician. She has further appointments with neurology. They do not think that this is MS but they have not done a lumbar puncture yet. They have tried changing clonazepam dosages because she has a history of significant anxiety. She has now tried to wean herself off clonazepam and has been off of this for about 2-1/2 or 3 days. Her symptoms are not worse today she just wants to know that someday her symptoms will go away. They are now wondering if this could be migraines. She has never been treated for migraines. She is also never been given any meds for vertigo although she has been given Zofran for the nausea. [facility] Medical History Arm paresthesia, right (09/2018) Depression Essential (primary) hypertension Hyperlipidemia Hypothyroidism Migraines Obesity Home Medications bupropion HCl 300 mg 24 hr tablet, extended release 300 mg PO DAILY 01/07/17 [History Last Taken 11/07/22] acetaminophen 325 mg tablet 650 mg PO Q4H PRN PRN Headache/Temp>99F 10/08/18 [Rx Last Taken 11/07/22] atenolol 50 mg tablet 50 mg PO DAILY 05/06/20 [History Last Taken 11/07/22] paroxetine HCl 10 mg tablet 10 mg PO DAILY depression 05/06/20 [History Last Taken 11/06/22] hydrochlorothiazide 25 mg tablet 25 mg PO DAILY #30 tabs 05/26/22 [Rx Last Taken 11/07/22] aspirin 81 mg tablet,delayed release (Adult Aspirin Regimen) 81 mg PO DAILY 07/14/22 [History Last Taken 11/06/22] atorvastatin 40 mg tablet 80 mg PO DAILY 07/14/22 [History Last Taken 11/06/22] levothyroxine 75 mcg tablet 75 mcg PO DAILY 07/14/22 [History Last Taken 11/05/22] potassium chloride 10 mEq tablet,extended release 20 meq PO DAILY 07/14/22 [History Last Taken 11/06/22] clonazepam 0.5 mg tablet 0.5 mg PO DAILY PRN Anxiety 11/07/22 [History Last Taken 11/06/22] lisinopril 20 mg tablet 30 mg PO DAILY 30 days #45 tabs 11/08/22 [Rx Last Taken Unknown] coenzyme Q10 100 mg capsule (CoQ-10) 100 mg PO DAILY 12/09/22 [History Last Taken Unknown] ondansetron 4 mg disintegrating tablet 4 mg PO TID PRN nausea and vomiting 7 days #21 tabs 12/11/22 [Rx Last Taken Unknown] meclizine 25 mg tablet 25 mg PO TID PRN dizziness #14 tabs 12/24/22 [Rx Last Taken Unknown] Allergy/AdvReac Type Severity Reaction Status Date / Time No Known Allergies Allergy Verified 12/23/22 20:20 Family History Mother CVA (cerebral vascular accident) Heart disease Father Heart disease Surgical History History of History of dilatation and curettage (03/2020) Social History Smoking Status: Former smoker ROS ROS ED ROS Narrative A complete review of systems was performed and is negative except as documented in the history of present illness. Some specific details below. Constitutional: No recent fevers or chills. No rigors. No trauma. EYE: No discharge, visual complaints, or pain. Earlier on she had times where her eyes seem to have double vision but this has not been going on for a while. ENT: No difficulty swallowing. No swelling. No sinus pressure or pain. No nasal discharge. No change in hearing. No ear pain. CV: No chest pain, pressure or aching. No palpitations or irregular beats. Patient has not been presyncopal or syncopal. Respiratory: No trouble breathing. No cough. No wheezing. No sputum production. No pain with breathing. GI: No abdominal pain. No diarrhea. She has had nausea mostly induced by vertigo but does not get routine vomiting. : No frequency dysuria or hematuria. Musculoskeletal: No recent trauma. No pains. No swelling. Skin: No rash. No diaphoresis. No vesicles Neuro: See history of present illness. Endocrine: No polyuria or polydipsia. EXAM Physical Exam Narrative Exam Narrative: CONSTITUTIONAL: Patient is nontoxic in appearance. The patient looks comfortable. HEENT: No notable trauma. Mucous membranes moist. No sinus tenderness. Tympanic membranes are normal. No temporal artery tenderness. No facial rashes or swelling. EYES: No conjunctival injection. No proptosis. No pain with range of motion. Funduscopic exam shows no marked abnormalities. NECK: No meningismus. No JVD. Range of motion is normal looking up down left and right without discomfort. CARDIOVASCULAR: Regular rate. Regular rhythm. No notable murmur. No JVD. RESPIRATORY: No respiratory distress. Breathing is unlabored. No wheezes. No rhonchi. No rales. No pain with a deep breath. GASTROINTESTINAL: Not distended. Bowel sounds are normal. No tenderness. No guarding. No rebound. No palpable mass. No bruit. GENITOURINARY: No tenderness over the bladder. No CVA tenderness. MUSCULOSKELETAL: Atraumatic. No peripheral edema. No cord. No tenderness along the deep venous system. No asymmetry. NEUROLOGICAL: Patient is alert and oriented. No focal deficit noted. NIH stroke scale is 0. She has coordinated hand motion. Her speech is clear. SKIN: No noted rashes. No diaphoresis. No vesicles noted. PSYCHIATRIC: Patient is calm. Mood is appropriate. Const Vital Signs: 12/23/22 20:21 12/23/22 21:10 12/23/22 23:15 Temperature 97.4 F L Temperature Source Temporal Pulse Rate 57 L Respiratory Rate 18 Respiratory Effort Normal Respiratory Pattern Normal Blood Pressure 211/104 H 190/95 H Blood Pressure Mean 139 126 Pulse Ox 99 MDM MDM MDM Narrative Medical decision making narrative: I talked with the patient and her about options. I explained that I am happy to do evaluation but she has had multiple lab test here and at multiple other facilities all of which have been reported as normal. There were questions if she may have had ESR and CRP abnormal once about a year ago but evidently they were checked recently and are normal. Rheumatology is said this is not a rheumatologic issue. She has had CTs of her head. She has had multiple MRIs. She has had more testing than I am able to do here and she has had testing done multiple times. They would like to try medicines for migraines to see if that helps her symptoms. I did explain that sometimes people get anxious on these medicines but we will try to prevent that with Benadryl. Patient will be rechecked. We did give medications for migraine as the patient wanted. I did tell them that she might get a little bit anxious or agitated with this. She did get the symptoms. We did give her 50 of Benadryl to try to prevent this. We offered to give benzodiazepines but I know she is trying to wean off those. She does not want benzodiazepines. We will watch her a bit further. Patient was watched. She states she is a little bit better but still has an anxious feeling. We offered again to try Ativan. But she really does not want to do that. She would prefer to go home. She states she has Benadryl at home and I explained she could take this but still no more than 4 times a day. Once the side effect from prochlorperazine calms down and she no longer has that anxious feeling she can give it a day and then she can try meclizine for the vertigo to see if that will help her. I explained that I do not hold this out as a solution to her problems but it has not been tried and is reasonable to try pending further evaluation. We once again talked about evaluation in the emergency department. But she has had blood work CTs MRIs and evaluation by multiple subspecialist beyond what we are able to provide here. I do not think further testing is going to change. Discharge Plan Triage Chief Complaint: General Illness ED Provider: Johnny Das Dx/Rx/DC Orders Clinical Impression: Vertigo, Nausea, Anxiety Instructions: ED Vertigo, Unspecified Prescriptions: New meclizine 25 mg tablet 25 mg PO TID PRN (Reason: dizziness) Qty: 14 0RF No Action atenolol 50 mg tablet 50 mg PO DAILY atorvastatin 40 mg tablet 80 mg PO DAILY levothyroxine 75 mcg tablet 75 mcg PO DAILY hydrochlorothiazide 25 mg tablet 25 mg PO DAILY Qty: 30 6RF potassium chloride 10 mEq tablet extended release 20 meq PO DAILY aspirin [Adult Aspirin Regimen] 81 mg tablet,delayed release (DR/EC) 81 mg PO DAILY paroxetine HCl 10 mg tablet 10 mg PO DAILY bupropion HCl 300 MG tablet extended release 24 hr 300 mg PO DAILY acetaminophen 325 MG tablet 650 mg PO Q4H PRN PRN (Reason: Headache/Temp>99F) 0RF clonazepam 0.5 mg tablet 0.5 mg PO DAILY PRN (Reason: Anxiety) lisinopril 20 mg tablet 30 mg PO DAILY 30 Days Qty: 45 0RF coenzyme Q10 [CoQ-10] 100 mg Capsule 100 mg PO DAILY ondansetron 4 mg tablet,disintegrating 4 mg PO TID PRN (Reason: nausea and vomiting) 7 Days Qty: 21 0RF Primary Care Provider: Duong Mckeon Referrals: Duong Mckeon MD [Primary Care Provider] - As soon as possible Activity Restrictions/Additional Instructions: Follow-up with your neurologist as soon as possible. Disposition Disposition: Home, Self Care
[2022-12-23] MEDS: proCHLORPERazine 10 MG/2 ML Vial IV (21:59)
[2022-12-23] MEDS: DiphenhydrAMINE 50 MG/ML Syringe IV (21:59)
[2022-12-23] MEDS: 0.9% Normal Saline 1,000 ML 999 ML IV (21:59)
[2022-12-23 23:15] VITALS: BP 190/95
[2022-12-24 00:48] VITALS: BP 142/87; PULSE 84; RESP 16; O2SAT 98
== END 2022-12-24 00:49 | disposition home or self-care (01) ==
PROVIDERS: Emergency Provider Emergency Medicine; PCP Family Medicine; Visit Provider Emergency Medicine
DX: R42 Dizziness and giddiness (principal); R11.0 Nausea; F41.9 Anxiety disorder, unspecified; Z87.891 Personal history of nicotine dependence
CPT/HCPCS: 96374; 96375; 99283; J7030; A4216

== ENCOUNTER 2023-01-08 10:48 | Emergency (ER) | payer BC, SELFPAY ==
[2023-01-08 10:49] VITALS: BP 163/99; PULSE 70; RESP 14; TEMP 36.2; O2SAT 99; BMI 60.5
--- NOTE | 2023-01-08 11:30 | EX.ED.DYSGE1 ---
HPI <SISI Ley - Last Filed: 01/08/23 14:59> History of Present Illness Chief Complaint: Abd Pain Narrative Narrative: Patient is a 52-year-old female with history of anxiety, hypertension, anemia, upper thyroidism, depression who has been here 4 times in last 1.5 months. Patient states that originally the thought was that her feeling of unwell is secondary to benzodiazepine withdrawal. Patient states that she is now having nausea, vomiting, and has not had a bowel movement in greater than 10 days. Patient states that she has no fever or chills. No blood in her stool or vomit. Patient states she does not feel hungry, she is just nauseated all the time. Patient does have an MRI/MRA of her brain scheduled for January 11 which is in 3 days. She states she has intermittent numbness to her mouth, right arm and leg, this has been ongoing for multiple weeks. Patient denies any sick contacts, recent antibiotic use. PFSH <SISI Ley - Last Filed: 01/08/23 14:59> [facility] Medical History Arm paresthesia, right (09/2018) Depression Essential (primary) hypertension Hyperlipidemia Hypothyroidism Migraines Obesity Home Medications bupropion HCl 300 mg 24 hr tablet, extended release 300 mg PO DAILY 01/07/17 [History Last Taken 11/07/22] acetaminophen 325 mg tablet 650 mg (2 x 325 mg) PO Q4H PRN PRN Headache/Temp>99F 10/08/18 [Rx Last Taken 11/07/22] atenolol 50 mg tablet 50 mg PO DAILY 05/06/20 [History Last Taken 11/07/22] paroxetine HCl 10 mg tablet 10 mg PO DAILY depression 05/06/20 [History Last Taken 11/06/22] hydrochlorothiazide 25 mg tablet 25 mg PO DAILY #30 tabs 05/26/22 [Rx Last Taken 11/07/22] aspirin 81 mg tablet,delayed release (Adult Aspirin Regimen) 81 mg PO DAILY 07/14/22 [History Last Taken 11/06/22] atorvastatin 40 mg tablet 80 mg PO DAILY 07/14/22 [History Last Taken 11/06/22] levothyroxine 75 mcg tablet 75 mcg PO DAILY 07/14/22 [History Last Taken 11/05/22] potassium chloride 10 mEq tablet,extended release 20 meq PO DAILY 07/14/22 [History Last Taken 11/06/22] clonazepam 0.5 mg tablet 0.5 mg PO DAILY PRN Anxiety 11/07/22 [History Last Taken 11/06/22] lisinopril 20 mg tablet 30 mg (1.5 x 20 mg) PO DAILY 30 days #45 tabs 11/08/22 [Rx Last Taken Unknown] coenzyme Q10 100 mg capsule (CoQ-10) 100 mg PO DAILY 12/09/22 [History Last Taken Unknown] ondansetron 4 mg disintegrating tablet 4 mg PO TID PRN nausea and vomiting 7 days #21 tabs 12/11/22 [Rx Last Taken Unknown] meclizine 25 mg tablet 25 mg PO TID PRN dizziness #14 tabs 12/24/22 [Rx Last Taken Unknown] metoclopramide HCl 10 mg tablet (Reglan) 10 mg PO Q6H PRN nausea and vomiting #14 tabs 01/08/23 [Rx Last Taken Unknown] Allergy/AdvReac Type Severity Reaction Status Date / Time No Known Allergies Allergy Verified 01/08/23 10:48 Family History Mother CVA (cerebral vascular accident) Heart disease Father Heart disease Surgical History History of History of dilatation and curettage (03/2020) Social History Smoking Status: Former smoker ROS <Salvador Oconnor NP-Zak - Last Filed: 01/08/23 14:59> ROS ED ROS Narrative Constitutional: Negative for fever, chills, weight loss, weakness Eyes: Negative for vision loss, vision change, double vision ENT: Negative for any sore throat, ear pain, congestion Cardiovascular: Negative for any chest pain, tightness, palpitations Respiratory: Negative for any cough, sputum production, hemoptysis, dyspnea, dyspnea on exertion, orthopnea Gastrointestinal: Negative for any diarrhea, blood in stool, blood in vomit. Positive for abdominal pain, nausea, vomiting, constipation : Negative for any urinary frequency, dysuria, retention, blood in urine Muscle skeletal: Negative for any muscle joint pain, stiffness, myalgias, arthralgias, neck pain, back pain Neurological: Negative for any headache, syncope, numbness or tingling, dizziness Skin: Negative for any rashes, lumps, itching, abrasions, lacerations Psychiatric: Negative for any depression, anxiety, stress, suicidal ideation, homicidal ideation Hematologic: Negative for any easy bruising, excessive bruising, easy bleeding Allergies: Negative for any eczema, hives, rash EXAM <SISI Ley - Last Filed: 01/08/23 14:59> Physical Exam Narrative Exam Narrative: Vital signs reviewed. HEET: Head normocephalic atraumatic, TMs clear bilaterally. Posterior pharynx is clear, dry mucous membranes. Nares clear bilaterally. Neck: Supple with no lymphadenopathy or tenderness. No signs of meningismus, negative jolt sign. Cardiac: Regular rate and rhythm no murmurs gallops or rubs, equal peripheral pulses bilaterally. Respiratory: Lungs clear to auscultation bilaterally. No chest tenderness. Abdomen: Soft, nontender, nondistended. No abdominal bruit or pulsatile masses. No hepatosplenomegaly Extremities: No peripheral edema, no signs of gross trauma or deformity. Active full range of motion of all extremities. Neuro: Cranial nerves II through XII intact, no focal neurological deficits. Skin: Clean dry and intact with no rash, purpura, petechiae, vesicles or pustules. Backs/flank: No CVA tenderness, no midline spinal tenderness, no deformity. Psych: Normal mood and affect. No SI, HI or acute psychosis. Const Vital Signs: 01/08/23 10:49 Temperature 97.2 F L Temperature Source Temporal Pulse Rate 70 Respiratory Rate 14 Blood Pressure 163/99 H Blood Pressure Mean 120 Pulse Ox 99 Oxygen Delivery Method Room Air <Dr. Talib Springer DO - Last Filed: 01/08/23 15:01> Physical Exam Const Vital Signs: 01/08/23 10:49 Temperature 97.2 F L Temperature Source Temporal Pulse Rate 70 Respiratory Rate 14 Blood Pressure 163/99 H Blood Pressure Mean 120 Pulse Ox 99 Oxygen Delivery Method Room Air MDM <SISI Ley - Last Filed: 01/08/23 14:59> [facility] Lab Data Labs: Laboratory Results - last 24 hr 01/08/23 01/08/23 11:40 12:47 WBC 8.4 RBC 4.87 Hgb 14.3 Hct 41.2 MCV 84.6 MCH 29.4 MCHC 34.7 RDW Std Deviation 37.4 RDW Coeff of Isrreal 12.3 Plt Count 348 MPV 10.5 Immature Gran % (Auto) 0.200 Neut % (Auto) 75.5 H Lymph % (Auto) 14.6 L Reynolds % (Auto) 8.7 Eos % (Auto) 0.5 Baso % (Auto) 0.5 Absolute Neuts (auto) 6.4 Absolute Lymphs (auto) 1.23 Nucleated RBC % 0 Sodium 136 Potassium 3.3 L Chloride 101 Carbon Dioxide 28.0 Anion Gap 7 BUN 16 Creatinine 0.94 Estim Creat Clear Calc 51.63 Est GFR (MDRD) Af Amer 80 Est GFR (MDRD) Non-Af 66 BUN/Creatinine Ratio 17.0 Glucose 94 Calcium 9.6 Total Bilirubin 1.00 AST 38 H ALT 67 H Alkaline Phosphatase 106 Total Protein 7.7 Albumin 3.6 Globulin 4.1 Albumin/Globulin Ratio 0.9 Lipase 22 Urine Color Yellow Urine Clarity Clear Urine pH 7.0 Ur Specific [place] 1.010 Urine Protein Negative Urine Glucose (UA) Normal Urine Ketones 5 H Urine Occult Blood Negative Urine Nitrite Negative Urine Bilirubin Negative Urine Urobilinogen Normal Ur Leukocyte Esterase 25 H Urine RBC 0 SEEN Urine WBC 0 SEEN Ur Squamous Epith Cells 0-5 SEEN Urine Bacteria 0 SEEN Urine Mucus 0 SEEN Radiography Diagnostic Testing: Clinical Impression(s) from Imaging Studies Abdomen/Pelvis CT 01/08/23 11:35 IMPRESSION: No acute abnormality. Small hiatal hernia. Electronically Signed: Alejo Johnson MD at 14:35 EDT , Treatment and Re-Evaluation :: Patient appears generally well, patient appears nontoxic, vital signs are stable. Patient presents to the emergency department with concerns of abdominal pain, nausea, vomiting, constipation is been ongoing for 10 days. Patient's been seen here 4 times in last 1.5 months. Patient denies any blood in stool or vomit. Patient received a full abdominal work-up with laboratory values, CT scan of the abdomen pelvis. IV fluids, IV Zofran. All radiologic examinations were read, reviewed by the emergency department attending. From these reads, a plan of care will be put in place. Patient on reassessment is in no distress. Patient's laboratory values showed normal CBC, patient's chemistries showed a baseline potassium, patient's LFTs slight elevated with an AST of 38, ALT of 67. Patient CT scan of the abdomen pelvis was unremarked for any acute process. At this time, do not believe that there is any acute abdominal pelvic process. No evidence of any appendicitis, bowel obstruction, diverticulitis. Patient given a prescription for Reglan, she will continue to follow-up outpatient. All questions answered, patient stable for discharge. <Dr. Talib Springer, DO - Last Filed: 01/08/23 15:01> [facility] Narrative Medical decision making narrative: I have personally performed a face to face assessment of the patient and have reviewed the ARCHANA Note. I performed a substantive portion of the visit including all aspects of the following. My cavazos findings include: History is [patient presents with nausea and vomiting that is been ongoing for over a week. Patient states that she has had several visits to the emergency department in the last couple of weeks and she thinks it is all related. She complains of dizzy spells and falling to the left. Patient had been on benzodiazepines and they thought she was having issues related to that so they discontinued her benzos 10 days ago. Patient is scheduled to see her neurologist and have an MRI of her head apparently next week. Patient had an MRI of her brain in November and she is being evaluated for possibility of MS. Patient states that has not really been able to eat last for 5 days. She does not think she had a bowel movement in a week. She denies any blood in her stool or black tarry stool. She just generally does not feel well.] Exam is [HEENT-PERRLA, EOMI. Cranial nerves II through XII grossly intact. TMs clear. Mucous membranes dry. No adenopathy. Cardiovascular-regular rate and rhythm without murmur or ectopy Lungs-clear to auscultation, chest wall stable without crepitus or subcu emphysema Abdomen-normoactive bowel sounds, soft. Patient has mild tenderness over the epigastric region with some mild guarding. There is no rebound, rigidity, or pedal signs. No mass palpated. Extremities-intact ?4, normal range of motion, normal pulses, atraumatic] Medical Decison Making [patient with unremarkable labs. CT scan of the abdomen pelvis was unremarkable other than a small hiatal hernia. Patient was aware of the hiatal hernia she saw GI recently and had a upper scope and was told she had a small hiatal hernia. Her did arrive and gave some more history and that she has had a follow-up MRI to be performed this week and that she will have vestibular therapy for suspected vertigo. Patient did receive Reglan here and had good relief with that. She will be given a prescription for Reglan and advised to keep her appointment with her neurologist. Patient discharged in stable condition.] Other additions or changes: [None] Lab Data Labs: Laboratory Results - last 24 hr 01/08/23 01/08/23 11:40 12:47 WBC 8.4 RBC 4.87 Hgb 14.3 Hct 41.2 MCV 84.6 MCH 29.4 MCHC 34.7 RDW Std Deviation 37.4 RDW Coeff of Isrrael 12.3 Plt Count 348 MPV 10.5 Immature Gran % (Auto) 0.200 Neut % (Auto) 75.5 H Lymph % (Auto) 14.6 L Reynolds % (Auto) 8.7 Eos % (Auto) 0.5 Baso % (Auto) 0.5 Absolute Neuts (auto) 6.4 Absolute Lymphs (auto) 1.23 Nucleated RBC % 0 Sodium 136 Potassium 3.3 L Chloride 101 Carbon Dioxide 28.0 Anion Gap 7 BUN 16 Creatinine 0.94 Estim Creat Clear Calc 51.63 Est GFR (MDRD) Af Amer 80 Est GFR (MDRD) Non-Af 66 BUN/Creatinine Ratio 17.0 Glucose 94 Calcium 9.6 Total Bilirubin 1.00 AST 38 H ALT 67 H Alkaline Phosphatase 106 Total Protein 7.7 Albumin 3.6 Globulin 4.1 Albumin/Globulin Ratio 0.9 Lipase 22 Urine Color Yellow Urine Clarity Clear Urine pH 7.0 Ur Specific [place] 1.010 Urine Protein Negative Urine Glucose (UA) Normal Urine Ketones 5 H Urine Occult Blood Negative Urine Nitrite Negative Urine Bilirubin Negative Urine Urobilinogen Normal Ur Leukocyte Esterase 25 H Urine RBC 0 SEEN Urine WBC 0 SEEN Ur Squamous Epith Cells 0-5 SEEN Urine Bacteria 0 SEEN Urine Mucus 0 SEEN Radiography Diagnostic Testing: Clinical Impression(s) from Imaging Studies Abdomen/Pelvis CT 01/08/23 11:35 IMPRESSION: No acute abnormality. Small hiatal hernia. Electronically Signed: Alejo Johnson MD at 14:35 EDT Reading Location ID and State: [id number] / [place] Tel , Service support , Discharge Plan Triage Chief Complaint: Abd Pain ED Midlevel Provider: Salvador Oconnor ED Provider: Talib Springer Dx/Rx/DC Orders Clinical Impression: Nausea & vomiting, Abdominal pain, Vertigo Instructions: Abdominal Pain, ED Vomiting (Adult) Prescriptions: New metoclopramide HCl [Reglan] 10 mg tablet 10 mg PO Q6H PRN (Reason: nausea and vomiting) Qty: 14 0RF No Action atenolol 50 mg tablet 50 mg PO DAILY atorvastatin 40 mg tablet 80 mg PO DAILY levothyroxine 75 mcg tablet 75 mcg PO DAILY hydrochlorothiazide 25 mg tablet 25 mg PO DAILY Qty: 30 6RF potassium chloride 10 mEq tablet extended release 20 meq PO DAILY aspirin [Adult Aspirin Regimen] 81 mg tablet,delayed release (DR/EC) 81 mg PO DAILY paroxetine HCl 10 mg tablet 10 mg PO DAILY bupropion HCl 300 MG tablet extended release 24 hr 300 mg PO DAILY acetaminophen 325 MG tablet 650 mg PO Q4H PRN PRN (Reason: Headache/Temp>99F) 0RF clonazepam 0.5 mg tablet 0.5 mg PO DAILY PRN (Reason: Anxiety) lisinopril 20 mg tablet 30 mg PO DAILY 30 Days Qty: 45 0RF coenzyme Q10 [CoQ-10] 100 mg Capsule 100 mg PO DAILY ondansetron 4 mg tablet,disintegrating 4 mg PO TID PRN (Reason: nausea and vomiting) 7 Days Qty: 21 0RF meclizine 25 mg tablet 25 mg PO TID PRN (Reason: dizziness) Qty: 14 0RF Primary Care Provider: Duong Mckeon Referrals: Duong Mckeon MD [Primary Care Provider] - Disposition Disposition: Home, Self Care
--- NOTE | 2023-01-08 11:35 | CT_ITS ---
STUDY: CT ABDOMEN AND PELVIS WITH CONTRAST REASON FOR EXAM: Female, 52 years old. abdominal pain, vomitting RADIATION DOSAGE (If Supplied By Facility): CTDIvol = ( 16.00 ) mGy, DLP = ( 1001.10 ) mGycm TECHNIQUE: Transaxial images were obtained from the dome of the diaphragm to the symphysis pubis with oral contrast. Oral and amp;amp; IV Gastrografin and amp;amp; 100mL Isovue-300 was administered. Sagittal and coronal images were reconstructed. Individualized dose optimization techniques were used for this CT. COMPARISON: None. FINDINGS: The visualized lung bases are unremarkable. The visualized portions of the heart are within normal limits. 3 cm hemangioma in the posterior segment right lobe of the liver with peripheral globular enhancement. 1 cm cyst in the medial segment left lobe of liver adjacent to the falciform ligament. Normal gallbladder and extrahepatic biliary system. Normal spleen. Normal pancreas. Normal bilateral adrenal glands. Normal right kidney. Normal left kidney. There is a small hiatal hernia. Normal small intestine. Normal colon. There is non-visualization of the appendix. Normal abdominal aorta. Normal inferior vena cava. Normal retroperitoneum. Normal urinary bladder. Normal abdominal wall. Normal osseous structures. CT/Abdomen/Pelvis WITH Contrast IMPRESSION: No acute abnormality. Small hiatal hernia. Electronically Signed: Alejo Johnson MD at 14:35 EDT ,
[2023-01-08 11:47] LABS: Absolute Lymphocyte Count 1.23 X10^3/uL (0.83-4.51); Absolute Neutrophil Count 6.4 X10^3/uL (2.0-7.7); Basophil# 0.04 X10^3/uL; Basophil% 0.5 % (0-1); Eosinophil# 0.04 X10^3/uL; Eosinophils% 0.5 % (0-5); Hematocrit 41.2 % (37-47); Hemoglobin 14.3 g/dL (12.0-15.0); Lymphocyte # 1.23 X10^3/ul (0.83-4.51); Lymphocyte % 14.6 % (19-41); Mean Corp Hgb Conc 34.7 g/dL (32-36); Mean Corpuscular Hgb 29.4 pg (27.0-32.0); Mean Corpuscular Volume 84.6 fL (81-99); Mean Platelet Vol. 10.5 fl (6.2-12.0); Monocyte# 0.73 X10^3/uL; Monocyte% 8.7 % (0-10); NRBC Flagged by Analyzer 0 % (0-5); Neutrophil # 6.36 X10^3/uL (2.7-7.7); Neutrophil % 75.5 % (47-70); Platelet Count 348 K/mm3 (150-450); RBC Distribution Width CV 12.3 % (11.6-14.6); RBC Distribution Width SD 37.4 fl (35.1-43.9); Red Blood Count 4.87 M/mm3 (4.2-5.4); White Blood Count 8.4 K/mm3 (4.4-11.0)
[2023-01-08] MEDS: 0.9% Normal Saline 1,000 ML 1000 ML IV (11:55)
[2023-01-08] MEDS: Metoclopramide 10 MG/2 ML Vial 5 MG IV (11:56)
[2023-01-08 12:00] LABS: ALB/GLOB Ratio 0.9 RATIO (0.9-2.4); AST(SGOT) 38 U/L (15-37); Alanine Aminotransfer ALT/SGPT 67 U/L (13-56); Albumin, Serum 3.6 g/dL (3.2-5.0); Alkaline Phosphatase 106 U/L (45-117); Anion Gap 7 (5-15); BUN 16 mg/dL (7-18); Calcium,Total 9.6 mg/dL (8.5-10.1); Chloride 101 mmol/L (98-107); Creatinine, Serum 0.94 mg/dL (0.55-1.02); EST Glomerular Filtration Rate 66 mL/min (>60); Est Glom Filt Rate - Afr Amer 80 mL/min (>60); Estimated Creatinine Clearance 51.63 ml/min; Globulin 4.1 g/dL (2.2-4.2); Glucose 94 mg/dL (74-106); Lipase 22 U/L (13-75); Potassium 3.3 mmol/L (3.5-5.1); Protein, Total 7.7 g/dL (6.4-8.2); Sodium Level 136 mmol/L (136-145)
[2023-01-08 12:50] LABS: Bacteria 0 SEEN /hpf (None Seen); Mucous, Urine 0 SEEN /hpf (<or=2+); Red Blood Cells-Urine 0 SEEN /hpf (0-5); White Blood Cells 0 SEEN /hpf (0-5)
[2023-01-08 12:52] LABS: Color, Urine Yellow (Yellow); Glucose, Dipstick Normal (Normal); Leukocyte Esterase-Dipstick 25 /ul (Negative); Nitrite-Dipstick Negative (Negative); Occult Blood-Urine Negative /ul (Negative); Protein-Dipstick Negative (Negative); Urine Bilirubin Dipstick Negative (Negative); Urine Clarity Clear (Clear); Urine Urobilinogen Normal (Normal)
[2023-01-08 13:03] LABS: Ketone-Dipstick 5 mg/dl (Negative)
[2023-01-08 13:11] LABS: Squamous Epithelial Cells - UA 0-5 SEEN /hpf (5-10)
[2023-01-08 15:10] VITALS: BP 128/67; PULSE 71; RESP 15; O2SAT 98
== END 2023-01-08 15:11 | disposition home or self-care (01) ==
PROVIDERS: Nurse Practitioner; Emergency Provider Emergency Medicine; PCP Family Medicine; Visit Provider Emergency Medicine
DX: R11.2 Nausea with vomiting, unspecified (principal); R10.9 Unspecified abdominal pain; R42 Dizziness and giddiness; Z87.891 Personal history of nicotine dependence
CPT/HCPCS: 74177; 80053; 81001; 83690; 85025; 96374; 96375; 99283; J7030; Q9967; A4216

== ENCOUNTER 2023-01-16 16:31 | Emergency (ER) | payer BC, SELFPAY ==
[2023-01-16 16:32] VITALS: BP 146/95; PULSE 59; RESP 12; TEMP 36.7; O2SAT 94; BMI 33.4
[2023-01-16 16:39] VITALS: BMI 33.4
--- NOTE | 2023-01-16 17:11 | RAD_ITS ---
INDICATION: Weakness EXAMINATION/TECHNIQUE: X-RAY - XR Chest 1 View AP portable. 5:11 PM COMPARISON: 12/10/2022 FINDINGS: LINES/DEVICES: None. LUNGS: No consolidation. No pneumothorax. MEDIASTINUM: Unremarkable. CARDIAC SILHOUETTE: Not enlarged. BONES AND SOFT TISSUES: No acute abnormalities. RAD/Chest 1 View (Portable) IMPRESSION: No evidence of active intrathoracic disease. Electronically Signed: Kelsey Edge MD at 17:36 EDT ,
[2023-01-16 17:12] LABS: Absolute Lymphocyte Count 2.11 X10^3/uL (0.83-4.51); Absolute Neutrophil Count 7.8 X10^3/uL (2.0-7.7); Basophil# 0.05 X10^3/uL; Basophil% 0.4 % (0-1); Eosinophil# 0.02 X10^3/uL; Eosinophils% 0.2 % (0-5); Hematocrit 41.3 % (37-47); Hemoglobin 14.3 g/dL (12.0-15.0); Lymphocyte # 2.11 X10^3/ul (0.83-4.51); Lymphocyte % 18.7 % (19-41); Mean Corp Hgb Conc 34.6 g/dL (32-36); Mean Corpuscular Hgb 29.3 pg (27.0-32.0); Mean Corpuscular Volume 84.6 fL (81-99); Mean Platelet Vol. 11.7 fl (6.2-12.0); Monocyte# 1.26 X10^3/uL; Monocyte% 11.2 % (0-10); NRBC Flagged by Analyzer 0 % (0-5); Neutrophil # 7.77 X10^3/uL (2.7-7.7); Neutrophil % 69.1 % (47-70); Platelet Count 446 K/mm3 (150-450); RBC Distribution Width CV 12.3 % (11.6-14.6); RBC Distribution Width SD 37.5 fl (35.1-43.9); Red Blood Count 4.88 M/mm3 (4.2-5.4); White Blood Count 11.3 K/mm3 (4.4-11.0)
--- NOTE | 2023-01-16 17:13 | ED.VIS.STROK ---
HPI History of Present Illness Chief Complaint: Neuro S/Sx Narrative Narrative: 52-year-old female with history of strokelike symptoms. Has been having these on and off for months. At time she had vertiginous symptoms and mild headaches. She states that when she walks he has difficulty when she gets moving and feels like her legs and arms are weak. She has trouble keeping her balance. Apparently she has been seen by rheumatology and they do not think it is anything new. She is also previously been seen by neurology and is followed by a Dr. At [facility]. Apparently she also has some underlying anxiety and has intermittent nausea and vomiting due to her symptoms. Her reports that they went to the follow-up visit today with her primary care physician who noticed that she was vomiting and was able to review the MRI. She states that her primary care physician initially wanted her to try to go to neurology at [facility] but given the nausea and vomiting and concern for something new and acute she sent her by EMS to at [facility]. Patient states that aside from her waxing and waning symptoms she started to have some decreased vision in the left eye periodically. She does have a headache which is not new. Denies any trauma. She states that she had an MRI within the last 5 days that showed strokes on it which is new for her. Has had multiple CTs and MRIs which were negative [facility] Medical History Arm paresthesia, right (09/2018) Depression Essential (primary) hypertension Hyperlipidemia Hypothyroidism Migraines Obesity Home Medications bupropion HCl 300 mg 24 hr tablet, extended release 300 mg PO DAILY 01/07/17 [History Last Taken 11/07/22] acetaminophen 325 mg tablet 650 mg (2 x 325 mg) PO Q4H PRN PRN Headache/Temp>99F 10/08/18 [Rx Last Taken 11/07/22] atenolol 50 mg tablet 50 mg PO DAILY 05/06/20 [History Last Taken 11/07/22] paroxetine HCl 10 mg tablet 10 mg PO DAILY depression 05/06/20 [History Last Taken 11/06/22] hydrochlorothiazide 25 mg tablet 25 mg PO DAILY #30 tabs 05/26/22 [Rx Last Taken 11/07/22] aspirin 81 mg tablet,delayed release (Adult Aspirin Regimen) 81 mg PO DAILY 07/14/22 [History Last Taken 11/06/22] atorvastatin 40 mg tablet 40 mg PO DAILY 07/14/22 [History Last Taken 11/06/22] levothyroxine 75 mcg tablet 75 mcg PO DAILY 07/14/22 [History Last Taken 11/05/22] potassium chloride 10 mEq tablet,extended release 20 meq PO DAILY 07/14/22 [History Last Taken 11/06/22] lisinopril 20 mg tablet 30 mg (1.5 x 20 mg) PO DAILY 30 days #45 tabs 11/08/22 [Rx Last Taken Unknown] coenzyme Q10 100 mg capsule (CoQ-10) 100 mg PO DAILY 12/09/22 [History Last Taken Unknown] Allergy/AdvReac Type Severity Reaction Status Date / Time No Known Allergies Allergy Verified 01/16/23 16:31 Family History Mother CVA (cerebral vascular accident) Heart disease Father Heart disease Surgical History History of History of dilatation and curettage (03/2020) Social History Smoking Status: Former smoker EXAM Physical Exam Const Vital Signs: 01/16/23 16:32 01/16/23 18:31 01/16/23 21:48 Temperature 98.1 F Temperature Source Temporal Pulse Rate 59 L 54 L 51 L Respiratory Rate 12 14 14 Blood Pressure 146/95 H 134/83 H 123/61 H Blood Pressure Mean 112 100 81 Pulse Ox 94 93 99 Oxygen Delivery Method Room Air Room Air Room Air 01/16/23 23:48 Temperature Temperature Source Pulse Rate 53 L Respiratory Rate 17 Blood Pressure 119/58 L Blood Pressure Mean 78 Pulse Ox 95 Oxygen Delivery Method Room Air Positive well nourished General Appearance ED: NAD HEENT Reports moist mucous membranes Eyes PERRL and EOMs intact bilaterally Chest Wall inspection of chest normal and palpation of chest normal Resp normal respiratory effort and clear to auscultation bilaterally Auscultation: Negative for rales, rhonchi or wheezes GI normal to inspection, nondistended, normoactive bowel sounds Neuro oriented x3 and CN's II-XII intact bilaterally Sensorium / Orientation: alert Psych mental status grossly normal Skin no wounds NIHSS NIHSS Initial: 1a Level of Consciousness: 0 1b LOC Questions (Score 2 if aphasic/stupor): 0 1c LOC Commands (Only score 1st attempt): 0 2 Best Gaze (If aphasic, use reflexive mvmts.): 0 3 Visual: 0 4 Facial Palsy: 0 5 Motor Arm Right (UN = amputation/fusion): 0 5 Motor Arm Left: 0 6 Motor Leg Right: 0 6 Motor Leg Left: 0 7 Limb ataxia (Only + if out of proportion): 0 8 Sensory (Aphasia/stupor=0 or 1, coma=2): 0 9 Best Language: 0 10 Dysarthria (mute, coma=2, intubated=UN): 0 11 Extinction and Inattention (only scored if +): 0 Total Score: 0 MDM MDM MDM Narrative Medical decision making narrative: Patient did actually have MRIs performed on the fifth. It was noted that she had an acute to subacute inferior left cerebellar and mid cerebellar miller infarct without mass effect or hemorrhagic transformation. Had subacute chronic punctate right thalamic and right cerebellar infarcts. Additionally there is development of remote right cerebellar infarcts that were new from previous study. There is an irregularity and stenosis to the V4 vertebral arteries as seen previously. High-grade stenosis at the origin of the left posterior cerebral artery and stenosis of the right P2 posterior cerebral artery with progression. There is development of mild irregularity of the proximal A1 left anterior cerebral artery. Similar to progressed moderate irregularity of the distal right middle cerebral artery and development of mild irregularity of right M2. This was 5 days ago that she had these images. She was called by somebody who was not her neurologist and told of the findings. He is on aspirin but they did not have Plavix or any other anticoagulation. I did tell her that she did not need to go to the hospital currently. I will try to get a hold of the neurologist to determine the need for follow-up. In the meantime I will get a CT of the brain to make sure she has not converted to hemorrhagic stroke or worsening stroke. CBC and BMP to assess hemoglobin, platelets, white blood cell count, electrolytes, kidney function. High-sensitivity troponin and EKG to assess for dysrhythmia and ischemia especially given the nausea and vomiting. This x-ray will be obtained as well. Patient given Reglan, Benadryl which she states helped with her nausea. She is given Tylenol p.o. as she states this is what helps with her headache. I discussed the case with Dr. Bauer who is on-call for Dr. Dawson the patient's neurologist. I reviewed the CT scan which showed some new acute findings in the CTA which was negative for occlusion. Blood work was also reviewed. CBC shows a leukocytosis of 11.3. Hemoglobin hematocrit are stable. Platelets are normal. CMP unremarkable with exception of potassium of 2.9. High-sensitivity troponin is 52. EKG on my interpretation shows sinus bradycardia rate of 56 bpm without sign of ischemic change or ectopy. After speaking with neurology who recommended trying to transfer to [facility] and she spoke to her doctor Kaiden who is on-call for neurology there however they did not have any beds after I spoke with the transfer line they called me back and recommended that I speak to neurology again from [facility] and they recommended again to send her to a different facility and they are recommending [facility] at this point. I spoke with internal medicine at [facility] I spoke to a Dr. Arias who accepted transfer. Patient is currently awaiting a bed. She has been stable here. She will be transferred bed becomes available. Impression: 1. Subacute stroke 2. Nausea/vomiting 3. Headache Lab Data Labs: Laboratory Results - last 24 hr 01/16/23 16:17 WBC 11.3 H RBC 4.88 Hgb 14.3 Hct 41.3 MCV 84.6 MCH 29.3 MCHC 34.6 RDW Std Deviation 37.5 RDW Coeff of Isrrael 12.3 Plt Count 446 MPV 11.7 Immature Gran % (Auto) 0.400 Neut % (Auto) 69.1 Lymph % (Auto) 18.7 L Todd % (Auto) 11.2 H Eos % (Auto) 0.2 Baso % (Auto) 0.4 Absolute Neuts (auto) 7.8 H Absolute Lymphs (auto) 2.11 Nucleated RBC % 0 Sodium 134 L Potassium 2.9 L Chloride 98 Carbon Dioxide 27.0 Anion Gap 9 BUN 18 Creatinine 0.96 Estim Creat Clear Calc 50.55 Est GFR (MDRD) Af Amer 77 Est GFR (MDRD) Non-Af 64 BUN/Creatinine Ratio 18.7 Glucose 115 H Calcium 9.8 Total Bilirubin 0.70 AST 51 H ALT 91 H Alkaline Phosphatase 99 Troponin I High Sens 52 Total Protein 8.3 H Albumin 3.7 Globulin 4.6 H Albumin/Globulin Ratio 0.8 L Radiography Diagnostic Testing: Clinical Impression(s) from Imaging Studies Chest X-Ray 01/16/23 17:11 IMPRESSION: No evidence of active intrathoracic disease. Electronically Signed: Kelsey Edge MD at 17:36 EDT Reading Location ID and State: [facility] / [employer] Tel , Service support , Brain CT 01/16/23 18:42 IMPRESSION: Interval development of several areas of decreased attenuation posterior circulation distribution, right occipital and bilateral cerebellar hemispheres, indeterminant age but may be consistent with acute to subacute infarcts. Potentially embolic infarcts. CT angiogram and/or MRI may be helpful for further evaluation. Electronically Signed: Kelsey Edge MD at 19:23 EDT Reading [facility] and [facility]: [facility] [place] Tel , Service support , ADDENDUM: 01/16/23 1934 IMPRESSION: Interval development of several areas of decreased attenuation posterior circulation distribution, right occipital and bilateral cerebellar hemispheres, indeterminant age but may be consistent with acute to subacute infarcts. Potentially embolic infarcts. CT angiogram and/or MRI may be helpful for further evaluation. N.B. : The above Results were Read Back by Kelsey Edge MD to Jerald Rodas DO, and understanding confirmed on 01/16/2023 19:27:12 (ET). Electronically Signed: Kelsey Edge MD at 19:23 EDT , Head/Neck CTA 01/16/23 19:10 IMPRESSION: No acute abnormality seen. No large vessel occlusions. Mild plaque and mild, less than 50%, stenosis at the origins of both the right and left ICA. Electronically Signed: River Ac MD at 19:39 EDT , ADDENDUM: 01/16/23 1950 IMPRESSION: No acute abnormality seen. No large vessel occlusions. Mild plaque and mild, less than 50%, stenosis at the origins of both the right and left ICA. N.B. : The above Results were Read Back by River Ac MD to Jerald Rodas DO, and understanding confirmed on 01/16/2023 19:43:36 (ET). Electronically Signed: River Ac MD at 19:39 EDT , Discharge Plan Triage Chief Complaint: Neuro S/Sx ED Provider: Jerald Rodas Dx/Rx/DC Orders Prescriptions: No Action atenolol 50 mg tablet 50 mg PO DAILY atorvastatin 40 mg tablet 40 mg PO DAILY levothyroxine 75 mcg tablet 75 mcg PO DAILY hydrochlorothiazide 25 mg tablet 25 mg PO DAILY Qty: 30 6RF potassium chloride 10 mEq tablet extended release 20 meq PO DAILY aspirin [Adult Aspirin Regimen] 81 mg tablet,delayed release (DR/EC) 81 mg PO DAILY paroxetine HCl 10 mg tablet 10 mg PO DAILY bupropion HCl 300 MG tablet extended release 24 hr 300 mg PO DAILY acetaminophen 325 MG tablet 650 mg PO Q4H PRN PRN (Reason: Headache/Temp>99F) 0RF lisinopril 20 mg tablet 30 mg PO DAILY 30 Days Qty: 45 0RF coenzyme Q10 [CoQ-10] 100 mg Capsule 100 mg PO DAILY Primary Care Provider: Duong Mckeon Referrals: Duong Mckeon MD [Primary Care Provider] -
[2023-01-16 17:42] LABS: ALB/GLOB Ratio 0.8 RATIO (0.9-2.4); AST(SGOT) 51 U/L (15-37); Alanine Aminotransfer ALT/SGPT 91 U/L (13-56); Albumin, Serum 3.7 g/dL (3.2-5.0); Alkaline Phosphatase 99 U/L (45-117); Anion Gap 9 (5-15); BUN 18 mg/dL (7-18); BUN/Creat Ratio 18.7 RATIO (10-20); Calcium,Total 9.8 mg/dL (8.5-10.1); Chloride 98 mmol/L (98-107); Creatinine, Serum 0.96 mg/dL (0.55-1.02); EST Glomerular Filtration Rate 64 mL/min (>60); Est Glom Filt Rate - Afr Amer 77 mL/min (>60); Estimated Creatinine Clearance 50.55 ml/min; Globulin 4.6 g/dL (2.2-4.2); Glucose 115 mg/dL (74-106); Potassium 2.9 mmol/L (3.5-5.1); Protein, Total 8.3 g/dL (6.4-8.2); Sodium Level 134 mmol/L (136-145); Troponin-I HS 52 pg/mL (3.0-54.0)
[2023-01-16] MEDS: DiphenhydrAMINE 50 MG/ML Syringe 25 MG IV (17:45)
[2023-01-16] MEDS: Metoclopramide 10 MG/2 ML Vial IV (17:45)
[2023-01-16] MEDS: Acetaminophen 500 MG Tablet 1000 MG PO (17:45)
[2023-01-16 18:31] VITALS: BP 134/83; PULSE 54; RESP 14; O2SAT 93
--- NOTE | 2023-01-16 18:42 | CT_ITS ---
We are attempting to reach an attending provider to discuss findings. An addendum with communication details will be sent when the communication is complete. INDICATION: Slurred speech EXAMINATION: CT BRAIN - CT Head or Brain W/O Contrast Injection TECHNIQUE: Multiple axial images were obtained of the head without intravenous contrast. A radiation dose optimization technique was used for this scan. IV Contrast dosage and agent: None. RADIATION DOSAGE (If Supplied By Facility): CTDIvol = ( 44.99 ) mGy, DLP = ( 796.11 ) mGycm COMPARISON: CT head 12/09/2022. MRI brain 11/08/2022. FINDINGS: BRAIN: No acute bleed. Focal areas of decreased attenuation in the right occipital lobe, right cerebellar hemisphere, and 2 in the left cerebellar hemisphere, which were not present on prior studies. Consistent with infarcts of uncertain age possibly acute to subacute. No significant mass effect. VENTRICLES AND SULCI: Not dilated. EXTRA-AXIAL: No hemorrhage, fluid collection, or mass. CALVARIUM / SKULL BASE: Unremarkable. FACE/SINUSES: Mucosal thickening in the maxillary sinuses. SOFT TISSUES: Unremarkable. CT/Brain/Head without Contrast IMPRESSION: Interval development of several areas of decreased attenuation posterior circulation distribution, right occipital and bilateral cerebellar hemispheres, indeterminant age but may be consistent with acute to subacute infarcts. Potentially embolic infarcts. CT angiogram and/or MRI may be helpful for further evaluation. Electronically Signed: Kelsey Edge MD at 19:23 EDT ,
--- NOTE | 2023-01-16 19:10 | CT_ITS ---
We are attempting to reach an attending provider to discuss findings. An addendum with communication details will be sent when the communication is complete. STUDY: CTA HEAD AND NECK WITH CONTRAST REASON FOR EXAM: Female, 52 years old. stroke like symptoms RADIATION DOSAGE (If Supplied By Facility): CTDIvol = ( 19.80 ) mGy, DLP = ( 687.60 ) mGycm TECHNIQUE: CT angiography was performed with a multi-detector CT scanner. Data acquisition was obtained from the skull base through the vertex following intravenous administration of IV 100mL Isovue-370. MIP images were reconstructed from the axial data set. Post-processing of the angiographic images was performed, with multiplanar reformation and 3D reconstruction. Individualized dose optimization techniques were used for this CT. COMPARISON: No relevant priors. FINDINGS: Normal bilateral petrous carotid arteries. There is calcified plaque formation of the right cavernous carotid artery, without a cross-sectional luminal stenosis. There is calcified plaque formation of the left cavernous carotid artery, with a mild stenosis (less than 50%). Normal right A1 segments of the anterior cerebral artery. Normal left A1 segments of the anterior cerebral artery. Normal intact anterior communicating artery (ACOM). Normal bilateral A2 segments of the anterior cerebral arteries. Normal right M1 and M2 segments of the middle cerebral arteries, with a normal M1 bifurcation. Normal left M1 and M2 segments of the middle cerebral arteries, with a normal M1 bifurcation. Normal right posterior communicating artery (PCOM). Normal left posterior communicating artery (PCOM). Normal bilateral vertebral arteries. Normal basilar artery with a normal basilar bifurcation. The visualized bilateral superior cerebellar (SCA) arteries are normal. Normal bilateral P1, P2 and visualized P3 segments of the posterior cerebral arteries. There is no demonstrated aneurysm of the [place]. AORTIC ARCH: Normal visualized aortic arch. Normal origins of the brachiocephalic, left common carotid, and left subclavian arteries. RIGHT CAROTID ARTERIES: Normal right common carotid artery (CCA). There is mild atherosclerotic plaque formation with minimal narrowing of the right carotid bulb. There is mild atherosclerotic plaque formation of the origin of the right internal carotid artery with less than 50% cross sectional diameter stenosis. Normal visualized cervical portion of the right internal carotid artery. Normal origin of the right external carotid artery (ECA). LEFT CAROTID ARTERIES: Normal left common carotid artery (CCA). There is mild atherosclerotic plaque formation with minimal narrowing of the left carotid bulb. There is mild atherosclerotic plaque formation of the origin of the left internal carotid artery with less than 50% cross sectional diameter stenosis. Normal visualized cervical portion of the left internal carotid artery. Normal origin of the left external carotid artery (ECA). VERTEBRAL ARTERIES: Normal bilateral vertebral arteries. CT/STROKE CTA Head AND Neck W/Con IMPRESSION: No acute abnormality seen. No large vessel occlusions. Mild plaque and mild, less than 50%, stenosis at the origins of both the right and left ICA. Electronically Signed: River Ac MD at 19:39 EDT ,
[2023-01-16 21:48] VITALS: BP 123/61; PULSE 51; RESP 14; O2SAT 99
[2023-01-16 23:48] VITALS: BP 119/58; PULSE 53; RESP 17; O2SAT 95
--- NOTE | 2023-01-16 23:51 | EKG12_ITS ---
Test Reason : NEURO SX Blood Pressure : / mmHG Vent. Rate : 056 BPM Atrial Rate : 056 BPM P-R Int : 148 ms QRS Dur : 080 ms QT Int : 482 ms P-R-T Axes : 031 012 017 degrees QTc Int : 465 ms Sinus bradycardia Otherwise normal ECG Confirmed by PANCHO LOBO, PETRE ([id number]), publications editor SALOME MCCARTY ([id number]) on 01/18/2023 10:11:24 AM Referred By: HENRY Confirmed By:PETER DELEON MD
[2023-01-16] MEDS: Potassium Chloride Oral Tablet 20 MEQ 40 MEQ PO (23:52)
[2023-01-17 01:00] VITALS: BP 146/96; PULSE 56; RESP 15; O2SAT 96
[2023-01-17] MEDS: Acetaminophen 500 MG Tablet 1000 MG PO (02:15)
[2023-01-17 04:42] VITALS: BP 106/72; PULSE 54; RESP 18; O2SAT 96
[2023-01-17 06:25] VITALS: BP 166/87; PULSE 54; RESP 17; O2SAT 97
[2023-01-17 07:14] VITALS: BP 136/77; PULSE 57; RESP 16; O2SAT 99
--- NOTE | 2023-01-17 07:39 | ED.RN ---
Breakfast tray delivered.
--- NOTE | 2023-01-17 08:06 | NURSING ---
CALLED [facility] TRANSFER LINE, TALKED TO JOSSE. NO BEDS AT [facility], DISCHARGE DEPENDENT. MAYBE THIS AFTERNOON. TO CALL BACK AFTER 1500
--- NOTE | 2023-01-17 09:21 | NURSING ---
0909 CALLED JALEEL Leach IN WAITING ROOM
--- NOTE | 2023-01-17 09:22 | NURSING ---
CALLED [facility], TALKED TO COLT. FAXED FACESHEET AND MRI REPORT
--- NOTE | 2023-01-17 09:52 | NURSING ---
TRANSFER LINE , [facility], FOR ER
[2023-01-17 09:59] VITALS: BP 131/79; PULSE 89; RESP 16
--- NOTE | 2023-01-17 10:00 | ED.RN ---
Patient aware of treatment plan. Report to [facility]. Awaiting squad.
--- NOTE | 2023-01-17 10:22 | NURSING ---
CANCELLED TRANSFER TO [facility]
--- NOTE | 2023-01-17 10:27 | NURSING ---
CALLED [facility], ETA IS WITHIN THE HOUR
[2023-01-17 10:34] VITALS: BP 127/83; PULSE 82; RESP 16; O2SAT 98
== END 2023-01-17 11:05 | disposition short-term general hospital (02) ==
LOC: ED 16:48
PROVIDERS: Emergency Provider Student in an Organized Health Care Education/Training Program; PCP Family Medicine; Visit Provider Student in an Organized Health Care Education/Training Program
DX: I63.233 Cerebral infarction due to unspecified occlusion or stenosis of bilateral carotid arteries (principal); I66.23 Occlusion and stenosis of bilateral posterior cerebral arteries; R11.2 Nausea with vomiting, unspecified; R51.9 Headache, unspecified; I10 Essential (primary) hypertension; F41.9 Anxiety disorder, unspecified; F32.A Depression, unspecified; E78.5 Hyperlipidemia, unspecified; E03.9 Hypothyroidism, unspecified; Z79.82 Long term (current) use of aspirin; Z79.899 Other long term (current) drug therapy; Z87.891 Personal history of nicotine dependence
CPT/HCPCS: 70450; 70496; 70498; 71045; 80053; 84484; 85025; 93005; 96374; 96375; 99285; Q9967; A4216

== ENCOUNTER 2023-01-30 13:13 | Emergency (ER) | payer BC, SELFPAY ==
[2023-01-30 13:14] VITALS: BP 120/93; PULSE 71; RESP 18; TEMP 36; O2SAT 98; BMI 33.3
--- NOTE | 2023-01-30 14:08 | EKG12_ITS ---
Test Reason : DIZZYNESS Blood Pressure : / mmHG Vent. Rate : 056 BPM Atrial Rate : 056 BPM P-R Int : 170 ms QRS Dur : 074 ms QT Int : 436 ms P-R-T Axes : 052 026 026 degrees QTc Int : 420 ms Sinus bradycardia Otherwise normal ECG Confirmed by PANCHO LOBO, PETER ([id number]), metropolitan editor SALOME MCCARTY ([id number]) on 02/01/2023 9:26:45 AM Referred By: Confirmed By:PETER DELEON MD
--- NOTE | 2023-01-30 14:08 | CT_ITS ---
STUDY: CT BRAIN WITHOUT CONTRAST REASON FOR EXAM: Female, 52 years old. Headache, recent stroke RADIATION DOSAGE (If Supplied By Facility): CTDIvol = ( 47.06 ) mGy, DLP = ( 872.68 ) mGycm TECHNIQUE: Transaxial CT imaging of the brain was performed without administration of intravenous contrast material. Individualized dose optimization techniques were used for this CT. COMPARISON: Comparison is made with prior study dated January 16, 2023. FINDINGS: Normal soft tissue structures. Normal calvarium. Normal size ventricles and extra-axial spaces for the patient''s age. Normal white matter tracts of the cerebral hemispheres. Normal basal ganglia and thalami. Normal brainstem. The previously seen apical densities in the left cerebellar hemisphere have improved. No acute abnormality is seen. There is no intracranial hemorrhage. There are no findings of an acute ischemic infarction. Minimal degree of mucosal thickening along the lateral wall of the right maxillary sinus. CT/Brain/Head without Contrast IMPRESSION: No acute abnormality is seen. Electronically Signed: Hi Nagy MD at 14:45 EDT ,
--- NOTE | 2023-01-30 14:09 | EX.ED.DYSGE1 ---
HPI History of Present Illness Chief Complaint: General Illness Detail of Chief Complaint: Generalized weakness this and concern for dehydration Informant: patient Narrative Narrative: Patient presents to the emergency department complaint of generalized weakness. Patient states that she was admitted little over a week ago to [facility] for strokes and she was told that maybe she had some intracranial hemorrhage and she had 2 strokes. At that time she presented with dizziness and some slurred speech. She denies receiving thrombolytics. She denies any falls or head injuries. Patient states that after being admitted to [facility] she started feeling better and was walking and was discharged to home 1 week ago. Since being home she complains of head pressure with standing and trying to walk. She is generally feels weak. She denies any vertigo or dizziness. She also feels like she may be dehydrated. She denies urinary symptoms such as frequency or urgency or dysuria. Patient also concerned that she may have intracranial hemorrhage again. [facility] Medical History Arm paresthesia, right (09/2018) Depression Essential (primary) hypertension Hyperlipidemia Hypothyroidism Migraines Obesity Home Medications bupropion HCl 300 mg 24 hr tablet, extended release 300 mg PO DAILY 01/07/17 [History Last Taken 11/07/22] acetaminophen 325 mg tablet 650 mg (2 x 325 mg) PO Q4H PRN PRN Headache/Temp>99F 10/08/18 [Rx Last Taken 11/07/22] atenolol 50 mg tablet 50 mg PO DAILY 05/06/20 [History Last Taken 11/07/22] paroxetine HCl 10 mg tablet 10 mg PO DAILY depression 05/06/20 [History Last Taken 11/06/22] hydrochlorothiazide 25 mg tablet 25 mg PO DAILY #30 tabs 05/26/22 [Rx Last Taken 11/07/22] aspirin 81 mg tablet,delayed release (Adult Aspirin Regimen) 81 mg PO DAILY 07/14/22 [History Last Taken 11/06/22] atorvastatin 40 mg tablet 40 mg PO DAILY 07/14/22 [History Last Taken 11/06/22] levothyroxine 75 mcg tablet 75 mcg PO DAILY 07/14/22 [History Last Taken 11/05/22] potassium chloride 10 mEq tablet,extended release 20 meq PO DAILY 07/14/22 [History Last Taken 11/06/22] lisinopril 20 mg tablet 30 mg (1.5 x 20 mg) PO DAILY 30 days #45 tabs 11/08/22 [Rx Last Taken Unknown] coenzyme Q10 100 mg capsule (CoQ-10) 100 mg PO DAILY 12/09/22 [History Last Taken Unknown] metoclopramide HCl 5 mg tablet (Reglan) 5 mg PO DAILY #5 tabs 01/30/23 [Rx Last Taken Unknown] Allergy/AdvReac Type Severity Reaction Status Date / Time No Known Allergies Allergy Verified 01/30/23 13:16 Family History Mother CVA (cerebral vascular accident) Heart disease Father Heart disease Surgical History History of History of dilatation and curettage (03/2020) Social History Smoking Status: Former smoker ROS ROS ED Review of Systems ROS Unobtainable: other Constitutional Constitutional ED: Reports lethargy; Denies chills, fever(s), sweats or weight loss Eyes Eyes: Denies blurry vision, change in vision or diplopia ENT ENT ED: Denies rhinorrhea or sore throat Cardiovascular Cardiovascular: Denies chest pain, orthopnea or racing heartbeat Respiratory/Chest Respiratory/Chest: Denies cough, dyspnea, dyspnea on exertion, orthopnea or sputum Gastrointestinal Gastrointestinal: Denies abdominal pain, diarrhea, nausea or vomiting Genitourinary Genitourinary ED: Denies dysuria, hematuria or urinary frequency Musculoskeletal Musculoskeletal: Denies arthralgias, back pain, myalgias or neck pain Integumentary Denies abscess, Abrasions or rash Neurologic Neurologic: Reports headache(s) and weakness Psychiatric Psychiatric: Denies anxiety, depression or suicidal thoughts Endocrine Endocrinology: Denies polydipsia, polyphagia or polyuria Hematologic/Lymphatic Hematologic/Lymphatic: Denies easy bleeding, easy bruising or lymphadenopathy Allergic/Immunologic Allergic/Immunologic ED: Denies mouth swelling, tongue swelling or urticaria EXAM Physical Exam Const Vital Signs: 01/30/23 13:14 01/30/23 14:23 01/30/23 15:42 Temperature 96.8 F L Temperature Source Temporal Pulse Rate 71 58 L Respiratory Rate 18 18 Respiratory Pattern Normal Blood Pressure 120/93 H 185/84 H Blood Pressure Mean 102 117 Pulse Ox 98 98 Oxygen Delivery Method Room Air Room Air 01/30/23 16:38 01/30/23 17:15 Temperature Temperature Source Pulse Rate 66 88 Respiratory Rate 18 16 Respiratory Pattern Blood Pressure 161/91 H 138/89 H Blood Pressure Mean 114 105 Pulse Ox 99 100 Oxygen Delivery Method Room Air Room Air Positive well nourished and well developed General Appearance ED: well developed and NAD HEENT Reports TM's clear and moist mucous membranes normocephalic and atraumatic; Negative for trauma or tenderness Tympanic Membrane ED: Yes TM's clear Eyes PERRL and EOMs intact bilaterally General Eye ED: Negative for pale conjunctiva or scleral icterus Neck no lymphadenopathy, supple and no JVD General: Negative for tenderness Chest Wall inspection of chest normal and palpation of chest normal Chest: Negative for tenderness Resp normal respiratory effort and clear to auscultation bilaterally Effort and Inspection: Negative for respiratory distress or pain with movement Auscultation: Negative for rhonchi, wheezes or diminished lung sounds Cardio regular rate, regular rhythm, S1 normal heart sound, S2 normal heart sound and no murmurs Peripheral Pulses: pulses 2+ throughout GI normal to inspection, nondistended, normoactive bowel sounds, soft to palpation, non-tender, non-distended and no masses Back/Spine no CVA tenderness and no thoracic nor lumbar tenderness Extremity normal to inspection General Extremety ED: Negative for edema General Extremity: Negative for edema Neuro oriented x3, CN's II-XII intact bilaterally, no sensory deficits noted and gait normal Sensorium / Orientation: awake, alert, oriented to person, oriented to place and oriented to time Motor Exam: strength 5/5 throughout and strength abnormal Psych mental status grossly normal Skin no rashes or lesions noted and no wounds MDM MDM MDM Narrative Medical decision making narrative: Patient presents to the emergency department with multiple complaints. She has no appetite and no energy. Patient recently had vertigo and diagnosed with strokes and was at [facility]. Patient was started on Plavix and did not require any type of surgical intervention. She did not have thrombolysis. Patient continues to complain of headache which has been chronic. She was concerned about intracranial hemorrhage and dehydration. IV line established on arrival. Patient placed on a traffic monitor specialist. EKG obtained showed a sinus rhythm with a rate of 56 bpm. CBC with differential count of 8.1 with hemoglobin 12.7 and platelet count of 347. Chemistries were unremarkable. BUN 15 and creatinine 1.08. Urinalysis was normal. I did do a CT scan of the brain without contrast that was normal. After discussing results with patient she became tearful. She does not have an appointment until April to see her neurologist. We discussed possibility of depression and she does take Effexor as well as Wellbutrin for depression but does not see a therapist. She would like to speak with our social work manager as I suspect there may be a component of depression. Patient denies feeling suicidal. She does not think she would harm herself. We discussed possible admission to [facility] if she does not feel comfortable going home to be evaluated by her neurologist there however she states that she would rather go home and call the office and follow-up with them. At this time I do not feel there is anything urgent clinically that needs to be addressed further. Lab Data Attestation: I reviewed the patient's lab results. Labs: Laboratory Results - last 24 hr 01/30/23 01/30/23 14:20 15:36 WBC 8.1 RBC 4.32 Hgb 12.7 Hct 38.4 MCV 88.9 MCH 29.4 MCHC 33.1 RDW Std Deviation 42.5 RDW Coeff of Isr[place] 13.1 Plt Count 347 MPV 11.3 Immature Gran % (Auto) 0.200 Neut % (Auto) 73.7 H Lymph % (Auto) 13.8 L [place] % (Auto) 11.0 H Eos % (Auto) 0.7 Baso % (Auto) 0.6 Absolute Neuts (auto) 6.0 Absolute Lymphs (auto) 1.12 Nucleated RBC % 0 Sodium 135 L Potassium 3.6 Chloride 103 Carbon Dioxide 26.0 Anion Gap 6 BUN 15 Creatinine 1.08 H Estim Creat Clear Calc 44.94 Est GFR (MDRD) Af Amer 68 Est GFR (MDRD) Non-Af 56 L BUN/Creatinine Ratio 13.9 Glucose 99 Calcium 9.4 Troponin I High Sens 13 Urine Color Yellow Urine Clarity Clear Urine pH 7.0 Ur Specific [place] 1.005 Urine Protein Negative Urine Glucose (UA) Normal Urine Ketones Negative Urine Occult Blood Negative Urine Nitrite Negative Urine Bilirubin Negative Urine Urobilinogen Normal Ur Leukocyte Esterase 25 H Urine RBC 0 SEEN Urine WBC 0-5 SEEN Ur Squamous Epith Cells 5-10 SEEN Urine Bacteria 0 SEEN Urine Mucus 0 SEEN Radiography Diagnostic Testing: Clinical Impression(s) from Imaging Studies Brain CT 01/30/23 14:08 IMPRESSION: No acute abnormality is seen. Electronically Signed: Hi Nagy MD at 14:45 EDT , Discharge Plan Triage Chief Complaint: General Illness ED Provider: Talib Springer Dx/Rx/DC Orders Clinical Impression: Generalized weakness, Depression, Headache Instructions: Depression: Tips to Help Yourself, ED Weakness (Uncertain Cause) Prescriptions: New metoclopramide HCl [Reglan] 5 mg tablet 5 mg PO DAILY Qty: 5 0RF No Action atenolol 50 mg tablet 50 mg PO DAILY atorvastatin 40 mg tablet 40 mg PO DAILY levothyroxine 75 mcg tablet 75 mcg PO DAILY hydrochlorothiazide 25 mg tablet 25 mg PO DAILY Qty: 30 6RF potassium chloride 10 mEq tablet extended release 20 meq PO DAILY aspirin [Adult Aspirin Regimen] 81 mg tablet,delayed release (DR/EC) 81 mg PO DAILY paroxetine HCl 10 mg tablet 10 mg PO DAILY bupropion HCl 300 MG tablet extended release 24 hr 300 mg PO DAILY acetaminophen 325 MG tablet 650 mg PO Q4H PRN PRN (Reason: Headache/Temp>99F) 0RF lisinopril 20 mg tablet 30 mg PO DAILY 30 Days Qty: 45 0RF coenzyme Q10 [CoQ-10] 100 mg Capsule 100 mg PO DAILY Primary Care Provider: Duong Mckeon Referrals: Duong Mckeon MD [Primary Care Provider] - Activity Restrictions/Additional Instructions: Follow-up with your neurologist at the earliest possible time for further evaluation. Disposition Disposition: Home, Self Care Discharge Date/Time: 01/30/23 17:42
[2023-01-30] MEDS: 0.9% Normal Saline 1,000 ML 1000 ML IV (14:27)
[2023-01-30] MEDS: 0.9% Normal Saline 1,000 ML 150 ML IV (14:27)
[2023-01-30 14:34] LABS: Absolute Lymphocyte Count 1.12 X10^3/uL (0.83-4.51); Basophil# 0.05 X10^3/uL; Basophil% 0.6 % (0-1); Eosinophil# 0.06 X10^3/uL; Eosinophils% 0.7 % (0-5); Hematocrit 38.4 % (37-47); Hemoglobin 12.7 g/dL (12.0-15.0); Lymphocyte # 1.12 X10^3/ul (0.83-4.51); Lymphocyte % 13.8 % (19-41); Mean Corp Hgb Conc 33.1 g/dL (32-36); Mean Corpuscular Hgb 29.4 pg (27.0-32.0); Mean Corpuscular Volume 88.9 fL (81-99); Mean Platelet Vol. 11.3 fl (6.2-12.0); Monocyte# 0.89 X10^3/uL; NRBC Flagged by Analyzer 0 % (0-5); Neutrophil # 5.97 X10^3/uL (2.7-7.7); Neutrophil % 73.7 % (47-70); Platelet Count 347 K/mm3 (150-450); RBC Distribution Width CV 13.1 % (11.6-14.6); RBC Distribution Width SD 42.5 fl (35.1-43.9); Red Blood Count 4.32 M/mm3 (4.2-5.4); White Blood Count 8.1 K/mm3 (4.4-11.0)
[2023-01-30 14:53] LABS: Anion Gap 6 (5-15); BUN 15 mg/dL (7-18); BUN/Creat Ratio 13.9 RATIO (10-20); Calcium,Total 9.4 mg/dL (8.5-10.1); Chloride 103 mmol/L (98-107); Creatinine, Serum 1.08 mg/dL (0.55-1.02); EST Glomerular Filtration Rate 56 mL/min (>60); Est Glom Filt Rate - Afr Amer 68 mL/min (>60); Estimated Creatinine Clearance 44.94 ml/min; Glucose 99 mg/dL (74-106); Potassium 3.6 mmol/L (3.5-5.1); Sodium Level 135 mmol/L (136-145); Troponin-I HS 13 pg/mL (3.0-54.0)
[2023-01-30 15:42] VITALS: BP 185/84; PULSE 58; RESP 18; O2SAT 98
[2023-01-30 15:57] LABS: Bacteria 0 SEEN /hpf (None Seen); Mucous, Urine 0 SEEN /hpf (<or=2+); Red Blood Cells-Urine 0 SEEN /hpf (0-5)
[2023-01-30 16:14] LABS: Color, Urine Yellow (Yellow); Glucose, Dipstick Normal (Normal); Ketone-Dipstick Negative (Negative); Leukocyte Esterase-Dipstick 25 /ul (Negative); Nitrite-Dipstick Negative (Negative); Occult Blood-Urine Negative /ul (Negative); Protein-Dipstick Negative (Negative); Specific Gravity, Urine 1.005 (1.002-1.030); Urine Bilirubin Dipstick Negative (Negative); Urine Clarity Clear (Clear); Urine Urobilinogen Normal (Normal)
[2023-01-30 16:30] LABS: Squamous Epithelial Cells - UA 5-10 SEEN /hpf (5-10); White Blood Cells 0-5 SEEN /hpf (0-5)
[2023-01-30 16:38] VITALS: BP 161/91; PULSE 66; RESP 18; O2SAT 99
[2023-01-30 17:15] VITALS: BP 138/89; PULSE 88; RESP 16; O2SAT 100
[2023-01-30] MEDS: Metoclopramide 5 MG TABLET PO (17:41)
--- NOTE | 2023-01-30 21:07 | CM.ED ---
Social Work SW introduced self and role to patient. Pt reports struggling with not feeling like herself since having a stroke. Pt indicated feeling depressed and hopeless regarding her health. SW provided emotional support and resources for counseling and coping skills. SW discussed IOP program and other services available. Pt reports she will review resources. Tosin Raza NUT ROASTER HELPER, SOFTWARE DEVELOPER CONSULTANT
== END 2023-01-30 17:42 | disposition home or self-care (01) ==
PROVIDERS: Emergency Provider Emergency Medicine; PCP Family Medicine; Visit Provider Emergency Medicine
DX: R53.1 Weakness (principal); F32.A Depression, unspecified; R51.9 Headache, unspecified; Z87.891 Personal history of nicotine dependence
CPT/HCPCS: 36415; 70450; 80048; 81001; 84484; 85025; 93005; 99282; J7030; A4216

== ENCOUNTER 2023-05-01 10:35 | Emergency (ER) | payer BC, SELFPAY ==
[2023-05-01 10:36] VITALS: BP 126/97; PULSE 55; RESP 16; TEMP 36.4; O2SAT 98; BMI 33.4
[2023-05-01 10:47] VITALS: BMI 33.4
--- NOTE | 2023-05-01 11:17 | ED.VIS.STROK ---
HPI History of Present Illness Chief Complaint: Neuro S/Sx Informant: patient Narrative Narrative: Patient for 2 days has had episodes of tingling/numbness right lower face and right hand only fingers 1-3. Same symptoms she had when she had stroke earlier this year. She has also been having headaches, they are bifrontal retro-orbital and sometimes occipital. No syncope. No sudden onset or thunderclap headache. She was also getting some type of visual disturbance she does not know how it was different but just states it was different. It is not there now. She states the episodes of tingling have lasted less than 1 minute each time, she has had maybe 5 episodes 2 days ago, and she had 1 or 2 yesterday but none today yet. However when she waited today Monday to call her PCP she was directed to the ER emergently. She states Monday last week she ran out of her Plavix and was under the understanding her doctor wanted her to discontinue it and continue aspirin but she states in reality it was the other way around, so she has not had her Plavix in several days. She did have an extra 1 that she got from her sister that she took 2 days ago the day she started getting the symptoms. She is otherwise been compliant with her medications. [facility] Medical History Arm paresthesia, right (09/2018) Depression Essential (primary) hypertension Hyperlipidemia Hypothyroidism Migraines Obesity Home Medications bupropion HCl 300 mg 24 hr tablet, extended release 300 mg PO DAILY 01/07/17 [History Last Taken 11/07/22] acetaminophen 325 mg tablet 650 mg (2 x 325 mg) PO Q4H PRN PRN Headache/Temp>99F 10/08/18 [Rx Last Taken 11/07/22] atenolol 50 mg tablet 50 mg PO DAILY 05/06/20 [History Last Taken 11/07/22] paroxetine HCl 10 mg tablet 10 mg PO DAILY depression 05/06/20 [History Last Taken 11/06/22] hydrochlorothiazide 25 mg tablet 25 mg PO DAILY #30 tabs 05/26/22 [Rx Last Taken 11/07/22] aspirin 81 mg tablet,delayed release (Adult Aspirin Regimen) 81 mg PO DAILY 07/14/22 [History Last Taken 11/06/22] atorvastatin 40 mg tablet 40 mg PO DAILY 07/14/22 [History Last Taken 11/06/22] levothyroxine 75 mcg tablet 75 mcg PO DAILY 07/14/22 [History Last Taken 11/05/22] potassium chloride 10 mEq tablet,extended release 20 meq PO DAILY 07/14/22 [History Last Taken 11/06/22] lisinopril 20 mg tablet 30 mg (1.5 x 20 mg) PO DAILY 30 days #45 tabs 11/08/22 [Rx Last Taken Unknown] coenzyme Q10 100 mg capsule (CoQ-10) 100 mg PO DAILY 12/09/22 [History Last Taken Unknown] metoclopramide HCl 5 mg tablet (Reglan) 5 mg PO DAILY #5 tabs 01/30/23 [Rx Last Taken Unknown] clopidogrel 75 mg tablet 75 mg PO DAILY #30 tabs 05/01/23 [Rx Last Taken Unknown] Allergy/AdvReac Type Severity Reaction Status Date / Time No Known Allergies Allergy Verified 05/01/23 10:36 Family History Mother CVA (cerebral vascular accident) Heart disease Father Heart disease Surgical History History of History of dilatation and curettage (03/2020) Social History Smoking Status: Former smoker ROS ROS ED Constitutional Constitutional ED: Denies chills or fever(s) Eyes Eyes: Reports change in vision bilateral (Unclear how it was different, normal now.); Denies diplopia ENT ENT ED: Denies rhinorrhea or sore throat Cardiovascular Cardiovascular: Denies chest pain or palpitations Respiratory/Chest Respiratory/Chest: Denies cough or dyspnea Gastrointestinal Gastrointestinal: Denies abdominal pain, diarrhea, nausea or vomiting Genitourinary Genitourinary ED: Denies dysuria or hematuria Musculoskeletal Musculoskeletal: Denies back pain or neck pain Integumentary Denies abscess or rash Neurologic Neurologic: Reports headache(s) and paresthesias; Denies weakness Psychiatric Psychiatric: Denies anxiety or suicidal thoughts EXAM Physical Exam Const Vital Signs: 05/01/23 10:36 05/01/23 11:24 05/01/23 11:24 Temperature 97.5 F L Temperature Source Temporal Pulse Rate 55 L 57 L Respiratory Rate 16 25 H Blood Pressure 126/97 H 129/76 H Blood Pressure Mean 106 93 Pulse Ox 98 96 97 Oxygen Delivery Method Room Air Room Air Room Air 05/01/23 11:43 Temperature Temperature Source Pulse Rate 49 L Respiratory Rate 12 Blood Pressure 149/90 H Blood Pressure Mean 109 Pulse Ox 95 Oxygen Delivery Method Room Air Positive well nourished and well developed General Appearance ED: well developed and NAD HEENT Reports moist mucous membranes normocephalic and atraumatic Eyes PERRL and EOMs intact bilaterally Neck full ROM and supple Neck Narrative: No carotid bruits bilaterally Resp normal respiratory effort and clear to auscultation bilaterally Cardio regular rate, regular rhythm and no murmurs GI non-tender and non-distended Auscultation: normoactive bowel sounds Palpation: soft Back/Spine no CVA tenderness General Back: other FROM Extremity normal to inspection General Extremety ED: Negative for edema, pulses abnormal or tenderness General Extremity: Negative for edema or pulses abnormal Neuro oriented x3, CN's II-XII intact bilaterally and no sensory deficits noted Sensorium / Orientation: awake and alert Motor Exam: strength 5/5 throughout Skin no rashes or lesions noted and no wounds MDM MDM MDM Narrative Medical decision making narrative: Worked the patient up, her CT is showing no acute abnormality. Labs are unremarkable except for potassium that is low 3.3, low potassium could cause some of the symptoms because could her multiple sclerosis, atypical migraines, and TIAs. Since she has been off of her Plavix during the time she has had the TIAs, I do not think she needs to be admitted. I am treating her low potassium, giving her a Plavix for today, and giving her a prescription refill for it so she has it going forward she is comfortable with that plan of following up. Lab Data Attestation: I reviewed the patient's lab results. Labs: Laboratory Results - last 24 hr 05/01/23 10:51 WBC 5.7 RBC 4.74 Hgb 14.1 Hct 42.1 MCV 88.8 MCH 29.7 MCHC 33.5 RDW Std Deviation 39.3 RDW Coeff of Isr[place] 12.1 Plt Count 353 MPV 11.1 Immature Gran % (Auto) 0.400 Neut % (Auto) 59.3 Lymph % (Auto) 28.0 [place] % (Auto) 10.0 Eos % (Auto) 1.4 Baso % (Auto) 0.9 Absolute Neuts (auto) 3.4 Absolute Lymphs (auto) 1.60 Nucleated RBC % 0 Sodium 137 Potassium 3.3 L Chloride 103 Carbon Dioxide 28.0 Anion Gap 6 BUN 17 Creatinine 0.86 Estim Creat Clear Calc 55.77 Est GFR (MDRD) Af Amer 88 Est GFR (MDRD) Non-Af 72 BUN/Creatinine Ratio 19.7 Glucose 98 Calcium 9.1 Radiography Diagnostic Testing: Clinical Impression(s) from Imaging Studies Brain CT 05/01/23 11:45 IMPRESSION: Chronic involutional changes of the brain. N.B. : The above Results were Read Back by Hi Nagy MD to Dr Alfred MD, and understanding confirmed on 05/01/2023 11:52:56 (ET). Electronically Signed: Hi Nagy MD at 11:54 EDT , ADDENDUM: 05/01/23 1201 IMPRESSION: Chronic involutional changes of the brain. N.B. : The above Results were Read Back by Hi Nagy MD to Dr Alfred MD, and understanding confirmed on 05/01/2023 11:52:56 (ET). Electronically Signed: Hi Nagy MD at 11:54 EDT , Rhythm Strip Rhythm Strip: Sinus Rhythm Rate: 49 Ectopy: None EKG Initial EKG: Attestation: I personally reviewed and interpreted this EKG as follows: Interpretation: Sinus Rhythm and No Acute Injury Pattern Discharge Plan Triage Chief Complaint: Neuro S/Sx ED Provider: Harley Simon Dx/Rx/DC Orders Clinical Impression: Paresthesias, Headache, Acute hypokalemia Instructions: ED Hypokalemia, ED Paraesthesias Prescriptions: New clopidogrel 75 mg tablet 75 mg PO DAILY Qty: 30 0RF No Action atenolol 50 mg tablet 50 mg PO DAILY atorvastatin 40 mg tablet 40 mg PO DAILY levothyroxine 75 mcg tablet 75 mcg PO DAILY hydrochlorothiazide 25 mg tablet 25 mg PO DAILY Qty: 30 6RF potassium chloride 10 mEq tablet extended release 20 meq PO DAILY aspirin [Adult Aspirin Regimen] 81 mg tablet,delayed release (DR/EC) 81 mg PO DAILY paroxetine HCl 10 mg tablet 10 mg PO DAILY bupropion HCl 300 MG tablet extended release 24 hr 300 mg PO DAILY acetaminophen 325 MG tablet 650 mg PO Q4H PRN PRN (Reason: Headache/Temp>99F) 0RF lisinopril 20 mg tablet 30 mg PO DAILY 30 Days Qty: 45 0RF coenzyme Q10 [CoQ-10] 100 mg Capsule 100 mg PO DAILY metoclopramide HCl [Reglan] 5 mg tablet 5 mg PO DAILY Qty: 5 0RF Primary Care Provider: Duong Mckeon Referrals: Duong Mckeon MD [Primary Care Provider] - As soon as possible Disposition Disposition: Home, Self Care
[2023-05-01 11:24] VITALS: BP 129/76; PULSE 57; RESP 25; O2SAT 96; O2SAT 97
[2023-05-01 11:31] LABS: Absolute Neutrophil Count 3.4 X10^3/uL (2.0-7.7); Basophil# 0.05 X10^3/uL; Basophil% 0.9 % (0-1); Eosinophil# 0.08 X10^3/uL; Eosinophils% 1.4 % (0-5); Hematocrit 42.1 % (37-47); Hemoglobin 14.1 g/dL (12.0-15.0); Mean Corp Hgb Conc 33.5 g/dL (32-36); Mean Corpuscular Hgb 29.7 pg (27.0-32.0); Mean Corpuscular Volume 88.8 fL (81-99); Mean Platelet Vol. 11.1 fl (6.2-12.0); Monocyte# 0.57 X10^3/uL; NRBC Flagged by Analyzer 0 % (0-5); Neutrophil # 3.39 X10^3/uL (2.7-7.7); Neutrophil % 59.3 % (47-70); Platelet Count 353 K/mm3 (150-450); RBC Distribution Width CV 12.1 % (11.6-14.6); RBC Distribution Width SD 39.3 fl (35.1-43.9); Red Blood Count 4.74 M/mm3 (4.2-5.4); White Blood Count 5.7 K/mm3 (4.4-11.0)
[2023-05-01 11:43] VITALS: BP 149/90; PULSE 49; RESP 12; O2SAT 95
--- NOTE | 2023-05-01 11:45 | CT_ITS ---
STUDY: CT HEAD STROKE PROTOCOL W/O CONTRAST INJECTION REASON FOR EXAM: Female, 53 years old. TIA sx involving R face and RUE RADIATION DOSAGE (If Supplied By Facility): CTDIvol = ( 47.06 ) mGy, DLP = ( 872.68 ) mGycm TECHNIQUE: Transaxial CT imaging of the brain was performed without administration of intravenous contrast material. Individualized dose optimization techniques were used for this CT. COMPARISON: Comparison is made with prior study dated January 30, 2023. FINDINGS: Normal soft tissue structures. Normal calvarium. There is mild cerebral atrophy with widening of the extra-axial spaces and ventricular dilatation. Normal white matter tracts of the cerebral hemispheres. Normal basal ganglia and thalami. Normal brainstem. Stable focal hypodensities in the cerebellum. There is no intracranial hemorrhage. There are no findings of an acute ischemic infarction. Atherosclerotic calcification of the vertebral arteries bilaterally. Mucosal thickening of the right maxillary sinus. ASPECT score: 10 CT/Brain/Head without Contrast IMPRESSION: Chronic involutional changes of the brain. N.B. : The above Results were Read Back by Hi Nagy MD to Dr Alfred MD, and understanding confirmed on 05/01/2023 11:52:56 (ET). Electronically Signed: Hi Nagy MD at 11:54 EDT ,
[2023-05-01 12:02] LABS: Anion Gap 6 (5-15); BUN 17 mg/dL (7-18); BUN/Creat Ratio 19.7 RATIO (10-20); Calcium,Total 9.1 mg/dL (8.5-10.1); Chloride 103 mmol/L (98-107); Creatinine, Serum 0.86 mg/dL (0.55-1.02); EST Glomerular Filtration Rate 72 mL/min (>60); Est Glom Filt Rate - Afr Amer 88 mL/min (>60); Estimated Creatinine Clearance 55.77 ml/min; Glucose 98 mg/dL (74-106); Potassium 3.3 mmol/L (3.5-5.1); Sodium Level 137 mmol/L (136-145)
[2023-05-01] MEDS: Clopidogrel Bisulfate 75 MG Tablet PO (12:36)
[2023-05-01] MEDS: Potassium Chloride Oral Tablet 20 MEQ 40 MEQ PO (12:36)
== END 2023-05-01 12:39 | disposition home or self-care (01) ==
PROVIDERS: Emergency Provider Emergency Medicine; PCP Family Medicine; Visit Provider Emergency Medicine
DX: R20.2 Paresthesia of skin (principal); E87.6 Hypokalemia; Z87.891 Personal history of nicotine dependence; Z86.73 Personal history of transient ischemic attack (TIA), and cerebral infarction without residual deficits
CPT/HCPCS: 70450; 80048; 85025; 93005; 99283; A4216

== ENCOUNTER → 2023-06-16 | Outpatient (CLI) | payer BC, SELFPAY ==
[2023-06-16 16:26] LABS: Absolute Lymphocyte Count 1.97 X10^3/uL (0.83-4.51); Absolute Neutrophil Count 5.6 X10^3/uL (2.0-7.7); Basophil# 0.06 X10^3/uL; Basophil% 0.7 % (0-1); Eosinophil# 0.11 X10^3/uL; Eosinophils% 1.3 % (0-5); Hematocrit 40.9 % (37-47); Hemoglobin 13.3 g/dL (12.0-15.0); Lymphocyte # 1.97 X10^3/ul (0.83-4.51); Lymphocyte % 23.3 % (19-41); Mean Corp Hgb Conc 32.5 g/dL (32-36); Mean Corpuscular Hgb 28.6 pg (27.0-32.0); Mean Platelet Vol. 10.5 fl (6.2-12.0); Monocyte# 0.68 X10^3/uL; NRBC Flagged by Analyzer 0 % (0-5); Neutrophil # 5.59 X10^3/uL (2.7-7.7); Neutrophil % 66.1 % (47-70); Platelet Count 368 K/mm3 (150-450); RBC Distribution Width CV 12.5 % (11.6-14.6); RBC Distribution Width SD 40.2 fl (35.1-43.9); Red Blood Count 4.65 M/mm3 (4.2-5.4); White Blood Count 8.5 K/mm3 (4.4-11.0)
[2023-06-16 17:09] LABS: Anion Gap 4 (5-15); BUN 12 mg/dL (7-18); BUN/Creat Ratio 13.3 RATIO (10-20); Calcium,Total 8.7 mg/dL (8.5-10.1); Chloride 102 mmol/L (98-107); EST Glomerular Filtration Rate 69 mL/min (>60); Est Glom Filt Rate - Afr Amer 83 mL/min (>60); Glucose 90 mg/dL (74-106); Potassium 3.5 mmol/L (3.5-5.1); Sodium Level 137 mmol/L (136-145)
[2023-06-16 18:43] LABS: BNP,B-Type NATRIURETIC PEPTIDE 47.9 pg/mL (0-100)
== END | disposition home or self-care (01) ==
LOC: LAB 15:50
PROVIDERS: PCP Family Medicine; Referring Provider Nurse Practitioner Family; Visit Provider Nurse Practitioner Family
DX: R06.09 Other forms of dyspnea (principal); I10 Essential (primary) hypertension; E78.5 Hyperlipidemia, unspecified
CPT/HCPCS: 36415; 80048; 83880; 85025

== ENCOUNTER → 2023-08-02 | Outpatient (CLI) | payer BC, SELFPAY ==
--- NOTE | 2023-08-02 14:07 | ECHOD_ITS ---
Reason For Study: Dyspnea Procedure This was a 2D Doppler, Color Flow transthoracic echocardiogram. Exam performed in department. Left Ventricle Normal LV size. Left ventricular systolic function is normal. The left ventricular ejection fraction is 60 %. No regional wall motion abnormalities noted. Right Ventricle Normal RV size. Normal systolic function. Atria Normal left atrium. Normal right atrium. Mitral Valve Normal mitral valve. Mild (1+) eccentric mitral valve insufficiency. Tricuspid Valve Normal tricuspid valve. Aortic Valve Trisinus/trileaflet aortic valve. Mild (1+) aortic valve insufficiency. Pulmonic Valve Normal pulmonic valve. Great Vessels Normal aortic root. The pulmonary artery is normal size. Normal inferior vena cava. Pericardium/Pleural No pericardial effusion. MMode/2D Measurements & Calculations LVIDd: 4.1 cm IVSd: 1.1 cm Ao root diam: 3.5 cm LVIDs: 2.7 cm LVPWd: 1.1 cm RVDd: 3.0 cm FS: 35.5 % LAV(MOD-bp): 44.3 ml LVAd ap4: 24.3 cm2 SV(MOD-sp4): 43.8 ml LAV(MOD-bp) Indexed: 24.8 ml/m2 LVLd ap4: 7.6 cm LAV(MOD-sp2): 38.8 ml EDV(MOD-sp4): 64.3 ml LAV(MOD-sp4): 47.9 ml EDV(sp4-el): 65.8 ml LVAs ap4: 12.1 cm2 LVLs ap4: 6.2 cm ESV(MOD-sp4): 20.5 ml ESV(sp4-el): 20.0 ml EF(MOD-sp4): 68.2 % EF(sp4-el): 69.6 % SV(sp4-el): 45.8 ml LA A4 area: 17.5 cm2 LA dimension(2D): 4.1 cm RA A4 area: 12.4 cm2 TAPSE: 2.5 cm Time Measurements MV dec time: 0.22 sec Doppler Measurements & Calculations MV E max marco antonio: 70.8 cm/sec Lat Peak E' Marco Antonio: 8.5 cm/sec Med Peak E' Marco Antonio: 6.9 cm/sec MV A max marco antonio: 54.8 cm/sec E/E' lat: 8.3 E/E' med: 10.2 MV E/A: 1.3 Ao V2 max: 169.4 cm/sec AI max marco antonio: 326.1 cm/sec MV dec slope: 327.8 cm/sec2 Ao max P.5 mmHg AI max P.5 mmHg Ao V2 mean: 123.0 cm/sec Ao mean P.4 mmHg AI dec slope: 96.0 cm/sec2 Ao V2 VTI: 38.8 cm AI P1/2t: 995.4 msec LV V1 max: 119.7 cm/sec PA V2 max: 112.9 cm/sec LV V1 max P.7 mmHg ECHO/Echo Complete Interpretation Summary Normal LV size. Left ventricular systolic function is normal. The left ventricular ejection fraction is 60 %. Mild (1+) aortic valve insufficiency. Mild (1+) eccentric mitral valve insufficiency. Ordering Physician: Ezra Saini Referring Physician: Ezra Saini Performed By: Taty Saini, RDCS, RVT
== END | disposition home or self-care (01) ==
LOC: CVS 14:06
PROVIDERS: Referring Provider Nurse Practitioner Family; Visit Provider Nurse Practitioner Family
DX: R06.09 Other forms of dyspnea (principal); I10 Essential (primary) hypertension; E78.5 Hyperlipidemia, unspecified
CPT/HCPCS: 93306

== ENCOUNTER → 2023-08-25 | Outpatient (CLI) | payer BC, SELFPAY | END | disposition home or self-care (01) | LOC: PSN 10:38 | PROVIDERS: Referring Provider Nurse Practitioner Family; Visit Provider Nurse Practitioner Family | DX: R06.09 Other forms of dyspnea (principal); G35 Multiple sclerosis | CPT/HCPCS: 94060; 94726; 94729 ==

== ENCOUNTER 2024-03-15 13:30 | Outpatient (RCR) | payer BC, SELFPAY ==
--- NOTE | 2024-02-21 11:21 | HP.PTEVAL_ITS ---
Patient's Visit Information Visit Information Visit Information: STEPHANIE VALENCIA is a 53 year old F referred to Physical Therapy by Dr. Dominique Zuleta DO with a diagnosis of ITB syndrome B. Date of Evaluation: 02/21/24 Physical Therapist: Anson Dickinson, DPT, OCS, CSCS Visit Plan Frequency: 2-3x /Week Duration: 4-6 Weeks Plan: 2-3x/week for 4-6 week (start 3x/week for 3) for 1. US B GT area nonthermal, desensitization massage B lateral hips and stretch ITB B. strengthen hips 2. When improved work towar d I general ex program at gym TENS with ice if needed. Subjective Subjective: B hip bursitis lateral hip and down ITB to the knee. It is constant tender, but worse if sits too long. Standing too long can cause it. Stairs can be worse if flared up. 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 Morning is more stiff. Has hurt for years but noticing it more b/c she is working now. 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 Worse with legs crossed. Sleeping is OK and sleeps on side back and forth and can hurt if lying on it directly. 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 basic ADLS are getting done. Painful if worked too long. Hobbies include , sedentary for a time. Exercise: not regular, stationary bike at home limited time. Pain B hip pain: Pain Intensity (Out of 10): 0 Pain Intensity Range: 0, 5 and 10 Comment: worst with pushing Objective Objective: Walks into PT I complaining of tenderness if touched B hips but no pain. Transfers and steps today without railing I. max tender to touch over B GT area and into ITB and piriformis area B. ITB mod tight. quad and HS are good. LB AROM WFL adn without pain , - slump and - SLR. hip PROM WFL adn without pain outside of ITB tightness. knee adn ankle aROM B WNL and without pain. reflexes 2/3 patella and achilles Strength hips abd and ext 3, flexion 3+, no pain, knees 4 and ankles 4+ no pain. Sensation LE WNL to gross lgiht touch. - ROMEO and _ FADDIR adn - hip scour. Balance/Special Test Scores Lower Extremity Functional Score: 48 Goals Goal 1:: Pain in hips 2/10 at worst and 75% improved. Goal Time Frame: 4-6 Weeks Goal 2:: Wrok without increased pain in hips Goal Time Frame: 4-6 Weeks Goal 3:: Abolish tenderness ITB adn priformis Goal Time Frame: 4-6 Weeks Goal 4:: LEFS 50 Goal Time Frame: 4-6 Weeks Rehabilitation Potential Physical Therapy Diagnosis: bursitis, ITB pain and tenderness limiting comfortable funciton Rehabilitation Potential: Fair Anticipated Interventions Patient/Client Instruction: Educate patient on: Condition and Plan of Care For the Purpose of:: To decrease pain, To increase ROM, To improve nutrient delivery to tissue and To increase tolerance to activity/condition/position Therapeutic Exercise to Include: Strength training, Postural training, Flexibilty training, Passive ROM and Active ROM For the Purpose of:: To decrease pain, To decrease swelling/inflammation, To improve nutrient delivery to tissue, To improve muscle performance and motor function, To increase tolerance to activity/condition/position and To improve ability of physical actions for home/community/work/leisure Manual Therapy Techniques to Include: Mobilization and Soft tissue mobilization Comment: desensitzation massage For the Purpose of:: To decrease pain and To improve nutrient delivery to tissue TENS: Yes Cryotherapy (ice pack, ice massage): Yes For the Purpose of:: To decrease pain and To decrease swelling/inflammation Text: Thank you for the opportunity to evaluate your patient. For Medicare and Medicare HMO plans, please review the plan of care and approve it. It will need to be FAXED BACK to us at [phone] for Medicare purposes. For Medicare only, by signing this I certify the plan of care. Please let me know if there are questions or concerns regarding this plan of care. Physician Signature: Date:
--- NOTE | 2024-05-14 15:39 | HP.PT.NRP ---
Patient Information Patient Information: STEPHANIE VALENCIA was seen in my office for initial evaluation on 02/21/24. The following Plan of Care was established for this patient: POC Established Initial Frequency: 2-3x /Week Initial Duration: 4-6 Weeks Anticipated Interventions Patient/Client Instruction: Educate patient on: Condition and Plan of Care For the Purpose of:: To decrease pain, To increase ROM, To improve nutrient delivery to tissue and To increase tolerance to activity/condition/position Therapeutic Exercise to Include: Strength training, Postural training, Flexibilty training, Passive ROM and Active ROM For the Purpose of:: To decrease pain, To decrease swelling/inflammation, To improve nutrient delivery to tissue, To improve muscle performance and motor function, To increase tolerance to activity/condition/position and To improve ability of physical actions for home/community/work/leisure Manual Therapy Techniques to Include: Mobilization and Soft tissue mobilization Comment: desensitzation massage For the Purpose of:: To decrease pain and To improve nutrient delivery to tissue TENS: Yes Cryotherapy (ice pack, ice massage): Yes For the Purpose of:: To decrease pain and To decrease swelling/inflammation Last Seen Last Seen: This patient was last seen in our office 03/15/24. Pertinent comments regarding their Physical therapy will appear below: Pt seen 6 visits of POC and was 75% better. she was to f/u 3 weeks later to ensure progress but did not schedule or attend. At this point, it has been over 8 weeks and I will discontinue due to nonattendance. At this point I will be discontinuing this patient from physical therapy. I would be happy to see this patient again in the future if found appropriate by the physician. Thank you! Anson Dickinson, DPT, OCS, CSCS Balance/Gait/Functional tests Balance/Special Test Scores Lower Extremity Functional Score: 48
== END 2024-03-15 19:00 | disposition home or self-care (01) ==
LOC: PT 13:30
PROVIDERS: PCP Internal Medicine; Referring Provider Internal Medicine; Visit Provider Internal Medicine
DX: M76.31 Iliotibial band syndrome, right leg (principal)
CPT/HCPCS: 97035; 97110; 97161

== ENCOUNTER → 2024-06-17 | Outpatient (CLI) | payer BC, SELFPAY ==
[2024-06-17 18:26] LABS: Erythrocyte Sedimentation Rate 9 mm/hr (0-30)
[2024-06-17 19:09] LABS: Amylase 40 U/L (25-115); CPK Total, Creatine Kinase 67 U/L (26-192); CRP 4.04 mg/L (0.0-3.0); Lipase 28 U/L (13-75)
== END | disposition home or self-care (01) ==
PROVIDERS: PCP Internal Medicine; Visit Provider Internal Medicine
DX: R10.13 Epigastric pain (principal); M79.10 Myalgia, unspecified site
CPT/HCPCS: 36415; 82150; 82550; 83690; 84443; 85652; 86140